=== PATIENT | male | born 1955 | race Caucasian/White ===

== ENCOUNTER 2016-11-06 21:51 | Emergency (ER) | payer OTHER ==
[2016-11-06] MEDS ORDERED: LISI10TA4 (22:10)
[2016-11-06] MEDS ORDERED: DOXY100T (22:10)
[2016-11-06 22:57] LABS: EOS # 0.1 K/mm3 (0.0-0.50); EOS % 2.4 % (0.0-3.0); LARGE UNSTAINED CELL # 0.1 K/mm3 (0.0-0.4); LARGE UNSTAINED CELL % 3.7 % (0.0-4.0); LYMPH # 1.6 K/mm3 (1.5-4.5); LYMPH % 42.3 % (24.0-44.0); MEAN CORPUSCULAR HEMOGLOBIN 33.2 pg (27.0-33.0); MEAN CORPUSCULAR HGB CONC 33.6 g/dl (32.0-36.5); MONO # 0.3 K/mm3 (0.0-0.8); MONO % 9.8 % (0.0-5.0); NEUTROPHILS # 1.4 K/mm3 (1.8-7.7); NEUTROPHILS % 40.8 % (36.0-66.0); PLATELET COUNT, AUTOMATED 122 k/mm3 (150-450); RED CELL DISTRIBUTION WIDTH 12.8 % (11.5-14.5); WHITE BLOOD COUNT 3.5 K/mm3 (4.0-10.0)
[2016-11-06 23:09] LABS: ANION GAP 11 MEQ/L (8-16); BLOOD UREA NITROGEN 3 MG/DL (7-18); CALCIUM LEVEL 7.9 MG/DL (8.8-10.2); CARBON DIOXIDE LEVEL 25 MEQ/L (21-32); CHLORIDE LEVEL 94 MEQ/L (98-107); CREATININE FOR GFR 0.59 MG/DL (0.70-1.30); GLOMERULAR FILTRATION RATE > 60.0 (>49); GLUCOSE, FASTING 106 MG/DL (80-110); POTASSIUM SERUM 3.9 MEQ/L (3.5-5.1); SODIUM LEVEL 130 MEQ/L (136-145)
--- NOTE | 2016-11-06 23:20 | REPUSA ---
CT of the head Clinical history: trauma. Technique: Multiple axial CT images were obtained through the head without administration of contrast . Findings: The ventricles and sulci are symmetric bilaterally. There is no evidence of acute hemorrhag e or infarct. There is no midline shift, mass effect, or extra-axial fluid collection. The osseous st ructures are unremarkable. The visualized paranasal sinuses and mastoid air cells are clear. Impression: Negative study.
--- NOTE | 2016-11-06 23:20 | REPUSA ---
CT of the cervical spine Clinical history: Pain, trauma. Technique: Multiple axial CT images were obtained through the cervical spine without administration o f contrast. Coronal and sagittal 3-D reconstructed images were also obtained. Comparison: None. Findings: The cervical vertebral bodies are in satisfactory positioning and alignment. No fractures or dislocat ions are demonstrated. The odontoid process is intact. Intervertebral disc space is moderately narrow ed at C6/C7. There is no evidence of facet subluxation. The neural foramen appear grossly patent. The cervical cranial junction is intact. The cervical spinal canal demonstrates normal caliber and conto ur without evidence of spinal stenosis. The surrounding soft tissues are within normal limits. Impression: No acute fracture or traumatic injury. Moderate degenerative disc disease at C6/C7.
[2016-11-06] MEDS ORDERED: NS 1,000 ML IV SCH (23:23)
--- NOTE | 2016-11-07 01:10 | REP ---
Clinical: Altered mental status. Comparison: None. Findings: Mediastinum and cardiac silhouette are within normal limits. Lung kraft demonstrate chronic interstitial changes. No acute consolidation, effusion, or pneumothorax. Old healed right rib fractures identified. Acute distal left clavicle fracture noted. Impression: 1. Acute left clavicle fracture. 2. Chronic-appearing pleuroparenchymal changes Signed by Qamar Lorenzo MD 11/07/2016 01:01 A
--- NOTE | 2016-11-07 01:15 | REP ---
Clinical: Trauma. Shoulder pain. Technique: Portable AP view of the left shoulder. Findings: Acute fracture of the distal clavicle noted with overlying soft tissue swelling. Glenohumeral joint appears intact. Impression: Acute fracture of the distal clavicle. Signed by Qamar Lorenzo MD 11/07/2016 01:06 A
[2016-11-07 12:33] VITALS: BP 136/90
== END 2016-11-07 12:36 | disposition home or self-care (01) ==
LOC: EDBD 21:51 → M ED 22:45
DX: S42.032A Displaced fracture of lateral end of left clavicle, initial encounter for closed fracture (principal); S09.90XA Unspecified injury of head, initial encounter; W18.09XA Striking against other object with subsequent fall, initial encounter; Y92.89 Other specified places as the place of occurrence of the external cause; Y93.89 Activity, other specified; Y99.8 Other external cause status; F10.129 Alcohol abuse with intoxication, unspecified; I10 Essential (primary) hypertension; M51.37 Other intervertebral disc degeneration, lumbosacral region; M51.36 Other intervertebral disc degeneration, lumbar region
CPT/HCPCS: 36415; 70450; 71020; 72125; 73020; 80048; 85025; 93041; 94760; 96360; 96361; 99285; G0480

== ENCOUNTER 2016-12-18 22:17 | Emergency (ER) | payer OTHER ==
[~2016-12-18 22:17] MED LIST: DOXY100T; LISI10TA4
[2016-12-18] MEDS ORDERED: NS 1,000 ML IV ONE (23:00)
[2016-12-18 23:18] LABS: MEAN CORPUSCULAR HEMOGLOBIN 34.9 pg (27.0-33.0); MEAN CORPUSCULAR HGB CONC 34.7 g/dl (32.0-36.5); MEAN CORPUSCULAR VOLUME 100.7 fl (80.0-96.0); RED CELL DISTRIBUTION WIDTH 12.4 % (11.5-14.5); WHITE BLOOD COUNT 3.4 K/mm3 (4.0-10.0)
[2016-12-18 23:48] LABS: ALBUMIN 3.7 GM/DL (3.2-5.2); ALKALINE PHOSPHATASE 185 U/L (45-117); ALT/SGPT 41 U/L (12-78); ANION GAP 10 MEQ/L (8-16); AST/SGOT 80 U/L (15-37); BILIRUBIN,DIRECT < 0.1 MG/DL (0.0-0.2); BILIRUBIN,TOTAL 0.4 MG/DL (0.2-1.0); BLOOD UREA NITROGEN 4 MG/DL (7-18); CALCIUM LEVEL 8.1 MG/DL (8.8-10.2); CARBON DIOXIDE LEVEL 24 MEQ/L (21-32); CHLORIDE LEVEL 98 MEQ/L (98-107); CREATININE FOR GFR 0.59 MG/DL (0.70-1.30); GLOMERULAR FILTRATION RATE > 60.0 (>49); GLUCOSE, FASTING 101 MG/DL (80-110); POTASSIUM SERUM 3.9 MEQ/L (3.5-5.1); SODIUM LEVEL 132 MEQ/L (136-145); TOTAL PROTEIN 7.8 GM/DL (6.4-8.2)
[2016-12-19 00:34] LABS: METHADONE URINE NEGATIVE (NEGATIVE)
[2016-12-19] MEDS ORDERED: MORPHINE 4 MG/ML 1ML SYRINGE IV ONE (06:15)
[2016-12-19 11:15] VITALS: BP 132/77
[2016-12-19] MEDS ORDERED: DOXYCYCLINE HYCLATE 100 MG TAB PO ONE (11:15)
[2016-12-19] MEDS ORDERED: LISINOPRIL 10 MG TAB PO ONE (11:15)
[2016-12-19 17:02] VITALS: BP 142/80
== END 2016-12-19 17:15 | disposition home or self-care (01) ==
LOC: M ED 22:17
DX: F10.120 Alcohol abuse with intoxication, uncomplicated (principal); F32.9 Major depressive disorder, single episode, unspecified; I10 Essential (primary) hypertension; J45.909 Unspecified asthma, uncomplicated; J44.9 Chronic obstructive pulmonary disease, unspecified; M06.9 Rheumatoid arthritis, unspecified; Z79.899 Other long term (current) drug therapy

== ENCOUNTER → 2017-04-09 | Outpatient (REF) | payer OTHER ==
[2017-04-09 15:16] LABS: BASO # 0.1 10^3/uL (0.0-0.2); BASO % 1.1 % (0.0-1.0); EOS # 0.1 10^3/uL (0.0-0.50); EOS % 1.9 % (0.0-3.0); IMMATURE GRANULOCYTE % 0.2 % (0-0); LYMPH # 1.3 10^3/uL (1.5-4.5); LYMPH % 27.5 % (24.0-44.0); MEAN CORPUSCULAR HGB CONC 34.8 g/dl (32.0-36.5); MEAN CORPUSCULAR VOLUME 94.9 fl (80.0-96.0); MONO # 0.5 10^3/uL (0.0-0.8); MONO % 10.7 % (0.0-5.0); NEUTROPHILS # 2.8 10^3/uL (1.8-7.7); NEUTROPHILS % 58.6 % (36.0-66.0); PLATELET COUNT, AUTOMATED 238 10^3/uL (150-450); RED CELL DISTRIBUTION WIDTH 12.7 % (11.5-14.5); WHITE BLOOD COUNT 4.7 10^3/uL (4.0-10.0)
[2017-04-09 15:21] LABS: ADD MORPHOLOGY? NO
[2017-04-09 15:42] LABS: FOLATE 7.1 NG/ML (>5.4); VITAMIN B12 LEVEL 401 PG/ML (247-911)
[2017-04-09 16:24] LABS: ALBUMIN 3.5 GM/DL (3.2-5.2); ALBUMIN/GLOBULIN RATIO 0.97 (1.00-1.93); ALKALINE PHOSPHATASE 133 U/L (45-117); ALT/SGPT 27 U/L (12-78); ANION GAP 8 MEQ/L (8-16); AST/SGOT 45 U/L (15-37); BILIRUBIN,TOTAL 0.6 MG/DL (0.2-1.0); BLOOD UREA NITROGEN 6 MG/DL (7-18); CALCIUM LEVEL 9.1 MG/DL (8.8-10.2); CARBON DIOXIDE LEVEL 26 MEQ/L (21-32); CHLORIDE LEVEL 98 MEQ/L (98-107); CREATININE FOR GFR 0.67 MG/DL (0.70-1.30); GLOMERULAR FILTRATION RATE > 60.0 (>49); GLUCOSE, FASTING 104 MG/DL (80-110); POTASSIUM SERUM 4.5 MEQ/L (3.5-5.1); SODIUM LEVEL 132 MEQ/L (136-145); TOTAL PROTEIN 7.1 GM/DL (6.4-8.2)
== END ==
LOC: M LAB REF 11:50
PROVIDERS: ATTEND Nurse Practitioner Adult Health
DX: D64.9 Anemia, unspecified (principal)

== ENCOUNTER 2019-06-10 19:44 | Inpatient (IN) | payer OTHER ==
[~2019-06-10] VITALS: Ht 185.4 cm; Wt 61.0 kg
[2019-06-10 20:50] LABS: BASO # 0.1 10^3/uL (0.0-0.2); BASO % 1.4 % (0.0-1.0); EOS # 0.2 10^3/uL (0.0-0.5); EOS % 4.7 % (0.0-3.0); HEMOGLOBIN 10.5 g/dl (13.5-17.5); LYMPH # 1.1 10^3/uL (1.5-5.0); LYMPH % 29.3 % (24.0-44.0); MEAN CORPUSCULAR HEMOGLOBIN 33.4 pg (27.0-33.0); MEAN CORPUSCULAR HGB CONC 36.2 g/dl (32.0-36.5); MEAN CORPUSCULAR VOLUME 92.4 fl (80.0-96.0); MONO # 0.4 10^3/uL (0.0-0.8); MONO % 11.3 % (0.0-5.0); NEUTROPHILS # 1.9 10^3/uL (1.5-8.5); NEUTROPHILS % 52.7 % (36.0-66.0); PLATELET COUNT, AUTOMATED 197 10^3/uL (150-450); RED BLOOD COUNT 3.14 10^6/uL (4.30-6.10); WHITE BLOOD COUNT 3.6 10^3/uL (4.0-10.0)
--- NOTE | 2019-06-10 21:08 | REPVR ---
PROCEDURE INFORMATION: Exam: CT Head Without Contrast Exam date and time: 06/10/2019 8:53 PM Age: 64 years old Clinical history: Syncope and collapse TECHNIQUE: Imaging protocol: Computed tomography of the head without contrast. Radiation optimization: All CT scans at this facility use at least one of these dose optimization techniques: automated exposure control; mA and/or kV adjustment per patient size (includes targeted exams where dose is matched to clinical indication); or iterative reconstruction. COMPARISON: CT Head without contrast 11/06/2016 11:01 PM FINDINGS: Brain: Mild generalized cerebral volume loss and mild patchy white matter hypoattenuation, commonly secondary to chronic small vessel ischemic change. Moderate intracranial atherosclerosis. No acute intracranial hemorrhage or evidence of acute ischemic infarction within constraints of axial only imaging technique. Ventricles: Normal. No ventriculomegaly. Bones/joints: Unremarkable. No acute fracture. Sinuses: Visualized sinuses are unremarkable. No fluid levels. Mastoid air cells: Visualized mastoid air cells are well aerated. Soft tissues: Unremarkable. IMPRESSION: No acute intracranial abnormality. Electronically signed by: Irving Barron On 06/10/2019 21:08:12 PM
--- NOTE | 2019-06-10 21:13 | REPVR ---
PROCEDURE INFORMATION: Exam: CT Cervical Spine Without Contrast Exam date and time: 06/10/2019 8:53 PM Age: 64 years old Clinical history: Other: Syncope TECHNIQUE: Imaging protocol: Computed tomography images of the cervical spine without contrast. Radiation optimization: All CT scans at this facility use at least one of these dose optimization techniques: automated exposure control; mA and/or kV adjustment per patient size (includes targeted exams where dose is matched to clinical indication); or iterative reconstruction. COMPARISON: CT Spine,cervical w/o contrast 11/06/2016 11:01 PM FINDINGS: Vertebrae: No acute fracture. Normal alignment. Discs/Spinal canal/Neural foramina: No severe osseous spinal canal stenosis. Multilevel overall moderate degenerative findings again most pronounced at C6-7. Multilevel facet arthrosis. Other bones/joints: Left posterior first rib fracture is noted, which has chronic features although is new from the comparison CT from 2016. Soft tissues: Moderate atherosclerosis. Lungs: Left apical pleural scarring. IMPRESSION: 1. No acute cervical spine fracture or traumatic malalignment. 2. Left posterior first rib fracture is noted, which has chronic features although is new from the comparison CT from 2016. Electronically signed by: Irving Barron On 06/10/2019 21:13:36 PM
[2019-06-10 21:37] LABS: ALBUMIN 2.8 GM/DL (3.2-5.2); ALT/SGPT 15 U/L (12-78); BILIRUBIN,DIRECT 0.3 MG/DL (0.0-0.2); BILIRUBIN,TOTAL 0.7 MG/DL (0.2-1.0); BLOOD UREA NITROGEN 3 MG/DL (7-18); CALCIUM LEVEL 8.3 MG/DL (8.8-10.2); CARBON DIOXIDE LEVEL 22 MEQ/L (21-32); CHLORIDE LEVEL 77 MEQ/L (98-107); CK-MB VALUE MASS 5.3 NG/ML (<3.6); CPK CREATINE PHOSPHOKINASE 137 U/L (39-308); CREATININE FOR GFR 0.54 MG/DL (0.70-1.30); ETHYL ALCOHOL (ETHANOL) 0.196 % (0.000-0.010); GLOMERULAR FILTRATION RATE > 60.0 (>49); GLUCOSE, FASTING 91 MG/DL (70-100); MB/CK RELATIVE INDEX 3.87 (< OR =4); POTASSIUM SERUM 3.8 MEQ/L (3.5-5.1); SODIUM LEVEL 112 MEQ/L (136-145); TOTAL PROTEIN 6.4 GM/DL (6.4-8.2); TROPONIN I < 0.02 NG/ML (< 0.10)
[2019-06-10] MEDS ORDERED: VITA50005 PO (22:14)
[2019-06-10] MEDS ORDERED: OMEP20TA9 PO (22:14)
[2019-06-10] MEDS ORDERED: DOXY100T PO (22:14)
[2019-06-10] MEDS ORDERED: LISI10TA4 PO (22:14)
[2019-06-10] MEDS ORDERED: TAB-TAB PO (22:14)
[2019-06-10] MEDS ORDERED: MULTIVITAMIN -ADULT INJECTION 10 ML, THIAMINE INJection 100 MG, FOLIC ACID 1 MG in NS 1... IV ONE (22:15)
[2019-06-10] MEDS ORDERED: NS 1,000 ML IV ONE (22:15)
[2019-06-10 22:41] LABS: APPEARANCE, URINE CLEAR (CLEAR); BACTERIA, URINE AUTO 1+ (NEGATIVE); BILIRUBIN, URINE AUTO NEGATIVE (NEGATIVE); BLOOD, URINE BLOOD NEGATIVE (NEGATIVE); COLOR, URINE YELLOW (YELLOW); GLUCOSE, URINE (UA) AUTO NEGATIVE (NEGATIVE); KETONE, URINE AUTO TRACE mg/dL (NEGATIVE); LEUKOCYTE ESTERASE, URINE AUTO NEGATIVE (NEGATIVE); NITRITE, URINE AUTO NEGATIVE (NEGATIVE); PROTEIN, URINE AUTO NEGATIVE (NEGATIVE); RBC, URINE AUTO 0 /HPF (0-3); SPECIFIC GRAVITY URINE AUTO 1.005 (1.002-1.035); SQUAMOUS EPITHELIAL CELL UR AU 0 /HPF (0-6); UROBILINOGEN, URINE AUTO 0.2 mg/dL (0.0-2.0); WBC, URINE AUTO 0 /HPF (0-3)
[2019-06-10 22:58] LABS: OSMOLALITY SERUM 274 MOSM/KG (280-301)
[2019-06-10 23:00] LABS: CREATININE,RANDOM URINE 46.2 MG/DL
[2019-06-10 23:10] LABS: VENOUS HCO3 19.3 MEQ/L (23.0-27.0); VENOUS O2 SATURATION 95.7 % (60.0-80.0); VENOUS STANDARD HCO3 21.1 MEQ/L; VENOUS TOTAL CO2 20.1 MEQ/L (24.0-28.0)
--- NOTE | 2019-06-10 23:26 | HPEPDOC ---
[facility] Medical History & Physical Date of Admission Jun 11, 2019 Date of Service: Jun 11, 2019 Other Provider Lesly CORONADO Attending Physician: BUBBA MCCLURE MD History and Physical CHIEF COMPLAINT: Head trauma HISTORY OF PRESENT ILLNESS: This is a 64-year-old male with a pertinent past medical history of alcohol abuse who presented to the ER earlier this afternoon head trauma and he was brought in via EMS. On the ER T-sheet, it was recorded that that the patient was out drinking at the bar early in the afternoon where he had roughly about 15 beers. When he was in the bathroom he felt dizzy and passed out and possibly hit the back of his head of an unknown object. It was reported by bystanders that he was in the bathroom for about 30 minutes possibly. The door had to be broken down to get to him. Patient at the time of the exam was not the best historian was very scattered. He agreed to much of the EMS report. He denies having any other symptoms. He does admit to having some gait imbalance first episode of couple months ago but are not consistent. He contributes all his to alcohol. He admits that he does not eat 3 times a day but does drink heavily which he does not deny. Upon arrival to the ED he was covered in feces, had pain in the back of his head but no other complaints. He denies hair loss, visual changes, chest pain, shortness of breath, cough, nausea, vomiting, diarrhea, abdominal pain, muscle aches. REVIEW OF SYSTEMS: 10 systems reviewed and negative other than HPI PAST MEDICAL HISTORY: 1. Alcohol abuse 2. Hypertension 3. Rosacea 4. Acid reflux PAST SURGICAL HISTORY: 1. Hernia repair HOME MEDICATIONS: Please see below. ALLERGIES: Please see below SOCIAL HISTORY: Tobacco use: Never ETOH: Daily 5-8 beers a day Illicit drug use: Denies CODE STATUS: FULL CODE FAMILY HISTORY: Reviewed and noncontributory PHYSICAL EXAMINATION: VITAL SIGNS: See below GENERAL: Patient foul-smelling laying bed awake alert oriented speaking in complete sentences no acute distress HEENT: External ocular movements intact. Pupils are equal and reactive slightly dry mucous membranes with no JVD CARDIOVASCULAR: S1 S2 regular no additional heart sounds appreciated. RESPIRATORY: Clear to auscultation bilaterally. No audible wheezing OR rales ABDOMINAL: Bowel sounds present abdomen soft and nontender EXTREMITIES: No clubbing cyanosis 1+ pitting edema in the lower extremities bilaterally. Left lower leg wound wraps around to the base. No open sites noted. Erythematous in nature. No increased warmth. Scaly lesions superficially. Slight tenderness to palpation near the ankle and dorsal aspect of the foot but not consistent throughout. Pedal pulses were difficult to palpate bilaterally. Some increased stiffness on the left elbow cannot straighten out completely when compared to right. No asterixis noted bilaterally. NEUROLOGICAL: Spontaneously moves all 4 extremities cranial 2 through 12 grossly intact no gross focal deficits appreciated PSYCHOLOGICAL: Appropriate. Slightly inebriated LABORATORY DATA: See below. MICROBIOLOGY: Please see below. IMAGIN06/10/[address] 1. No acute cervical spine fracture or traumatic malalignment. 2. Left posterior first rib fracture is noted, which has chronic features Cervical spine CT - No acute intracranial abnormality. ASSESSMENT & PLAN: This is a 54-year-old male presenting with hyponatremia and alcohol abuse PROBLEMS: 1. Chronic severe hyponatremia. Unsure of duration of hyponatremia so also was chronic. In the ED sodium was found to be 112. Volume status appears slightly hypovolemic. He does have some slight mild symptomology he is slow to respond to questioning and some left-sided muscle rigidity in the upper extremities. He does endorse gait and balance but not consistent. Recommendations did include i nfusion of 3% saline at 15mls/hrs for 12 hours plus 1 mg IV desmopressin every 6 hours for 12 hours until he reaches a sodium of 125mEq/hr. But at this current time we will give him 250ml of 3% normal saline and nephrology will come see the patient. For now, well monitor with neuro checks every 2 hours and go from there. Ultimately we want to monitor no increase of more than 6-8mEq/L within the first 24 hours if you would like to be conservative. 2. Alcohol abuse. He denies having any history of alcohol seizures. s/p banana bag in ER. [facility] protocol in place. Folic acid and thiamine daily, Lorazepam 1 mg IV every hour when necessary for anxiety and agitation. 3. Hypertension - Patient states that he has a history of hypertension but he is not compliant with his medication and there is documented lisinopril 10 mg at nighttime that needs to be verified. If blood pressures are elevated while admitted can consider restarting. 4. Left lower leg wound possible cellulitis . Not the best hygiene skin appears slightly erythematous with dry likes with no opened wounds visualized. No incr eased warmth but slight tenderness on palpation around the site. Minimal edema bilaterally in the lower extremities. Wound consult has been placed. We will cover him with Bactrim SS 1 tab BID for 5 days reevaluate to see if his clinical response. 5. Rosacea. We will hold his doxycycline that he takes at home at this current time 6. Acid reflux. May restart his home omeprazole once reconciled 7. Head trauma. CT of the head in the ER negative for any acute findings. No contusions noted a hematoma noted. 8.PT consulted DVT PROPHYLAXIS: TEDs DISPOSITION: more than 2 nights Vital Signs Vital Signs Date Time Temp Pulse Resp B/P (MAP) Pulse Ox O2 Delivery O2 Flow Rate FiO2 06/10/19 23:00 75 123/66 (85) 99 Room Air 06/10/19 20:27 97.1 20 Laboratory Data Labs 24H Laboratory Tests 2 06/10/19 20:40: Bedside Glucose (Misc Panel) 79L 06/10/19 20:42: Immature Granulocyte % (Auto) 0.6, Neutrophils (%) (Auto) 52.7, Lymphocytes (%) (Auto) 29.3, Monocytes (%) (Auto) 11.3H, Eosinophils (%) (Auto) 4.7H, Basophils (%) (Auto) 1.4H, Neutrophils # (Auto) 1.9, Lymphocytes # (Auto) 1.1L, Monocytes # (Auto) 0.4, Eosinophils # (Auto) 0.2, Basophils # (Auto) 0.1, Nucleated Red Blood Cells % (auto) 0.0, Anion Gap 13, Glomerular Filtration Rate > 60.0, Calcium Level 8.3L, Total Bilirubin 0.7, Direct Bilirubin 0.3H, Aspartate Amino Transf (AST/SGOT) 30, Alanine Aminotransferase (ALT/SGPT) 15, Alkaline Phosphatase 82, Total Creatine Kinase 137, Creatine Kinase MB 5.3H, Creatine Kinase MB Relative Index 3.87, Troponin I < 0.02, Total Protein 6.4, Albumin 2.8L, Albumin/Globulin Ratio 0.78L, Thyroid Stimulating Hormone (TSH) 1.930, Free Thyroxine 1.20, Ethyl Alcohol Level 0.196H 06/10/19 22:25: Urine Random Osmolality 201L, Osmolality 274L 06/10/19 22:26: Urine Color YELLOW, Urine Appearance CLEAR, Urine pH 6.0, Urine Specific [place] 1.005, Urine Protein NEGATIVE, Urine Glucose (Auto)(UA) NEGATIVE, Urine Ketones (Auto) TRACEH, Urine Blood NEGATIVE, Urine Nitrite NEGATIVE, Urine Bilirubin NEGATIVE, Urine Urobilinogen 0.2, Urine Leukocyte Esterase (Auto) NEGATIVE, U rine WBC (Auto) 0, Urine RBC (Auto) 0, Urine Hyaline Casts (Auto) 0, Urine Bacteria (Auto) 1+H, Urine Squamous Epithelial Cells 0, Urine Sperm (Auto) , Urine Random Creatinine 46.2, Urine Random Sodium 17 06/10/19 23:04: Blood Gas Puncture Site UNKNOWN, Blood Gas Bicarbonate Standard 21.1, Venous Blood pH 7.440H, Venous Blood Partial Pressure CO2 29.0L, Venous Blood Partial Pressure O2 85.0H, Venous Blood Total Carbon Dioxide 20.1L, Venous Blood HCO3 19.3L, Venous Blood Oxygen Saturation 95.7H, Venous Blood Base Excess -4.0L CBC/BMP Laboratory Tests 06/10/19 20:42 Home Medications Scheduled Doxycycline Hyclate (Doxycycline Hyclate) 100 Mg Tablet, 100 MG PO QHS TAKES FOR ROSACEA Ergocalciferol (Vitamin D2) (Vitamin D2) 50,000 Unit Capsule, 50,000 UNIT PO 1XWK Lisinopril (Lisinopril) 10 Mg Tablet, 10 MG PO QHS Multivitamin (Tab-A-Zaire) 1 Each Tablet, 1 TAB PO QHS Omeprazole (Omeprazole) 20 Mg Tablet.dr, 20 MG PO QHS Allergies Coded Allergies: No Known Allergies (Unverified , 12/18/16) A-FIB/CHADSVASC A-FIB History Current/History of A-Fib/PAF?: No Current PO Anticoag Therapy: No GME ATTESTATION GME ATTESTATION My faculty preceptor for this patient encounter was physically present during the encounter and was fully available. All aspects of the patient interview, examination, medical decision making process, and medical care plan development were reviewed and approved by the faculty preceptor. The faculty preceptor is aware and concurs with the plan as stated in the body of this note and will attest to such by his/her cosignature. ATTENDING NOTE I examined at 1140PM and reviewed & edited the note written by MARITA Amor DO Jun 10, 2019 23:26 BUBBA MCCLURE MD Jun 11, 2019 00:55
[2019-06-11] VITALS (29 sets, daily range): BP systolic 70–170; BP diastolic 40–86
[2019-06-11] MEDS ORDERED: DESMOPRESSIN ACETATE 1 MCG in NS 50 ML IV SCH ×2
[2019-06-11] MEDS ORDERED: SODIUM CHLORIDE 3% 500 ML IV SCH
[2019-06-11 00:13] LABS: BLOOD UREA NITROGEN 3 MG/DL (7-18); CALCIUM LEVEL 7.6 MG/DL (8.8-10.2); CARBON DIOXIDE LEVEL 23 MEQ/L (21-32); CHLORIDE LEVEL 82 MEQ/L (98-107); GLOMERULAR FILTRATION RATE > 60.0 (>49); GLUCOSE, FASTING 84 MG/DL (70-100); POTASSIUM SERUM 3.8 MEQ/L (3.5-5.1); SODIUM LEVEL 115 MEQ/L (136-145)
[2019-06-11] MEDS ORDERED: METAL LOCK LOOP XX ONE (00:13)
[2019-06-11] MEDS: BACTRIM 80MG/400MG TAB PO SCH ×3 (01:29→20:37)
[2019-06-11] MEDS ORDERED: SODIUM CHLORIDE 3% 250 ML IV SCH (01:30)
[2019-06-11 05:45] LABS: BLOOD UREA NITROGEN 3 MG/DL (7-18); CALCIUM LEVEL 7.9 MG/DL (8.8-10.2); CARBON DIOXIDE LEVEL 24 MEQ/L (21-32); CHLORIDE LEVEL 85 MEQ/L (98-107); CREATININE FOR GFR 0.39 MG/DL (0.70-1.30); GLOMERULAR FILTRATION RATE > 60.0 (>49); GLUCOSE, FASTING 78 MG/DL (70-100); POTASSIUM SERUM 3.6 MEQ/L (3.5-5.1); SODIUM LEVEL 118 MEQ/L (136-145)
[2019-06-11 06:08] LABS: BLOOD UREA NITROGEN 2 MG/DL (7-18); C REACTIVE PROTEIN QUANTITATIV 1.64 MG/DL (0.00-0.30); CALCIUM LEVEL 7.5 MG/DL (8.8-10.2); CARBON DIOXIDE LEVEL 25 MEQ/L (21-32); CHLORIDE LEVEL 83 MEQ/L (98-107); CREATININE FOR GFR 0.41 MG/DL (0.70-1.30); FERRITIN 313 NG/ML (26-388); GLOMERULAR FILTRATION RATE > 60.0 (>49); GLUCOSE, FASTING 84 MG/DL (70-100); IRON (FE) 69 UG/DL (65-175); PERCENT SATURATION 39.4 % (19.7-50.0); POTASSIUM SERUM 3.4 MEQ/L (3.5-5.1); SODIUM LEVEL 117 MEQ/L (136-145); TOTAL IRON BINDING CAPACITY 175 UG/DL (250-450)
[2019-06-11 07:11] LABS: OSMOLALITY URINE 149 MOSM/KG (500-800)
[2019-06-11 07:12] LABS: SODIUM,RANDOM URINE 30 MEQ/L
[2019-06-11] MEDS ORDERED: THIAMINE 100 MG TAB PO SCH (09:00)
--- NOTE | 2019-06-11 09:32 | REP ---
Clinical: Left lower extremity pain and swelling . Technique: Huerta scale and color Doppler evaluation using linear high frequency transducer. Findings: Ultrasound examination of the left lower extremity deep venous structures from the common femoral vein to the popliteal vein demonstrates normal compressibility flow and wave patterns in response to respiration and augmentation. There is no evidence for deep venous thrombosis. Impression: No evidence for deep venous thrombosis. Electronically Signed by Qamar Lorenzo MD 06/11/2019 09:23 A
--- NOTE | 2019-06-11 09:35 | REP ---
Clinical: Abnormal liver function tests. Possible cirrhosis. Technique: Real time cardoza scale ultrasound examination using curved array transducer with color evaluation. Findings: The liver demonstrates coarsened echotexture without nodular contour or obvious focal lesion and without evidence for hepatomegaly. The pancreas is incompletely evaluated due to interposed bowel gas but visualized portions appear normal. The gallbladder demonstrates few folds and multiple small gallstones without wall thickening or pericholecystic fluid. No biliary ductal dilatation is appreciated and the common bile duct measures 3.7 mm diameter. The right kidney is normal in reniform shape without hydronephrosis and measures 10.5 x 6.1 x 5.3 cm. 1.7 cm simple mid pole cyst noted. No ascites. Incidental right pleural effusion. Impression: 1. Coarsened hepatic echotexture suggests hepatocellular disease. No further hepatic abnormalities noted. 2. Cholelithiasis. 3. 1.7 cm simple right renal cyst. 4. Right pleural effusion. Electronically Signed by Qamar Lorenzo MD 06/11/2019 09:26 A
[2019-06-11] MEDS: FOLIC ACID 1 MG TAB PO SCH (10:12)
[2019-06-11 10:47] LABS: BLOOD UREA NITROGEN 2 MG/DL (7-18); CALCIUM LEVEL 8.3 MG/DL (8.8-10.2); CARBON DIOXIDE LEVEL 23 MEQ/L (21-32); CHLORIDE LEVEL 86 MEQ/L (98-107); CREATININE FOR GFR 0.45 MG/DL (0.70-1.30); GLOMERULAR FILTRATION RATE > 60.0 (>49); GLUCOSE, FASTING 55 MG/DL (70-100); POTASSIUM SERUM 3.8 MEQ/L (3.5-5.1); SODIUM LEVEL 122 MEQ/L (136-145)
[2019-06-11] MEDS: D5W 1,000 ML IV SCH ×2 (11:15→16:09)
--- NOTE | 2019-06-11 14:38 | IPNPDOC ---
Text Note Date of Service The patient was seen on 06/11/19. NOTE SUBJECTIVE: -feels cold, no tremor as of this morning -Otherwise reports feeling "OK" PHYSICAL EXAMINATION: VITAL SIGNS: hemodynamically stable, afebrile GENERAL:Sleeping peacefully, awake on voice, speaking in complete sentences, in no acute distress HEENT: NCAT, bitemporal wasting, PERRLA, EOMI, poor dentition, MMM CARDIOVASCULAR: RRR, no mrg RESPIRATORY: CTAB, with no wheezing, crackles or rhonchi ABDOMINAL: Normoactive bowel sounds, soft, NTND EXTREMITIES: No clubbing cyanosis, 1+ pitting edema in bilateral LE. Left lower leg with erythematous scaly skin with skin sloughing off and edematous with cellulitic boundary outlined by marker, slightly beginning to recede. No open sites noted. No increased warmth. Non tender on palpation. NEUROLOGICAL: Spontaneously moves all 4 extremities cranial 2 through 12 grossly intact, no gross focal deficits, no asterixis noted bilaterally. PSYCHOLOGICAL: AOx3 LABORATORY DATA: Reviewed. Na remains at 122 this morning. K3.8, Cr 0.45, Hgb 10.5, Hct 29, WBC 3.6 MICROBIOLOGY: Please see below. IMAGIN06/10/[address] 1. No acute cervical spine fracture or traumatic malalignment. 2. Left posterior first rib fracture is noted, which has chronic features Cervical spine CT - No acute intracranial abnormality. ASSESSMENT & PLAN: 54-year-old man with a history of alcohol use disorder who presented intoxicated and found to have severe hyponatremia with elevated alcohol levels. PROBLEMS: 1. Chronic severe hyponatremia. Unsure of duration of hyponatremia thought it appears chronic and patient's exam is unremarkable. Hypovolemic at presentation. -Serum osmoles only boderline low despite severe hypoNa, likely because of alcohol -Last night the team contemplated DDAVP and hypertonic saline but after the rapid correction after NS in the ED, decided against it, so it was held and per the recommendation of nephrology, decided to allow him to drink to thirst and self correct Ultimately we want to monitor no increase of more than 6-8mEq/L within the first 24 hours if you would like to be conservative. 2. Alcohol use disorder: He denies having any history of alcohol seizures. s/p banana bag in ER. -CIWA protocol in place. -Folic acid and thiamine daily - Lorazepam 1 mg IV every hour when necessary for anxiety and agitation. 3. Hypertension - Patient states that he has a history of hypertension but he is not compliant with his medication and there is documented lisinopril 10 mg at nighttime that needs to be verified. -If blood pressures are elevated while admitted can consider restarting lisinopril 4. Left lower leg wound possible cellulitis . Poor hygiene No increased warmth but was slightly tenderness on palpation around the site on admission with some edema bilaterally in the lower extremities. -Pending wound consult. -Bactrim SS 1 tab BID for 5 days 5. Rosacea. Continue to hold doxycycline that he takes at home at this time 6. GERD. Home omeprazole 7. Head trauma. CT of the head in the ER negative for any acute findings. No contusions noted a hematoma noted. 8.PT consulted DVT PROPHYLAXIS: TEDs VS,Fishbone, I+O VS, Fishbone, I+O Laboratory Tests 06/10/19 20:42 06/10/19 22:25 06/11/19 02:33 06/11/19 05:01 06/11/19 10:05 Vital Signs Date Time Temp Pulse Resp B/P (MAP) Pulse Ox O2 Delivery O2 Flow Rate FiO2 06/11/19 07:46 98.4 87 20 170/78 (108) 99 Room Air I&O- Last 24 Hours up to 6 AM 06/11/19 06:00 Intake Total 250 ml Output Total 1000 ml Balance -750 ml KETURAH NAVARRETE MD Jun 11, 2019 14:38
[2019-06-11] MEDS: LORazepam 2 MG/ML VIAL (J2060) IV PRN ×4 (16:24→23:00)
[2019-06-11] MEDS ORDERED: NS 1,000 ML IV SCH ×3 (17:00→21:15)
[2019-06-11] MEDS ORDERED: D5W/0.9% SODIUM CHLORIDE 1,000 ML IV SCH (17:15)
[2019-06-11] MEDS ORDERED: dexmedeTOMidine 200 MCG in IV 1 EA IV SCH (17:15)
[2019-06-11 17:34] LABS: HEMATOCRIT 29.2 % (42.0-52.0); HEMOGLOBIN 10.6 g/dl (13.5-17.5); MEAN CORPUSCULAR HEMOGLOBIN 33.7 pg (27.0-33.0); MEAN CORPUSCULAR HGB CONC 36.3 g/dl (32.0-36.5); MEAN CORPUSCULAR VOLUME 92.7 fl (80.0-96.0); PLATELET COUNT, AUTOMATED 153 10^3/uL (150-450); RED BLOOD COUNT 3.15 10^6/uL (4.30-6.10); WHITE BLOOD COUNT 2.9 10^3/uL (4.0-10.0)
[2019-06-11] MEDS ORDERED: ACETAMINOPHEN 650 MG SUPP PR PRN (17:45)
[2019-06-11] MEDS ORDERED: dexmedeTOMidine 200 MCG in IV 1 EA IV ONE (17:45)
[2019-06-11 17:50] LABS: SODIUM LEVEL 119 MEQ/L (136-145)
--- NOTE | 2019-06-11 17:59 | ECGEPIP ---
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
[2019-06-11] MEDS ORDERED: dexmedeTOMidine 60 MCG in IV 1 EA IV ONE (18:00)
[2019-06-11 18:21] LABS: BLOOD UREA NITROGEN 3 MG/DL (7-18); CALCIUM LEVEL 8.7 MG/DL (8.8-10.2); CARBON DIOXIDE LEVEL 22 MEQ/L (21-32); CHLORIDE LEVEL 82 MEQ/L (98-107); CREATININE FOR GFR 0.78 MG/DL (0.70-1.30); GLOMERULAR FILTRATION RATE > 60.0 (>49); GLUCOSE, FASTING 104 MG/DL (70-100); POTASSIUM SERUM 3.6 MEQ/L (3.5-5.1)
[2019-06-11] MEDS ORDERED: D5/0.45%NACL 1000ML IV ONE (18:30)
[2019-06-11] MEDS ORDERED: D5W/0.45% SODIUM CHLORIDE 1,000 ML IV SCH (19:30)
[2019-06-11 19:55] LABS: MAGNESIUM LEVEL 1.2 MG/DL (1.8-2.4)
[2019-06-11 20:57] LABS: BLOOD UREA NITROGEN 3 MG/DL (7-18); CALCIUM LEVEL 8.3 MG/DL (8.8-10.2); CARBON DIOXIDE LEVEL 27 MEQ/L (21-32); CHLORIDE LEVEL 83 MEQ/L (98-107); CREATININE FOR GFR 0.78 MG/DL (0.70-1.30); GLOMERULAR FILTRATION RATE > 60.0 (>49); GLUCOSE, FASTING 117 MG/DL (70-100); POTASSIUM SERUM 3.4 MEQ/L (3.5-5.1); SODIUM LEVEL 118 MEQ/L (136-145)
[2019-06-11] MEDS ORDERED: MAGNESIUM OXIDE 400 MG TAB (MAG-OX) PO SCH (21:00)
[2019-06-11] MEDS: KCL 10MEQ/100ML SWI (KRUN) 10 MEQ in IV 1 EA IV SCH ×2 (21:16→23:00)
[2019-06-11 21:39] LABS: OSMOLALITY URINE 343 MOSM/KG (500-800)
[2019-06-11 21:50] LABS: SODIUM,RANDOM URINE 99 MEQ/L
[2019-06-11 22:16] LABS: FOLATE > 24.0 NG/ML (>5.4); VITAMIN B12 LEVEL 577 PG/ML (247-911)
[2019-06-12] VITALS (41 sets, daily range): BP systolic 98–198; BP diastolic 57–105
[2019-06-12] MEDS: LORazepam 2 MG/ML VIAL (J2060) IV PRN ×6 (01:43→22:39)
[2019-06-12 02:41] LABS: BLOOD UREA NITROGEN 3 MG/DL (7-18); CARBON DIOXIDE LEVEL 26 MEQ/L (21-32); CHLORIDE LEVEL 83 MEQ/L (98-107); CREATININE FOR GFR 0.58 MG/DL (0.70-1.30); GLOMERULAR FILTRATION RATE > 60.0 (>49); GLUCOSE, FASTING 110 MG/DL (70-100); SODIUM LEVEL 118 MEQ/L (136-145)
[2019-06-12] MEDS ORDERED: SODIUM CHLORIDE 3% 500 ML IV SCH (03:30)
[2019-06-12 05:55] LABS: HEMATOCRIT 30.2 % (42.0-52.0); MEAN CORPUSCULAR HEMOGLOBIN 33.4 pg (27.0-33.0); MEAN CORPUSCULAR HGB CONC 36.4 g/dl (32.0-36.5); MEAN CORPUSCULAR VOLUME 91.8 fl (80.0-96.0); PLATELET COUNT, AUTOMATED 126 10^3/uL (150-450); RED BLOOD COUNT 3.29 10^6/uL (4.30-6.10)
[2019-06-12 05:57] LABS: WHITE BLOOD COUNT 1.9 10^3/uL (4.0-10.0)
[2019-06-12 06:11] LABS: MAGNESIUM LEVEL 1.6 MG/DL (1.8-2.4)
[2019-06-12] MEDS ORDERED: NS 1,000 ML IV SCH (06:30)
--- NOTE | 2019-06-12 07:43 | CR ---
DATE OF CONSULTATION: 06/11/2019 REQUESTING PHYSICIAN: Dr. Sunshine Bundy CONSULTING PHYSICIAN: Dr. Karma Ward REASON FOR CONSULTATION: Hyponatremia. HISTORY OF PRESENT ILLNESS: Kurt Avila is previously unknown to me. He is a 64-year-old male with a past medical history of hypertension, alcoholism and other comorbid conditions mentioned below. The patient tells me that he drinks at least six 12 ounce cans of beer daily if not more. He was brought to the emergency room yesterday night after a fall in a bar where he had had intake of roughly 15 beers. On admission, his serum sodium was found to be 112 with an ethyl alcohol level of 0.196. The patient is seen and examined this morning at the bedside. He denies any complaints at the time of my visit and is oriented times three, conversational and interactive. PAST MEDICAL HISTORY: Alcoholism, hypertension, rosacea, and acid reflux. ALLERGIES: NO KNOWN DRUG ALLERGIES. PAST SURGICAL HISTORY: Hernia repair. HOME MEDICATIONS: - lisinopril - doxycycline - vitamin D2 - multivitamin - omeprazole SOCIAL HISTORY: Denies tobacco, drinks at least 6 cans of beer daily 12 ounce cans, denies illicit drugs. FAMILY HISTORY: Denies family history of renal failure. REVIEW OF SYSTEMS: Constitutional: The patient denies fevers. He reports chills. Eyes: He denies visual changes or tearing. ENT: He denies epistaxis or rhinorrhea. Cardiac: He denies chest pain or palpitations. Respiratory: He denies shortness of breath or cough. Gastrointestinal: He reports no nausea, vomiting or diarrhea. Genitourinary: He has a catheter. He denies dysuria or hematuria. Musculoskeletal: He denies leg swelling. He has a left leg wound. Endocrine: He denies a history of thyroid problems or diabetes. Hematologic: He denies easy bruising or bleeding. Psychiatric: He reports alcoholism. He denies depression. He reports rosacea. He denies pruritus. Neurologic: He reports recent loss of consciousness and fall after heavy drinking. PHYSICAL EXAMINATION: Vital Signs: Temperature 98.4, pulse 87, respiratory rate 20, blood pressure 170/78, saturating 99% on room air. General: The patient is seen at the bedside awake, alert, oriented times three, and in no apparent distress. Frail male with low body mass index (BMI) and decreased muscle mass. Extraocular muscles are intact. Tongue is moist and jugular veins are not distended. Cardiac: S1 and S2, regular rate and rhythm. No edema in the right lower extremity, there is edema in the left lower extremity where he has cellulitis. Palpable radial pulse. Respiratory: Clear to auscultation bilaterally. No crackle, rale or wheeze. Abdomen is soft and nontender. There are bowel sounds. Genitourinary: Shows condom catheter with urine. Extremities show no edema in the right lower extremity. The left lower extremity has 1+ edema and there is a foot wound with a dressing/wrap. Neurologic: He is conversational and provides history, oriented times three. Gait was not examined. Focal deficit. LABORATORY DATA: White count 2.9, hemoglobin 10.6, platelet 153. Sodium 112 on arrival and up to 122 this morning, potassium 3.6, bicarbonate 22, BUN 3, creatinine 0.7, glucose 104. Serum osmolality was 274 when he initially arrived with an ethyl alcohol level of 0.196. Subsequent urine osmolality today is 253. TSH and T4 are acceptable and a.m. cortisol is pending. Blood cultures are pending. IMAGING STUDIES: Vascular ultrasound shows no deep vein thrombosis (DVT) in the left lower extremity. INPATIENT MEDICATIONS: He received a liter of normal saline in the emergency room. He has since been discontinued of IV fluids and received a banana bag times one, folic acid 1 mg by mouth daily, Ativan p.r.n., thiamine 100 mg by mouth daily, Bactrim one by mouth twice daily. PROBLEMS: 1. Hypo-osmolar hyponatremia in this patient with alcoholism. Serum sodium was 112 on arrival at 9:00 p.m. He did have positive ethyl alcohol screen at that time, so his serum osmolality was not as low as would be expected when accounting for hyponatremia alone. Within 12 hours, he corrected from 112 to 122 after getting 1 liter of normal saline in the emergency room. He has an appropriately low urine osmolality. I started him on D5W because of the rapid correction in his sodium by 10 points in about 12 hours. I would aim to bring him up to around 120 by this evening, which will be an 8 mEq increase in a 24-hour period, which I feel is appropriate. 2. Alcoholism and high risk for alcohol withdrawal. The patient reports he drinks at least 72 ounces of beer daily, if not more than that. He had a positive ethyl alcohol screen on admission and now is high risk for alcohol withdrawal. This will be managed by the primary team. 3. Hypokalemia. He is ordered for IV supplementation. 4. Hypertension. The patient takes lisinopril at home. Antihypertensives are presently held and blood pressure remains adequately controlled. 5. Left foot wound. He is started on oral antibiotics per the primary team and cultures are pending. 6. Disposition. Hypo-osmolar hyponatremia severe, serum sodium 112, secondary to alcoholism and poor dietary solute intake, corrected by 10 points in a 12-hour period after receiving normal saline in the emergency room, now on low-dose D5W. He will have sodium level checked q. 3-hours. Nursing staff is instructed to call me with each sodium level. IV fluids will be adjusted accordingly. The goal is to bring him up to sodium of about 120 within 24 hours of admission. Thank you for involving me in the care of Mr. Avila. I will be happy to follow him along with you.
[2019-06-12] MEDS ORDERED: MAG SULF 1GM/100ML (MAG RUN) 1 GM in IV 1 EA IV ONE (08:30)
[2019-06-12] MEDS ORDERED: VANCOMYCIN HCL 1,000 MG, VIAL MATE ADAPTER 1 EACH in D5W 250 ML IV SCH (08:30)
[2019-06-12 08:36] LABS: BLOOD UREA NITROGEN 3 MG/DL (7-18); CALCIUM LEVEL 8.2 MG/DL (8.8-10.2); CARBON DIOXIDE LEVEL 26 MEQ/L (21-32); CHLORIDE LEVEL 88 MEQ/L (98-107); CREATININE FOR GFR 0.51 MG/DL (0.70-1.30); GLOMERULAR FILTRATION RATE > 60.0 (>49); GLUCOSE, FASTING 98 MG/DL (70-100); POTASSIUM SERUM 3.8 MEQ/L (3.5-5.1); SODIUM LEVEL 122 MEQ/L (136-145)
[2019-06-12] MEDS ORDERED: THIAMINE HCL 200 MG/2 ML VIAL (J3411) IV SCH (09:00)
[2019-06-12] MEDS: FOLIC ACID 1 MG TAB PO SCH (09:01)
[2019-06-12 10:19] LABS: CORTISOL AM 20.7 UG/DL (4.3-22.4)
[2019-06-12] MEDS: SODIUM CHLORIDE 1 GM TAB PO SCH ×3 (10:39→20:29)
[2019-06-12] MEDS ORDERED: THIAMINE INJection 500 MG in NS 100 ML IV SCH (11:00)
[2019-06-12] MEDS ORDERED: VANCOMYCIN HCL 500 MG in D5W MINI-BAG PLUS 100 ML IV ONE (11:00)
--- NOTE | 2019-06-12 11:01 | IPNPDOC ---
Text Note Date of Service The patient was seen on 06/12/19. NOTE INTERIM EVENTS: Alcohol withdrawal: AMS with high CIWAs --> transferred to ICU --> started on precedex gtt c/b hypotension requiring some fluids--> so was placed back on ativan New mild hypoxemia --> on nasal canula --> back on room air this morning Hyponatremia --> Dr. Parada onboard, was started on NS with Q3H sodium checks, currently 122 Had a fever yesterday evening -> wolfe cultured with BCx, UA/UCx, no antibiotics Subjective: -Sleeping, delirious PHYSICAL EXAMINATION: VITAL SIGNS: hemodynamically stable, afebrile GENERAL:Sleeping peacefully, awake on voice, delirious, AOx2 now to self and place, in no acute distress HEENT: NCAT, bitemporal wasting, PERRLA, EOMI, poor dentition, MMM CARDIOVASCULAR: RRR, no mrg RESPIRATORY: CTAB, with no wheezing, crackles or rhonchi ABDOMINAL: Normoactive bowel sounds, soft, NTND EXTREMITIES: No clubbing cyanosis, 1+ pitting edema in bilateral LE. Left lower leg with erythematous scaly skin with skin sloughing off and edematous with cellulitic boundary outlined by marker without much change from yesterday. No increased warmth. Non tender on palpation. NEUROLOGICAL: Spontaneously moves all 4 extremities cranial 2 through 12 grossly intact, AOx0, no tremors at this time. PSYCHOLOGICAL: AOx0 LABORATORY DATA: Reviewed. Na now at 122 this morning. K4, Cr 0.58, Hgb 11, Hct 30.2, WBC 1.9, BCx negative to date, UA was bland. MICROBIOLOGY: Please see below. BCx negative to date IMAGIN06/10/[address] 1. No acute cervical spine fracture or traumatic malalignment. 2. Left posterior first rib fracture is noted, which has chronic features Cervical spine CT - No acute intracranial abnormality. ASSESSMENT & PLAN: 54-year-old man with a history of alcohol use disorder who presented intoxicated and found to have severe hyponatremia with elevated alcohol levels. PROBLEMS: 1. Chronic severe hyponatremia. Unsure of duration of hyponatremia thought it appears chronic and patient's exam was unremarkable with Na 112 on admission. Hypovolemic at presentation. -Serum osmoles only boderline low despite severe hypoNa, likely because of alcohol, then dropped as as alcohol cleared within 24h -Admission team contemplated DDAVP and hypertonic saline but after the rapid correction after NS in the ED, decided against it, so it was held and nephrology was consulted with Dr. Parada monitoring his Na Q3H and dictating fluids plan. Ultimately we want to monitor no increase of more than 6-8mEq/L within the first 24 hours if you would like to be conservative. 2. Alcohol use disorder: -CIWA protocol in place --> required transition from symptom triggered ativan protocol to precedex drip after persistent AMS, however c/b hypotension so placed back on ativan--> now stable -Folic acid daily -Continue thiamine 100 daily -Continue lorazepam 1 mg IV every hour PRN per CIWA 3. Hypertension - Patient stated a history of hypertension but he is not compliant with his medication and there is documented lisinopril 10 mg at nighttime that needs to be verified. -If blood pressures are elevated while admitted can consider restarting lisinopril 4. Left lower leg wound possible cellulitis . Poor hygiene No increased warmth but was slightly tenderness on palpation around the site on admission with some edema bilaterally in the lower extremities. -Pending wound consult. -Bactrim SS 1 tab BID for 5 days --> switched to vanc IV at this time, with pending MRSA PCR after which we can switch to keflex if MRSA negative 5. Rosacea. Continue to hold doxycycline that he takes at home at this time 6. GERD. Home omeprazole 7. Head trauma. CT of the head in the ER negative for any acute findings. No contusions noted a hematoma noted. 8.PT consulted: on hold for now given mental status 10. Leukopenia: likely secondary myelosuppressive effects of alcohol, will monitor. DVT PROPHYLAXIS: TEDs, will hold off pharmacotherapies with declining platelets VS,Fishbone, I+O VS, Fishbone, I+O Laboratory Tests 06/11/19 10:05 06/11/19 13:28 06/11/19 16:01 06/11/19 17:13 06/11/19 20:14 06/11/19 23:06 06/12/19 01:56 06/12/19 05:43 Vital Signs Date Time Temp Pulse Resp B/P (MAP) Pulse Ox O2 Delivery O2 Flow Rate FiO2 12/6/19 04:06 93 118/64 06/12/19 04:04 98.6 18 100 06/11/19 19:01 Room Air I&O- Last 24 Hours up to 6 AM 06/12/19 06:00 Intake Total 1020 ml Output Total 1100 ml Balance -80 ml KETURAH NAVARRETE MD Jun 12, 2019 08:46
[2019-06-12] MEDS: THIAMINE 100 MG TAB PO SCH (11:12)
[2019-06-12] MEDS ORDERED: VANCOMYCIN HCL 1,000 MG, VIAL MATE ADAPTER 1 EACH in D5W 250 ML IV ONE (12:00)
[2019-06-12 14:20] LABS: BLOOD UREA NITROGEN 3 MG/DL (7-18); CARBON DIOXIDE LEVEL 24 MEQ/L (21-32); CHLORIDE LEVEL 90 MEQ/L (98-107); CREATININE FOR GFR 0.47 MG/DL (0.70-1.30); GLOMERULAR FILTRATION RATE > 60.0 (>49); GLUCOSE, FASTING 94 MG/DL (70-100); POTASSIUM SERUM 3.9 MEQ/L (3.5-5.1); SODIUM LEVEL 123 MEQ/L (136-145)
[2019-06-12] MEDS ORDERED: SODIUM CHLORIDE 3% 100 ML IV SCH (14:30)
--- NOTE | 2019-06-12 14:37 | PHACANCOPD ---
PHARMACY VANCOMYCIN DOSING Pt Demographics Demographics Patient Age:64 , Weight:64.300 , Gender: male Vancomycin Vancomycin indication: cellulitis Vancomycin Target Ranges: 15-20 mcg/ml Vancomycin Load Y/N: Yes Load Dose Date Time Vancomycin Load Dose: 1500mg Date: 06/12/19 Time: 1100 Vancomycin Dose Date: 06/12/19. Current Vancomycin Dose: 1g q8h @2000 Intermittent Dosing?: No Labs Labs Vital Signs Date Time Temp Pulse Resp B/P (MAP) Pulse Ox O2 Delivery O2 Flow Rate FiO2 06/12/19 14:01 109 151/75 (100) Room Air 06/12/19 13:34 95 130/65 (86) Room Air 06/12/19 13:04 99 125/65 (85) Room Air 06/12/19 12:34 97 98/57 (71) Room Air 06/12/19 12:04 98.2 103 20 142/74 (96) 94 Room Air 06/12/19 11:34 104 124/76 (92) Room Air 06/12/19 11:19 104 125/83 (97) Room Air 06/12/19 11:04 101 198/105 (136) Room Air 06/12/19 10:04 102 161/92 (115) Room Air 06/12/19 10:00 102 161/92 (115) Room Air 06/12/19 09:34 102 169/80 (109) 100 Nasal Cannula 2.0 06/12/19 09:04 99 137/82 (100) 100 Nasal Cannula 2.0 06/12/19 08:34 96 101/59 (73) 100 Nasal Cannula 2.0 06/12/19 08:04 98.4 104 16 147/72 (97) 100 Nasal Cannula 2.0 06/12/19 08:00 94 138/73 06/12/19 07:34 99 138/73 (94) 100 06/12/19 07:04 66 139/79 (99) 100 06/12/19 04:06 93 118/64 06/12/19 04:04 98.6 89 18 118/64 (82) 100 06/12/19 03:34 94 142/61 (88) 100 06/12/19 03:12 90 142/72 (95) 100 06/12/19 02:34 88 114/63 (80) 100 06/12/19 02:04 90 104/63 (77) 100 06/12/19 00:34 101/61 (74) 06/12/19 00:04 100.0 20 126/66 (86) 100 06/12/19 00:00 93 126/66 06/11/19 23:34 95 111/61 (78) 100 06/11/19 21:49 157/76 (103) 100 06/11/19 21:04 141/63 (89) 100 06/11/19 20:34 95 94/52 (66) 100 06/11/19 20:17 134/86 (102) 100 06/11/19 20:04 100.9 91 83/49 (60) 98 06/11/19 20:00 106 134/86 06/11/19 19:01 129/68 (88) 98 Room Air 06/11/19 18:56 142/65 (90) 99 Room Air 06/11/19 18:51 116/59 (78) 99 Room Air 06/11/19 18:46 141/63 (89) 96 Room Air 06/11/19 18:41 99/55 (70) 96 Room Air 06/11/19 18:36 95/60 (72) 95 Room Air 06/11/19 18:31 98 84/50 (61) 95 Room Air 06/11/19 18:26 97 76/47 (57) 96 Room Air 06/11/19 18:23 96 72/43 (53) 95 Room Air 06/11/19 18:21 97 70/40 (50) 94 Room Air 06/11/19 18:16 98 76/46 (56) 93 Room Air 06/11/19 18:15 100 77/45 (56) 93 Room Air 06/11/19 18:07 122/53 (76) 74 Room Air 06/11/19 17:56 150/56 (87) 99 Room Air 06/11/19 17:03 104.7 130 20 143/83 (103) 99 Room Air 06/11/19 16:00 102.7 122 22 118/80 (93) 98 Room Air Intake & Output 06/12/19 06:00 Intake Total 1020 ml Output Total 1100 ml Balance -80 ml Laboratory Tests 06/11/19 16:01: Sodium Level 116*L 06/11/19 17:08: Bedside Glucose (Misc Panel) 100 06/11/19 17:13: Sodium Level 119*L, White Blood Count 2.9L, Red Blood Count 3.15L, Hemoglobin 10.6L, Hematocrit 29.2L, Mean Corpuscular Volume 92.7, Mean Corpuscular Hemoglobin 33.7H, Mean Corpuscular Hemoglobin Concent 36.3, Red Cell Dist ribution Width 11.9, Platelet Count 153, Nucleated Red Blood Cells % (auto) 0.0, Potassium Level 3.6, Chloride Level 82L, Carbon Dioxide Level 22, Anion Gap 15, Blood Urea Nitrogen 3L, Creatinine 0.78#, Glomerular Filtration Rate > 60.0, Fasting Glucose 104H, Lactic Acid Level 3.8*H, Calcium Level 8.7L, Magnesium Level 1.2L 06/11/19 20:14: Sodium Level 118*L, Potassium Level 3.4L, Chloride Level 83L, Carbon Dioxide Level 27, Anion Gap 8, Blood Urea Nitrogen 3L, Creatinine 0.78, Glomerular Filtration Rate > 60.0, Fasting Glucose 117H, Calcium Level 8.3L 06/11/19 21:21: Urine Color YELLOW, Urine Appearance CLEAR, Urine pH 6.0, Urine Specific [place] 1.010, Urine Protein NEGATIVE, Urine Glucose (UA) NEGATIVE, Urine Ketones TRACEH, Urine Blood NEGATIVE, Urine Nitrite NEGATIVE, Urine Bilirubin NEGATIVE, Urine Urobilinogen 2.0H, Urine Leukocyte Esterase NEGATIVE, Urine WBC (Auto) 0, Urine RBC (Auto) 1, Urine Hyaline Casts (Auto) 12, Urine Bacteria (Auto) NEGATIVE, Urine Squamous Epithelial Cells 0, Urine Transitional Epithelial Cells <1, Urine Mucus (Auto) SMALL, Urine Sperm (Auto) , Urine Random Osmolality 343L, Urine Random Sodium 99 06/11/19 23:06: Sodium Level 118*L, Lactic Acid Followup at 4 Hours 1.5 06/12/19 00:15: Bedside Glucose (Misc Panel) 96 06/12/19 01:56: Sodium Level 118*L, Potassium Level 4.0, Chloride Level 83L, Carbon Dioxide Level 26, Anion Gap 9, Blood Urea Nitrogen 3L, Creatinine 0.58L, Glomerular Filtration Rate > 60.0, Fasting Glucose 110H, Calcium Level 8.0L 06/12/19 05:43: White Blood Count 1.9L, Red Blood Count 3.29L, Hemoglobin 11.0L, Hematocrit 30.2L, Mean Corpuscular Volume 91.8, Mean Corpuscular Hemoglobin 33.4H, Mean Corpuscular Hemoglobin Concent 36.4, Red Cell Distribution Width 11.9, Platelet Count 126L, Nucleated Red Blood Cells % (auto) 0.0, Sodium Level 122L, Magnesium Level 1.6L, Cortisol AM Sample 20.7 06/12/19 06:11: Bedside Glucose (Misc Panel) 92 06/12/19 08:05: Sodium Level 122L, Potassium Level 3.8, Chloride Level 88L, Carbon Dioxide Level 26, Anion Gap 8, Blood Urea Nitrogen 3L, Creatinine 0.51L, Glomerular Filtration Rate > 60.0, Fasting Glucose 98, Calcium Level 8.2L 06/12/19 09:03: Methicillin-Resist S.aureus DNA PCR NOT DETECTED 06/12/19 11:01: Sodium Level 121L 06/12/19 13:50: Sodium Level 123L, Potassium Level 3.9, Chloride Level 90L, Carbon Dioxide Level 24, Anion Gap 9, Blood Urea Nitrogen 3L, Creatinine 0.47L, Glomerular Filtration Rate > 60.0, Fasting Glucose 94, Calcium Level 8.0L Current Medications Medications (Trade) Dose Ordered Sig/Jesus Route PRN Reason Start Time Stop Time Status Last Admin Dose Admin Folic Acid (Folic Acid) 1 mg DAILY PO 06/11/19 09:00 06/12/19 09:01 1 MG Lorazepam (Ativan) 1 mg Q1HP PRN IV ANXIETY/AGITATION 06/10/19 22:45 06/12/19 10:39 1 MG Sodium Chloride (Sodium Chloride) 1 gm TID PO 06/12/19 09:15 06/12/19 10:39 1 GM Thiamine HCl (Thiamine HCl) 100 mg DAILY PO 06/12/19 10:45 06/12/19 11:12 100 MG Micro Microbiology 06/11/19 Blood Culture, Received Pending Creatinine Clearance Date:06/12/19. Creatinine Clearance: 155 calculated Assessment and Plan Maintaining Current Dose?: Yes Reason for dose change: No Dose Change Pharmacist Note Pharmacist Note Date: 06/12/19. Pharmacist note: Patient being treated for cellulitis. No history of vancomyin here at [facility]. BC pending. Gave 1500mg IV vancomycin load @1100, then 1g IV q8h starting at 2000. scheduled trough before 4th dose tomorrow @1100. Will continue to monitor pt and adjust dose as needed. L[facility] Jun 12, 2019 14:37
[2019-06-12] MEDS: VANCOMYCIN HCL 1,000 MG, VIAL MATE ADAPTER 1 EACH in D5W 250 ML IV SCH (20:29)
--- NOTE | 2019-06-12 20:41 | IPN ---
DATE: 06/12/2019 SUBJECTIVE: Kurt is seen and examined in the intensive care unit. He was moved to the intensive care unit (ICU) overnight because of alcohol withdrawal, altered mental status. He was on a Precedex drip but had recurrent hypotension. He was receiving IV fluids which was also complicated given his severe hyponatremia. He has had his sodium level checked every three hourly. Nursing staff was calling me with each level and IV fluids were adjusted accordingly. He has corrected from 112-122 in a 36-hour period which is optimal. The patient was seen and examined at the bedside in the ICU and I found him to be a little bit slower to respond as compared to yesterday, however, oriented times three. VITAL SIGNS: Temperature 98.2, maximum temperature (T-max) was 104.7 yesterday evening, pulse 97, blood pressure 98/57, saturating 94% on room air. Review of intake and output yesterday shows net negative 800 mL. GENERAL: The patient is seen in the intensive care unit, frail male with low body mass index (BMI) and decreased muscle mass, awake, alert and conversational, and in no apparent distress, however, somewhat slow to respond as compared to yesterday. Extraocular muscles are intact. He has rosacea skin changes. Tongue is moist. Jugular veins are not distended. CARDIAC: S1, S2, regular rate and rhythm. No edema in the right lower extremity. There is edema in the left lower extremity where he has cellulitis. Palpable radial pulses. RESPIRATORY: Lungs were clear to auscultation bilaterally. No crackle, rale or wheeze. The abdomen is soft and nontender. There are bowel sounds. GENITOURINARY: Shows indwelling Gardner catheter with urine. EXTREMITIES: Show no edema in the right lower extremity. The left lower extremity has 1+ edema and some cellulitis and his foot has wraps. He has tremors of his upper extremities. NEUROLOGIC: The patient is able to tell me the year, the location, the upcoming holiday, the president, and answers all simple questions appropriately and is cooperative with physical examination. LABORATORY DATA: Sodium 122, potassium 3.8, magnesium 1.6. Hemoglobin 11.0. Morning cortisol 20. INPATIENT MEDICATIONS: He received 60 mL of 3% normal saline overnight. He has also been on D5 half normal saline (NS) overnight at 125 mL/hour. He was also Precedex infusion overnight. He has received several runs of potassium chloride and magnesium sulfate. He was started on vancomycin by the primary team. His Bactrim was discontinued. Remainder of medications are unchanged from prior. PROBLEMS: 1. Hypo-osmolar hyponatremia in this patient with alcoholism. Serum sodium has corrected by 10 points in a 36-hour period which is optimal (112 on admission up to 122 now). He has been receiving varying types of IV fluids due to the other issues that are going on related to his withdrawal and cellulitis. He has received normal saline, D5 half normal saline, hypertonic saline, etcetera, etcetera. Because of the variety of the fluids that he is receiving, he has had every three hourly sodium checks. As he is improving now, I am decreasing the frequency of the sodium checks to every six hourly and we will attempt to increase his sodium level by another 4-6 mEq in the coming 24 hours. 2. Alcoholism and high risk for withdrawal. The patient was altered overnight. He was transferred to the intensive care unit (ICU). He is receiving Ativan now. This is managed per the primary team. He is also on folic acid and thiamine. 3. Left leg wound and probable cellulitis. Switched to IV vancomycin by the primary team. He is noted to be leukopenic. He did have a high-grade fever yesterday evening, possibly also related to withdrawal. Cultures are pending. 4. Hypokalemia. He is receiving supplementation. 5. Hypomagnesemia. He is receiving IV supplementation as he cannot reliably tolerate oral. 6. History of hypertension. Blood pressures have been very labile and he did have recurrent hypotension overnight. I would advise to continue to hold all antihypertensives at the present time until acute issues resolve. DISPOSITION: Sodium level is improving appropriately. In the first 24 hours, he corrected by exactly 6 mEq and now in the second 24-hour, we will attempt to correct him by another 6 mEq to bring his sodium level up to around 125. Frequency of sodium monitoring is decreased to every six hourly.
[2019-06-13] VITALS (11 sets, daily range): BP systolic 103–158; BP diastolic 61–89
[2019-06-13] MEDS: VANCOMYCIN HCL 1,000 MG, VIAL MATE ADAPTER 1 EACH in D5W 250 ML IV SCH (03:29)
[2019-06-13] MEDS: LORazepam 2 MG/ML VIAL (J2060) IV PRN ×2 (04:37→06:30)
[2019-06-13] MEDS: THIAMINE 100 MG TAB PO SCH (09:27)
[2019-06-13] MEDS: FOLIC ACID 1 MG TAB PO SCH (09:27)
[2019-06-13] MEDS: SODIUM CHLORIDE 1 GM TAB PO SCH ×3 (09:27→21:45)
[2019-06-13 09:50] LABS: HEMATOCRIT 30.7 % (42.0-52.0); HEMOGLOBIN 10.7 g/dl (13.5-17.5); MEAN CORPUSCULAR HEMOGLOBIN 33.1 pg (27.0-33.0); MEAN CORPUSCULAR HGB CONC 34.9 g/dl (32.0-36.5); PLATELET COUNT, AUTOMATED 124 10^3/uL (150-450); RED BLOOD COUNT 3.23 10^6/uL (4.30-6.10)
[2019-06-13 09:55] LABS: WHITE BLOOD COUNT 1.7 10^3/uL (4.0-10.0)
[2019-06-13 10:27] LABS: BLOOD UREA NITROGEN 5 MG/DL (7-18); CALCIUM LEVEL 8.1 MG/DL (8.8-10.2); CARBON DIOXIDE LEVEL 24 MEQ/L (21-32); CHLORIDE LEVEL 91 MEQ/L (98-107); CREATININE FOR GFR 0.58 MG/DL (0.70-1.30); GLOMERULAR FILTRATION RATE > 60.0 (>49); GLUCOSE, FASTING 104 MG/DL (70-100); MAGNESIUM LEVEL 1.7 MG/DL (1.8-2.4); POTASSIUM SERUM 3.9 MEQ/L (3.5-5.1); SODIUM LEVEL 124 MEQ/L (136-145)
--- NOTE | 2019-06-13 12:04 | IPNPDOC ---
Text Note Date of Service The patient was seen on 06/13/19. NOTE INTERIM EVENTS: Alcohol withdrawal: Much improved mentation, back to AOx3, on symptom triggered ativan Hyponatremia --> improving with Dr. Parada onboard Transferred out of ICU, back in PCU Subjective: -Feels ok, working on his breakfast PHYSICAL EXAMINATION: VITAL SIGNS: hemodynamically stable, afebrile GENERAL:Sleeping peacefully, awake on voice, in no acute distress HEENT: NCAT, bitemporal wasting, PERRLA, EOMI, poor dentition, MMM CARDIOVASCULAR: RRR, no mrg RESPIRATORY: CTAB, with no wheezing, crackles or rhonchi ABDOMINAL: Normoactive bowel sounds, soft, NTND EXTREMITIES: No clubbing cyanosis, 1+ pitting edema in bilateral LE. Left lower leg with erythematous scaly skin with skin sloughing off and edematous with cellulitic boundary outlined by marker receding. No increased warmth. Non tender on palpation. NEUROLOGICAL: Spontaneously moves all 4 extremities cranial 2 through 12 grossly intact, AOx3, no tremors at this time. PSYCHOLOGICAL: Aox3 LABORATORY DATA: Reviewed. Na @ 1AM was 126. K3.9, Cr 0.47, Hgb 11, Hct 30.2, WBC 1.9, BCx negative to date, UA was bland. MICROBIOLOGY: Please see below. BCx negative to date IMAGIN06/10/[address] 1. No acute cervical spine fracture or traumatic malalignment. 2. Left posterior first rib fracture is noted, which has chronic features Cervical spine CT - No acute intracranial abnormality. ASSESSMENT & PLAN: 54-year-old man with a history of alcohol use disorder who presented intoxicated and found to have severe hyponatremia with elevated alcohol levels. PROBLEMS: 1. Chronic severe hyponatremia. Unsure of duration of hyponatremia thought it appears chronic and patient's exam was unremarkable with Na 112 on admission. Hypovolemic at presentation. -Serum osmoles only boderline low despite severe hypoNa, likely because of alcohol, then dropped as as alcohol cleared within 24h -Admission team contemplated DDAVP and hypertonic saline but after the rapid correction after NS in the ED, decided against it, so it was held and nephrology was consulted with Dr. Parada initially monitoring his Na Q3H and managing fluids plan. Ultimately we want to monitor no increase of more than 6-8mEq/L within the first 24 hours if you would like to be conservative. 2. Alcohol use disorder: -CIWA protocol in place --> required transition from symptom triggered ativan protocol to precedex drip after persistent AMS, however c/b hypotension so placed back on ativan--> now stable -Folic acid daily -Continue thiamine 100 daily -Continue lorazepam 1 mg IV every hour PRN per CIWA 3. Hypertension - Patient stated a history of hypertension but he is not compliant with his medication and there is documented lisinopril 10 mg at nighttime that needs to be verified. -If blood pressures are elevated while admitted can consider restarting lisinopril 4. Left lower leg wound possible cellulitis . Poor hygiene No increased warmth but was slightly tenderness on palpation around the site on admission with some edema bilaterally in the lower extremities. -Pending wound consult. -Bactrim SS 1 tab BID for 5 days --> switched to vanc IV --> now switched to keflex 500 QID for 2 more days. (day 3 of antibiotics) 5. Rosacea. Continue to hold doxycycline that he takes at home at this time 6. GERD. Home omeprazole 7. Head trauma. CT of the head in the ER negative for any acute findings. No contusions noted a hematoma noted. 8.PT consulted: resume PT consult 10. Leukopenia: likely secondary myelosuppressive effects of alcohol, will monitor. DVT PROPHYLAXIS: TEDs, will hold off pharmacotherapies with declining platelets VS,Fishbone, I+O VS, Fishbone, I+O Laboratory Tests 06/12/19 11:01 06/12/19 13:50 06/12/19 20:06 06/13/19 01:46 Vital Signs Date Time Temp Pulse Resp B/P (MAP) Pulse Ox O2 Delivery O2 Flow Rate FiO2 06/13/19 08:00 98.9 89 16 149/78 (101) 100 Room Air 06/12/19 09:34 2.0 I&O- Last 24 Hours up to 6 AM 06/13/19 06:00 Intake Total 1398 ml Output Total 2155 ml Balance -757 ml KETURAH NAVARRETE MD Jun 13, 2019 09:55
[2019-06-13] MEDS: MAGNESIUM OXIDE 400 MG TAB (MAG-OX) PO SCH ×2 (12:17→21:45)
[2019-06-13] MEDS: CEPHALEXIN 500 MG CAP PO SCH ×3 (12:18→21:45)
[2019-06-13] MEDS ORDERED: POTASSIUM CHL PWD 20 MEQ PACKET PO ONE (13:00)
--- NOTE | 2019-06-13 14:26 | IPN ---
DATE OF VISIT: 06/13/2019 Mr. Avila is seen this morning on his bedside. He is sitting in the bed trying to eat his breakfast. He still very weak but able to answer simple questions. He denies any nausea, vomiting, diarrhea, fever or chills. He was admitted with severe hyponatremia which is gradually improving. His admission sodium was 112, which has come up to 126 today. He is currently on oral sodium chloride tablets 1 gram t.i.d. He is able to eat and there is no vomiting or diarrhea reported. He did have alcohol withdrawal symptoms, which have also improved with treatment. PHYSICAL EXAMINATION: Temperature 98.9 degrees Fahrenheit, heart rate 89 per minute and respiratory rate 16 per minute. Blood pressure 149/78 mmHg and oxygen saturation 100% on room air. Intake and output records from yesterday showed total intake 1858 and output 2200. His head is atraumatic. He has acne on his face. Neck veins are not abnormally distended. There is no oral thrush or ulcers. Heart sounds are regular and lungs sound clear to auscultation. Abdomen soft and benign and bowel sounds are normal. Extremities without any cyanosis or clubbing. Neurologically, he is awake and without a focal deficit. He was able to tell me that he is at [facility]. He was also able to tell me his date of but correctly. Today's labs show WBC count 1.7, hemoglobin 10.7 and hematocrit 30.7. Platelets 124. 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 Most recent sodium at 9:38 a.m. today is 124, potassium 3.9, CO2 24, BUN 5 and creatinine 0.58. Calcium level is 8.1 and magnesium 1.7. PROBLEMS: 1. Hyponatremia most likely related to excessive beer drinking. The patient did have improved sodium level over the last 48 hours. At present we will continue with oral sodium chloride tablets and increasing the dose to 2 grams t.i.d. His sodium level will be rechecked again this evening. I do not feel that at this point there is an indication for intravenous hypertonic saline as his sodium level is still within the safe range. He most likely has chronic hyponatremia so we will try to correct it more gradually. 2. Hypomagnesemia. This is mild and we will continue to monitor. He is receiving only sodium chloride by mouth and no magnesium. I will also give him oral magnesium supplement. Magnesium oxide 400 mg b.i.d. is being started. 3. Pancytopenia most likely related to his chronic alcoholic issues. I would recommend to continue with empiric antibiotic therapy and monitor closely. This is being managed by the hospitalist service.
[2019-06-13 14:31] LABS: BLOOD UREA NITROGEN 5 MG/DL (7-18); CALCIUM LEVEL 7.8 MG/DL (8.8-10.2); CARBON DIOXIDE LEVEL 25 MEQ/L (21-32); CHLORIDE LEVEL 93 MEQ/L (98-107); CREATININE FOR GFR 0.49 MG/DL (0.70-1.30); GLOMERULAR FILTRATION RATE > 60.0 (>49); GLUCOSE, FASTING 98 MG/DL (70-100); POTASSIUM SERUM 3.8 MEQ/L (3.5-5.1); SODIUM LEVEL 125 MEQ/L (136-145)
[2019-06-14 04:00] VITALS: BP 157/85
[2019-06-14 08:00] VITALS: BP 150/88
[2019-06-14] MEDS: SODIUM CHLORIDE 1 GM TAB PO SCH ×3 (08:03→20:34)
[2019-06-14] MEDS: MAGNESIUM OXIDE 400 MG TAB (MAG-OX) PO SCH ×2 (08:03→20:34)
[2019-06-14] MEDS: CEPHALEXIN 500 MG CAP PO SCH ×4 (08:03→20:34)
[2019-06-14] MEDS: FOLIC ACID 1 MG TAB PO SCH (08:05)
[2019-06-14] MEDS: THIAMINE 100 MG TAB PO SCH (08:05)
[2019-06-14 08:06] LABS: HEMATOCRIT 30.6 % (42.0-52.0); HEMOGLOBIN 10.6 g/dl (13.5-17.5); MEAN CORPUSCULAR HEMOGLOBIN 32.8 pg (27.0-33.0); MEAN CORPUSCULAR HGB CONC 34.6 g/dl (32.0-36.5); MEAN CORPUSCULAR VOLUME 94.7 fl (80.0-96.0); PLATELET COUNT, AUTOMATED 121 10^3/uL (150-450); RED BLOOD COUNT 3.23 10^6/uL (4.30-6.10)
[2019-06-14 08:26] LABS: MAGNESIUM LEVEL 1.8 MG/DL (1.8-2.4)
[2019-06-14 08:30] LABS: WHITE BLOOD COUNT 1.8 10^3/uL (4.0-10.0)
[2019-06-14 09:30] LABS: BLOOD UREA NITROGEN 5 MG/DL (7-18); CARBON DIOXIDE LEVEL 24 MEQ/L (21-32); CHLORIDE LEVEL 95 MEQ/L (98-107); CREATININE FOR GFR 0.42 MG/DL (0.70-1.30); GLOMERULAR FILTRATION RATE > 60.0 (>49); GLUCOSE, FASTING 87 MG/DL (70-100); POTASSIUM SERUM 4.1 MEQ/L (3.5-5.1); SODIUM LEVEL 127 MEQ/L (136-145)
[2019-06-14 12:00] VITALS: BP 168/90
--- NOTE | 2019-06-14 13:26 | IPN ---
DATE: 06/14/2019 Mr. Avila is seen this morning on his bedside. He is sitting in the bed eating his breakfast. He denies any nausea, vomiting, fever, chills, dyspnea or chest pain. He is currently being treated for severe hyponatremia and sodium level has been gradually improving. He is also being treated for alcohol withdrawal in the setting of lifelong heavy alcohol abuse. PHYSICAL EXAMINATION Temperature 98.5 degrees Fahrenheit, heart rate 92 per minute and respiratory rate 16 per minute. Blood pressure 150/88 mmHg and oxygen saturation 100% on room air. Intake and output records from yesterday are incomplete. His head is atraumatic. Facial acne is unchanged. Neck is supple and without JVD or thyroid enlargement. Heart sounds are regular and lungs sound clear to auscultation. Abdomen is soft and nontender and bowel sounds are normal. Extremities have no cyanosis or clubbing. Neurologically, he is awake and able to answer questions and move all his four limbs. There does not seem to be any focal neurological deficit. Today's labs show WBC count 1.8, hemoglobin 10.6 and hematocrit 30.6. Platelets 121. Sodium is up to 127, potassium 4.1, CO2 24, BUN 6 and creatinine 0.42. Calcium level 8.0 and magnesium 1.8. PROBLEMS: 1. Hyponatremia. Sodium level is gradually improving and we will continue with oral sodium chloride 2 grams t.i.d. The patient is also on fluid restriction and reasonably doing well. Hyponatremia is chronic and related to heavy alcohol use. He has been a beer drinker with heavy use of beer. At present, we will continue with current plan of care. His sodium level will be checked again later this afternoon and tomorrow morning. 2. Chronic heavy alcohol abuse, status post a withdrawal. The patient did have withdrawal symptoms, which have now improved significantly. All other issues are being addressed by the hospitalist service.
--- NOTE | 2019-06-14 14:03 | IPNPDOC ---
Text Note Date of Service The patient was seen on 06/14/19. NOTE Subjective: -AOx3, reports that he feels better Objective: VITAL SIGNS: hemodynamically stable, afebrile GENERAL:Sitting up eating breakfast, no acute distress HEENT: NCAT, bitemporal wasting, PERRLA, EOMI, poor dentition, MMM CARDIOVASCULAR: RRR, no mrg RESPIRATORY: CTAB, with no wheezing, crackles or rhonchi ABDOMINAL: Normoactive bowel sounds, soft, NTND EXTREMITIES: No clubbing cyanosis, 1+ pitting edema in bilateral LE. Left lower leg with erythematous scaly skin with skin sloughing off and edematous with cellulitic boundary outlined by marker receding. No increased warmth. Non tender on palpation. NEUROLOGICAL: Spontaneously moves all 4 extremities cranial 2 through 12 grossly intact, AOx3, no tremors at this time. PSYCHOLOGICAL: Aox3 LABORATORY DATA: Reviewed. last Na overnight:125 K 3.8 Cr 0.49 Mag 1.8 Platelets 121 MICROBIOLOGY: Please see below. BCx negative to date IMAGIN06/10/[address] 1. No acute cervical spine fracture or traumatic malalignment. 2. Left posterior first rib fracture is noted, which has chronic features Cervical spine CT - No acute intracranial abnormality. ASSESSMENT & PLAN: 54-year-old man with a history of alcohol use disorder who presented intoxicated and found to have severe hyponatremia with elevated alc ohol levels now c/b withdrawal on CIWA. PROBLEMS: 1. Chronic severe hyponatremia. Unsure of duration of hyponatremia thought it appears chronic and patient's exam was unremarkable with Na 112 on admission. Hypovolemic at presentation. -Serum osmoles only boderline low despite severe hypoNa, likely because of alcohol, then dropped as as alcohol cleared within 24h -Admission team contemplated DDAVP and hypertonic saline but after the rapid correction after NS in the ED, decided against it, so it was held and nephrology was consulted with Dr. Parada initially monitoring his Na Q3H and managing fluids plan. -Now off fluids, on salt tabs 2g TID, with daily Na checks, appreciate nephrology recs -Ultimately we want to monitor no increase of more than 6-8mEq/L within the first 24 hours if you would like to be conservative. 2. Alcohol use disorder: -CIWA protocol in place --> required transition from symptom triggered ativan protocol to precedex drip after persistent AMS, however c/b hypotension so placed back on ativan--> now stable -Folic acid daily -Continue thiamine 100 daily -Continue lorazepam 1 mg IV every hour PRN per [facility] 3. Hypertension - Patient stated a history of hypertension but he is not compliant with his medication and there is documented lisinopril 10 mg at nig httime that needs to be verified. -If blood pressures are elevated while admitted can consider restarting lisinopril 4. Left lower leg wound possible cellulitis . Poor hygiene No increased warmth but was slightly tenderness on palpation around the site on admission with some edema bilaterally in the lower extremities. -Pending wound consult. -Bactrim SS 1 tab BID for 5 days --> switched to vanc IV --> now switched to keflex 500 QID for 2 more days. (day 4 of antibiotics) 5. Rosacea. Continue to hold doxycycline that he takes at home at this time 6. GERD. Home omeprazole 7. Head trauma. CT of the head in the ER negative for any acute findings. No contusions noted a hematoma noted. 8.PT consulted: resume PT consult 10. Leukopenia: likely secondary myelosuppressive effects of alcohol, will monitor. DVT PROPHYLAXIS: TEDs, will hold off pharmacotherapies with declining platelets Diet: mechanical soft from regular given poor dentition and poor PO VS,Fishbone, I+O VS, Fishbone, I+O Laboratory Tests 06/13/19 09:38 06/13/19 13:51 06/14/19 07:37 Vital Signs Date Time Temp Pulse Resp B/P (MAP) Pulse Ox O2 Delivery O2 Flow Rate FiO2 06/14/19 08:00 92 150/88 06/14/19 04:00 97.8 18 99 Room Air 06/12/19 09:34 2.0 I&O- Last 24 Hours up to 6 AM 06/14/19 06:00 Intake Total 240 ml Output Total 600 ml Balance -360 ml KETURAH NAVARRETE MD Jun 14, 2019 09:34
[2019-06-14 16:00] VITALS: BP 133/82
[2019-06-14 16:54] LABS: BLOOD UREA NITROGEN 6 MG/DL (7-18); CALCIUM LEVEL 8.3 MG/DL (8.8-10.2); CARBON DIOXIDE LEVEL 26 MEQ/L (21-32); CHLORIDE LEVEL 94 MEQ/L (98-107); CREATININE FOR GFR 0.71 MG/DL (0.70-1.30); GLOMERULAR FILTRATION RATE > 60.0 (>49); GLUCOSE, FASTING 107 MG/DL (70-100); POTASSIUM SERUM 4.1 MEQ/L (3.5-5.1); SODIUM LEVEL 127 MEQ/L (136-145)
[2019-06-14 20:00] VITALS: BP 138/77
[2019-06-14 23:59] VITALS: BP 115/66
[2019-06-15 04:00] VITALS: BP 131/70
[2019-06-15 05:41] LABS: HEMATOCRIT 30.5 % (42.0-52.0); HEMOGLOBIN 10.3 g/dl (13.5-17.5); MEAN CORPUSCULAR HEMOGLOBIN 32.3 pg (27.0-33.0); MEAN CORPUSCULAR HGB CONC 33.8 g/dl (32.0-36.5); MEAN CORPUSCULAR VOLUME 95.6 fl (80.0-96.0); PLATELET COUNT, AUTOMATED 129 10^3/uL (150-450); RED BLOOD COUNT 3.19 10^6/uL (4.30-6.10); WHITE BLOOD COUNT 2.3 10^3/uL (4.0-10.0)
[2019-06-15 05:53] LABS: ALBUMIN 2.5 GM/DL (3.2-5.2); BLOOD UREA NITROGEN 5 MG/DL (7-18); CALCIUM LEVEL 8.5 MG/DL (8.8-10.2); CARBON DIOXIDE LEVEL 24 MEQ/L (21-32); CHLORIDE LEVEL 97 MEQ/L (98-107); CREATININE FOR GFR 0.56 MG/DL (0.70-1.30); GLOMERULAR FILTRATION RATE > 60.0 (>49); GLUCOSE, FASTING 96 MG/DL (70-100); MAGNESIUM LEVEL 1.7 MG/DL (1.8-2.4); PHOSPHORUS LEVEL 3.5 MG/DL (2.5-4.9); POTASSIUM SERUM 4.3 MEQ/L (3.5-5.1); SODIUM LEVEL 128 MEQ/L (136-145)
[2019-06-15 08:00] VITALS: BP 143/85
[2019-06-15] MEDS: THIAMINE 100 MG TAB PO SCH (08:22)
[2019-06-15] MEDS: SODIUM CHLORIDE 1 GM TAB PO SCH ×3 (08:22→20:39)
[2019-06-15] MEDS: CEPHALEXIN 500 MG CAP PO SCH ×4 (08:22→20:39)
[2019-06-15] MEDS: MAGNESIUM OXIDE 400 MG TAB (MAG-OX) PO SCH ×2 (08:22→20:39)
[2019-06-15] MEDS: FOLIC ACID 1 MG TAB PO SCH (08:23)
[2019-06-15 12:00] VITALS: BP 129/82
[2019-06-15] MEDS: SLF 3 ML SYR IV SCH ×2 (14:00→20:39)
[2019-06-15 16:00] VITALS: BP 161/88
[2019-06-15] MEDS ORDERED: SLF 3 ML SYR IV PRN (16:30)
--- NOTE | 2019-06-15 18:18 | IPNPDOC ---
Date Seen The patient was seen on 06/15/19. Progress Note SUBJECTIVE: Patient reports feeling fine without any complaints. No acute events reported overnight. No reports of withdrawal symptoms. Na 127->128 today. OBJECTIVE PHYSICAL EXAMINATION: VITAL SIGNS: Please see below. General: No acute distress, Alert Eyes: Normal sclera, EOMI HENT: Atraumatic Cardiovascular: Normal rate. b/l 1+ pitting edema. Pulmonary: Clear to auscultation b/l, no wheezing GI: Soft, nontender, nondistended Skin: Warm and dry Neuro: CN grossly intact. No focal deficits. Strengths equal b/l. Psych: oriented x 3 LABORATORY DATA, IMAGING STUDIES, MICROBIOLOGY: Please see below. DVT prophylaxis ordered?: TEDs in setting of declining platelets ASSESSMENT AND PLAN: 64M presented intoxicated found to have severe hyponatremia and subsequently complains of withdrawal symptoms. 1. Chronic hyponatremia - 2/2 chronic alcohol intake. - Na 112 on admission without symptoms at that time and hypovolemic. - c/w Salt tablets TID at this time while monitoring Na levels. Encouraged PO intakes. - Nephrology also following. - Prefers gradual correction. 2. Alcohol use disorder - Has been admitted for several days, no recent evidence of withdrawal. - Likely will not need CIWA for long. - Will need Substance use/addiction services referral upon discharge. 3. HTN - Noncompliant. Documented history of lisinopril 10 mg qHS. - BP variable but did note some hypotensive episodes during admission. - Monitor and resume when persistently elevated. 4. LLE erythema - Possible cellulitis. - Treated with Bactrim-> vancomycin -> Keflex. Complete course for soft tissue cellulitis. 5. Rosacea DISPOSITION: Home when medically cleared VS, I&O, 24H, Fishbone Vital Signs/I&O Vital Signs Date Time Temp Pulse Resp B/P (MAP) Pulse Ox O2 Delivery O2 Flow Rate FiO2 06/15/19 16:00 98.8 93 18 161/88 (112) 100 Room Air 06/12/19 09:34 2.0 I&O- Last 24 Hours up to 6 AM 06/15/19 06:00 Intake Total 0 ml Output Total 1350 ml Balance -1350 ml Laboratory Data 24H LABS Laboratory Tests 2 06/14/19 23:48: Bedside Glucose (Misc Panel) 107 06/15/19 05:16: Nucleated Red Blood Cells % (auto) 0.0, Anion Gap 7L, Glomerular Filtration Rate > 60.0, Calcium Level 8.5L, Phosphorus Level 3.5, Magnesium Level 1.7L, Albumin 2.5L 06/15/19 06:20: Bedside Glucose (Misc Panel) 100 CBC/BMP Laboratory Tests 06/15/19 05:16 Microbiology Microbiology 06/11/19 Blood Culture - Preliminary, Resulted No Growth after 72 hours. All specime... NOELLE FRANCIS MD Jun 15, 2019 18:18
[2019-06-15 20:00] VITALS: BP 124/58
[2019-06-15 23:59] VITALS: BP 145/62
[2019-06-16 04:00] VITALS: BP 112/59
[2019-06-16 05:30] LABS: HEMATOCRIT 27.7 % (42.0-52.0); HEMOGLOBIN 9.5 g/dl (13.5-17.5); MEAN CORPUSCULAR HEMOGLOBIN 32.8 pg (27.0-33.0); MEAN CORPUSCULAR HGB CONC 34.3 g/dl (32.0-36.5); MEAN CORPUSCULAR VOLUME 95.5 fl (80.0-96.0); PLATELET COUNT, AUTOMATED 129 10^3/uL (150-450); WHITE BLOOD COUNT 2.8 10^3/uL (4.0-10.0)
[2019-06-16 05:57] LABS: BLOOD UREA NITROGEN 8 MG/DL (7-18); CALCIUM LEVEL 8.4 MG/DL (8.8-10.2); CARBON DIOXIDE LEVEL 24 MEQ/L (21-32); CHLORIDE LEVEL 101 MEQ/L (98-107); CREATININE FOR GFR 0.69 MG/DL (0.70-1.30); GLOMERULAR FILTRATION RATE > 60.0 (>49); GLUCOSE, FASTING 114 MG/DL (70-100); MAGNESIUM LEVEL 1.7 MG/DL (1.8-2.4); POTASSIUM SERUM 4.2 MEQ/L (3.5-5.1); SODIUM LEVEL 132 MEQ/L (136-145)
[2019-06-16] MEDS: SLF 3 ML SYR IV SCH ×3 (06:00→22:16)
[2019-06-16 08:00] VITALS: BP 159/85
[2019-06-16] MEDS ORDERED: MAG SULF 1GM/100ML (MAG RUN) 1 GM in IV 1 EA IV ONE (08:00)
[2019-06-16] MEDS: THIAMINE 100 MG TAB PO SCH (10:17)
[2019-06-16] MEDS: FOLIC ACID 1 MG TAB PO SCH (10:18)
[2019-06-16] MEDS: SODIUM CHLORIDE 1 GM TAB PO SCH ×3 (10:18→20:00)
[2019-06-16] MEDS: MAGNESIUM OXIDE 400 MG TAB (MAG-OX) PO SCH ×2 (10:18→20:00)
[2019-06-16] MEDS: CEPHALEXIN 500 MG CAP PO SCH ×4 (11:03→20:00)
[2019-06-16 12:00] VITALS: BP 146/84
--- NOTE | 2019-06-16 12:42 | IPN ---
DATE OF SERVICE: 06/16/2019 SUBJECTIVE: The patient is a 64-year-old male who was seen laying in bed this morning eating breakfast. The patient denies any nausea, vomiting, or diarrhea. The patient has been treated for severe chronic hyponatremia and his sodium level continues to improve. The patient has also being treated for alcohol withdrawal in the setting of lifelong heavy alcohol abuse. The patient is feeling better and his speech is much clearer today. The patient is much lucid today than he has been in the past few days and says he is feeling better. The patient was asking questions about his sodium pills and wanting explanations for what was going on with him. The patient does not have any other complaints today. PHYSICAL EXAMINATION VITAL SIGNS: Temperature 98.8, pulse 83, respiratory rate 20, blood pressure 159/85, pulse oximetry 100% on room air. General: The patient is an alert and oriented male patient who is laying in bed when I walked in. The patient did not appear to be in any acute distress. HEENT: Normocephalic, atraumatic, anicteric sclera. The patient has moist mucous membranes and facial acne that is unchanged. NECK: Was supple without jugular venous distention (JVD). CARDIOVASCULAR: Regular rate and rhythm with no murmurs. RESPIRATORY: Clears to auscultation bilaterally. ABDOMEN: Was soft, nontender with normoactive bowel sounds. EXTREMITIES: No evidence of edema. LABORATORIES: White blood cells 2.8, hemoglobin 9.5, hematocrit 27.5, platelet count 129. Sodium 132, potassium 4.2, chloride 101, carbon dioxide 24, BUN 8, creatinine 0.69, fasting glucose 114, calcium 8.4, magnesium 1.7. ASSESSMENT AND PLAN: 1. Hyponatremia. The patient's sodium level is gradually improving and will continue oral sodium chloride 2 grams three times a day. The patient is also on a fluid restriction and is doing reasonably well. The patient's hyponatremia is chronic and related to heavy alcohol use. The patient is a beer drinker and drinks up to 15 beers per day for many years. We will continue with the current care plan, and we will continue to monitor the patient's sodium level. 2. Chronic heavy alcohol abuse status post withdrawal. The patient did have withdrawal symptoms on admission but these have improved significantly. All other issues are being addressed by the primary hospitalist team.
[2019-06-16 16:00] VITALS: BP 141/85
--- NOTE | 2019-06-16 19:34 | IPNPDOC ---
Date Seen The patient was seen on 06/16/19. Progress Note SUBJECTIVE: Patient denies any complaints. No acute events reported overnight. Na 132 today. OBJECTIVE PHYSICAL EXAMINATION: VITAL SIGNS: Please see below. General: No acute distress, Alert Eyes: Normal sclera, EOMI HENT: Atraumatic Cardiovascular: Normal rate. b/l 1+ pitting edema. Pulmonary: Clear to auscultation b/l, no wheezing GI: Soft, nontender, nondistended Skin: Warm and dry Neuro: CN grossly intact. No focal deficits. Strengths equal b/l. Psych: oriented x 3 LABORATORY DATA, IMAGING STUDIES, MICROBIOLOGY: Please see below. DVT prophylaxis ordered?: TEDs in setting of declining platelets ASSESSMENT AND PLAN: 64M presented intoxicated found to have severe hyponatremia and subsequently complains of withdrawal symptoms. 1. Chronic hyponatremia - 2/2 chronic alcohol intake. - Na 112 on admission without symptoms at that time and hypovolemic. - c/w Salt tablets TID at this time while monitoring Na levels. Encouraged PO intakes. - Nephrology also following. - Prefers gradual correction. 2. Alcohol use disorder - Has been admitted for several days, no recent evidence of withdrawal. - Likely will not need CIWA for long. - Will need Substance use/addiction services referral upon discharge. 3. HTN - Noncompliant. Documented history of lisinopril 10 mg qHS. - BP variable but did note some hypotensive episodes during admission. - Monitor and resume when persistently elevated. 4. LLE erythema - Possible cellulitis. - Treated with Bactrim-> vancomycin -> Keflex. Complete course for soft tissue cellulitis. 5. Rosacea DISPOSITION: Will likely need Rehab ARU vs. [facility]? VS, I&O, 24H, Fishbone Vital Signs/I&O Vital Signs Date Time Temp Pulse Resp B/P (MAP) Pulse Ox O2 Delivery O2 Flow Rate FiO2 06/16/19 16:00 99.1 86 20 141/85 (103) 100 Room Air 06/12/19 09:34 2.0 I&O- Last 24 Hours up to 6 AM 06/16/19 06:00 Intake Total 600 ml Output Total 875 ml Balance -275 ml Laboratory Data 24H LABS Laboratory Tests 2 06/16/19 04:59: Nucleated Red Blood Cells % (auto) 0.0, Anion Gap 7L, Glomerular Filtration Rate > 60.0, Calcium Level 8.4L, Magnesium Level 1.7L CBC/BMP Laboratory Tests 06/16/19 04:59 Microbiology Microbiology 06/11/19 Blood Culture - Final, Complete NO GROWTH AFTER 5 DAYS NOELLE FRANCIS MD Jun 16, 2019 19:33
[2019-06-16 20:00] VITALS: BP 122/82
[2019-06-16 23:59] VITALS: BP 130/65
[2019-06-17 04:00] VITALS: BP 122/81
[2019-06-17] MEDS: SLF 3 ML SYR IV SCH ×3 (05:02→21:01)
[2019-06-17 05:58] LABS: HEMATOCRIT 30.5 % (42.0-52.0); HEMOGLOBIN 9.6 g/dl (13.5-17.5); MEAN CORPUSCULAR HEMOGLOBIN 32.5 pg (27.0-33.0); MEAN CORPUSCULAR HGB CONC 31.5 g/dl (32.0-36.5); MEAN CORPUSCULAR VOLUME 103.4 fl (80.0-96.0); PLATELET COUNT, AUTOMATED 142 10^3/uL (150-450); RED BLOOD COUNT 2.95 10^6/uL (4.30-6.10)
[2019-06-17 06:18] LABS: BLOOD UREA NITROGEN 8 MG/DL (7-18); CALCIUM LEVEL 8.4 MG/DL (8.8-10.2); CARBON DIOXIDE LEVEL 24 MEQ/L (21-32); CHLORIDE LEVEL 104 MEQ/L (98-107); CREATININE FOR GFR 0.54 MG/DL (0.70-1.30); GLOMERULAR FILTRATION RATE > 60.0 (>49); GLUCOSE, FASTING 93 MG/DL (70-100); MAGNESIUM LEVEL 1.9 MG/DL (1.8-2.4); POTASSIUM SERUM 4.3 MEQ/L (3.5-5.1); SODIUM LEVEL 133 MEQ/L (136-145)
[2019-06-17 08:00] VITALS: BP 142/88
[2019-06-17] MEDS: CEPHALEXIN 500 MG CAP PO SCH ×4 (09:15→20:16)
[2019-06-17] MEDS: FOLIC ACID 1 MG TAB PO SCH (09:15)
[2019-06-17] MEDS: MAGNESIUM OXIDE 400 MG TAB (MAG-OX) PO SCH ×2 (09:15→20:17)
[2019-06-17] MEDS: THIAMINE 100 MG TAB PO SCH (09:15)
[2019-06-17] MEDS: SODIUM CHLORIDE 1 GM TAB PO SCH ×3 (09:15→20:16)
[2019-06-17 12:00] VITALS: BP 132/78
[2019-06-17 15:30] VITALS: BP 158/82
--- NOTE | 2019-06-17 19:28 | IPNPDOC ---
Date Seen The patient was seen on 06/17/19. Progress Note SUBJECTIVE: Patient reported no complaints. Afebrile overnight. Na 133 today. OBJECTIVE PHYSICAL EXAMINATION: VITAL SIGNS: Please see below. General: No acute distress, Alert Eyes: Normal sclera, EOMI HENT: Atraumatic Cardiovascular: Normal rate. b/l 1+ pitting edema. Pulmonary: Clear to auscultation b/l, no wheezing GI: Soft, nontender, nondistended Skin: Warm and dry Neuro: CN grossly intact. No focal deficits. Strengths equal b/l. Psych: oriented x 3 LABORATORY DATA, IMAGING STUDIES, MICROBIOLOGY: Please see below. DVT prophylaxis ordered?: TEDs in setting of declining platelets ASSESSMENT AND PLAN: 64M presented intoxicated found to have severe hyponatremia and subsequently complains of withdrawal symptoms. 1. Chronic hyponatremia - 2/2 chronic alcohol intake. - Na 112 on admission without symptoms at that time and hypovolemic. - c/w Salt tablets TID at this time while monitoring Na levels. Encouraged PO intakes. 2. Alcohol use disorder - Has been admitted for several days, no recent evidence of withdrawal. - CIWA discontinued. - Will need Substance use/addiction services referral upon discharge. 3. HTN - Noncompliant. Documented history of lisinopril 10 mg qHS. - BP variable but did note some hypotensive episodes during admission. - Monitor and resume when persistently elevated. 4. LLE erythema - Possible cellulitis. - Treated with Bactrim-> vancomycin -> Keflex. Complete course for soft tissue cellulitis. 5. Rosacea DISPOSITION: Will likely need Rehab ARU vs. [facility] VS, I&O, 24H, Fishbone Vital Signs/I&O Vital Signs Date Time Temp Pulse Resp B/P (MAP) Pulse Ox O2 Delivery O2 Flow Rate FiO2 06/17/19 15:30 99.1 83 18 158/82 (107) 100 Room Air 06/12/19 09:34 2.0 I&O- Last 24 Hours up to 6 AM 06/17/19 06:00 Intake Total 550 ml Output Total 475 ml Balance 75 ml Laboratory Data 24H LABS Laboratory Tests 2 06/17/19 05:48: Nucleated Red Blood Cells % (auto) 0.0, Anion Gap 5L, Glomerular Filtration Rate > 60.0, Calcium Level 8.4L, Magnesium Level 1.9 CBC/BMP Laboratory Tests 06/17/19 05:48 Microbiology Microbiology 06/11/19 Blood Culture - Final, Complete NO GROWTH AFTER 5 DAYS NOELLE FRANCIS MD Jun 17, 2019 19:28
[2019-06-17 20:00] VITALS: BP 129/81
--- NOTE | 2019-06-17 20:06 | IPN ---
DATE: 06/17/2019 Mr. Avila is seen this morning on his bedside. He is feeling about the same and reports that he did get up and walk with the help of physical therapist. He denies any nausea, vomiting, dyspnea or chest pain. He was admitted with severe hyponatremia which is improving. PHYSICAL EXAMINATION Temperature 98.2 degrees Fahrenheit, heart rate 80 per minute and respiratory rate 18 per minute. Blood pressure 132/78 mmHg and oxygen saturation 100% on room air. His facial acne is unchanged. Head is atraumatic. Neck is supple and JVD not abnormally elevated. Heart: Sounds regular and lungs clear to auscultation. Abdomen: Soft and nontender. Bowel sounds are normal. Extremities have no cyanosis or clubbing. Neurologically he is awake and without a focal deficit. LABS: Today's labs show WBC count 4.0, hemoglobin 9.6 and hematocrit 30.5. Sodium level is up to 133, potassium 4.3, BUN 8, and creatinine 0.54. Magnesium level is now 1.9 and calcium 8.4. PROBLEMS: 1. Hyponatremia. The patient had severe hyponatremia on admission due to excessive drinking of beer. His sodium level is gradually improving and he has been on oral sodium chloride tablets 2 grams three times a day. I am going to cut down the dose of sodium chloride 1 gram three times a day and will continue to monitor his sodium level on daily basis. 2. Hypomagnesemia. His magnesium level has improved and corrected. At this point, no urgent intervention is needed. 3. Generalized weakness and deconditioning related to chronic heavy alcohol use and severe hyponatremia. The patient is gradually improving and has started to walk with the help of physical therapist. We anticipate further improvement as his electrolytes are now within normal range.
[2019-06-18] VITALS: BP 134/63
[2019-06-18 04:00] VITALS: BP 120/58
[2019-06-18] MEDS: SLF 3 ML SYR IV SCH ×3 (05:03→20:16)
[2019-06-18 05:52] LABS: HEMATOCRIT 28.7 % (42.0-52.0); HEMOGLOBIN 9.7 g/dl (13.5-17.5); MEAN CORPUSCULAR HEMOGLOBIN 32.4 pg (27.0-33.0); MEAN CORPUSCULAR HGB CONC 33.8 g/dl (32.0-36.5); PLATELET COUNT, AUTOMATED 175 10^3/uL (150-450); RED BLOOD COUNT 2.99 10^6/uL (4.30-6.10); WHITE BLOOD COUNT 4.2 10^3/uL (4.0-10.0)
[2019-06-18 06:19] LABS: BLOOD UREA NITROGEN 9 MG/DL (7-18); CALCIUM LEVEL 8.6 MG/DL (8.8-10.2); CARBON DIOXIDE LEVEL 26 MEQ/L (21-32); CHLORIDE LEVEL 101 MEQ/L (98-107); CREATININE FOR GFR 0.62 MG/DL (0.70-1.30); GLOMERULAR FILTRATION RATE > 60.0 (>49); GLUCOSE, FASTING 92 MG/DL (70-100); POTASSIUM SERUM 4.2 MEQ/L (3.5-5.1); SODIUM LEVEL 134 MEQ/L (136-145)
[2019-06-18 08:00] VITALS: BP 123/63
[2019-06-18] MEDS: MAGNESIUM OXIDE 400 MG TAB (MAG-OX) PO SCH ×2 (08:29→20:16)
[2019-06-18] MEDS: CEPHALEXIN 500 MG CAP PO SCH ×3 (08:29→16:58)
[2019-06-18] MEDS: THIAMINE 100 MG TAB PO SCH (08:29)
[2019-06-18] MEDS: SODIUM CHLORIDE 1 GM TAB PO SCH ×3 (08:29→20:16)
[2019-06-18] MEDS: FOLIC ACID 1 MG TAB PO SCH (08:29)
[2019-06-18 10:05] VITALS: BP 115/71
--- NOTE | 2019-06-18 11:33 | IPN ---
DATE: 06/18/2019 SUBJECTIVE: Patient is a 64-year-old male who was seen this morning in his bed eating breakfast. The patient says has been able to get up and walk with the physical therapist and a walker. He denies any nausea or vomiting, and he says he is doing much better today. The patient is much more coherent and is able to talk in full sentences. PHYSICAL EXAMINATION VITAL SIGNS: Temperature 98.4, pulse 88, respiratory rate 18, blood pressure 123/63, pulse oximetry 99% on room air. GENERAL: The patient is an alert and oriented male patient who was sitting in bed when we walked in. He was in any acute distress. HEENT: Normocephalic, atraumatic, anicteric sclera. NECK: Was supple with no jugular venous distention (JVD). HEART: Regular rate and rhythm with no murmurs. LUNGS: Were clear to auscultation bilaterally. ABDOMEN: Was soft, nontender. EXTREMITIES: Have no evidence of edema. LABORATORIES: White blood cells 4.2, hemoglobin 9.7, hematocrit 28.7, platelet count 175. Sodium 134, potassium 4.2, chloride 101, carbon dioxide 26, BUN 9, creatinine 0.62, glucose 92, calcium 8.6, magnesium 2.0. ASSESSMENT AND PLAN: 1. Hyponatremia. The patient had severe hyponatremia on admission due to excessive beer drinking. The patient's sodium is gradually improving and is 134 today. The patient has been cut down to 1 gram sodium chloride tablet three times a day and we will continue to monitor. If the patient's sodium level normalizes and he is able to eat and drink normally, these can be discontinued possibly tomorrow. 2. Hypomangesemia. Magnesium level has improved and is corrected. There is no urgent intervention need at this time. 3. Generalized weakness and deconditioning related to chronic heavy alcohol use and severe hyponatremia. The patient is improving with each day and will continue working with physical therapy.
[2019-06-18 14:00] VITALS: BP 124/60
--- NOTE | 2019-06-18 18:44 | IPNPDOC ---
Date Seen The patient was seen on 06/18/19. Progress Note SUBJECTIVE: Patient states he feels fine. Na slightly trending up to 134 today on Na tablets. Appear weak with limited mobility and memory still. OBJECTIVE PHYSICAL EXAMINATION: VITAL SIGNS: Please see below. General: No acute distress, Alert Eyes: Normal sclera, EOMI HENT: Atraumatic Cardiovascular: Normal rate. b/l 1+ pitting edema. Pulmonary: Clear to auscultation b/l, no wheezing GI: Soft, nontender, nondistended Skin: Warm and dry Neuro: CN grossly intact. No focal deficits. Strengths equal b/l. Psych: oriented x 3 LABORATORY DATA, IMAGING STUDIES, MICROBIOLOGY: Please see below. DVT prophylaxis ordered?: TEDs in setting of declining platelets ASSESSMENT AND PLAN: 64M presented intoxicated found to have severe hyponatremia and subsequently complains of withdrawal symptoms. 1. Chronic hyponatremia - 2/2 chronic alcohol intake. - Na 112 on admission without symptoms at that time and hypovolemic. - c/w Salt tablets TID at this time while monitoring Na levels. Encouraged PO intakes. 2. Alcohol use disorder - Has been admitted for several days, no recent evidence of withdrawal. - CIWA discontinued. c/w thiamine and folic acid supplementation. - Will need Substance use/addiction services referral upon discharge. 3. HTN - Noncompliant. Documented history of lisinopril 10 mg qHS. - BP variable but did note some hypotensive episodes during admission. - Monitor and resume when persistently elevated. 4. LLE erythema treated for cellulitis - Treated with Bactrim-> vancomycin -> Keflex for > 7 days. ABx discontinued. 5. Rosacea DISPOSITION: Will likely need Rehab ARU vs. [facility] VS, I&O, 24H, [facility] Vital Signs/I&O Vital Signs Date Time Temp Pulse Resp B/P (MAP) Pulse Ox O2 Delivery O2 Flow Rate FiO2 06/18/19 14:00 99.1 82 20 124/60 (81) 100 06/18/19 10:05 Room Air 06/12/19 09:34 2.0 I&O- Last 24 Hours up to 6 AM 06/18/19 06:00 Intake Total 900 ml Output Total 1175 ml Balance -275 ml Laboratory Data 24H LABS Laboratory Tests 2 06/18/19 05:25: Nucleated Red Blood Cells % (auto) 0.0, Anion Gap 7L, Glomerular Filtration Rate > 60.0, Calcium Level 8.6L, Magnesium Level 2.0 CBC/BMP Laboratory Tests 06/18/19 05:25 Microbiology Microbiology 06/11/19 Blood Culture - Final, Complete NO GROWTH AFTER 5 DAYS NOELLE FRANCIS MD Jun 18, 2019 18:44
[2019-06-18 22:00] VITALS: BP 141/81
[2019-06-19 06:00] VITALS: BP_SYST 129; BP_SYST 137; BP_DIAS 75; BP_DIAS 87
[2019-06-19 06:38] LABS: BLOOD UREA NITROGEN 11 MG/DL (7-18); CALCIUM LEVEL 8.7 MG/DL (8.8-10.2); CARBON DIOXIDE LEVEL 25 MEQ/L (21-32); CHLORIDE LEVEL 104 MEQ/L (98-107); CREATININE FOR GFR 0.62 MG/DL (0.70-1.30); GLOMERULAR FILTRATION RATE > 60.0 (>49); GLUCOSE, FASTING 97 MG/DL (70-100); POTASSIUM SERUM 4.1 MEQ/L (3.5-5.1); SODIUM LEVEL 135 MEQ/L (136-145)
[2019-06-19] MEDS: SLF 3 ML SYR IV SCH ×3 (06:44→20:45)
[2019-06-19] MEDS: THIAMINE 100 MG TAB PO SCH (08:44)
[2019-06-19] MEDS: FOLIC ACID 1 MG TAB PO SCH (08:44)
[2019-06-19] MEDS: MAGNESIUM OXIDE 400 MG TAB (MAG-OX) PO SCH ×2 (08:44→20:45)
--- NOTE | 2019-06-19 13:39 | IPN ---
DATE OF VISIT: 06/19/2019 Mr. Avila is seen this morning on his bedside. He is feeling well and has been eating well. He was worried about his acne and wants to make sure he gets his doxycycline, which has been stopped since admission. He has been chronically on doxycycline for acne. He was admitted with severe hyponatremia, which has now improved with sodium level up to 135. He has been on oral sodium chloride tablets and I have stopped those. PHYSICAL EXAMINATION Temperature is 99.2 degrees Fahrenheit, heart rate 80 per minute and respiratory rate 18 per minute. Blood pressure 129/75 mmHg and oxygen saturation 100%. His facial acne is unchanged. His head is atraumatic and neck is supple and without JVD. Heart sounds are regular and lungs clear to auscultation. Abdomen is soft and nontender. Extremities have no cyanosis or clubbing. Neurologically, he is at his baseline mentation. Today's sodium level is up to 135. The rest of his chemistry is essentially unchanged. Today's labs include a chemistry with sodium 135 and potassium 4.1. BUN is 11 and creatinine 0.62. PROBLEMS: 1. Hyponatremia. Significantly improved with sodium level up to 135. His oral sodium chloride tablets are being stopped. We will monitor his sodium level for the next couple of days. I feel that he is not likely to require further oral sodium chloride tablets. 2. Acne. The patient has been chronically on oral doxycycline and he requested to resume it. I am going to resume his doxycycline 100 mg at bedtime. 3. Anemia. His anemia has been stable and likely to improve further as now he is eating a regular diet. 4. Generalized weakness. The patient is improving with physical therapy. From a renal standpoint, he is doing very well.
[2019-06-19 14:00] VITALS: BP 106/72
[2019-06-19] MEDS: DOXYCYCLINE HYCLATE 100 MG TAB PO SCH (16:59)
--- NOTE | 2019-06-19 19:36 | IPNPDOC ---
Date Seen The patient was seen on 06/19/19. Progress Note SUBJECTIVE: Patient asked to have Doxycycline restarted for his Rosacea. Reports no other complaints apart from weakness. Appear to remember conversation from yesterday. OBJECTIVE PHYSICAL EXAMINATION: VITAL SIGNS: Please see below. General: No acute distress, Alert Eyes: Normal sclera, EOMI HENT: Atraumatic Cardiovascular: Normal rate. b/l 1+ pitting edema. Pulmonary: Clear to auscultation b/l, no wheezing GI: Soft, nontender, nondistended Skin: Warm and dry Neuro: CN grossly intact. No focal deficits. Strengths equal b/l. Psych: oriented x 3 LABORATORY DATA, IMAGING STUDIES, MICROBIOLOGY: Please see below. DVT prophylaxis ordered?: TEDs in setting of declining platelets ASSESSMENT AND PLAN: 64M presented intoxicated found to have severe hyponatremia and subsequently complains of withdrawal symptoms. 1. Chronic hyponatremia - 2/2 chronic alcohol intake. - Na 112 on admission without symptoms at that time and hypovolemic. - c/w Salt tablets TID at this time while monitoring Na levels. Encouraged PO intakes. 2. Alcohol use disorder - Has been admitted for several days, no recent evidence of withdrawal. - CIWA discontinued. c/w thiamine and folic acid supplementation. - Will need Substance use/addiction services referral upon discharge. 3. HTN - Noncompliant. Documented history of lisinopril 10 mg qHS. - BP variable but did note some hypotensive episodes during admission. - Monitor and resume when persistently elevated. 4. LLE erythema treated for cellulitis - Treated with Bactrim-> vancomycin -> Keflex for > 7 days. ABx discontinued. 5. Rosacea - c/w Doxycycline. DISPOSITION: Will likely need Rehab ARU vs. [facility] VS, I&O, 24H, [facility] Vital Signs/I&O Vital Signs Date Time Temp Pulse Resp B/P (MAP) Pulse Ox O2 Delivery O2 Flow Rate FiO2 06/19/19 14:00 98.2 108 18 106/72 (83) 98 Room Air I&O- Last 24 Hours up to 6 AM 06/19/19 06:00 Intake Total 820 ml Output Total 350 ml Balance 470 ml Laboratory Data 24H LABS Laboratory Tests 2 06/19/19 05:24: Anion Gap 6L, Glomerular Filtration Rate > 60.0, Calcium Level 8.7L CBC/BMP Laboratory Tests 06/19/19 05:24 Microbiology Microbiology 06/11/19 Blood Culture - Final, Complete NO GROWTH AFTER 5 DAYS NOELLE FRANCIS MD Jun 19, 2019 19:36
[2019-06-19] MEDS ORDERED: DOXYCYCLINE HYCLATE 100 MG TAB PO SCH (21:00)
[2019-06-19 22:00] VITALS: BP 131/60
[2019-06-20 06:00] VITALS: BP 127/72
[2019-06-20] MEDS: SLF 3 ML SYR IV SCH ×3 (06:42→19:56)
[2019-06-20 06:54] LABS: BLOOD UREA NITROGEN 16 MG/DL (7-18); CALCIUM LEVEL 8.8 MG/DL (8.8-10.2); CARBON DIOXIDE LEVEL 24 MEQ/L (21-32); CHLORIDE LEVEL 101 MEQ/L (98-107); CREATININE FOR GFR 0.66 MG/DL (0.70-1.30); GLOMERULAR FILTRATION RATE > 60.0 (>49); GLUCOSE, FASTING 96 MG/DL (70-100); POTASSIUM SERUM 4.2 MEQ/L (3.5-5.1); SODIUM LEVEL 135 MEQ/L (136-145)
[2019-06-20 08:03] VITALS: BP 136/64
[2019-06-20] MEDS: THIAMINE 100 MG TAB PO SCH (08:48)
[2019-06-20] MEDS: MAGNESIUM OXIDE 400 MG TAB (MAG-OX) PO SCH ×2 (08:50→19:56)
[2019-06-20] MEDS: FOLIC ACID 1 MG TAB PO SCH (08:50)
--- NOTE | 2019-06-20 13:45 | IPN ---
DATE OF VISIT: 06/20/2019 We have been following Mr. Avila for his severe hyponatremia, which has improved, and he was on oral sodium chloride tablets, which were stopped yesterday morning. His sodium level was 135 yesterday and it is still 135 today. He is not drinking excessive amounts of fluids and not drinking beer at all. He had excessive beer intake, which caused severe hyponatremia. Now he is eating normal and sodium level has improved to almost normal. I do not feel that he needs any further sodium supplement. I am signing off his case. Please do not hesitate to call me back should you need any further assistance.
[2019-06-20 14:00] VITALS: BP 130/60
[2019-06-20] MEDS: DOXYCYCLINE HYCLATE 100 MG TAB PO SCH (17:58)
--- NOTE | 2019-06-20 18:12 | IPNPDOC ---
Date Seen The patient was seen on 06/20/19. Progress Note SUBJECTIVE: Patient states that he feels fine. Na 135 today, afebrile. OBJECTIVE PHYSICAL EXAMINATION: VITAL SIGNS: Please see below. General: No acute distress, Alert Eyes: Normal sclera, EOMI HENT: Atraumatic Cardiovascular: Normal rate. b/l 1+ pitting edema. Pulmonary: Clear to auscultation b/l, no wheezing GI: Soft, nontender, nondistended Skin: Warm and dry Neuro: CN grossly intact. No focal deficits. Strengths equal b/l. Psych: oriented x 3 LABORATORY DATA, IMAGING STUDIES, MICROBIOLOGY: Please see below. DVT prophylaxis ordered?: TEDs in setting of declining platelets ASSESSMENT AND PLAN: 64M presented intoxicated found to have severe hyponatremia and subsequently complains of withdrawal symptoms. 1. Chronic hyponatremia - 2/2 chronic alcohol intake. Resolved. - Na 112 on admission without symptoms at that time and hypovolemic. - s/p salt tablets. Encouraged PO intakes. 2. Alcohol use disorder - Has been admitted for several days, no recent evidence of withdrawal. - CIWA discontinued. c/w thiamine and folic acid supplementation. - Will need Substance use/addiction services referral upon discharge. 3. HTN - Noncompliant. Documented history of lisinopril 10 mg qHS. - BP variable but did note some hypotensive episodes during admission. - Monitor and resume when persistently elevated. 4. LLE erythema treated for cellulitis - Treated with Bactrim-> vancomycin -> Keflex for > 7 days. ABx discontinued. 5. Rosacea - c/w Doxycycline. DISPOSITION: Will likely need Rehab ARU vs. [facility] VS, I&O, 24H, [facility] Vital Signs/I&O Vital Signs Date Time Temp Pulse Resp B/P (MAP) Pulse Ox O2 Delivery O2 Flow Rate FiO2 06/20/19 14:00 98.6 98 18 130/60 (83) 99 Room Air I&O- Last 24 Hours up to 6 AM 06/20/19 06:00 Intake Total 1020 ml Output Total 400 ml Balance 620 ml Laboratory Data 24H LABS Laboratory Tests 2 06/20/19 06:13: Anion Gap 10, Glomerular Filtration Rate > 60.0, Calcium Level 8.8 CBC/BMP Laboratory Tests 06/20/19 06:13 Microbiology Microbiology 06/11/19 Blood Culture - Final, Complete NO GROWTH AFTER 5 DAYS NOELLE FRANCIS MD Jun 20, 2019 18:12
[2019-06-20 22:00] VITALS: BP 120/71
[2019-06-21 06:00] VITALS: BP 108/68
[2019-06-21] MEDS: SLF 3 ML SYR IV SCH ×3 (06:06→20:08)
[2019-06-21 07:11] LABS: BLOOD UREA NITROGEN 18 MG/DL (7-18); CARBON DIOXIDE LEVEL 24 MEQ/L (21-32); CHLORIDE LEVEL 102 MEQ/L (98-107); CREATININE FOR GFR 0.67 MG/DL (0.70-1.30); GLOMERULAR FILTRATION RATE > 60.0 (>49); GLUCOSE, FASTING 90 MG/DL (70-100); SODIUM LEVEL 135 MEQ/L (136-145)
[2019-06-21] MEDS: THIAMINE 100 MG TAB PO SCH (08:50)
[2019-06-21] MEDS: MAGNESIUM OXIDE 400 MG TAB (MAG-OX) PO SCH ×2 (08:50→20:08)
[2019-06-21] MEDS: FOLIC ACID 1 MG TAB PO SCH (08:50)
[2019-06-21 14:00] VITALS: BP 88/52
[2019-06-21 15:00] VITALS: BP 118/63
--- NOTE | 2019-06-21 16:51 | IPNPDOC ---
Date Seen The patient was seen on 06/21/19. Progress Note SUBJECTIVE: Patient has no complaints. Facial flushing improved today, doxycycline was r estarted yesterday. Na 135 today, afebrile. OBJECTIVE PHYSICAL EXAMINATION: VITAL SIGNS: Please see below. General: No acute distress, Alert Eyes: Normal sclera, EOMI HENT: Atraumatic Cardiovascular: Normal rate. Pulmonary: Clear to auscultation b/l, no wheezing GI: Soft, nontender, nondistended Skin: Warm and dry, facial erythema with some nodules Neuro: CN grossly intact. No focal deficits. Strengths equal b/l. Psych: oriented x 3 LABORATORY DATA, IMAGING STUDIES, MICROBIOLOGY: Please see below. DVT prophylaxis ordered?: TEDs in setting of declining platelets ASSESSMENT AND PLAN: 64M presented intoxicated found to have severe hyponatremia and subsequently complains of withdrawal symptoms. 1. Chronic hyponatremia - 2/2 chronic alcohol intake. Resolved. - Na 112 on admission without symptoms at that time and hypovolemic. - s/p salt tablets. Encouraged PO intakes. 2. Alcohol use disorder - Has been admitted for several days, no recent evidence of withdrawal. - CIWA discontinued. c/w thiamine and folic acid supplementation. - Will need Substance use/addiction services referral upon discharge. 3. HTN - Noncompliant. Documented history of lisinopril 10 mg qHS. - BP variable but did note some hypotensive episodes during admission. - Monitor and resume when persistently elevated. 4. LLE erythema treated for cellulitis - Treated with Bactrim-> vancomycin -> Keflex for > 7 days. ABx discontinued. 5. Rosacea - c/w Doxycycline. DISPOSITION: Will likely need Rehab ARU vs. [facility] VS, [facility]&O, [facility]H, [facility] Vital Signs/I&O Vital Signs Date Time Temp Pulse Resp B/P (MAP) Pulse Ox O2 Delivery O2 Flow Rate FiO2 06/21/19 14:00 98.0 91 16 88/52 (64) 100 Room Air I&O- Last 24 Hours up to 6 AM 06/21/19 06:00 Intake Total 1600 ml Output Total 250 ml Balance 1350 ml Laboratory Data 24H LABS Laboratory Tests 2 06/21/19 05:04: Anion Gap 9, Glomerular Filtration Rate > 60.0, Calcium Level 9.0 CBC/BMP Laboratory Tests 06/21/19 05:04 Microbiology Microbiology 06/11/19 Blood Culture - Final, Complete NO GROWTH AFTER 5 DAYS NOELLE FRANCIS MD Jun 21, 2019 16:51
[2019-06-21] MEDS: DOXYCYCLINE HYCLATE 100 MG TAB PO SCH (17:42)
[2019-06-21 22:00] VITALS: BP 113/63
[2019-06-22] MEDS: SLF 3 ML SYR IV SCH ×3 (05:23→21:52)
[2019-06-22 06:00] VITALS: BP 99/63
[2019-06-22 06:05] LABS: BLOOD UREA NITROGEN 20 MG/DL (7-18); CALCIUM LEVEL 8.7 MG/DL (8.8-10.2); CARBON DIOXIDE LEVEL 26 MEQ/L (21-32); CHLORIDE LEVEL 102 MEQ/L (98-107); CREATININE FOR GFR 0.74 MG/DL (0.70-1.30); GLOMERULAR FILTRATION RATE > 60.0 (>49); GLUCOSE, FASTING 92 MG/DL (70-100); POTASSIUM SERUM 4.4 MEQ/L (3.5-5.1); SODIUM LEVEL 135 MEQ/L (136-145)
[2019-06-22] MEDS: THIAMINE 100 MG TAB PO SCH (08:18)
[2019-06-22] MEDS: MAGNESIUM OXIDE 400 MG TAB (MAG-OX) PO SCH ×2 (08:18→20:19)
[2019-06-22] MEDS: FOLIC ACID 1 MG TAB PO SCH (08:18)
--- NOTE | 2019-06-22 08:48 | IPNPDOC ---
Text Note Date of Service The patient was seen on 06/22/19. NOTE SUBJECTIVE: Patient has no complaints. No acute overnight events reported. Soaking his feet this morning. OBJECTIVE PHYSICAL EXAMINATION: VITAL SIGNS: Please see below. General: No acute distress, disheveled HEENT: NC/AT, EOMI, PERRL Cardiovascular: +S1S2, RRR Pulmonary: Clear to auscultation b/l, no wheezing GI: Soft, nontender, nondistended Skin: Warm and dry, facial erythema with some nodules Psych: oriented x 3 ASSESSMENT AND PLAN: 64M presented intoxicated found to have severe hyponatremia with subsequent EtOH withdrawal symptoms. 1. Chronic hyponatremia - beer potomania - 2/2 chronic alcohol intake. Resolved. - Na 112 on admission without symptoms at that time and hypovolemic. - s/p salt tablets. Encouraged PO intake. 2. Alcohol use disorder - Has been admitted for several days, no recent evidence of withdrawal. - CIWA discontinued. c/w thiamine and folic acid supplementation. - Will need Substance use/addiction services referral upon discharge. 3. HTN - Noncompliant. Documented history of lisinopril 10 mg qHS. - BP variable but did note some hypotensive episodes - continue to monitor - d/c lisinopril 4. LLE erythema treated for cellulitis - Treated with Bactrim-> vancomycin -> Keflex for > 7 days. ABx discontinued. 5. Rosacea - c/w Doxycycline. DISPOSITION: anticipate d/c in 24 hours if bp stable (has been hypotensive). VS,Fishbone, I+O VS, Fishbone, I+O Laboratory Tests 06/22/19 05:20 Vital Signs Date Time Temp Pulse Resp B/P (MAP) Pulse Ox O2 Delivery O2 Flow Rate FiO2 06/22/19 06:00 97.2 89 20 99/63 (75) 100 Room Air I&O- Last 24 Hours up to 6 AM 06/22/19 06:00 Intake Total 1300 ml Output Total 275 ml Balance 1025 ml MARIA INES PALACIOS MD Jun 22, 2019 08:48
[2019-06-22] MEDS ORDERED: MAG400TA PO (11:31)
[2019-06-22] MEDS ORDERED: FOLI1TAB11 PO (11:31)
[2019-06-22] MEDS ORDERED: THIA100TA PO (11:31)
[2019-06-22 14:00] VITALS: BP 121/72
[2019-06-22] MEDS: DOXYCYCLINE HYCLATE 100 MG TAB PO SCH (17:00)
[2019-06-22 22:00] VITALS: BP 120/68
[2019-06-23] MEDS ORDERED: diphenhydrAMINE 25 MG CAP PO ONE (00:30)
[2019-06-23 06:00] VITALS: BP 133/79
[2019-06-23] MEDS: SLF 3 ML SYR IV SCH ×3 (06:07→20:46)
[2019-06-23] MEDS: THIAMINE 100 MG TAB PO SCH (08:35)
[2019-06-23] MEDS: MAGNESIUM OXIDE 400 MG TAB (MAG-OX) PO SCH ×2 (08:35→20:46)
[2019-06-23] MEDS: FOLIC ACID 1 MG TAB PO SCH (08:35)
[2019-06-23 16:00] VITALS: BP 143/87
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
[2019-06-23] MEDS: DOXYCYCLINE HYCLATE 100 MG TAB PO SCH (17:32)
[2019-06-23 22:00] VITALS: BP 141/86
[2019-06-24] MEDS: SLF 3 ML SYR IV SCH (05:55)
[2019-06-24 06:00] VITALS: BP 127/76
[2019-06-24] MEDS: MAGNESIUM OXIDE 400 MG TAB (MAG-OX) PO SCH (08:19)
[2019-06-24] MEDS: FOLIC ACID 1 MG TAB PO SCH (08:19)
[2019-06-24] MEDS: THIAMINE 100 MG TAB PO SCH (08:19)
== END 2019-06-24 11:55 | disposition home health service (06) | DRG 425 ==
LOC: M ED 19:44 → M ED INP 22:26 → M PCU 06-11 00:25 → M ICU 06-11 16:52 → M PCU 06-13 05:17 → M MSPAV 06-18 10:05
PROVIDERS: ADMIT Internal Medicine; ATTEND Internal Medicine Nephrology
DX: E87.1 Hypo-osmolality and hyponatremia (principal); L03.116 Cellulitis of left lower limb; I10 Essential (primary) hypertension; E83.42 Hypomagnesemia; R53.1 Weakness; F10.229 Alcohol dependence with intoxication, unspecified; L71.9 Rosacea, unspecified; K21.9 Gastro-esophageal reflux disease without esophagitis; F10.288 Alcohol dependence with other alcohol-induced disorder; F10.239 Alcohol dependence with withdrawal, unspecified; Z91.14 Patient's other noncompliance with medication regimen; Z79.899 Other long term (current) drug therapy; D72.819 Decreased white blood cell count, unspecified

== ENCOUNTER 2019-07-31 22:27 | Inpatient (IN) | payer OTHER ==
[~2019-07-31] VITALS: Ht 185.4 cm; Wt 61.6 kg
[~2019-07-31 22:27] MED LIST changes: +DOXY100T PO; +FOLI1TAB11 PO; +LISI10TA4 PO; +MAG400TA PO; +OMEP20TA9 PO; +TAB-TAB PO; +THIA100TA PO; +VITA50005 PO
--- NOTE | 2019-07-31 23:47 | REPVR ---
PROCEDURE INFORMATION: Exam: CT Head Without Contrast Exam date and time: 07/31/2019 11:02 PM Age: 64 years old Clinical indication: Dizziness; Additional info: Syncope TECHNIQUE: Imaging protocol: Computed tomography of the head without contrast. Radiation optimization: All CT scans at this facility use at least one of these dose optimization techniques: automated exposure control; mA and/or kV adjustment per patient size (includes targeted exams where dose is matched to clinical indication); or iterative reconstruction. COMPARISON: CT Head without contrast 06/10/2019 8:47 PM FINDINGS: Brain: There are global involutional changes of the brain which are in keeping with the patient's age. Periventricular hypodensities are nonspecific but most likely reflect chronic microvascular ischemic disease. There is no evidence of intracranial hemorrhage. No abnormal extra-axial fluid collections are identified. No mass effect or midline shift is seen. Ventricles: Normal. No ventriculomegaly. Bones/joints: Unremarkable. No acute fracture. Sinuses: There is trace sinus mucosal disease, with no air-fluid level identified. Mastoid air cells: Visualized mastoid air cells are well aerated. Soft tissues: Unremarkable. Vasculature: Atherosclerotic vascular disease is noted at the level of the skull base. IMPRESSION: No acute intracranial abnormality demonstrated by CT. Electronically signed by: Tess Ayala On 07/31/2019 23:47:06 PM
--- NOTE | 2019-08-01 00:01 | REPVR ---
PROCEDURE INFORMATION: Exam: CT Cervical Spine Without Contrast Exam date and time: 07/31/2019 11:02 PM Age: 64 years old Clinical indication: Neck pain; Additional info: Syncope TECHNIQUE: Imaging protocol: Computed tomography images of the cervical spine without contrast. Radiation optimization: All CT scans at this facility use at least one of these dose optimization techniques: automated exposure control; mA and/or kV adjustment per patient size (includes targeted exams where dose is matched to clinical indication); or iterative reconstruction. COMPARISON: CT Spine,cervical w/o contrast 06/10/2019 8:47 PM FINDINGS: Vertebrae: There are no anterior wedging deformities. No acute cervical spinal fracture is detected. T2 compression deformity is age indeterminate. There are prominent focal superior and inferior depressions at this level. Mild diffuse left convexity of the cervical spine. Spondylitic changes of the cervical spine are most prominent at C6-C7. No severe central canal or neural foraminal stenosis demonstrated by CT. Discs/Spinal canal/Neural foramina: Facet arthropathy is most severe at the right upper cervical levels. Other bones/joints: There is a left posterior 1st rib fracture which demonstrates healing changes. Correlate with history of injury. Lungs: Lung apices are normal. IMPRESSION: 1. Mild spondylitic changes and severe right eccentric facet arthropathy, with no severe central canal or neural foraminal stenosis demonstrated by CT. 2. T2 compression deformity is age indeterminate. 3. Left posterior 1st rib fracture demonstrates healing changes. Electronically signed by: Tess Ayala On 08/01/2019 00:01:24 AM
[2019-08-01] MEDS ORDERED: NS 1,000 ML IV ONE (00:15)
[2019-08-01 00:22] LABS: BASO # 0.1 10^3/uL (0.0-0.2); BASO % 1.9 % (0.0-1.0); EOS # 0.3 10^3/uL (0.0-0.5); EOS % 7.1 % (0.0-3.0); HEMATOCRIT 30.3 % (42.0-52.0); HEMOGLOBIN 10.7 g/dl (13.5-17.5); LYMPH # 1.1 10^3/uL (1.5-5.0); LYMPH % 30.2 % (24.0-44.0); MEAN CORPUSCULAR HGB CONC 35.3 g/dl (32.0-36.5); MEAN CORPUSCULAR VOLUME 93.5 fl (80.0-96.0); MONO # 0.4 10^3/uL (0.0-0.8); NEUTROPHILS # 1.8 10^3/uL (1.5-8.5); NEUTROPHILS % 48.5 % (36.0-66.0); PLATELET COUNT, AUTOMATED 135 10^3/uL (150-450); RED BLOOD COUNT 3.24 10^6/uL (4.30-6.10); WHITE BLOOD COUNT 3.7 10^3/uL (4.0-10.0)
[2019-08-01 00:35] LABS: INR 1.13; PROTHROMBIN TIME 14.2 SECONDS (11.8-14.0)
[2019-08-01 00:36] LABS: PARTIAL THROMBOPLASTIN TIME 34.5 SECONDS (25.0-38.4)
[2019-08-01 00:45] LABS: ALBUMIN 3.4 GM/DL (3.2-5.2); ALT/SGPT 15 U/L (12-78); BILIRUBIN,TOTAL 0.6 MG/DL (0.2-1.0); BLOOD UREA NITROGEN 3 MG/DL (7-18); CALCIUM LEVEL 8.1 MG/DL (8.8-10.2); CARBON DIOXIDE LEVEL 25 MEQ/L (21-32); CHLORIDE LEVEL 92 MEQ/L (98-107); CK-MB VALUE MASS 5.6 NG/ML (<3.6); CPK CREATINE PHOSPHOKINASE 127 U/L (39-308); CREATININE FOR GFR 0.59 MG/DL (0.70-1.30); ETHYL ALCOHOL (ETHANOL) 0.405 % (0.000-0.010); GLOMERULAR FILTRATION RATE > 60.0 (>49); GLUCOSE, FASTING 91 MG/DL (70-100); MB/CK RELATIVE INDEX 4.41 (< OR =4); POTASSIUM SERUM 3.9 MEQ/L (3.5-5.1); SODIUM LEVEL 128 MEQ/L (136-145); TOTAL PROTEIN 7.3 GM/DL (6.4-8.2); TROPONIN I < 0.02 NG/ML (< 0.10)
[2019-08-01 01:38] LABS: AMPHETAMINES LEVEL URINE NEGATIVE (NEGATIVE); BARBITURATES URINE NEGATIVE (NEGATIVE); BENZODIAZEPINES URINE NEGATIVE (NEGATIVE); CANNABINOIDS URINE NEGATIVE (NEGATIVE); COCAINE METABOLITE URINE NEGATIVE (NEGATIVE); METHADONE URINE NEGATIVE (NEGATIVE); OPIATES URINE NEGATIVE (NEGATIVE); PHENCYCLIDINE URINE NEGATIVE (NEGATIVE)
[2019-08-01] MEDS ORDERED: VITA50005 PO (02:13)
[2019-08-01] MEDS ORDERED: FOLI1TAB11 PO (02:13)
[2019-08-01] MEDS ORDERED: MAGN400T2 PO (02:13)
[2019-08-01] MEDS ORDERED: B-1100TA2 PO (02:13)
[2019-08-01] MEDS ORDERED: PATIENT COMMENTS (02:14)
[2019-08-01] MEDS ORDERED: ACETAMINOPHEN TAB 650MG DOSE (2X325MG) PO PRN (02:45)
[2019-08-01] MEDS ORDERED: MOM 30ML SUSPENSION UDC PO PRN (02:45)
[2019-08-01] MEDS ORDERED: LR 1,000 ML IV SCH (02:45)
[2019-08-01] MEDS ORDERED: LORazepam 2 MG TAB PO PRN (02:45)
[2019-08-01 03:11] LABS: C REACTIVE PROTEIN QUANTITATIV < 0.30 MG/DL (0.00-0.30)
--- NOTE | 2019-08-01 04:06 | HPEPDOC ---
[facility] Medical History & Physical Date of Admission Aug 01, 2019 Date of Service: Aug 01, 2019 History and Physical CHIEF COMPLAINT: Dizziness and Weakness HISTORY OF PRESENT ILLNESS: This is a 64-year-old male with a pertinent past medical history of alcohol abuse who presented to the ER dizziness. Was brought in via EMS after his ankle 911. Per EMS friend stated patient came weak, dizzy resulting in almost passing out. He denies any loss of consciousness or any head trauma. He does endorse that he drank about 12 cans of beer tonight and does drink daily. He has no desire to quit drinking. He states that he currently just feels really weak. He denies any chest pain, shortness of breath, cough, nausea, vomiting, diarrhea, abdominal pain or muscle aches. He does endorse hic cups currently but tolerable. He denies any fevers, chills, night sweats. He does endorse that he does not the best diet but is keeping himself hydrated with his beer. In the ER he was found to have a temp of 94.1, normotensive blood pressure, and regular heart rate. He had an alcohol level of 0.405 and a sodium of 128. CRP was negative and cardiac markers were negative. Imaging showed head CT was negative but chest x-ray to show new rib fracture on the right sixth rib (officially report pending). Patient does endorse that he fell a couple days prior on the slippery sidewalk. He endorses it was a mechanical fall and some random people helped him up. He denied any head trauma at that time. He denies any pain at this current time. Hospitalist team was distribution operations supervisor for admission. REVIEW OF SYSTEMS: 10 systems reviewed and negative other than HPI PAST MEDICAL HISTORY: 1. Alcohol abuse 2. Hypertension 3. Rosacea 4. Acid reflux PAST SURGICAL HISTORY: 1. Hernia repair HOME MEDICATIONS: Please see below. ALLERGIES: Please see below SOCIAL HISTORY: Tobacco use: Never ETOH: Daily 12-15 beers a day Illicit drug use: Denies CODE STATUS: FULL CODE. FAMILY HISTORY: Reviewed and noncontributory PHYSICAL EXAMINATION: VITAL SIGNS: See below GENERAL: Patient unpleasant smell laying bed awake alert oriented speaking in complete sentences no acute distress HEENT: External ocular movements intact. Pupils are equal and reactive slightly dry mucous membranes with no JVD. CARDIOVASCULAR: S1 S2 regular no additional heart sounds appreciated. RESPIRATORY: Clear to auscultation bilaterally. No audible wheezing OR rales ABDOMINAL: Bowel sounds present abdomen soft and nontender EXTREMITIES: No clubbing cyanosis 1+ pitting edema in the lower extremities bilaterally. No open sites noted. Erythematous in nature. No increased warmth. Scaly lesions superficially. Slight tenderness to palpation near the ankle and dorsal aspect of the foot but not consistent throughout. Pedal pulses were diffi cult to palpate bilaterally. No asterixis noted bilaterally. NEUROLOGICAL: Spontaneously moves all 4 extremities cranial 2 through 12 grossly intact no gross focal deficits appreciated PSYCHOLOGICAL: Appropriate. Inebriated but is AAO X3 LABORATORY DATA: See below. MICROBIOLOGY: Please see below. IMAGIN07/31/[address] No acute intracranial abnormality demonstrated by CT. Cercical Spine CT - IMPRESSION: 1. Mild spondylitic changes and severe right eccentric facet arthropathy, with no severe central canal or neural foraminal stenosis demonstrated by CT. 2. T2 compression deformity is age indeterminate. 3. Left posterior 1st rib fracture demonstrates healing changes. Chest Xray: Official report currently pending. The lungs appear clear clear heart borders good heart size. Cant appreciate rib fractures in 6, 7 and 8. 6 appears more acute while 7 and 8 appears to be old for they are healing. ASSESSMENT & PLAN: This is a 54-year-old male presenting with Weakness and dizz iness and alcohol abuse PROBLEMS: 1. Dizziness and Weakness/ Presyncope possible secondary to malnourished and dehydration and alcohol abuse. Poor diet at home. Placed on mechanical soft diet, consider if he is a candidate for meal on wheal once stable for discharge. LRx1 L 60 cc/hr and orthostat x1. 2. Alcohol abuse. Past hospitalization that resulted in intubation and Precedex while he was going through withdrawals. Will add CIWA protocol with PRN PO Ativan as well as Serax PRN. Has no wish to quit drinking. 3. Chronic severe hyponatremia. Sable. Communicate appropriately, No rapid corrections indicated. Will continue to monitor 4. Hypothermia. In the ER, temp was 94.1 responded appropriately to heating blanket and warm fluids. Currently 97.4. Will continue to monitor. 5. Right 6th Rib fracture. No complaint on exam today. Tylenol on board for pain. Will monitor for pain. 6. Chronic lower extremity stasis dermatitis. Continue not to be the best hygiene. skin appears slightly erythematous with dry scales with no opened wounds visualized.. Minimal edema bilaterally in the lower extremities. Can consider Jobst sock and hydration lotion to apply on lower extremities. 7. Rosacea. We will hold his home doxycycline at this current time 8. Acid reflux. continue home omeprazole. DVT PROPHYLAXIS: Heparin DISPOSITION: Admits to [facility] for at least 2 midnights. Vital Signs Vital Signs Date Time Temp Pulse Resp B/P (MAP) Pulse Ox O2 Delivery O2 Flow Rate FiO2 08/01/19 03:15 84 111/58 08/01/19 03:15 94 Room Air 08/01/19 02:36 97.4 07/31/19 22:41 20 Laboratory Data Labs 24H Laboratory Tests 2 07/31/19 23:50: Immature Granulocyte % (Auto) 0.3, Neutrophils (%) (Auto) 48.5, Lymphocytes (%) (Auto) 30.2, Monocytes (%) (Auto) 12.0H, Eosinophils (%) (Auto) 7.1H, Basophils (%) (Auto) 1.9H, Neutrophils # (Auto) 1.8, Lymphocytes # (Auto) 1.1L, Monocytes # (Auto) 0.4, Eosinophils # (Auto) 0.3, Basophils # (Auto) 0.1, Nucleated Red Blood Cells % (auto) 0.0, Prothrombin Time 14.2H, Prothromb Time International Ratio 1.13, Activated Partial Thromboplast Time 34.5, Anion Gap 11, Glomerular Filtration Rate > 60.0, Calcium Level 8.1L, Total Bilirubin 0.6, Aspartate Amino Transf (AST/SGOT) 35, Alanine Aminotransferase (ALT/SGPT) 15, Alkaline Phosphatase 105, Total Creatine Kinase 127, Creatine Kinase MB 5.6H, Creatine Kinase MB Relative Index 4.41H, Troponin I < 0.02, C-Reactive Protein, Quantitative < 0.30, Total Protein 7.3, Albumin 3.4, Albumin/Globulin Ratio 0.87L, Urine Opiates Screen NEGATIVE, Urine Methadone Screen NEGATIVE, Urine Barbiturates Screen NEGATIVE, Urine Phencyclidine Screen NEGATIVE, Urine Amphetamines Screen NEGATIVE, Urine Benzodiazepines Screen NEGATIVE, Urine Cocaine Metabolite Screen NEGATIVE, Urine Cannabinoids Screen NEGATIVE, Ethyl Alcohol Level 0.405H 08/01/19 00:30: Bedside Glucose (Misc Panel) 103 CBC/BMP Laboratory Tests 07/31/19 23:50 Home Medications Scheduled Doxycycline Hyclate (Doxycycline Hyclate) 100 Mg Tablet, 100 MG PO QHS TAKES FOR ROSACEA Ergocalciferol (Vitamin D2) (Vitamin D2) 50,000 Units Cap, 50,000 UNITS PO 1XWK Folic Acid (Folic Acid) 1 Mg Tablet, 1 MG PO DAILY Magnesium Oxide (Magnesium Oxide) 400 Mg Tablet, 400 MG PO BID Multivitamin (Tab-A-Zaire) 1 Each Tablet, 1 TAB PO QHS Omeprazole (Omeprazole) 20 Mg Tablet.dr, 20 MG PO QHS Thiamine HCl (Vitamin B-1) 100 Mg Tablet, 100 MG PO DAILY Miscellaneous Medications [Patient Comments] UNABLE TO DISCUSS MEDICATION HISTORY WITH PATIENT AT THIS TIME. WILL VERIFY MEDICATIONS WHEN PHARMACY OPENS Allergies Coded Allergies: No Known Allergies (Unverified , 12/18/16) GME ATTESTATION GME ATTESTATION My faculty preceptor for this patient encounter was physically present during the encounter and was fully available. All aspects of the patient interview, examination, medical decision making process, and medical care plan development were reviewed and approved by the faculty preceptor. The faculty preceptor is aware and concurs with the plan as stated in the body of this note and will attest to such by his/her cosignature. ATTENDING NOTE I personally saw and examined Mr. Avila and discussed his presentation and plan with Dr. Alejandre. We are both very familiar with Mr. Avila who is a 54-year-old man with severe alcohol use disorder with frequent admissions falls with fractures and withdrawal. He was brought in BIBEMS today after his friend triggered EMS when he reported feeling weakn and dizziness and was intoxicated. On presentation he was hypothermic requiring a warming blanket but otherwise he modynamically stable. He had an elevated alcohol level and his his chronic hyponatremia, anemia and leukopenia. He is now being admitted to medicine for hydration and impending alcohol withdrawal management. MARITA ALEJANDRE DO Aug 01, 2019 04:06 KETURAH NAVARRETE MD Aug 01, 2019 04:14
[2019-08-01 05:06] VITALS: BP 111/67
[2019-08-01 05:44] VITALS: BP 111/67
[2019-08-01] MEDS: OXAZEPAM 15 MG CAP PO SCH ×4 (05:47→23:52)
--- NOTE | 2019-08-01 06:32 | ECGEPIP ---
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
--- NOTE | 2019-08-01 08:24 | REP ---
AP PORTABLE CHEST: 08/01/2019. COMPARISON: 11/06/2016 CLINICAL HISTORY: Hypothermia. Syncope. FINDINGS: Lung kraft are adequately inflated. There is no effusion or acute infiltrate. Heart size not enlarged. The aorta and airway intact. There is a right posterior 7th rib fracture slightly displaced and old 8th through 10th posterior rib fractures with remodeling. No pneumothorax evident. Old post-traumatic changes with the mid and distal clavicle fracture unchanged from the 2017 study. IMPRESSION: 1. No acute cardiopulmonary change. 2. Acute right posterior 7th rib fracture with mild displacement, but no pneumothorax or effusion. Posterior 8th through 10th rib fractures with remodeling. Electronically Signed by Edward Gonzales MD 08/01/2019 07:50 P
[2019-08-01] MEDS: FOLIC ACID 1 MG TAB PO SCH (09:45)
[2019-08-01] MEDS: HEPARIN SOD (PORCINE) 5000 UNITS/ML VIAL (J1644 PER 1000UNITS) SC SCH ×2 (09:45→20:03)
[2019-08-01] MEDS: THIAMINE 100 MG TAB PO SCH ×2 (09:45→20:04)
[2019-08-01] MEDS: MULTIVITAMINS/MINERALS THERAP 1 TAB PO SCH (09:45)
[2019-08-01 14:00] VITALS: BP_SYST 106; BP_SYST 118; BP_DIAS 68; BP_DIAS 71
[2019-08-01 14:45] VITALS: BP 106/68
--- NOTE | 2019-08-01 15:37 | IPNPDOC ---
Date Seen The patient was seen on 08/01/19. Progress Note SUBJECTIVE: Kurt was seen and examined this morning while lying in bed. He was rather lethargic, and needed to be awoken multiple times throughout the visit. He reports occasional upper extremity shakes, but denies any current pain, nausea, vomiting, headache, confusion, palpitations, visual disturbances, or auditory disturbances. Patient denies any fever, chills, night sweats, chest pain or pressure, shortness of breath, or abdominal pain at this time. OBJECTIVE PHYSICAL EXAMINATION: VITAL SIGNS: Please see below. GENERAL: Gaunt appearance. Lethargic, requiring multiple awakenings throughout exam. Speech moderately slowed. Appears older than stated age. In no apparent acute distress. HEENT: Normocephalic, atraumatic. Anicteric and noninjected sclera. Mild clouding of bilateral eyes. Poor dentition. No palpable cervical or supraclavicular lymphadenopathy appreciated. Trachea is midline. CARDIOVASCULAR: Borderline tachycardic rate. Regular rhythm. S1, S2 auscultated. No murmurs or rubs appreciated. RESPIRATORY: Decreased tidal volume with poor respiratory effort. Difficult to ascertain for wheezes, crackles or rhonchi due to poor effort. Breathing on room air. ABDOMINAL: Hypoactive bowel sounds. Thin, nondistended, nontender. No palpable masses appreciated. EXTREMITIES: Significant dryness and scaling of bilateral lower extremities with underlying rubor. Bilateral pedal edema, left greater than right. NEUROLOGICAL: Lethargic, requiring multiple awakenings throughout exam. Due to lethargy, difficult to assess for focal deficits. LABORATORY DATA, IMAGING STUDIES, MICROBIOLOGY: Please see below. ASSESSMENT AND PLAN: This is a 64-year-old ashlyn male with history of alcohol abuse and hypertension who presented to the emergency department with complaints of dizziness and weakness likely secondary to alcohol abuse. #Protein calorie malnutrition and dehydration likely secondary to alcohol abuse -BMI 18.2; BMI < 18.5 equals underweight BMI -Poor diet and resulting malnutrition at home, likely secondary to excessive EtOH intake -c/w mechanical soft diet -Thiamine, folic acid, multivitamins ordered -c/w LR fluid replacement #Alcohol abuse -BRETT of 0.405 upon ED presentation -Extensive past history of EtOH overdose and hospitalizations; once requiring emergent intubation and Precedex -Due to lethargy this morning on exam, Serax switched to 15 mg q6h PO -Placed on remote telemetry to assess cardiac status as patient enters withdrawal -c/w CIWA protocol; morning score 10, indicating moderate withdrawal -Receiving thiamine, multivitamin, and folic acid -Patient reported on admission he has no interest in alcohol cessation at this time -PFS evaluation ordered #Pancytopenia -Hgb 10.7, WBC 3.7, PLT 135 this morning -Likely related to poor nutrition and liver pathology secondary to extensive alcohol abuse history -a.m. CBC and CMP ordered #Chronic severe hyponatremia -This is likely a secondary effect of patient's extensive history of alcohol abuse -Vital signs are stable and patient responded appropriately to questions and commands when awoken -No rapid interventional corrections warranted at this time -Continue to monitor patient's mental status/CIWA scores #GERD -c/w home omeprazole #DVT prophylaxis: Heparin sc DISPOSITION: Pending clinical status as patient transitions into withdrawal period. VS, I&O, 24H, Fishbone Vital Signs/I&O Vital Signs Date Time Temp Pulse Resp B/P (MAP) Pulse Ox O2 Delivery O2 Flow Rate FiO2 08/01/19 05:44 94 111/67 08/01/19 05:06 97.5 18 94 Room Air I&O- Last 24 Hours up to 6 AM 08/01/19 06:00 Intake Total 1000 ml Output Total 0 ml Balance 1000 ml Laboratory Data 24H LABS Laboratory Tests 2 07/31/19 23:50: Immature Granulocyte % (Auto) 0.3, Neutrophils (%) (Auto) 48.5, Lymphocytes (%) (Auto) 30.2, Monocytes (%) (Auto) 12.0H, Eosinophils (%) (Auto) 7.1H, Basophils (%) (Auto) 1.9H, Neutrophils # (Auto) 1.8, Lymphocytes # (Auto) 1.1L, Monocytes # (Auto) 0.4, Eosinophils # (Auto) 0.3, Basophils # (Auto) 0.1, Nucleated Red Bl ood Cells % (auto) 0.0, Prothrombin Time 14.2H, Prothromb Time International Ratio 1.13, Activated Partial Thromboplast Time 34.5, Anion Gap 11, Glomerular Filtration Rate > 60.0, Calcium Level 8.1L, Total Bilirubin 0.6, Aspartate Amino Transf (AST/SGOT) 35, Alanine Aminotransferase (ALT/SGPT) 15, Alkaline Phosphatase 105, Total Creatine Kinase 127, Creatine Kinase MB 5.6H, Creatine Kinase MB Relative Index 4.41H, Troponin I < 0.02, C-Reactive Protein, Quantitative < 0.30, Total Protein 7.3, Albumin 3.4, Albumin/Globulin Ratio 0.87L, Urine Opiates Screen NEGATIVE, Urine Methadone Screen NEGATIVE, Urine Barbiturates Screen NEGATIVE, Urine Phencyclidine Screen NEGATIVE, Urine Amphetamines Screen NEGATIVE, Urine Benzodiazepines Screen NEGATIVE, Urine Cocaine Metabolite Screen NEGATIVE, Urine Cannabinoids Screen NEGATIVE, Ethyl Alcohol Level 0.405H 08/01/19 00:30: Bedside Glucose (Misc Panel) 103 08/01/19 09:12: Ethyl Alcohol Level 0.263H CBC/BMP Laboratory Tests 07/31/19 23:50 CARL PEARSON D.O. Aug 01, 2019 15:34
[2019-08-01] MEDS: OMEPRAZOLE 20 MG CAP PO SCH (20:04)
[2019-08-01 22:00] VITALS: BP_SYST 132; BP_DIAS 63; BP_DIAS 80
[2019-08-01 22:48] VITALS: BP_SYST 124; BP_SYST 133; BP_SYST 139; BP_DIAS 79; BP_DIAS 83; BP_DIAS 91
[2019-08-02 05:55] LABS: HEMATOCRIT 27.3 % (42.0-52.0); HEMOGLOBIN 9.4 g/dl (13.5-17.5); MEAN CORPUSCULAR HEMOGLOBIN 32.8 pg (27.0-33.0); MEAN CORPUSCULAR HGB CONC 34.4 g/dl (32.0-36.5); MEAN CORPUSCULAR VOLUME 95.1 fl (80.0-96.0); PLATELET COUNT, AUTOMATED 100 10^3/uL (150-450); RED BLOOD COUNT 2.87 10^6/uL (4.30-6.10)
[2019-08-02] MEDS: OXAZEPAM 15 MG CAP PO SCH ×4 (05:57→23:52)
[2019-08-02 06:00] VITALS: BP_SYST 108; BP_SYST 129; BP_DIAS 57; BP_DIAS 74
[2019-08-02 06:33] LABS: ALBUMIN 2.8 GM/DL (3.2-5.2); ALT/SGPT 15 U/L (12-78); BILIRUBIN,TOTAL 0.6 MG/DL (0.2-1.0); BLOOD UREA NITROGEN 5 MG/DL (7-18); CALCIUM LEVEL 8.7 MG/DL (8.8-10.2); CARBON DIOXIDE LEVEL 30 MEQ/L (21-32); CHLORIDE LEVEL 101 MEQ/L (98-107); GLOMERULAR FILTRATION RATE > 60.0 (>49); GLUCOSE, FASTING 147 MG/DL (70-100); MAGNESIUM LEVEL 1.6 MG/DL (1.8-2.4); POTASSIUM SERUM 3.5 MEQ/L (3.5-5.1); SODIUM LEVEL 136 MEQ/L (136-145); TOTAL PROTEIN 6.3 GM/DL (6.4-8.2)
[2019-08-02] MEDS: THIAMINE 100 MG TAB PO SCH ×2 (08:30→20:25)
[2019-08-02] MEDS: MULTIVITAMINS/MINERALS THERAP 1 TAB PO SCH (08:30)
[2019-08-02] MEDS: FOLIC ACID 1 MG TAB PO SCH (08:30)
[2019-08-02] MEDS: HEPARIN SOD (PORCINE) 5000 UNITS/ML VIAL (J1644 PER 1000UNITS) SC SCH ×2 (08:36→20:26)
[2019-08-02] MEDS ORDERED: DOXYCYCLINE HYCLATE 100 MG TAB PO ONE (10:30)
--- NOTE | 2019-08-02 10:42 | IPNPDOC ---
Text Note Date of Service The patient was seen on 08/02/19. NOTE SUBJECTIVE: Patient seen and examined this morning. No acute overnight events reported. Patient was alert and oriented. Concerned regarding his doxy for his skin. Also anxious to return home. He was agreeable to remain in the hospital for medical care. O: GENERAL: NAD, in good spirits, lying comfortably in bed HEENT: NC/AT, poor dentition, EOMI Lungs: CTA B/L Heart: +S1S2, RRR Abd: soft, NT, +BS Ext: no edema A/P: 64-year-old male with history of alcohol abuse and hypertension who presented to the ED with complaints of dizziness and weakness likely secondary to alcohol abuse. #Protein calorie malnutrition and dehydration likely secondary to alcohol abuse -BMI 18.2 -Poor diet and resulting malnutrition at home, likely secondary to excessive EtOH intake -c/w mechanical soft diet -Thiamine, folic acid, multivitamins ordered -c/w LR fluid replacement #Alcohol abuse -BRETT of 0.405 upon ED presentation -Extensive past history of EtOH overdose and hospitalizations; once requiring emergent intubation and Precedex - will likely increase serax given he is now alert, and his previous severe withdrawal -Placed on remote telemetry to assess cardiac status as patient enters withdrawal -c/w CIWA protocol -Receiving thiamine, multivitamin, and folic acid -Patient reported on admission he has no interest in alcohol cessation at this time -PFS evaluation ordered #Pancytopenia -Likely related to poor nutrition and liver pathology secondary to extensive alcohol abuse history #hyponatremia - beer potomania - improving #Rosacea - continue doxycycline as per home meds #GERD -c/w home omeprazole #DVT prophylaxis: Heparin sc DISPOSITION: Pending clinical status as patient transitions into withdrawal period. VS,Fishbone, I+O VS, Fishbone, I+O Laboratory Tests 08/02/19 05:20 Vital Signs Date Time Temp Pulse Resp B/P (MAP) Pulse Ox O2 Delivery O2 Flow Rate FiO2 08/02/19 06:00 95 129/74 08/02/19 06:00 100.3 18 97 Room Air I&O- Last 24 Hours up to 6 AM 08/02/19 06:00 Intake Total 920 ml Output Total 125 ml Balance 795 ml MARIA INES PALACIOS MD Aug 02, 2019 10:42
[2019-08-02 14:00] VITALS: BP 130/74
[2019-08-02] MEDS: DOXYCYCLINE HYCLATE 100 MG TAB PO SCH (18:09)
[2019-08-02] MEDS: MAGNESIUM OXIDE 400 MG TAB (MAG-OX) PO SCH (20:25)
[2019-08-02] MEDS: OMEPRAZOLE 20 MG CAP PO SCH (20:25)
[2019-08-02] MEDS ORDERED: DOXYCYCLINE HYCLATE 100 MG TAB PO SCH (21:00)
[2019-08-02 22:00] VITALS: BP 131/73
[2019-08-03 06:00] VITALS: BP 129/68
[2019-08-03 06:02] LABS: HEMATOCRIT 27.3 % (42.0-52.0); HEMOGLOBIN 9.3 g/dl (13.5-17.5); MEAN CORPUSCULAR HEMOGLOBIN 32.9 pg (27.0-33.0); MEAN CORPUSCULAR HGB CONC 34.1 g/dl (32.0-36.5); MEAN CORPUSCULAR VOLUME 96.5 fl (80.0-96.0); RED BLOOD COUNT 2.83 10^6/uL (4.30-6.10); WHITE BLOOD COUNT 3.8 10^3/uL (4.0-10.0)
[2019-08-03] MEDS: OXAZEPAM 15 MG CAP PO SCH ×3 (06:08→22:06)
[2019-08-03 06:21] LABS: BLOOD UREA NITROGEN 6 MG/DL (7-18); CALCIUM LEVEL 8.3 MG/DL (8.8-10.2); CARBON DIOXIDE LEVEL 28 MEQ/L (21-32); CHLORIDE LEVEL 103 MEQ/L (98-107); GLOMERULAR FILTRATION RATE > 60.0 (>49); GLUCOSE, FASTING 95 MG/DL (70-100); MAGNESIUM LEVEL 1.6 MG/DL (1.8-2.4); POTASSIUM SERUM 3.7 MEQ/L (3.5-5.1); SODIUM LEVEL 138 MEQ/L (136-145)
[2019-08-03 06:25] LABS: PLATELET COUNT, AUTOMATED 99 10^3/uL (150-450)
[2019-08-03] MEDS: HEPARIN SOD (PORCINE) 5000 UNITS/ML VIAL (J1644 PER 1000UNITS) SC SCH (09:00)
[2019-08-03] MEDS: ENOXAPARIN 40 MG/0.4 ML SYRINGE (J1650) SC SCH (09:00)
[2019-08-03] MEDS: MULTIVITAMINS/MINERALS THERAP 1 TAB PO SCH (09:20)
[2019-08-03] MEDS: FOLIC ACID 1 MG TAB PO SCH (09:20)
[2019-08-03] MEDS: MAGNESIUM OXIDE 400 MG TAB (MAG-OX) PO SCH ×2 (09:21→20:06)
[2019-08-03] MEDS: THIAMINE 100 MG TAB PO SCH ×2 (09:21→20:06)
[2019-08-03] MEDS: VANICREAM MOISTURIZING SKIN CREAM 113GM TUBE TOP SCH ×2 (12:12→20:07)
--- NOTE | 2019-08-03 13:10 | IPNPDOC ---
Date Seen The patient was seen on 08/03/19. Progress Note SUBJECTIVE: Patient examined this morning. No acute overnight events. He is refusing his heparin since admission. He continues to agree to remain in the hospital for medical management even though he is eager to go home. Has no complaints today. Denies chest pain, shortness of breath, nausea, vomiting, fevers or chills. OBJECTIVE PHYSICAL EXAMINATION: VITAL SIGNS: Please see below. GENERAL: Patient unpleasant smell laying bed awake alert oriented speaking in complete sentences no acute distress HEENT: External ocular movements intact. Pupils are equal and reactive slightly dry mucous membranes with no JVD. CARDIOVASCULAR: S1 S2 regular no additional heart sounds appreciated. RESPIRATORY: Clear to auscultation bilaterally. No audible wheezing OR rales ABDOMINAL: Bowel sounds present abdomen soft and nontender EXTREMITIES: No clubbing cyanosis 1+ pitting edema in the lower extremities bilaterally. No open sites noted. Erythematous in nature. No increased warmth. Scaly lesions superficially. Slight tenderness to palpation near the ankle and d orsal aspect of the foot but not consistent throughout. Pedal pulses were difficult to palpate bilaterally. No asterixis noted bilaterally. NEUROLOGICAL: Spontaneously moves all 4 extremities cranial 2 through 12 grossly intact no gross focal deficits appreciated PSYCHOLOGICAL: Appropriate. AAO X3 LABORATORY DATA, MICROBIOLOGY: Please see below. IMAGING STUDIES: 07/31/[address] No acute intracranial abnormality demonstrated by CT. Cercical Spine CT - IMPRESSION: 1. Mild spondylitic changes and severe right eccentric facet arthropathy, with no severe central canal or neural foraminal stenosis demonstrated by CT. 2. T2 compression deformity is age indeterminate. 3. Left posterior 1st rib fracture demonstrates healing changes. Chest Xray: 1. No acute cardiopulmonary change. 2. Acute right posterior 7th rib fracture with mild displacement, but no pneumothorax or effusion. Posterior 8th through 10th rib fractures with remode ling. ASSESSMENT AND PLAN: This is a 54-year-old male presenting with Weakness and dizziness and alcohol abuse PROBLEMS: 1. Protein calorie malnutrition and dehydration likely secondary to alcohol abuse. BMI 18.2; c/w mechanical soft diet, Thiamine, folic acid, AND multivitamins 2. Alcohol abuse. Past hospitalization that resulted in intubation and Precedex while he was going through withdrawals. c/w CIWA protocol with PRN PO Ativan as well as Serax 15mg q8h. Has no wish to quit drinking. PT on board 3. Chronic severe hyponatremia secondary to beer potomania. Sable. Will continue to monitor 4. Hypothermia.Resolved 5. Right 7th Rib fracture. Tylenol on board for pain. Will monitor for pain. 6. Chronic lower extremity stasis dermatitis. Stable. c/w emollient ointment 7. Rosacea. c/w doxycycline at this current time 8. Acid reflux. c/w omeprazole. DVT prophylaxis: Lovenox for hes been refusing heparin DISPOSITION: Pending clinical status is patient transition through withdrawal in the next 48 hours. VS, [facility]O, [facility]/I&O Vital Signs Date Time Temp Pulse Resp B/P (MAP) Pulse Ox O2 Delivery O2 Flow Rate FiO2 08/03/19 06:00 98.4 88 18 129/68 (88) 98 Room Air I&O- Last 24 Hours up to 6 AM 08/03/19 06:00 Intake Total 1440 ml Output Total 600 ml Balance 840 ml Laboratory Data 24H LABS Laboratory Tests 2 08/03/19 05:35: Nucleated Red Blood Cells % (auto) 0.0, Immature Platelet Fraction 1.6, Anion Gap 7L, Glomerular Filtration Rate > 60.0, Calcium Level 8.3L, Magnesium Level 1.6L 08/03/19 08:37: Ethyl Alcohol Level < 0.003 CBC/BMP Laboratory Tests 08/03/19 05:35 MARITA HOWE DO Aug 03, 2019 13:10
[2019-08-03 14:00] VITALS: BP_SYST 123; BP_SYST 128; BP_DIAS 58; BP_DIAS 65
[2019-08-03] MEDS: DOXYCYCLINE HYCLATE 100 MG TAB PO SCH (17:44)
[2019-08-03] MEDS: OMEPRAZOLE 20 MG CAP PO SCH (20:06)
[2019-08-03 22:00] VITALS: BP 131/71
[2019-08-04 06:00] VITALS: BP 113/66
[2019-08-04 06:10] VITALS: BP 120/62
[2019-08-04] MEDS: OXAZEPAM 15 MG CAP PO SCH ×3 (06:11→21:21)
[2019-08-04 06:29] LABS: HEMATOCRIT 26.9 % (42.0-52.0); HEMOGLOBIN 8.8 g/dl (13.5-17.5); MEAN CORPUSCULAR HGB CONC 32.7 g/dl (32.0-36.5); MEAN CORPUSCULAR VOLUME 97.8 fl (80.0-96.0); RED BLOOD COUNT 2.75 10^6/uL (4.30-6.10); WHITE BLOOD COUNT 3.3 10^3/uL (4.0-10.0)
[2019-08-04 06:31] LABS: PLATELET COUNT, AUTOMATED 85 10^3/uL (150-450)
[2019-08-04 06:46] LABS: BLOOD UREA NITROGEN 7 MG/DL (7-18); CALCIUM LEVEL 8.3 MG/DL (8.8-10.2); CARBON DIOXIDE LEVEL 27 MEQ/L (21-32); CHLORIDE LEVEL 104 MEQ/L (98-107); CREATININE FOR GFR 0.58 MG/DL (0.70-1.30); GLOMERULAR FILTRATION RATE > 60.0 (>49); GLUCOSE, FASTING 100 MG/DL (70-100); MAGNESIUM LEVEL 1.7 MG/DL (1.8-2.4); POTASSIUM SERUM 3.9 MEQ/L (3.5-5.1); SODIUM LEVEL 137 MEQ/L (136-145)
[2019-08-04] MEDS: ENOXAPARIN 40 MG/0.4 ML SYRINGE (J1650) SC SCH (09:00)
[2019-08-04] MEDS: FOLIC ACID 1 MG TAB PO SCH (09:06)
[2019-08-04] MEDS: MULTIVITAMINS/MINERALS THERAP 1 TAB PO SCH (09:06)
[2019-08-04] MEDS: MAGNESIUM OXIDE 400 MG TAB (MAG-OX) PO SCH ×2 (09:06→21:21)
[2019-08-04] MEDS: VANICREAM MOISTURIZING SKIN CREAM 113GM TUBE TOP SCH ×3 (09:07→21:22)
--- NOTE | 2019-08-04 09:54 | IPNPDOC ---
Date Seen The patient was seen on 08/04/19. Progress Note SUBJECTIVE: Patient examined this morning. No acute overnight events. He is refusing his heparin since admission. He continues to agree to remain in the hospital for medical management even though he is eager to go home. Tmax overnight was 100.3 and started to have tremors. Has no complaints today. Denies chest pain, shortness of breath, nausea, vomiting, fevers or chills. OBJECTIVE PHYSICAL EXAMINATION: VITAL SIGNS: Please see below. GENERAL: Patient pleasant 64 year old male laying bed awake alert oriented speaking in complete sentences no acute distress with HEENT: External ocular movements intact. Pupils are equal and reactive slightly dry mucous membranes with no JVD. CARDIOVASCULAR: S1 S2 regular no additional heart sounds appreciated. RESPIRATORY: Clear to auscultation bilaterally. No audible wheezing OR rales ABDOMINAL: Bowel sounds present abdomen soft and nontender EXTREMITIES: Bilaterally upper extermity tremors, no clubbing cyanosis 1+ pitting edema in the lower extremities bilaterally. No open sites noted. Erythematous in nature. No increased warmth. Scaly lesions superficially. Slight tenderness to palpation near the ankle and dorsal aspect of the foot but not consistent throughout. Pedal pulses were difficult to palpate bilaterally. No asterixis noted bilaterally. NEUROLOGICAL: Spontaneously moves all 4 extremities cranial 2 through 12 grossly intact no gross focal deficits appreciated PSYCHOLOGICAL: Appropriate. AAO X3 LABORATORY DATA, MICROBIOLOGY: Please see below. IMAGING STUDIES: 07/31/[address] No acute intracranial abnormality demonstrated by CT. Cercical Spine CT - IMPRESSION: 1. Mild spondylitic changes and severe right eccentric facet arthropathy, with no severe central canal or neural foraminal stenosis demonstrated by CT. 2. T2 compression deformity is age indeterminate. 3. Left posterior 1st rib fracture demonstrates healing changes. Chest Xray: 1. No acute cardiopulmonary change. 2. Acute right posterior 7th rib fracture with mild displacement, but no pneumothorax or effusion. Posterior 8th through 10th rib fractures with remodeling. ASSESSMENT AND PLAN: This is a 54-year-old male presenting with Weakness and dizziness and alcohol abuse PROBLEMS: 1. Protein calorie malnutrition and dehydration likely secondary to alcohol abuse. BMI 18.2; c/w mechanical soft diet, Thiamine, folic acid, AND multivitamins 2. Alcohol abuse. Past hospitalization that resulted in intubation and Precedex while he was going through withdrawals. c/w CIWA protocol with PRN PO Ativan in crease to Serax 30mg q8h for he is starting to be tremulous. Has no wish to quit drinking. PT on board 3. Chronic severe hyponatremia secondary to beer potomania. Sable. Will continue to monitor 4. Hypothermia. Resolved 5. Right 7th Rib fracture. Tylenol on board for pain. Will monitor for pain. 6. Chronic lower extremity stasis dermatitis. Stable. c/w emollient ointment 7. Rosacea. c/w doxycycline at this current time 8. Acid reflux. c/w omeprazole. DVT prophylaxis: Lovenox DISPOSITION: Pending clinical status is patient transition through withdrawal in the next 48 hours. VS, I&O, 24H, [facility] Vital Signs/I&O Vital Signs Date Time Temp Pulse Resp B/P (MAP) Pulse Ox O2 Delivery O2 Flow Rate FiO2 08/04/19 06:10 67 120/62 08/04/19 06:06 99.1 08/04/19 06:00 19 98 Room Air I&O- Last 24 Hours up to 6 AM 08/04/19 06:00 Intake Total 660 ml Output Total 325 ml Balance 335 ml Laboratory Data 24H LABS Laboratory Tests 2 08/04/19 06:12: Nucleated Red Blood Cells % (auto) 0.0, Immature Platelet Fraction 2.8, Anion Gap 6L, Glomerular Filtration Rate > 60.0, Calcium Level 8.3L, Magnesium Level 1.7L CBC/BMP Laboratory Tests 08/04/19 06:12 MARITA HOWE DO Aug 04, 2019 09:54
[2019-08-04] MEDS: MAG SULF 1GM/100ML (MAG RUN) 1 GM in IV 1 EA IV SCH ×2 (10:44→11:52)
[2019-08-04 14:00] VITALS: BP 140/83
[2019-08-04 15:02] VITALS: BP 140/83
[2019-08-04] MEDS: DOXYCYCLINE HYCLATE 100 MG TAB PO SCH (17:59)
[2019-08-04] MEDS: OMEPRAZOLE 20 MG CAP PO SCH (21:21)
[2019-08-04 22:00] VITALS: BP 142/80
[2019-08-04 23:00] VITALS: BP 142/80
[2019-08-05] MEDS: OXAZEPAM 15 MG CAP PO SCH ×3 (05:52→21:57)
[2019-08-05 06:00] VITALS: BP 136/85
[2019-08-05 06:21] LABS: HEMATOCRIT 27.7 % (42.0-52.0); HEMOGLOBIN 9.2 g/dl (13.5-17.5); MEAN CORPUSCULAR HEMOGLOBIN 32.6 pg (27.0-33.0); MEAN CORPUSCULAR HGB CONC 33.2 g/dl (32.0-36.5); MEAN CORPUSCULAR VOLUME 98.2 fl (80.0-96.0); PLATELET COUNT, AUTOMATED 100 10^3/uL (150-450); RED BLOOD COUNT 2.82 10^6/uL (4.30-6.10); WHITE BLOOD COUNT 3.5 10^3/uL (4.0-10.0)
[2019-08-05 06:36] LABS: BLOOD UREA NITROGEN 8 MG/DL (7-18); CALCIUM LEVEL 8.2 MG/DL (8.8-10.2); CARBON DIOXIDE LEVEL 27 MEQ/L (21-32); CHLORIDE LEVEL 103 MEQ/L (98-107); GLOMERULAR FILTRATION RATE > 60.0 (>49); GLUCOSE, FASTING 89 MG/DL (70-100); SODIUM LEVEL 137 MEQ/L (136-145)
[2019-08-05] MEDS: MAGNESIUM OXIDE 400 MG TAB (MAG-OX) PO SCH ×2 (08:12→21:57)
[2019-08-05] MEDS: MULTIVITAMINS/MINERALS THERAP 1 TAB PO SCH (08:12)
[2019-08-05] MEDS: FOLIC ACID 1 MG TAB PO SCH (08:12)
[2019-08-05] MEDS: VANICREAM MOISTURIZING SKIN CREAM 113GM TUBE TOP SCH (08:13)
[2019-08-05] MEDS: ENOXAPARIN 40 MG/0.4 ML SYRINGE (J1650) SC SCH (08:13)
[2019-08-05 11:28] VITALS: BP 117/70
[2019-08-05 12:24] LABS: PHOSPHORUS LEVEL 3.7 MG/DL (2.5-4.9)
--- NOTE | 2019-08-05 13:13 | IPNPDOC ---
Date Seen The patient was seen on 08/05/19. Progress Note SUBJECTIVE: Patient examined this morning. No acute overnight events. Patient was unable to state where he is but knows person and time. He is not sedated or lethargic during exam. He is complaining of pruritus in the upper extremities and his upper back which the lotion was helping but not anymore. He is wondering if something been given. He also is wondering why isn't he home. Patient does not remember seeing me for the last 2 days even though his CIWA <4 overnight. No overnight events reported. OBJECTIVE PHYSICAL EXAMINATION: VITAL SIGNS: Please see below. GENERAL: Patient pleasant 64 year old male laying bed awake alert orientedx2 speaking in complete sentences no acute distress with HEENT: External ocular movements intact. Pupils are equal and reactive slightly dry mucous membranes with no JVD. CARDIOVASCULAR: S1 S2 regular no additional heart sounds appreciated. RESPIRATORY: Clear to auscultation bilaterally. No audible wheezing OR rales ABDOMINAL: Bowel sounds present abdomen soft and nontender EXTREMITIES: No tremors the upper extremities or asterixis, maculopapular rash on the forearms none appreciated on the back or shoulders. No clubbing cyanosis 1+ pitting edema in the lower extremities bilaterally. No open sites noted. Er ythematous noted. No increased warmth. Scaly lesions superficially. Pedal pulses were difficult to palpate bilaterally. NEUROLOGICAL: Spontaneously moves all 4 extremities cranial 2 through 12 grossly intact no gross focal deficits appreciated PSYCHOLOGICAL: Appropriate. Not lethargic, AAO X3 LABORATORY DATA, MICROBIOLOGY: Please see below. IMAGING STUDIES: 07/31/[address] No acute intracranial abnormality demonstrated by CT. Cercical Spine CT - IMPRESSION: 1. Mild spondylitic changes and severe right eccentric facet arthropathy, with no severe central canal or neural foraminal stenosis demonstrated by CT. 2. T2 compression deformity is age indeterminate. 3. Left posterior 1st rib fracture demonstrates healing changes. Chest Xray: 1. No acute cardiopulmonary change. 2. Acute right posterior 7th rib fracture with mild displacement, but no pneumothorax or effusion. Posterior 8th through 10th rib fractures with remodeling. ASSESSMENT AND PLAN: This is a 54-year-old male presenting with Weakness and dizziness and alcohol abuse PROBLEMS: 1. Protein calorie malnutrition and dehydration likely secondary to alcohol abuse. BMI 18.2; c/w mechanical soft diet, Thiamine, folic acid, AND multivitamins. Will check phosphorus and replenish. 2. Alcohol dependence and abuse. Past hospitalization that resulted in intubation and Precedex while he was going through withdrawals. c/w CIWA protocol with PRN PO Ativan till the AM, continue with Serax 30mg q8h for the next 24 hours, Has no wish to quit drinking. PT on board 3. Chronic severe hyponatremia secondary to beer potomania. Stable. Will continue to monitor 4. Hypothermia. Resolved 5. Right 7th Rib fracture. Tylenol on board for pain. Will monitor for pain. 6. Chronic lower extremity stasis dermatitis. Stable. c/w emollient ointment 7. Rosacea. c/w home doxycycline 8. Acid reflux. c/w omeprazole. 9. Maculopapular rash - unsure secondary to what. Benadryl cream ordered twice a day. will monitor for improvement 10. Acute Encephalopathy due to alcohol withdrawal improving will try tapering serax. DVT prophylaxis: Lovenox DISPOSITION: Patient transition through withdrawal, will taper Serax in the AM pending clinical status. VS, I&O, [facility]H, [facility] Vital Signs/I&O Vital Signs Date Time Temp Pulse Resp B/P (MAP) Pulse Ox O2 Delivery O2 Flow Rate FiO2 08/04/19 23:00 78 142/80 08/04/19 22:00 98.1 18 100 Room Air I&O- Last 24 Hours up to 6 AM 08/05/19 06:00 Intake Total 1235 ml Output Total 880 ml Balance 355 ml Laboratory Data 24H LABS Laboratory Tests 2 08/04/19 06:12: Nucleated Red Blood Cells % (auto) 0.0, Immature Platelet Fraction 2.8, Anion Gap 6L, Glomerular Filtration Rate > 60.0, Calcium Level 8.3L, Magnesium Level 1.7L CBC/BMP Laboratory Tests 08/04/19 06:12 Attending Note I personally saw and evaluated the patient. I agree with the findings and the plan of care documented above in the resident's note. Patient going through alcohol withdrawal. DOes have h/o severe withdrawals requiring deep sedation and intubation. Will closely monitor and try to wean serax as tolerated. MARITA HOWE DO Aug 05, 2019 06:02 FRITZ PEREZ MD Aug 06, 2019 13:25
[2019-08-05] MEDS: diphenhydrAMINE CREAM 30GM TOP SCH ×2 (13:48→21:58)
[2019-08-05 14:00] VITALS: BP 116/65
[2019-08-05] MEDS: DOXYCYCLINE HYCLATE 100 MG TAB PO SCH (17:21)
[2019-08-05 17:26] VITALS: BP 118/69
[2019-08-05] MEDS: OMEPRAZOLE 20 MG CAP PO SCH (21:56)
[2019-08-05 21:58] VITALS: BP 123/74
[2019-08-05 22:00] VITALS: BP 125/73
[2019-08-06] VITALS (7 sets, daily range): BP systolic 112–152; BP diastolic 58–85
[2019-08-06] MEDS: OXAZEPAM 15 MG CAP PO SCH ×3 (05:36→20:30)
[2019-08-06 05:49] LABS: HEMATOCRIT 27.2 % (42.0-52.0); HEMOGLOBIN 8.9 g/dl (13.5-17.5); MEAN CORPUSCULAR HEMOGLOBIN 32.2 pg (27.0-33.0); MEAN CORPUSCULAR HGB CONC 32.7 g/dl (32.0-36.5); MEAN CORPUSCULAR VOLUME 98.6 fl (80.0-96.0); PLATELET COUNT, AUTOMATED 106 10^3/uL (150-450); RED BLOOD COUNT 2.76 10^6/uL (4.30-6.10); WHITE BLOOD COUNT 3.5 10^3/uL (4.0-10.0)
[2019-08-06] MEDS: diphenhydrAMINE 25 MG CAP PO PRN ×2 (06:08→17:14)
[2019-08-06 06:15] LABS: BLOOD UREA NITROGEN 11 MG/DL (7-18); CALCIUM LEVEL 8.4 MG/DL (8.8-10.2); CARBON DIOXIDE LEVEL 28 MEQ/L (21-32); CHLORIDE LEVEL 104 MEQ/L (98-107); CREATININE FOR GFR 0.63 MG/DL (0.70-1.30); GLOMERULAR FILTRATION RATE > 60.0 (>49); GLUCOSE, FASTING 98 MG/DL (70-100); MAGNESIUM LEVEL 1.7 MG/DL (1.8-2.4); PHOSPHORUS LEVEL 3.8 MG/DL (2.5-4.9); POTASSIUM SERUM 3.9 MEQ/L (3.5-5.1); SODIUM LEVEL 136 MEQ/L (136-145)
[2019-08-06] MEDS: TRIAMCINOLONE ACET 0.1% OINTMENT 15 GM TOP SCH ×4 (06:33→20:31)
[2019-08-06] MEDS: ENOXAPARIN 40 MG/0.4 ML SYRINGE (J1650) SC SCH (09:00)
[2019-08-06] MEDS: MAGNESIUM OXIDE 400 MG TAB (MAG-OX) PO SCH ×2 (09:01→20:30)
[2019-08-06] MEDS: FOLIC ACID 1 MG TAB PO SCH (09:01)
[2019-08-06] MEDS: MULTIVITAMINS/MINERALS THERAP 1 TAB PO SCH (09:01)
[2019-08-06] MEDS: diphenhydrAMINE CREAM 30GM TOP SCH (09:03)
--- NOTE | 2019-08-06 11:11 | IPNPDOC ---
Date Seen The patient was seen on 08/06/19. Progress Note SUBJECTIVE: Patient examined this morning. He is not sedated or lethargic during exam. Is complaining of itching on his arms, shoulders and back. it got better with the steroid ointment and Benadryl. CIWA <4 overnight. No other overnight events reported. OBJECTIVE PHYSICAL EXAMINATION: VITAL SIGNS: Please see below. GENERAL: Patient pleasant 64 year old male laying bed awake alert orientedx2 speaking in complete sentences no acute distress with HEENT: External ocular movements intact. Pupils are equal and reactive slightly dry mucous membranes with no JVD. CARDIOVASCULAR: S1 S2 regular no additional heart sounds appreciated. RESPIRATORY: Clear to auscultation bilaterally. No audible wheezing OR rales ABDOMINAL: Bowel sounds present abdomen soft and nontender EXTREMITIES: No tremors the upper extremities or asterixis, maculopapular rash on the forearms (improved) none appreciated on the back or shoulders. No clubbing cyanosis 1+ pitting edema in the lower extremities bilaterally. No open sites noted. Erythematous noted. No increased warmth. Scaly lesions superficially. Pedal pulses were difficult to palpate bilaterally. NEUROLOGICAL: Spontaneously moves all 4 extremities cranial 2 through 12 grossly intact no gross focal deficits appreciated PSYCHOLOGICAL: Appropriate. Not lethargic, AAO X3 LABORATORY DATA, MICROBIOLOGY: Please see below. IMAGING STUDIES: 07/31/[address] No acute intracranial abnormality demonstrated by CT. Cercical Spine CT - IMPRESSION: 1. Mild spondylitic changes and severe right eccentric facet arthropathy, with no severe central canal or neural foraminal stenosis demonstrated by CT. 2. T2 compression deformity is age indeterminate. 3. Left posterior 1st rib fracture demonstrates healing changes. Chest Xray: 1. No acute cardiopulmonary change. 2. Acute right posterior 7th rib fracture with mild displacement, but no pneumothorax or effusion. Posterior 8th through 10th rib fractures with remodeling. ASSESSMENT AND PLAN: This is a 54-year-old male presenting with Weakness and dizziness and alcohol abuse PROBLEMS: 1. Protein calorie malnutrition and dehydration likely secondary to alcohol abuse. BMI 18.2; c/w mechanical soft diet, Thiamine, folic acid, AND multivitamins. 2. Alcohol dependence and abuse. Past hospitalization that resulted in intubation and Precedex while he was going through withdrawals. c/w CIWA protocol with PRN PO Ativan, start to taper Serax, Has no wish to quit drinking. PT on board 3. Chronic severe hyponatremia secondary to beer potomania. Stable. Will continue to monitor 4. Hypothermia. Resolved 5. Right 7th Rib fracture. Tylenol on board for pain. Will monitor for pain. 6. Chronic lower extremity stasis dermatitis. Stable. c/w emollient ointment 7. Rosacea. c/w home doxycycline 8. Acid reflux. c/w omeprazole. 9. Maculopapular rash - possible reaction to home clothes that he recently started wearing. it improved with steroid ointment, continue with triamcinolone topical 0.1% TID. Continue with Benadryl 25mg PRN for purities. will monitor for improvement DVT prophylaxis: Lovenox DISPOSITION: Patient transition through withdrawal, pending clinical improvement VS, [facility] Vital Signs/I&O Vital Signs Date Time Temp Pulse Resp B/P (MAP) Pulse Ox O2 Delivery O2 Flow Rate FiO2 08/06/19 08:00 94.4 98 Room Air 08/06/19 08:00 84 16 112/58 (76) I&O- Last 24 Hours up to 6 AM 08/06/19 06:00 Intake Total 1464 ml Output Total 225 ml Balance 1239 ml Laboratory Data 24H LABS Laboratory Tests 2 08/06/19 05:32: Nucleated Red Blood Cells % (auto) 0.0, Anion Gap 4L, Glomerular Filtration Rate > 60.0, Calcium Level 8.4L, Phosphorus Level 3.8, Magnesium Level 1.7L CBC/BMP Laboratory Tests 08/06/19 05:32 Attending Note I personally saw and evaluated the patient. I agree with the findings and the plan of care documented above in the resident's note MARITA HOWE DO Aug 06, 2019 11:11 FRITZ PEREZ MD Aug 07, 2019 12:00
[2019-08-06] MEDS ORDERED: OXAZEPAM 15 MG CAP PO SCH (12:00)
[2019-08-06] MEDS: DOXYCYCLINE HYCLATE 100 MG TAB PO SCH (17:14)
[2019-08-06] MEDS: OMEPRAZOLE 20 MG CAP PO SCH (20:30)
[2019-08-07] MEDS: diphenhydrAMINE 25 MG CAP PO PRN (04:37)
[2019-08-07] MEDS: OXAZEPAM 15 MG CAP PO SCH (05:18)
[2019-08-07 05:19] VITALS: BP 137/81
[2019-08-07 05:49] LABS: HEMATOCRIT 26.6 % (42.0-52.0); HEMOGLOBIN 9.2 g/dl (13.5-17.5); MEAN CORPUSCULAR HEMOGLOBIN 33.7 pg (27.0-33.0); MEAN CORPUSCULAR HGB CONC 34.6 g/dl (32.0-36.5); MEAN CORPUSCULAR VOLUME 97.4 fl (80.0-96.0); PLATELET COUNT, AUTOMATED 127 10^3/uL (150-450); RED BLOOD COUNT 2.73 10^6/uL (4.30-6.10); WHITE BLOOD COUNT 3.6 10^3/uL (4.0-10.0)
[2019-08-07 06:00] VITALS: BP 144/83
[2019-08-07 06:18] LABS: BLOOD UREA NITROGEN 12 MG/DL (7-18); CALCIUM LEVEL 8.8 MG/DL (8.8-10.2); CARBON DIOXIDE LEVEL 28 MEQ/L (21-32); CHLORIDE LEVEL 104 MEQ/L (98-107); CREATININE FOR GFR 0.61 MG/DL (0.70-1.30); GLOMERULAR FILTRATION RATE > 60.0 (>49); GLUCOSE, FASTING 96 MG/DL (70-100); MAGNESIUM LEVEL 1.7 MG/DL (1.8-2.4); PHOSPHORUS LEVEL 3.9 MG/DL (2.5-4.9); SODIUM LEVEL 136 MEQ/L (136-145)
[2019-08-07] MEDS ORDERED: MAG SULF 1GM/100ML (MAG RUN) 1 GM in IV 1 EA IV ONE (07:30)
[2019-08-07] MEDS: ENOXAPARIN 40 MG/0.4 ML SYRINGE (J1650) SC SCH (08:49)
[2019-08-07] MEDS: MAGNESIUM OXIDE 400 MG TAB (MAG-OX) PO SCH (08:50)
[2019-08-07] MEDS: FOLIC ACID 1 MG TAB PO SCH (08:50)
[2019-08-07] MEDS: TRIAMCINOLONE ACET 0.1% OINTMENT 15 GM TOP SCH (08:50)
[2019-08-07] MEDS: MULTIVITAMINS/MINERALS THERAP 1 TAB PO SCH (08:51)
--- NOTE | 2019-08-07 10:44 | DS.PDOC ---
Discharge Summary General Date of Admission Aug 01, 2019 at 02:35 Date of Discharge 08/07/2019 Discharge Summary DISCHARGE DIAGNOSIS: Alcohol intoxication and syncope Alocohol dependence and Alcohol abuse Acute Metabolic encephalopathy due to alcohol withdrawal. Protein calorie malnutrition and dehydration likely secondary to alcohol abuse Thrombocytopenia Maculopapular rash possibly contact dermatitis Hypothermia on admission Hypomagnesemia Chronic macrocytic anemia Acute right posterior 7th rib fracture with mild displacement SECONDARY DIAGNOSIS: H/O Chronic severe hyponatremia secondary to beer potomania Old Posterior 8th through 10th rib fractures with remodelling Chronic lower extremity stasis with dermatitis Rosacea Acid reflux PROCEDURES PERFORMED DURING STAY: None. CONSULTANTS: None HOSPITAL COURSE: This is a 64-year-old male with a pertinent past medical history of alcohol abuse who presented to the ER for dizziness. He was admitted for severe alcohol intoxication with alcohol level of 0.405. He was placed on MedSurg with telemetry for 48 hours. While he was admitted he was placed on CIWA and Serax which he tolerated very well. He did have a short period of confusion and hallucinations while he was going through withdrawal which resolved. He worked with PT while admitted as well. He did have a macula papillary rash that developed on his forearms that responded to steroids. We believe that he possibly had an allergic reaction to the detergent or at the any bladder was applied to his upper extremities. After was discontinued and the application of steroid this resolved completely. Patient was advised to follow-up with his [facility] care provider within 2 weeks. DISCHARGE MEDICATIONS: Please see below. ALLERGIES: Please see below. SUBJECTIVE: Patient seen and examined this morning. He is happy that he is going home and that his rash on his forearm resolved completely. He has no complaints today. He denies chest pain, shortness, breath, nausea, vomiting, fevers, chills OBJECTIVE: PHYSICAL EXAMINATION: GENERAL: Patient pleasant 64 year old male laying bed awake alert speaking in complete sentences no acute distress HEENT: External ocular movements intact. Pupils are equal and reactive slightly dry mucous membranes with no JVD. CARDIOVASCULAR: S1 S2 regular no additional heart sounds appreciated. RESPIRATORY: Clear to auscultation bilaterally. No audible wheezing OR rales ABDOMINAL: Bowel sounds present abdomen soft and nontender EXTREMITIES: No tremors the upper extremities or asterixis, maculopapular rash on the forearms completely resolved. No clubbing cyanosis. Edema in the lower extremities bilaterally resolved with TEDs. Scaly lesions superficially. NEUROLOGICAL: Spontaneously moves all 4 extremities cranial 2 through 12 grossly intact no gross focal deficits appreciated PSYCHOLOGICAL: Appropriate. AAO X3 LABORATORY DATA, MICROBIOLOGY: Please see below. IMAGING STUDIES: 07/31/[address] No acute intracranial abnormality demonstrated by CT. Cercical Spine CT - IMPRESSION: 1. Mild spondylitic changes and severe right eccentric facet arthropathy, with no severe central canal or neural foraminal stenosis demonstrated by CT. 2. T2 compression deformity is age indeterminate. 3. Left posterior 1st rib fracture demonstrates healing changes. Chest Xray: 1. No acute cardiopulmonary change. 2. Acute right posterior 7th rib fracture with mild displacement, but no pneumothorax or effusion. Posterior 8th through 10th rib fractures with remodeling. DISPOSITION: Home DISCHARGE CONDITION: Improved and Stable. FOLLOW UP: 1.f.u with pcp within 2 week. 2. If symptoms return or worsen please call your pcp or return to the ER. ACTIVITY: As prior to admission. DIET: As prior to admission TIME SPENT ON DISCHARGE: 50 minutes Vital Signs/I&Os Vital Signs Date Time Temp Pulse Resp B/P (MAP) Pulse Ox O2 Delivery O2 Flow Rate FiO2 08/07/19 06:00 97.0 71 20 144/83 (103) 96 08/06/19 14:00 Room Air I&O- Last 24 Hours up to 6 AM 08/07/19 06:00 Intake Total 1575 ml Output Total 600 ml Balance 975 ml Laboratory Data Labs 24H Laboratory Tests 2 08/07/19 05:14: Nucleated Red Blood Cells % (auto) 0.0, Anion Gap 4L, Glomerular Filtration Rate > 60.0, Calcium Level 8.8, Phosphorus Level 3.9, Magnesium Level 1.7L CBC/BMP Laboratory Tests 08/07/19 05:14 Discharge Medications Scheduled Doxycycline Hyclate (Doxycycline Hyclate) 100 Mg Tablet, 100 MG PO QPM, (Re ported) TAKES FOR ROSACEA, WITH SUPPER Ergocalciferol (Vitamin D2) (Vitamin D2) 50,000 Units Cap, 50,000 UNITS PO 1XWK, (Reported) THURSDAYS Folic Acid (Folic Acid) 1 Mg Tablet, 1 MG PO DAILY, (Reported) Magnesium Oxide (Magnesium Oxide) 400 Mg Tablet, 400 MG PO BID, (Reported) Multivitamin (Tab-A-Zaire) 1 Each Tablet, 1 TAB PO QPM, (Reported) WITH SUPPER Omeprazole (Omeprazole) 20 Mg Tablet.dr, 20 MG PO QPM, (Reported) WITH SUPPER Thiamine HCl (Vitamin B-1) 100 Mg Tablet, 100 MG PO DAILY, (Reported) Allergies Coded Allergies: No Known Allergies (Unverified , 12/18/16) Attending Note I personally saw and evaluated the patient. I agree with the findings and the plan of care documented above in the resident's note. I spent 35 mins in counselling the patient and coordinating his discharge. MARITA HOWE DO Aug 07, 2019 10:44 FRITZ PEREZ MD Aug 08, 2019 10:34
[2019-08-07] MEDS ORDERED: OXAZEPAM 15 MG CAP PO ONE (11:00)
[2019-08-07] MEDS ORDERED: OXAZEPAM 15 MG CAP PO SCH (18:00)
== END 2019-08-07 12:59 | disposition home health service (06) | DRG 775 ==
LOC: M ED 22:27 → M ED INP 08-01 02:35 → ENRESERV 08-01 04:18 → M MS5PR 08-01 04:53 → M MSPAV 08-01 14:40
PROVIDERS: ADMIT Internal Medicine; ATTEND Internal Medicine Nephrology
DX: F10.239 Alcohol dependence with withdrawal, unspecified (principal); G93.41 Metabolic encephalopathy; D61.818 Other pancytopenia; E46 Unspecified protein-calorie malnutrition; E83.42 Hypomagnesemia; E86.0 Dehydration; R42 Dizziness and giddiness; E87.1 Hypo-osmolality and hyponatremia; F10.229 Alcohol dependence with intoxication, unspecified; I10 Essential (primary) hypertension; K21.9 Gastro-esophageal reflux disease without esophagitis; L71.9 Rosacea, unspecified; R68.0 Hypothermia, not associated with low environmental temperature; I87.2 Venous insufficiency (chronic) (peripheral); S22.31XA Fracture of one rib, right side, initial encounter for closed fracture; D72.819 Decreased white blood cell count, unspecified; R55 Syncope and collapse; Z68.1 Body mass index [BMI] 19.9 or less, adult; L25.8 Unspecified contact dermatitis due to other agents; W19.XXXA Unspecified fall, initial encounter; Y92.9 Unspecified place or not applicable; Y99.8 Other external cause status

== ENCOUNTER → 2019-08-17 | Outpatient (REF) | payer OTHER, MEDICAID ==
[~2019-08-17] MED LIST changes: +B-1100TA2 PO; +MAGN400T2 PO; +PATIENT COMMENTS
[2019-08-17 17:33] LABS: BASO # 0.1 10^3/uL (0.0-0.2); EOS # 0.2 10^3/uL (0.0-0.5); HEMATOCRIT 30.3 % (42.0-52.0); HEMOGLOBIN 10.4 g/dl (13.5-17.5); LYMPH # 1.3 10^3/uL (1.5-5.0); LYMPH % 22.2 % (24.0-44.0); MEAN CORPUSCULAR HEMOGLOBIN 32.8 pg (27.0-33.0); MEAN CORPUSCULAR HGB CONC 34.3 g/dl (32.0-36.5); MEAN CORPUSCULAR VOLUME 95.6 fl (80.0-96.0); MONO # 0.4 10^3/uL (0.0-0.8); MONO % 6.7 % (0.0-5.0); NEUTROPHILS # 3.8 10^3/uL (1.5-8.5); NEUTROPHILS % 65.8 % (36.0-66.0); PLATELET COUNT, AUTOMATED 370 10^3/uL (150-450); RED BLOOD COUNT 3.17 10^6/uL (4.30-6.10); WHITE BLOOD COUNT 5.8 10^3/uL (4.0-10.0)
[2019-08-17 17:35] LABS: ALBUMIN 3.4 GM/DL (3.2-5.2); ALT/SGPT 17 U/L (12-78); BILIRUBIN,TOTAL 0.4 MG/DL (0.2-1.0); BLOOD UREA NITROGEN 5 MG/DL (7-18); CALCIUM LEVEL 8.7 MG/DL (8.8-10.2); CARBON DIOXIDE LEVEL 25 MEQ/L (21-32); CHLORIDE LEVEL 100 MEQ/L (98-107); CHOLESTEROL LEVEL 159 MG/DL (<200); CHOLESTEROL RISK RATIO 1.827 (<5); CREATININE FOR GFR 0.59 MG/DL (0.70-1.30); FREE T4 0.91 NG/DL (0.76-1.46); GLOMERULAR FILTRATION RATE > 60.0 (>49); GLUCOSE, FASTING 96 MG/DL (70-100); HDL CHOLESTEROL 87 MG/DL (>40); LDL CHOLESTEROL 62 MG/DL (<100); NON-HDL-C 72 MG/DL; POTASSIUM SERUM 4.3 MEQ/L (3.5-5.1); SODIUM LEVEL 134 MEQ/L (136-145); TOTAL PROTEIN 7.5 GM/DL (6.4-8.2); TRIGLYCERIDES LEVEL 51 MG/DL (<150)
[2019-08-17 17:39] LABS: TOTAL 25(OH) VITAMIN D 58.8 NG/ML (30.0-100.0)
[2019-08-17 18:36] LABS: HEMOGLOBIN A1c 4.5 %
== END ==
LOC: M LAB REF 16:39
PROVIDERS: ATTEND Nurse Practitioner Family
DX: F10.20 Alcohol dependence, uncomplicated (principal); K21.9 Gastro-esophageal reflux disease without esophagitis; D64.9 Anemia, unspecified; E87.1 Hypo-osmolality and hyponatremia; E55.9 Vitamin D deficiency, unspecified; I10 Essential (primary) hypertension

== ENCOUNTER 2019-11-29 19:35 | Emergency (ER) | payer MEDICAID, OTHER ==
[~2019-11-29] VITALS: Ht 182.9 cm; Wt 63.0 kg
[2019-11-29] MEDS ORDERED: NS 1,000 ML IV ONE (19:45)
[2019-11-29] MEDS ORDERED: ISOVUE-370 76% 100ML VIAL As Ordered ONE (19:46)
[2019-11-29 19:52] LABS: BASO # 0.1 10^3/uL (0.0-0.2); BASO % 1.9 % (0.0-1.0); EOS # 0.3 10^3/uL (0.0-0.5); EOS % 7.4 % (0.0-3.0); HEMATOCRIT 29.4 % (42.0-52.0); LYMPH # 1.2 10^3/uL (1.5-5.0); LYMPH % 29.7 % (24.0-44.0); MEAN CORPUSCULAR HEMOGLOBIN 31.3 pg (27.0-33.0); MEAN CORPUSCULAR VOLUME 92.2 fl (80.0-96.0); MONO # 0.4 10^3/uL (0.0-0.8); MONO % 9.8 % (0.0-5.0); NEUTROPHILS # 2.1 10^3/uL (1.5-8.5); PLATELET COUNT, AUTOMATED 120 10^3/uL (150-450); RED BLOOD COUNT 3.19 10^6/uL (4.30-6.10); WHITE BLOOD COUNT 4.2 10^3/uL (4.0-10.0)
--- NOTE | 2019-11-29 20:09 | REPVR ---
PROCEDURE INFORMATION: Exam: CT Cervical Spine Without Contrast Exam date and time: 11/29/2019 7:52 PM Age: 64 years old Clinical indication: Injury or trauma; Fall; Initial encounter; Blunt trauma TECHNIQUE: Imaging protocol: Computed tomography images of the cervical spine without contrast. Radiation optimization: All CT scans at this facility use at least one of these dose optimization techniques: automated exposure control; mA and/or kV adjustment per patient size (includes targeted exams where dose is matched to clinical indication); or iterative reconstruction. COMPARISON: CT Spine,cervical w/o contrast 07/31/2019 11:17 PM FINDINGS: Vertebrae: . Chronic fracture involving T2 with [id number] loss of height. Remainder demonstrates preserved height and AP alignment. Moderate degenerative change about the dens. Mild to moderate prevertebral osteophytosis. There are bilateral facet joint degenerative changes. No acute cervical spine fracture. Discs/Spinal canal/Neural foramina: No definite significant central canal stenosis within limitations of technique. Other bones/joints: Chronic fractures involving the left 1st, 2nd and 3rd ribs. Soft tissues: Unremarkable. Lungs: Mild scarring at the lung apices. Pleural space: No visible pneumothorax. Vasculature: Vascular calcification. IMPRESSION: No acute fracture. Electronically signed by: Abelino Teran On 11/29/2019 20:08:22 PM
--- NOTE | 2019-11-29 20:10 | REPVR ---
PROCEDURE INFORMATION: Exam: CT Head Without Contrast Exam date and time: 11/29/2019 7:52 PM Age: 64 years old Clinical indication: Injury or trauma; Fall; Initial encounter; Blunt trauma (contusions or hematomas); Consciousness not specified TECHNIQUE: Imaging protocol: Computed tomography of the head without contrast. Radiation optimization: All CT scans at this facility use at least one of these dose optimization techniques: automated exposure control; mA and/or kV adjustment per patient size (includes targeted exams where dose is matched to clinical indication); or iterative reconstruction. COMPARISON: CT Head without contrast 07/31/2019 11:17 PM FINDINGS: Brain: Decreased attenuation of the supratentorial white matter is likely secondary to chronic microvascular ischemia. No acute intracranial hemorrhage. Ventricles: Ventricular and subarachnoid spaces are age appropriate. Bones/joints: Unremarkable. No acute fracture. Sinuses: Visualized sinuses are unremarkable. No fluid levels. Mastoid air cells: Mild partial opacification of the bilateral mastoid air cells. Soft tissues: Unremarkable. Vasculature: Intracranial vascular calcification. IMPRESSION: No acute intracranial abnormality. Electronically signed by: Abelino Teran On 11/29/2019 20:10:17 PM
[2019-11-29 20:16] LABS: VENOUS BASE EXCESS 0.7 (-2.0-2.0); VENOUS HCO3 26.4 MEQ/L (23.0-27.0); VENOUS O2 SATURATION 89.1 % (60.0-80.0); VENOUS PARTIAL PRESSURE CO2 47.3 mmHg (38.0-50.0); VENOUS PARTIAL PRESSURE O2 67.1 mmHg (30.0-50.0); VENOUS PH 7.365 UNITS (7.330-7.430); VENOUS TOTAL CO2 27.9 MEQ/L (24.0-28.0)
--- NOTE | 2019-11-29 20:28 | REPVR ---
PROCEDURE INFORMATION: Exam: CT Angiography Chest With Contrast Exam date and time: 11/29/2019 7:52 PM Age: 64 years old Clinical indication: Injury or trauma; Fall; Initial encounter; Blunt trauma (contusions or hematomas); Additional info: Trauma, loss of consciousness TECHNIQUE: Imaging protocol: Computed tomographic angiography of the chest with intravenous contrast. 3D rendering: MIP and/or 3D reconstructed images were created by the technologist. Radiation optimization: All CT scans at this facility use at least one of these dose optimization techniques: automated exposure control; mA and/or kV adjustment per patient size (includes targeted exams where dose is matched to clinical indication); or iterative reconstruction. Contrast material: ISOVUE 370; Contrast volume: 100 ml; Contrast route: IV; COMPARISON: CR Chest, 1 view 08/01/2019 12:51 AM FINDINGS: Pulmonary arteries: No pulmonary embolism. Great vessels off aortic arch: The brachiocephalic artery, imaged proximal portion of the left common carotid artery, and left subclavian artery are intact. No stenosis or occlusion of these vessels is noted. Aorta: The thoracic aorta is intact and patent. There is no thoracic aortic aneurysm, pseudoaneurysm, penetrating atherosclerotic ulcer, intramural hematoma, or dissection. There are moderate atherosclerotic calcifications. Thyroid: Normal. Tracheobronchial tree: Intact and patent. Lungs: There is mild atelectasis in the right middle lobe and in the dependent portion of both lower lobes. No pulmonary contusion, lung laceration, consolidation, or mass is noted. Pleural space: There is a calcified pleural plaque along the right lung apex, which is indicative of prior asbestos exposure. There is pleural based thickening in the right lower lobe adjacent to a right rib fracture deformity. No pleural effusion or pneumothorax is noted. Heart: No cardiomegaly or pericardial effusion. The ratio of the diameter of the right ventricle to the diameter of the left ventricle measures less than 1, which is within normal limits and there is no evidence for a right ventricular strain. There are coronary artery calcifications. Mediastinum: No mediastinal mass, fluid collection, or pneumomediastinum. There is fluid in the esophagus, which can be seen with gastroesophageal reflux. There is a small sliding hiatal hernia. There is thickening of the wall of the esophagus, which may indicate esophagitis. Lymph nodes: No enlarged lymph nodes. Bones/joints: There is an old healed fracture of the distal portion of the left clavicle and heterotopic ossification involving the left coracoclavicular ligament. There are chronic fracture deformities of the right lateral 7th and right posterior 7th, 8th, 9th, 10th, 11th, and 12th ribs. There are also chronic healed fractures of the left posterior 1st, 2nd, 3rd, 9th, and 10th ribs. No acute fracture is noted. Soft tissues: There is moderate left gynecomastia and mild right gynecomastia. Other findings: Refer to the CT abdomen and pelvis report on 11/29/2019 for details regarding the abdominal and pelvic findings. IMPRESSION: 1. No CT evidence for acute traumatic injury in the chest. 2. Small sliding hiatal hernia evidence for gastroesophageal reflux and thickening of the wall of the esophagus, which may indicate esophagitis. 3. Calcified pleural plaque along the right lung apex, which is indicative of prior asbestos exposure. 4. No pulmonary embolism. 5. Old healed fracture of the distal portion of the left clavicle and heterotopic ossification involving the left coracoclavicular ligament. 6. Chronic fracture deformities of the right lateral 7th and right posterior 7th through 12th ribs and left posterior 1st, 2nd, 3rd, 9th, and 10th ribs. Electronically signed by: Estevan Cabrera On 11/29/2019 20:27:53 PM
--- NOTE | 2019-11-29 20:28 | REPVR ---
PROCEDURE INFORMATION: Exam: CT Abdomen And Pelvis With Contrast Exam date and time: 11/29/2019 7:52 PM Age: 64 years old Clinical indication: Injury or trauma; Fall; Initial encounter; Blunt; Generalized; Additional info: Trauma, loss of consciousness TECHNIQUE: Imaging protocol: Computed tomography of the abdomen and pelvis with intravenous contrast. Radiation optimization: All CT scans at this facility use at least one of these dose optimization techniques: automated exposure control; mA and/or kV adjustment per patient size (includes targeted exams where dose is matched to clinical indication); or iterative reconstruction. Contrast material: ISOVUE 370; Contrast volume: 100 ml; Contrast route: IV; COMPARISON: CR Hip,AP,LAT to include Pelvis RIGHT 05/25/2016 1:21 PM FINDINGS: Heart: Refer to the CTA chest report on 11/29/2019 for details. Lungs: Refer to the CTA chest report on 11/29/2019 for details. Mediastinum: There is a small sliding hiatal hernia. There is fluid in the esophagus, which can be seen with gastroesophageal reflux. There is thickening of the wall of the esophagus, which may indicate esophagitis. Diaphragm: Intact. Liver: Intact. The attenuation of the liver is more than 40 Hounsfield units lower in attenuation compared to the spleen, which is compatible with fatty liver infiltration. No liver lesion is seen. The contour of the liver is smooth. No hepatomegaly is noted. Gallbladder and bile ducts: There are several calcified gallstones in the gallbladder. No gallbladder wall thickening, pericholecystic fluid, or inflammatory fat stranding is noted around the gallbladder. No dilation of the bile ducts is noted. No calcified stones are seen in the common bile duct. Pancreas: Normal. No dilation of the main pancreatic duct is noted. There is no inflammatory fat stranding around the pancreas to suggest acute pancreatitis. Spleen: The spleen is heterogeneous in appearance, which is likely secondary to the arterial timing of the contrast bolus. No splenomegaly. Adrenals: Normal. No adrenal mass is noted. Kidneys and ureters: The kidneys are intact. There is a 14 mm benign-appearing cyst in the midpole of the right kidney and a 17 mm benign-appearing cyst in the midpole of the left kidney for which follow-up is not necessary. No stones are noted in the kidneys or ureters. There is no hydronephrosis or hydroureter. Stomach and bowel: The intra-abdominal portion of the stomach is decompressed, limiting its optimal evaluation. The small bowel is unremarkable. There is no evidence for a bowel obstruction, diverticulosis, diverticulitis, colitis, perforated viscus, pneumatosis intestinalis, intussusception, or volvulus. Appendix: Normal. There is no evidence for appendicitis. Intraperitoneal space: No free air. No hemorrhage. Retroperitoneal space: No retroperitoneal hemorrhage. Vasculature: The abdominal aorta is patent, normal in caliber, and there is no dissection. The iliac arteries, common femoral arteries, renal arteries, celiac artery, superior mesenteric artery, and inferior mesenteric artery are patent. There are moderate atherosclerotic calcifications. Lymph nodes: No enlarged lymph nodes. Bladder: Intact. No stones or masses are seen in the bladder. Reproductive: The prostate gland and seminal vesicles are unremarkable. Bones/joints: There are chronic bilateral rib fracture deformities. There is a chronic appearing mild superior endplate compression fracture of L3 without any radiolucent fracture line or retropulsion of the cortex. The bony pelvis and both hips are intact. Soft tissues: Unremarkable. No hernia. IMPRESSION: 1. No CT evidence for acute traumatic injury in the abdomen or pelvis. 2. Cholelithiasis without CT evidence for cholecystitis. 3. Fatty liver. 4. Small sliding hiatal hernia and evidence for gastroesophageal reflux and thickening of the wall of the esophagus, which may indicate esophagitis. 5. Chronic appearing mild superior endplate compression fracture of L3. COMMENTS: Consistent with the [employer]'s Incidental Findings Committee white paper (J Am Kaylene Radiol 2018): Any incidental renal lesion less than 1.0 cm or classified as too small to characterize, or any incidental cystic renal lesion characterized as simple-appearing, is likely benign. No follow-up imaging is recommended for these lesions per consensus recommendations based on imaging criteria. Electronically signed by: Estevan Cabrera On 11/29/2019 20:27:45 PM
[2019-11-29 20:29] LABS: ACETAMINOPHEN LEVEL < 2.0 UG/ML (10.0-30.0); ALBUMIN 2.6 GM/DL (3.2-5.2); ALT/SGPT 18 U/L (12-78); BILIRUBIN,DIRECT 0.2 MG/DL (0.0-0.2); BILIRUBIN,TOTAL 0.4 MG/DL (0.2-1.0); CK-MB VALUE MASS 2.4 NG/ML (<3.6); CPK CREATINE PHOSPHOKINASE 71 U/L (39-308); ETHYL ALCOHOL (ETHANOL) 0.312 % (0.000-0.010); MAGNESIUM LEVEL 1.8 MG/DL (1.8-2.4); MB/CK RELATIVE INDEX 3.38 (< OR =4); SALICYLATE LEVEL < 1.7 MG/DL (5.0-30.0); TOTAL PROTEIN 6.1 GM/DL (6.4-8.2); TROPONIN I < 0.02 NG/ML (< 0.10)
[2019-11-29 20:41] LABS: OSMOLALITY SERUM 348 MOSM/KG (280-301)
[2019-11-29 20:51] LABS: AMPHETAMINES LEVEL URINE NEGATIVE (NEGATIVE); BARBITURATES URINE NEGATIVE (NEGATIVE); BENZODIAZEPINES URINE NEGATIVE (NEGATIVE); CANNABINOIDS URINE NEGATIVE (NEGATIVE); COCAINE METABOLITE URINE NEGATIVE (NEGATIVE); METHADONE URINE NEGATIVE (NEGATIVE); OPIATES URINE NEGATIVE (NEGATIVE); PHENCYCLIDINE URINE NEGATIVE (NEGATIVE)
[2019-11-30 00:14] VITALS: BP 116/66
--- NOTE | 2019-11-30 07:28 | ECGEPIP ---
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
== END 2019-11-30 00:17 | disposition home or self-care (01) ==
LOC: M ED 19:35
DX: F10.120 Alcohol abuse with intoxication, uncomplicated (principal); I10 Essential (primary) hypertension; K21.9 Gastro-esophageal reflux disease without esophagitis; Z79.899 Other long term (current) drug therapy
CPT/HCPCS: 70450; 71275; 72125; 74177; 80047; 80076; 80307; 82140; 82550; 82553; 82803; 83605; 83735; 83930; 84443; 85025; 87040; 93005; 93041; 94760; 96360; 96361; 99285; G0480; Q9967

== ENCOUNTER 2019-12-15 15:38 | Inpatient (IN) | payer OTHER ==
[~2019-12-15] VITALS: Ht 185.4 cm; Wt 70.1 kg
[2019-12-15] MEDS ORDERED: MULTIVITAMIN -ADULT INJECTION 10 ML, THIAMINE INJection 100 MG, FOLIC ACID 1 MG in NS 1... IV ONE (16:00)
[2019-12-15 16:34] LABS: BASO % 0.2 % (0.0-1.0); EOS % 0.9 % (0.0-3.0); HEMATOCRIT 22.5 % (42.0-52.0); HEMOGLOBIN 7.9 g/dl (13.5-17.5); LYMPH # 0.6 10^3/uL (1.5-5.0); LYMPH % 13.9 % (24.0-44.0); MEAN CORPUSCULAR HEMOGLOBIN 32.4 pg (27.0-33.0); MEAN CORPUSCULAR HGB CONC 35.1 g/dl (32.0-36.5); MEAN CORPUSCULAR VOLUME 92.2 fl (80.0-96.0); MONO # 0.4 10^3/uL (0.0-0.8); MONO % 9.6 % (0.0-5.0); NEUTROPHILS # 3.5 10^3/uL (1.5-8.5); RED BLOOD COUNT 2.44 10^6/uL (4.30-6.10); WHITE BLOOD COUNT 4.6 10^3/uL (4.0-10.0)
--- NOTE | 2019-12-15 16:46 | REP ---
CT brain: 12/15/2019. Indication: Stroke. Technique: Unenhanced axial CT images of the brain were obtained from skull base to vertex with coronal reconstructions provided. Comparison: 11/29/2019. Findings: There is no evidence of acute intracranial hemorrhage, acute cortical infarction, mass effect or hydrocephalous. Diffuse volume loss is present. Right basal ganglia calcification is noted. Patchy areas of white matter hypoattenuation bilaterally are present most consistent with sequelae of chronic microangiopathic ischemic disease. Diffuse periosteal mucosal thickening is present throughout the visualized paranasal sinuses most pronounced within the anterior ethmoid air cells. Impression: No acute intracranial process. Volume loss and sequelae of chronic microangiopathic ischemic disease. Electronically Signed by Jasbir Crowell DO 12/15/2019 04:38 P
--- NOTE | 2019-12-15 16:54 | REP ---
CHEST, SINGLE VIEW: Single view of the chest is performed. There is no acute infiltrate. Heart is normal in size. There is mild calcification of the thoracic aorta. Mediastinal silhouette is otherwise unremarkable. There are old right rib fractures. IMPRESSION: No acute infiltrate. Electronically Signed by Jah Huerta MD 12/17/2019 12:55 A
[2019-12-15 17:04] LABS: ALBUMIN 2.1 GM/DL (3.2-5.2); ALT/SGPT 91 U/L (12-78); BILIRUBIN,DIRECT 0.6 MG/DL (0.0-0.2); BILIRUBIN,TOTAL 1.3 MG/DL (0.2-1.0); ETHYL ALCOHOL (ETHANOL) < 0.003 % (0.000-0.010); LIPASE 1427 U/L (73-393); MAGNESIUM LEVEL 1.7 MG/DL (1.8-2.4); TOTAL PROTEIN 5.2 GM/DL (6.4-8.2)
[2019-12-15 17:08] LABS: PLATELET COUNT, AUTOMATED 63 10^3/uL (150-450)
--- NOTE | 2019-12-15 17:28 | HPEPDOC ---
[facility] Medical History & Physical Date of Admission Dec 15, 2019 Date of Service: Dec 15, 2019 Attending Physician: BUBBA MCCLURE MD History and Physical TIME OF SERVICE: 5:45 PM CHIEF COMPLAINT: Neighbors called emergency services HISTORY OF PRESENT ILLNESS: The patient was too confused to her bite history, the majority of the history is obtained from Dr. Lynn. This is a 64-year-old gentleman whose neighbors called EMS because they noticed a bad smell coming from his apartment. When EMS found him he was covered in feces and there were several empty beer cans lying around his apartment. The pa juan was lying on the floor and still had the stickers on his chest with to attach telemetry leads on his chest from his emergency department visit on November 28. He told that he didn't have any pain and last ate breakfast. At the time of my evaluation, the patient was able to talk fluently, but was not answering pointed questions and unable to contribute any meaningful history. ROS:unobtainable PAST MEDICAL/ SURGICAL HISTORY: Alcohol abuse Chronic hypertension Rosacea Acid reflux Hernia repair SOCIAL HISTORY: Chronic alcohol abuse drugs, total to 5 beers daily ALLERGIES: Please see below. HOME MEDICATIONS: Please see below. PHYSICAL EXAMINATION: Vital Signs Date Time Temp Pulse Resp B/P (MAP) Pulse Ox O2 Delivery O2 Flow Rate FiO2 12/15/19 15:42 166 20 114/68 99 Room Air 12/15/19 17:12 93.9 GEN: Cachectic/ NAD INTEGUMENT: not flushed HEENT: NCAT / mucous membranes dry CVS: RRR/NMRG LUNGS: no coughing / lungs are clear to auscultation bilaterally on room air ABDOMEN: Contour (scaphoid) MSK/EXTREMITIES: Slim NEURO: speech is not dysarthric / bilateral upper extremity tremors PSYCH: alert and oriented LABORATORY DATA: IMAGING: CT head "Impression: No acute intracranial process." Chest x-ray "IMPRESSION: No acute infiltrate." MICROBIOLOGY: Please see below. ASSESSMENT: Mr. Avila is a 64-year-old with a history of alcohol abuse, hypertension rosacea and GERD who is admitted for evaluation of encephalopathy, hypothermia, acute anemia , and multiple metabolic and electrolyte derangements. 1. Encephalopathy Possibly metabolic ( ie thyroid disorder, elevated ammonia) vs infection ( bacteremia, UTI) Plan: admit to ICU for closer monitoring / neurochecks / f/u ammonia, UA, blood cx, lactic acid, TSH 2. SIRS vs Sepsis source TBD Criteria include: Temp 93.9 / HR 166 Chest xray unrevealing Plan: telemetry / f/u work up for infection / bear hugger bc of hypothermia / IVF / monitor UOP 3. Acute anemia Possibly 2/2 GI bleed; per the patient had melena Hg is 7.9 from his baseline of around 9-10 Plan: NPO / Gen Surg consult / IV PPI / f/u stool occult, serial hemoglobin, and iron panel, with B12 and folate 4. Anion gap metabolic acidosis Possibly due to starvation ketoacidosis or lactic acidosis. The patient's BMI 17.0 and he told the ER doctor he hasn't eaten since breakfast Plan: Follow-up lactic acid and beta hydroxybutyrate 5. Chronic hyponatremia Likely secondary to beer potomania Plan: f/u serum osmolality, urine osmolality, and urine sodium to confirm subtype 6. Hypokalemia and hypomagnesemia Likely due to poor oral intake Plan: IV mag sulfate, potassium chloride / follow up repeat blood work in the morning 7. Alcoholism Transaminitis and thrombocytopenia, likely due to alcoholism Serum ethanol was negative Plan: telemetry / seizure precautions / fall precautions / Thiamine, Folic and Ativan per CIWA protocol / IVF DVT prophylaxis with SCDs because of acute anemia DISPOSITION: Pending clinical course Laboratory Data Labs 24H Laboratory Tests 2 12/15/19 15:43: Bedside Glucose (Misc Panel) 176H 12/15/19 16:15: Immature Granulocyte % (Auto) 0.4, Neutrophils (%) (Auto) 75.0H, Lymphocytes (%) (Auto) 13.9L, Monocytes (%) (Auto) 9.6H, Eosinophils (%) (Auto) 0.9, Basophils (%) (Auto) 0.2, Neutrophils # (Auto) 3.5, Lymphocytes # (Auto) 0.6L, Monocytes # (Auto) 0.4, Eosinophils # (Auto) 0.0, Basophils # (Auto) 0.0, Nucleated Red Blood Cells % (auto) 0.0, Immature Platelet Fraction 4.0, Magnesium Level 1.7L, Total Bilirubin 1.3H, Direct Bilirubin 0.6H, Aspartate Amino Transf (AST/SGOT) 436H, Alanine Aminotransferase (ALT/SGPT) 91H, Alkaline Phosphatase 149H, Total Protein 5.2L, Albumin 2.1L, Albumin/Globulin Ratio 0.7, Lipase 1427H, Ethyl Alcohol Level < 0.003 12/15/19 16:20: POC pH (Misc Panel) 7.419, POC Base Excess (Misc Panel) -9.0L, POC Saturated Percent O2 (Misc) 97, POC pO2 (Misc Panel) 88.0, POC pCO2 (Misc Panel) 23.3L, POC HCO3 (Misc Panel) 15.1L, POC Total CO2 (Misc Panel) 16.0L, POC Troponin I (Misc) 0.02 12/15/19 16:33: POC Prothrombin Time (Misc) 16.5H, POC INR (Misc) 1.4 12/15/19 16:38: POC Lactate (Misc Panel) 1.41 12/15/19 16:42: POC Glucose (Misc Panel) 112H, POC Sodium (Misc Panel) 131L, POC Potassium (Misc Panel) 3.2L, POC Chloride (Misc Panel) 95L, POC Total CO2 (Misc Panel) 17.0L, POC Blood Urea Nitrogen (Misc Panel 24, POC Ionized Calcium (Misc Panel) 4.6, POC Creatinine (Misc Panel) 0.5L, POC Hematocrit (Misc Panel) 24.0L CBC/BMP Laboratory Tests 12/15/19 16:15 Home Medications Scheduled Doxycycline Hyclate (Doxycycline Hyclate) 100 Mg Tablet, 100 MG PO QPM TAKES FOR ROSACEA, WITH SUPPER Ergocalciferol (Vitamin D2) (Vitamin D2) 50,000 Units Cap, 50,000 UNITS PO 1XWK THURS Folic Acid (Folic Acid) 1 Mg Tablet, 1 MG PO DAILY Magnesium Oxide (Magnesium Oxide) 400 Mg Tablet, 400 MG PO BID Multivitamin (Tab-A-Zaire) 1 Each Tablet, 1 TAB PO QPM WITH SUPPER Omeprazole (Omeprazole) 20 Mg Tablet.dr, 20 MG PO QPM WITH SUPPER Thiamine HCl (Vitamin B-1) 100 Mg Tablet, 100 MG PO DAILY Allergies Coded Allergies: No Known Allergies (Unverified , 12/18/16) A-FIB/CHADSVASC A-FIB History Current/History of A-Fib/PAF?: No Current PO Anticoag Therapy: No BUBBA MCCLURE MD Dec 15, 2019 17:28
[2019-12-15] MEDS ORDERED: LORazepam 2 MG/ML VIAL IV PRN (17:30)
[2019-12-15] MEDS ORDERED: NS 1,000 ML IV ONE (17:45)
[2019-12-15] MEDS ORDERED: MAG SULF 1GM/100ML (MAG RUN) 1 GM in IV 1 EA IV ONE (18:00)
[2019-12-15 18:45] LABS: ACETONE/KETONE > 46.00 MG/DL (<2.81); FERRITIN 726 NG/ML (26-388); IRON (FE) 42 UG/DL (65-175); PERCENT SATURATION 34.7 % (19.7-50.0); TOTAL IRON BINDING CAPACITY 121 UG/DL (250-450)
[2019-12-15] MEDS ORDERED: KCL 10MEQ/100ML SWI (KRUN) 10 MEQ in IV 1 EA IV ONE (19:00)
[2019-12-15 19:07] LABS: FOLATE 10.5 NG/ML; VITAMIN B12 LEVEL 1187 PG/ML
[2019-12-15 21:30] VITALS: BP 105/61
[2019-12-15] MEDS ORDERED: NS 1,000 ML IV SCH (21:30)
[2019-12-15 22:00] VITALS: BP 114/85
[2019-12-15] MEDS ORDERED: LORazepam 2 MG TAB XX PRN (22:00)
[2019-12-15] MEDS ORDERED: LORazepam 2 MG/ML VIAL As Ordered ONE ×3 (22:02→23:54)
[2019-12-15] MEDS: LORazepam 2 MG/ML VIAL XX PRN ×2 (22:05→23:19)
[2019-12-15 22:12] LABS: OSMOLALITY URINE 783 MOSM/KG (500-800)
[2019-12-15 22:22] LABS: AMPHETAMINES LEVEL URINE NEGATIVE (NEGATIVE); BARBITURATES URINE NEGATIVE (NEGATIVE); BENZODIAZEPINES URINE NEGATIVE (NEGATIVE); CANNABINOIDS URINE NEGATIVE (NEGATIVE); COCAINE METABOLITE URINE NEGATIVE (NEGATIVE); METHADONE URINE NEGATIVE (NEGATIVE); OPIATES URINE NEGATIVE (NEGATIVE); PHENCYCLIDINE URINE NEGATIVE (NEGATIVE); SODIUM,RANDOM URINE 19 MEQ/L
[2019-12-15 22:28] LABS: APPEARANCE, URINE HAZY (CLEAR); BACTERIA, URINE AUTO 1+ (NEGATIVE); BILIRUBIN, URINE AUTO NEGATIVE (NEGATIVE); BLOOD, URINE BLOOD NEGATIVE (NEGATIVE); COLOR, URINE AMBER (YELLOW); GLUCOSE, URINE (UA) AUTO NEGATIVE (NEGATIVE); KETONE, URINE AUTO 2+ mg/dL (NEGATIVE); LEUKOCYTE ESTERASE, URINE AUTO TRACE (NEGATIVE); MUCUS, URINE SMALL (NEGATIVE); NITRITE, URINE AUTO NEGATIVE (NEGATIVE); PROTEIN, URINE AUTO NEGATIVE (NEGATIVE); RBC, URINE AUTO 1 /HPF (0-3); SPECIFIC GRAVITY URINE AUTO 1.023 (1.002-1.035); SQUAMOUS EPITHELIAL CELL UR AU 0 /HPF (0-6); TRANSITIONAL EPITHELIAL AUTO <1 /HPF; WBC, URINE AUTO 11 /HPF (0-3)
[2019-12-15 23:10] VITALS: BP 98/50
[2019-12-15] MEDS ORDERED: LORazepam 2 MG/ML VIAL IV STA (23:52)
[2019-12-16] VITALS (46 sets, daily range): BP systolic 77–126; BP diastolic 39–79
[2019-12-16 00:06] LABS: ALBUMIN 1.9 GM/DL (3.2-5.2); ALT/SGPT 87 U/L (12-78); BILIRUBIN,TOTAL 1.1 MG/DL (0.2-1.0); BLOOD UREA NITROGEN 24 MG/DL (7-18); CALCIUM LEVEL 7.3 MG/DL (8.8-10.2); CARBON DIOXIDE LEVEL 18 MEQ/L (21-32); CHLORIDE LEVEL 105 MEQ/L (98-107); CREATININE FOR GFR 0.43 MG/DL (0.70-1.30); GLOMERULAR FILTRATION RATE > 60.0 (>49); GLUCOSE, FASTING 55 MG/DL (70-100); POTASSIUM SERUM 3.4 MEQ/L (3.5-5.1); SODIUM LEVEL 137 MEQ/L (136-145); TOTAL PROTEIN 4.6 GM/DL (6.4-8.2)
[2019-12-16] MEDS ORDERED: DEXTROSE 50% 50 ML SYRINGE IV STA (00:16)
[2019-12-16] MEDS: D5W/0.9% SODIUM CHLORIDE 1,000 ML IV SCH ×4 (00:50→17:54)
[2019-12-16] MEDS: KCL 10MEQ/100ML SWI (KRUN) 10 MEQ in IV 1 EA IV SCH ×4 (00:50→04:32)
[2019-12-16] MEDS ORDERED: NS 1,000 ML IV ONE ×2 (01:30)
[2019-12-16] MEDS ORDERED: LORazepam 2 MG/ML VIAL As Ordered ONE ×2 (01:31→03:46)
[2019-12-16] MEDS: LORazepam 2 MG/ML VIAL XX PRN ×2 (01:36→03:50)
[2019-12-16 01:48] LABS: ABG BASE EXCESS -7.1 (-2.0-2.0); ABG HCO3 16.8 MEQ/L (22.0-26.0); ABG O2 SATURATION 97.8 % (95.0-99.0); ABG PARTIAL PRESSURE CO2 27.2 mmHg (35.0-45.0); ABG PARTIAL PRESSURE O2 106.6 mmHg (75.0-100.0); ABG STANDARD HCO3 18.6 MEQ/L (22.0-26.0); ABG TOTAL CO2 17.7 MEQ/L (23.0-31.0); ABG pH (ARTERIAL) 7.409 UNITS (7.350-7.450)
[2019-12-16] MEDS ORDERED: SODIUM BICARBONATE 8.4% INJ 50 ML SYRINGE IV STA (01:51)
[2019-12-16] MEDS ORDERED: SODIUM BICARBONATE 8.4% INJ 50 ML SYRINGE As Ordered ONE (01:52)
[2019-12-16] MEDS ORDERED: dexmedeTOMidine 200 MCG in IV 1 EA IV SCH (02:00)
[2019-12-16] MEDS ORDERED: NOREPINEPHRINE 4 MG/4 ML AMP As Ordered ONE (03:46)
[2019-12-16] MEDS ORDERED: NOREPINEPHRINE BITARTRATE 8 MG in D5W 492 ML IV SCH ×2 (04:00→16:00)
[2019-12-16] MEDS ORDERED: LR 1,000 ML IV ONE (04:00)
[2019-12-16 04:27] LABS: MEAN CORPUSCULAR HEMOGLOBIN 31.7 pg (27.0-33.0); MEAN CORPUSCULAR HGB CONC 33.8 g/dl (32.0-36.5); MEAN CORPUSCULAR VOLUME 93.8 fl (80.0-96.0); RED BLOOD COUNT 2.08 10^6/uL (4.30-6.10); WHITE BLOOD COUNT 4.4 10^3/uL (4.0-10.0)
[2019-12-16 04:32] LABS: HEMATOCRIT 19.5 % (42.0-52.0); HEMOGLOBIN 6.6 g/dl (13.5-17.5); PLATELET COUNT, AUTOMATED 64 10^3/uL (150-450)
[2019-12-16 05:01] LABS: ALBUMIN 1.7 GM/DL (3.2-5.2); ALT/SGPT 76 U/L (12-78); BLOOD UREA NITROGEN 19 MG/DL (7-18); CARBON DIOXIDE LEVEL 19 MEQ/L (21-32); CHLORIDE LEVEL 110 MEQ/L (98-107); CREATININE FOR GFR 0.39 MG/DL (0.70-1.30); GLOMERULAR FILTRATION RATE > 60.0 (>49); GLUCOSE, FASTING 106 MG/DL (70-100); MAGNESIUM LEVEL 1.6 MG/DL (1.8-2.4); POTASSIUM SERUM 3.6 MEQ/L (3.5-5.1); SODIUM LEVEL 140 MEQ/L (136-145); TOTAL PROTEIN 4.2 GM/DL (6.4-8.2)
[2019-12-16] MEDS: MAG SULF 1GM/100ML (MAG RUN) 1 GM in IV 1 EA IV SCH ×4 (05:55→09:20)
--- NOTE | 2019-12-16 06:46 | REPVR ---
PROCEDURE INFORMATION: Exam: CT Abdomen And Pelvis Without Contrast Exam date and time: 12/16/2019 4:39 AM Age: 64 years old Clinical indication: Other: Unknown source bleeding; Additional info: Unknown source of bleeding TECHNIQUE: Imaging protocol: Computed tomography of the abdomen and pelvis without contrast. Radiation optimization: All CT scans at this facility use at least one of these dose optimization techniques: automated exposure control; mA and/or kV adjustment per patient size (includes targeted exams where dose is matched to clinical indication); or iterative reconstruction. COMPARISON: CT ABD/PEL W/IV CONTRAST ONLY 11/29/2019 7:48 PM FINDINGS: Lungs: Mild bilateral lower lobe fibro-atelectatic change and question of minimal infiltrates. Liver: Normal. No mass. Gallbladder and bile ducts: There are several small gallstones layering in the gallbladder. Pancreas: Normal. No ductal dilation. Spleen: Normal. No splenomegaly. Adrenals: Normal. No mass. Kidneys and ureters: There is a left renal cyst measuring up to 19 mm with a Hounsfield measurement of 2 consistent with a Bosniak 1 cyst with no follow-up. Stomach and bowel: Unremarkable. No obstruction. No mucosal thickening. Appendix: A normal appendix is seen. Intraperitoneal space: Minimal fluid in the pelvis. Vasculature: There is mild calcification of the abdominal aorta with extension into the iliac arteries. Lymph nodes: Unremarkable. No enlarged lymph nodes. Bladder: There is a Gardner catheter in the bladder. Reproductive: Unremarkable as visualized. Bones/joints: Mild superior endplate depression of L3 which appears to be chronic. Old posterior right rib fractures which are unchanged. Soft tissues: Small fat filled epigastric ventral wall hernia above the umbilicus. IMPRESSION: 1. Mild bilateral lower lobe fibro-atelectatic change and question of minimal infiltrates which appear increased since 11/29/2019. 2. Interval placement of a Gardner catheter since the prior study. 3. Minimal cholelithiasis. 4. Minimal free fluid in the pelvis which is nonspecific but unusual in a male and is new since the prior study. Electronically signed by: Man Gutierrez On 12/16/2019 06:46:24 AM
[2019-12-16] MEDS ORDERED: FOLIC ACID 1 MG in NS 50 ML IV SCH (09:00)
[2019-12-16] MEDS: PANTOPRAZOLE 40MG VIAL (C9113 PER 1) IV SCH (09:20)
[2019-12-16] MEDS: THIAMINE 200MG/2ML VIAL (J3411 PER 100MG) IV SCH (09:21)
--- NOTE | 2019-12-16 09:23 | IPNPDOC ---
Date Seen The patient was seen on 12/16/19. Progress Note SUBJECTIVE: Pt is a 64 yo male with hx of alcoholism being sent to [facility] ER after his neighbors called EMS d/t bad odor coming from his apartment. Pt was observed to be covered in feces with empty beer cans lying around his apartment when EMS arrived. It was noted that pt told ER provider that he didn't have any pain and ate breakfast on the day of admission. Upon admission, pt was noted to be talking fluently, but was not answering pointed questions and unable to contribute meaningful history. Pt is examined at bedside today while on sedation. Pt is unable to answer any questions. It was noted that pt was moving all 4 extremities spontaneously earlier with GLASCOW scale 9. OBJECTIVE PHYSICAL EXAMINATION: VITAL SIGNS: Please see below. GENERAL: Sedated, alert but not awake HEENT: Head normocephalic, multiple macular erythematous lesions CARDIOVASCULAR: regular rate, irregular rhythm, no murmur RESPIRATORY: diminished breath sounds b/l, mildly diminished air entry b/l ABDOMINAL: no guarding or distention, bowel sound aus in all 4 quad EXTREMITIES: warm and well perfused, multiple cracking/old scratching/healing lesions in b/l lower extremities with dystrophic nails. Trace edema NEUROLOGICAL: Mildly sluggish pupils b/l reactive to light, pt under sedation, good tone PSYCHOLOGICAL: pt under sedation LABORATORY DATA, IMAGING STUDIES, MICROBIOLOGY: Please see below. ASSESSMENT AND PLAN: This is a 64 yo male with chronic hx of alcoholism being sent to [facility] ER d/t altered mental status noted to have anemia, hypothermia and tachycardia who later developed shock after fluid resuscitation requiring pressors, is receiving 2 PRBC transfusion for anemia, and is on CIWA protocol requiring Ativan for alcohol withdrawal symptom PROBLEMS: 1. Shock likely hypovolemic from decreased oral intake d/t metabolic encephalopathy for unknown duration. Pt was hypotensive, hypothermic, and tachycardic upon admission with limited urine output since admission, r/o septic shock. Continue pressors and IV fluid. Temp now wnl; s/p bear hugger. 2. Metabolic Encephalopathy from starvation ketoacidosis and/or alcohol withdrawal, r/o infection etiology. Cont neuro checks, vitals. Ammonia and lactic acid level wnl. UA and blood cx pending. Cont neuro checks. Continue tele, folic, thiamine, levophed, IV D5NS,CIWA with Ativan PRN 3. Starvation ketoacidosis, likely 2/2 alcohol withdrawal for unknown duration period. Increased anion gap ketoacidosis, beta-hydroxybutyrate>46. S/p 1 sodium bicarb as well as fluid hydration with LR and NS total 5-6L. Cont IV D5 NS. Cont thiamine daily. Pt also on Mag for hypomagnesia. 4. Alcohol withdrawal, extremity tremors noted upon admission with elevated CIWA score. Cont Ativan PRN and CIWA. Seizure precaution. 5. Chronic hyponatremia, likely secondary to beer potomania. F/u serum osmolality, urine osmolality, and urine sodium to confirm subtype 6. Hypokalemia, likely 2/2 chronic alcohol use and/or poor oral intake. 3.4, 3.6, then 3.1. Repeleted; 2 more of 20meq K run ordered today. 7. Hypomagnesemia, likely 2/2 chronic alcohol use and/or poor oral intake. s/p total 5 Mag run. Recheck Mag level 8. Alcoholism, chronic. Hx of chronic alcoholism. Cont thiamine, folic acid, Ativan PRN, CIWA protocol, and seizure precaution. Lipase elevated likely d/t alcoholic pancreatitis however pt not alert enough to answer if having abdominal pain; no CT evidence showing pancreatitis. 9. Alcoholic liver disease, likely alcoholic hepatitis, AST: ALT>2 to 1. 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 Normocytic anemia 2/2 anemia of chronic disease vs r/o acute GI blood loss. Hg 6.6 trending down from 7.9 upon admission. Pt Hg baseline around 9-10. Iron studies consistent with anemia of chronic disease vs inflammatory anemia. 2 PRBC transfusion. Hemoglobin Q6H scheduled. It was noted that melena was observed in ER. Occult blood pending. DVT prophylaxis: SCD GI prophylaxis: IV protonix VS, I&O, 24H, Fishbone Vital Signs/I&O Vital Signs Date Time Temp Pulse Resp B/P (MAP) Pulse Ox O2 Delivery O2 Flow Rate FiO2 12/16/19 09:00 114/61 12/16/19 08:34 97.3 68 98 Room Air 12/16/19 07:45 20 I&O- Last 24 Hours up to 6 AM 12/16/19 06:00 Intake Total 5231.9 ml Output Total 525 ml Balance 4706.9 ml Laboratory Data 24H LABS Laboratory Tests 2 12/15/19 15:43: Bedside Glucose (Misc Panel) 176H 12/15/19 16:15: Immature Granulocyte % (Auto) 0.4, Neutrophils (%) (Auto) 75.0H, Lymphocytes (%) (Auto) 13.9L, Monocytes (%) (Auto) 9.6H, Eosinophils (%) (Auto) 0.9, Basophils (%) (Auto) 0.2, Neutrophils # (Auto) 3.5, Lymphocytes # (Auto) 0.6L, Monocytes # (Auto) 0.4, Eosinophils # (Auto) 0.0, Basophils # (Auto) 0.0, Nucleated Red Blood Cells % (auto) 0.0, Immature Platelet Fraction 4.0, Magnesium Level 1.7L, Iron Level 42L, Total Iron Binding Capacity 121L, Transferrin % Saturation 34.7, Ferritin 726H, Total Bilirubin 1.3H, Direct Bilirubin 0.6H, Aspartate Amino Transf (AST/SGOT) 436H, Alanine Aminotransferase (ALT/SGPT) 91H, Alkaline Phosphatase 149H, Total Protein 5.2L, Albumin 2.1L, Albumin/Globulin Ratio 0.7, Lipase 1427H, Vitamin B12 Level 1187, Folate 10.5, Thyroid Stimulating Hormone (TSH) 4.290H, Ethyl Alcohol Level < 0.003, B-Hydroxybutyrate > 46.00H 12/15/19 16:20: POC pH (Misc Panel) 7.419, POC Base Excess (Misc Panel) -9.0L, POC Saturated Percent O2 (Misc) 97, POC pO2 (Misc Panel) 88.0, POC pCO2 (Misc Panel) 23.3L, POC HCO3 (Misc Panel) 15.1L, POC Total CO2 (Misc Panel) 16.0L, POC Troponin I (Misc) 0.02 12/15/19 16:33: POC Prothrombin Time (Misc) 16.5H, POC INR (Misc) 1.4 12/15/19 16:38: POC Lactate (Misc Panel) 1.41 12/15/19 16:42: POC Glucose (Misc Panel) 112H, POC Sodium (Misc Panel) 131L, POC Potassium (Misc Panel) 3.2L, POC Chloride (Misc Panel) 95L, POC Total CO2 (Misc Panel) 17.0L, POC Blood Urea Nitrogen (Misc Panel 24, POC Ionized Calcium (Misc Panel) 4.6, POC Creatinine (Misc Panel) 0.5L, POC Hematocrit (Misc Panel) 24.0L 12/15/19 21:50: Urine Color BRAYDEN, Urine Appearance HAZY, Urine pH 5.0, Urine Specific [place] 1.023, Urine Protein NEGATIVE, Urine Glucose (Auto)(UA) NEGATIVE, Urine Ketones (Auto) 2+H, Urine Blood NEGATIVE, Urine Nitrite NEGATIVE, Urine Bilirubin NEGATIVE, Urine Urobilinogen 4.0H, Urine Leukocyte Esterase (Auto) TRACEH, Urine WBC (Auto) 11H, Urine RBC (Auto) 1, Urine Hyaline Casts (Auto) 0, Urine Bacteria (Auto) 1+H, Urine Squamous Epithelial Cells 0, Urine Transitional Epithelial Cells <1, Urine Mucus (Auto) SMALL, Urine Sperm (Auto) , Urine Random Osmolality 783, Urine Random Sodium 19, Urine Opiates Screen NEGATIVE, Urine Methadone Screen NEGATIVE, Urine Barbiturates Screen NEGATIVE, Urine Phencyclidine Screen NEGATIVE, Urine Amphetamines Screen NEGATIVE, Urine Benzodiazepines Screen NEGATIVE, Urine Cocaine Metabolite Screen NEGATIVE, Urine Cannabinoids Screen NEGATIVE 12/15/19 22:36: Anion Gap 14, Glomerular Filtration Rate > 60.0, Lactic Acid Level 1.5, Calcium Level 7.3L, Total Bilirubin 1.1H, Aspartate Amino Transf (AST/SGOT) 384H, Alanine Aminotransferase (ALT/SGPT) 87H, Alkaline Phosphatase 132H, Ammonia 23, Total Protein 4.6L, Albumin 1.9L, Albumin/Globulin Ratio 0.7 12/16/19 01:07: Bedside Glucose (Misc Panel) 134H 12/16/19 01:32: Blood Gas Bicarbonate Standard 18.6L, Arterial Blood pH 7.409, Arterial Blood Partial Pressure CO2 27.2L, Arterial Blood Partial Pressure O2 106.6H, Arterial Blood Total CO2 17.7L, Arterial Blood HCO3 16.8L, Arterial Blood Base Excess - 7.1L, Arterial Blood Oxygen Saturation 97.8 12/16/19 04:10: Nucleated Red Blood Cells % (auto) 0.0, Anion Gap 11, Glomerular Filtration Rate > 60.0, Calcium Level 7.0L, Magnesium Level 1.6L, Total Bilirubin 1.0, Aspartate Amino Transf (AST/SGOT) 332H, Alanine Aminotransferase (ALT/SGPT) 76, Alkaline Phosphatase 121H, Total Protein 4.2L, Albumin 1.7L, Albumin/Globulin Ratio 0.7 CBC/BMP Laboratory Tests 12/15/19 16:15 12/15/19 22:36 12/16/19 04:10 Microbiology Microbiology 12/15/19 Blood Culture, Received Pending GME ATTESTATION GME ATTESTATION My faculty preceptor for this patient encounter was physically present during the encounter and was fully available. All aspects of the patient interview, examination, medical decision making process, and medical care plan development were reviewed and approved by the faculty preceptor. The faculty preceptor is aware and concurs with the plan as stated in the body of this note and will attest to such by his/her cosignature. ATTENDING NOTE I have seen and examined the patient. I agree with the findings and plan or care as documented in the residents note. ERIN FLOREZ DO Dec 16, 2019 09:22 FRITZ PEREZ MD Dec 21, 2019 20:39
--- NOTE | 2019-12-16 09:48 | REP ---
CHEST, SINGLE VIEW: Single view of the chest is performed. There is placement of a right central venous catheter with the tip in the superior vena cava. There is no pneumothorax. Lung kraft are unchanged. The heart and mediastinum are unchanged. Electronically Signed by Jah Huerta MD 12/17/2019 10:27 A
[2019-12-16 11:09] LABS: HEMATOCRIT 24.1 % (42.0-52.0); HEMOGLOBIN 8.2 g/dl (13.5-17.5); MEAN CORPUSCULAR HEMOGLOBIN 30.9 pg (27.0-33.0); MEAN CORPUSCULAR VOLUME 90.9 fl (80.0-96.0); RED BLOOD COUNT 2.65 10^6/uL (4.30-6.10); WHITE BLOOD COUNT 4.1 10^3/uL (4.0-10.0)
[2019-12-16 11:11] LABS: PLATELET COUNT, AUTOMATED 56 10^3/uL (150-450)
[2019-12-16 11:27] LABS: BLOOD UREA NITROGEN 14 MG/DL (7-18); CALCIUM LEVEL 7.2 MG/DL (8.8-10.2); CARBON DIOXIDE LEVEL 22 MEQ/L (21-32); CHLORIDE LEVEL 110 MEQ/L (98-107); CREATININE FOR GFR 0.44 MG/DL (0.70-1.30); GLOMERULAR FILTRATION RATE > 60.0 (>49); GLUCOSE, FASTING 229 MG/DL (70-100); MAGNESIUM LEVEL 2.8 MG/DL (1.8-2.4); POTASSIUM SERUM 3.1 MEQ/L (3.5-5.1); SODIUM LEVEL 138 MEQ/L (136-145)
[2019-12-16] MEDS: KCL 20MEQ IN 100ML SWI (KRUN) 20 MEQ in IV 1 EA IV SCH ×4 (12:23→13:30)
[2019-12-16] MEDS ORDERED: SODIUM CHLORIDE 0.9% 500 ML IV ONE (12:45)
[2019-12-16 13:54] LABS: CPK CREATINE PHOSPHOKINASE 1905 U/L (39-308); PHOSPHORUS LEVEL 1.7 MG/DL (2.5-4.9)
--- NOTE | 2019-12-16 14:23 | CR ---
DATE OF CONSULTATION: 12/16/2019 REASON FOR CONSULTATION: Anemia. HISTORY OF THE PRESENT ILLNESS: The patient is a 64-year-old man with a history of alcohol abuse who presented to the emergency department at 1538 hours on 12/16/2019. The emergency room record indicates that he was found unconscious and unresponsive lying in his own waste in his home. He was brought to the emergency department for evaluation of his altered mental status. As part of his evaluation he was found to be anemic. Because there was no laboratory aide available yesterday evening I was consulted to see the patient to determine the feasibility of upper or lower endoscopy. MEDICATIONS: At the time of admission, his medications reported included doxycycline, vitamin D, folic acid, magnesium oxide, a multivitamin, omeprazole, and thiamine. ALLERGIES: According to his medical record, he has NO KNOWN ALLERGIES to medications. SURGICAL HISTORY: As determined from the record includes a hernia procedure. MEDICAL ISSUES: Include alcoholism. The medical record indicates that he has some hypertension and rosacea and some acid reflux. FAMILY HISTORY: Unknown. REVIEW OF SYSTEMS: Unobtainable at this point given his mental status. PHYSICAL EXAMINATION: The patient is in the intensive care unit. He has a central line in what appears to be the right internal jugular vein. He is sedated and unresponsive truly to voice or light touch. He does move his arms to touch and loud voice, but it is unclear if his motions are purposeful. He does not open his eyes fully. Skin is warm and dry. His mucous membranes appear adequately hydrated. Heart exam shows a regular rhythm. His pulse is approximately 60. He has bilateral breath sounds. The abdomen is perhaps mildly full. He does a few bowel sounds. The abdomen is soft and he does not react as if he has significant tenderness, but given his impaired mental state it is really difficult to tell. His extremities show some excoriations of the lower extremities. He does appear to have palpable pedal pulses. LABORATORY STUDIES: On admission showed a white count of 5, hemoglobin 8, hematocrit 22, and a platelet count of 63,000. His chemistries revealed an ethyl alcohol of less than 0.003. Chemistries otherwise revealed an iron of 42, TIBC of 121, and a ferritin of 726. Total bilirubin was 1.3. AST was elevated to 436, ALT 91, and an alkaline phosphatase of 149. Total protein and albumin were 5.2 and 2.1. He had a lipase of 1427. His vitamin B12 and folate were both adequate. Review of older records shows that he has had a chronic anemia. In November of this year, he had a hemoglobin of 10 and a hematocrit of 29. In June, he had been hospitalized during which time he had a hematocrit approximately between 28 and 31. Even going back to 2017 in April he had a hemoglobin of 12 and a hematocrit of 33. Imaging included a CT of the head apparently done for mental status changes. This showed no acute intracranial process but did show some volume loss and sequelae of chronic microangiopathic ischemic disease. A chest x-ray showed no acute infiltrate and in the night at 4:30 in the morning he had a CT scan of the abdomen, which showed some cholelithiasis with a small amount of free fluid in the pelvis, which was nonspecific. There was some mild lower lobe atelectasis. IMPRESSION: The patient is a 64-year-old man with a reported history of significant ongoing alcohol abuse. He was admitted after being found on the floor at home. Though his alcohol level was not elevated at the time of admission he has had markedly elevated alcohol levels several times in the past. Because of concerns about possible alcohol withdrawal he is currently quite sedated and unable to interact in any significant way with me. His hemoglobin and hematocrit have been chronically low. His platelet count does seem to be diminished on this admission lower than it has been previously. He has not shown any evidence of active bleeding and has not had a bowel movement since admission yesterday. RECOMMENDATIONS: At this point, there is no need for urgent endoscopic exam. I suspect that his anemia is related more to his chronic alcoholism and associated possible nutritional deficiencies than to any gastrointestinal (GI) tract loss. Certainly, he is at risk for gastritis or peptic ulcer disease and at his age he certainly could have developed a polyp or tumor within the colon. At some point, it would not be unreasonable for him to undergo endoscopic testing if he is agreeable. However, at this time effort should be focused toward repleting his marked anemia as necessary and managing his underlying medical issues. I will not be following this man closely during this hospital stay but if he should develop obvious acute bleeding please feel free to contact myself or my covering physician if general surgery input is required. TRISTEN
[2019-12-16] MEDS ORDERED: DEXTROSE 50% 50 ML SYRINGE IV PRN (16:00)
[2019-12-16] MEDS ORDERED: GLUCAGON INJ 1MG VIAL SC PRN (16:00)
[2019-12-16] MEDS ORDERED: GLUCOSE 4GM CHEW TABLET PO PRN (16:00)
[2019-12-16 16:20] LABS: BLOOD UREA NITROGEN 11 MG/DL (7-18); CALCIUM LEVEL 7.6 MG/DL (8.8-10.2); CARBON DIOXIDE LEVEL 22 MEQ/L (21-32); CHLORIDE LEVEL 111 MEQ/L (98-107); GLOMERULAR FILTRATION RATE > 60.0 (>49); GLUCOSE, FASTING 179 MG/DL (70-100); POTASSIUM SERUM 3.7 MEQ/L (3.5-5.1); SODIUM LEVEL 138 MEQ/L (136-145)
[2019-12-16] MEDS: HumaLOG INSULIN (NovoLOG) PER UNIT SC SCH (18:00)
[2019-12-16 21:54] LABS: HEMATOCRIT 25.6 % (42.0-52.0); HEMOGLOBIN 8.9 g/dl (13.5-17.5); MEAN CORPUSCULAR HEMOGLOBIN 31.6 pg (27.0-33.0); MEAN CORPUSCULAR HGB CONC 34.8 g/dl (32.0-36.5); MEAN CORPUSCULAR VOLUME 90.8 fl (80.0-96.0); RED BLOOD COUNT 2.82 10^6/uL (4.30-6.10); WHITE BLOOD COUNT 4.6 10^3/uL (4.0-10.0)
[2019-12-16 22:05] LABS: PLATELET COUNT, AUTOMATED 55 10^3/uL (150-450)
[2019-12-16 22:12] LABS: BLOOD UREA NITROGEN 10 MG/DL (7-18); CALCIUM LEVEL 7.5 MG/DL (8.8-10.2); CARBON DIOXIDE LEVEL 22 MEQ/L (21-32); CHLORIDE LEVEL 111 MEQ/L (98-107); CREATININE FOR GFR 0.32 MG/DL (0.70-1.30); GLOMERULAR FILTRATION RATE > 60.0 (>49); GLUCOSE, FASTING 174 MG/DL (70-100); PHOSPHORUS LEVEL 1.4 MG/DL (2.5-4.9); POTASSIUM SERUM 3.5 MEQ/L (3.5-5.1); SODIUM LEVEL 139 MEQ/L (136-145)
[2019-12-16 22:16] LABS: ALBUMIN 1.6 GM/DL (3.2-5.2); ALT/SGPT 71 U/L (12-78); BLOOD UREA NITROGEN 10 MG/DL (7-18); CALCIUM LEVEL 7.4 MG/DL (8.8-10.2); CARBON DIOXIDE LEVEL 22 MEQ/L (21-32); CHLORIDE LEVEL 113 MEQ/L (98-107); CREATININE FOR GFR 0.34 MG/DL (0.70-1.30); GLOMERULAR FILTRATION RATE > 60.0 (>49); GLUCOSE, FASTING 171 MG/DL (70-100); NT-PRO BNP 1640 PG/ML (<125); POTASSIUM SERUM 3.5 MEQ/L (3.5-5.1); SODIUM LEVEL 141 MEQ/L (136-145); TOTAL PROTEIN 4.4 GM/DL (6.4-8.2)
--- NOTE | 2019-12-16 22:25 | IPNPDOC ---
Date Seen The patient was seen on 12/16/19. Progress Note Central line placement note INDICATION: Use of vasopressors PROCEDURE RENAL DIETITIAN: Dr. Hitchcock CONSENT: The procedure was performed emergently and the permission was implied because of the emergent nature. PROCEDURE SUMMARY: A time out was performed. My hands were washed immediately prior to the procedure. I wore a surgical cap, mask with protective eyewear, full gown and sterile gloves throughout the procedure. The patient was placed in Trendelenburg position. Right chest region was prepped using chlorhexidine scrub and draped in sterile fashion using a full drape and sterile probe cover employed. The medial and lateral heads of the sternocleidomastoid muscle were identified as was the carotid pulse. The Internal Jugular vein was identified using the ultrasound. Anesthesia was achieved over the vein using 1% lidocaine. Using real-time out of plane guidance, the introducer needle was inserted into the Internal Jugular vein under direct ultrasound visualization. Venous blood was withdrawn. The syringe was removed and a guidewire was advanced into the introducer needle. The guidewire was visualized in the Internal Jugular Vein by ultrasound. A small incision was made at the skin surface with a scalpel and the introducer needle was exchanged for a dilator over the guidewire. After appropriate dilation was obtained, the dilator was exchanged over the wire for a 20 cm central venous catheter. The wire was removed and the catheter was sutured in place at 15 cm. A sterile sorbaview shield was placed over the catheter at the insertion site. The patient tolerated the procedure without any hemodynamic compromise. At time of procedure completion, all ports aspirated and flushed properly. Post-procedure chest x-ray is pending at this time. Estimated blood loss is <5 ml. VS, I&O, 24H, [facility] Vital Signs/I&O Vital Signs Date Time Temp Pulse Resp B/P (MAP) Pulse Ox O2 Delivery O2 Flow Rate FiO2 12/16/19 21:00 55 15 102/56 (71) 98 12/16/19 20:00 96.6 Room Air I&O- Last 24 Hours up to 6 AM 12/16/19 06:00 Intake Total 6231.9 ml Output Total 525 ml Balance 5706.9 ml Laboratory Data 24H LABS Laboratory Tests 2 12/15/19 22:36: Anion Gap 14, Glomerular Filtration Rate > 60.0, Lactic Acid Level 1.5, Calcium Level 7.3L, Total Bilirubin 1.1H, Aspartate Amino Transf (AST/SGOT) 384H, Alanine Aminotransferase (ALT/SGPT) 87H, Alkaline Phosphatase 132H, Ammonia 23, Total Protein 4.6L, Albumin 1.9L, Albumin/Globulin Ratio 0.7 12/16/19 01:07: Bedside Glucose (Misc Panel) 134H 12/16/19 01:32: Blood Gas Bicarbonate Standard 18.6L, Arterial Blood pH 7.409, Arterial Blood Partial Pressure CO2 27.2L, Arterial Blood Partial Pressure O2 106.6H, Arterial Blood Total CO2 17.7L, Arterial Blood HCO3 16.8L, Arterial Blood Base Excess - 7.1L, Arterial Blood Oxygen Saturation 97.8 12/16/19 04:10: Anion Gap 11, Glomerular Filtration Rate > 60.0, Calcium Level 7.0L, Total Bilirubin 1.0, Aspartate Amino Transf (AST/SGOT) 332H, Alanine Aminotransferase (ALT/SGPT) 76, Alkaline Phosphatase 121H, Total Protein 4.2L, Albumin 1.7L, Albumin/Globulin Ratio 0.7, Nucleated Red Blood Cells % (auto) 0.0, Magnesium Level 1.6L 12/16/19 06:12: Bedside Glucose (Misc Panel) 138H 12/16/19 10:48: Nucleated Red Blood Cells % (auto) 0.0, Anion Gap 6L, Glomerular Filtration Rate > 60.0, Calcium Level 7.2L, Phosphorus Level 1.7L, Magnesium Level 2.8H, Total Creatine Kinase 1905H 12/16/19 15:42: Anion Gap 5L, Glomerular Filtration Rate > 60.0, Calcium Level 7.6L 12/16/19 17:56: Bedside Glucose (Misc Panel) 191H 12/16/19 21:25: Nucleated Red Blood Cells % (auto) 0.0, Immature Platelet Fraction 3.8, Anion Gap 6L, Glomerular Filtration Rate > 60.0, Calcium Level 7.4L, Phosphorus Level 1.4L, Total Bilirubin 1.0, Aspartate Amino Transf (AST/SGOT) 224H, Alanine Aminotransferase (ALT/SGPT) 71, Alkaline Phosphatase 124H, DH-Nsn-F-Type Natriuretic Peptide 1640H, Total Protein 4.4L, Albumin 1.6L, Albumin/Globulin Ratio 0.6 CBC/BMP Laboratory Tests 12/15/19 22:36 12/16/19 04:10 12/16/19 10:48 12/16/19 15:42 12/16/19 21:25 Microbiology Microbiology 12/15/19 Blood Culture, Received Pending NIAN HITCHCOCK MD Dec 16, 2019 22:25
[2019-12-17] VITALS (37 sets, daily range): BP systolic 93–136; BP diastolic 54–79
[2019-12-17] MEDS ORDERED: POTASSIUM PHOSPHATE INJ 30 MMOL in D5W 500 ML IV ONE ×2
[2019-12-17] MEDS ORDERED: LR 500 ML IV ONE (02:00)
[2019-12-17] MEDS: LR 1,000 ML IV SCH ×3 (02:03→15:57)
[2019-12-17 06:00] LABS: HEMATOCRIT 25.2 % (42.0-52.0); HEMOGLOBIN 8.5 g/dl (13.5-17.5); MEAN CORPUSCULAR HEMOGLOBIN 30.6 pg (27.0-33.0); MEAN CORPUSCULAR HGB CONC 33.7 g/dl (32.0-36.5); MEAN CORPUSCULAR VOLUME 90.6 fl (80.0-96.0); RED BLOOD COUNT 2.78 10^6/uL (4.30-6.10)
[2019-12-17] MEDS: HumaLOG INSULIN (NovoLOG) PER UNIT SC SCH ×2 (06:00)
[2019-12-17 06:03] LABS: PLATELET COUNT, AUTOMATED 53 10^3/uL (150-450)
[2019-12-17 06:09] LABS: ALBUMIN 1.9 GM/DL (3.2-5.2); ALT/SGPT 71 U/L (12-78); BILIRUBIN,TOTAL 1.2 MG/DL (0.2-1.0); BLOOD UREA NITROGEN 7 MG/DL (7-18); CALCIUM LEVEL 7.3 MG/DL (8.8-10.2); CARBON DIOXIDE LEVEL 25 MEQ/L (21-32); CHLORIDE LEVEL 110 MEQ/L (98-107); CREATININE FOR GFR 0.34 MG/DL (0.70-1.30); GLOMERULAR FILTRATION RATE > 60.0 (>49); GLUCOSE, FASTING 149 MG/DL (70-100); MAGNESIUM LEVEL 1.9 MG/DL (1.8-2.4); SODIUM LEVEL 140 MEQ/L (136-145); TOTAL PROTEIN 4.7 GM/DL (6.4-8.2)
--- NOTE | 2019-12-17 08:18 | REP ---
REASON: Followup. COMPARISON: 12/16/2019 at 4:00 a.m. This exam 12/16/2019 at 10:30 p.m. Subtle basilar opacities seem to have developed on this limited portable exam. The technique utilized in obtaining the radiograph has magnified the cardiac silhouette and accentuated the interstitial markings. There is a right-sided subclavian central venous catheter which is unchanged, the tip is in the superior vena cava. A few air bronchograms are seen in the left retrocardiac region with partial silhouetting out of the diaphragmatic surface of the left lung. This represents a change. IMPRESSION: Bibasilar opacities particularly in the left retrocardiac region. Pneumonia versus atelectasis. Correlate clinically. Electronically Signed by Ferny Renee DO 12/17/2019 08:28 A
[2019-12-17 08:47] LABS: APPEARANCE, URINE CLEAR (CLEAR); BACTERIA, URINE AUTO 1+ (NEGATIVE); BILIRUBIN, URINE AUTO NEGATIVE (NEGATIVE); BLOOD, URINE BLOOD 2+ (NEGATIVE); COLOR, URINE YELLOW (YELLOW); GLUCOSE, URINE (UA) AUTO NEGATIVE (NEGATIVE); KETONE, URINE AUTO NEGATIVE (NEGATIVE); LEUKOCYTE ESTERASE, URINE AUTO TRACE (NEGATIVE); MUCUS, URINE SMALL (NEGATIVE); NITRITE, URINE AUTO NEGATIVE (NEGATIVE); PROTEIN, URINE AUTO NEGATIVE (NEGATIVE); RBC, URINE AUTO 3 /HPF (0-3); SPECIFIC GRAVITY URINE AUTO 1.015 (1.002-1.035); SQUAMOUS EPITHELIAL CELL UR AU 0 /HPF (0-6); WBC, URINE AUTO 9 /HPF (0-3)
[2019-12-17] MEDS: PANTOPRAZOLE 40MG VIAL (C9113 PER 1) IV SCH (09:56)
[2019-12-17] MEDS: MULTIVITAMINS/MINERALS THERAP 1 TAB PO SCH (09:56)
[2019-12-17] MEDS: FOLIC ACID 1 MG TAB PO SCH (09:56)
[2019-12-17] MEDS: THIAMINE 200MG/2ML VIAL (J3411 PER 100MG) IV SCH (09:57)
--- NOTE | 2019-12-17 13:44 | IPNPDOC ---
Date Seen The patient was seen on 12/17/19. Progress Note SUBJECTIVE: Pt is a 64 yo male with hx of alcoholism being sent to [facility] ER after his neighbors called EMS d/t bad odor coming from his apartment. Pt was observed to be covered in feces with empty beer cans lying around his apartment when EMS arrived. It was noted that pt told ER provider that he didn't have any pain and ate breakfast on the day of admission. Upon admission, pt was noted to be talking fluently, but was not answering pointed questions and unable to contribute meaningful history. Pt is examined at bedside today. He is responsive, able to answer name and place correctly. Pt indicated no abdominal pain, and indicated no other concerns when being asked. Garbled speech and difficult to obtain the rest of ROS OBJECTIVE PHYSICAL EXAMINATION: VITAL SIGNS: Please see below. GENERAL:alert, not in acute distress HEENT: Head normocephalic, multiple macular erythematous lesions on face CARDIOVASCULAR: RRR, normal S1 and S2 no murmur RESPIRATORY: diminished breath sounds b/l, mildly diminished air entry, no crackles or wheezing aus b/l ABDOMINAL: no guarding or distention, bowel sound aus in all 4 quad EXTREMITIES: warm and well perfused, multiple cracking/old scratching/healing lesions in b/l lower extremities with dystrophic nails. Mild edema in b/l LE NEUROLOGICAL: good tone, alert and oriented to name and place, garbled speech PSYCHOLOGICAL: mood stable LABORATORY DATA, IMAGING STUDIES, MICROBIOLOGY: Please see below. ASSESSMENT AND PLAN: This is a 64 yo male with chronic hx of alcoholism being sent to [facility] ER d/t altered mental status noted to have anemia, hypothermia and tachycardia who later developed shock after fluid resuscitation off sedation and pressors as of 12/17/2019 AM, s/p 2 PRBC transfusion for anemia, on CIWA protocol PROBLEMS: 1. Shock likely hypovolemic from decreased oral intake d/t metabolic encephalopathy for unknown duration, resolved. Pt was hypotensive, hypothermic, and tachycardic upon admission with limited urine output since admission, r/o septic shock. Continue IV fluid. Temp now wnl; s/p bear hugger. 4 units of al bumin ordered overnight as CVP was 5; pt also have LE swelling noted. Consider d/c fluid when pt tolerating PO intake well 2. Metabolic Encephalopathy from starvation ketoacidosis and/or alcohol with drawal, r/o infection etiology, improved. Cont neuro checks, vitals. Ammonia and lactic acid level wnl. UA pos for leukocyte esterase and WBC; urine cx ordered. Blood cx neg for 24 hrs. Cont neuro checks. Continue tele, folic, thiamine. On IV LR with Ativan PRN CIWA protocol. Swallow eval and diet per ST eval. 3. Starvation ketoacidosis, likely 2/2 decreased oral intake 2/2 alcohol withdrawal for unknown duration period. Increased anion gap ketoacidosis, beta- hydroxybutyrate>46. S/p 1 sodium bicarb as well as fluid hydration with LR, NS, D5NS. Pt now on IV LR. Cont thiamine daily.Recheck beta-hydroxybutyrate. 4. Alcohol withdrawal, extremity tremors noted upon admission with elevated CIWA score. Cont Ativan PRN and CIWA. Seizure precaution. 5. Chronic hyponatremia, likely secondary thirdspacing, resolved. Cont to f/u BMP 6. Hypokalemia, likely 2/2 chronic alcohol use and/or poor oral intake, resolved after K repletion. Follow up with K. 7. Hypomagnesemia, likely 2/2 chronic alcohol use and/or poor oral intake, resolved. s/p repletion. Mg now wnl. Recheck Mag level 8. Alcoholism, chronic. Hx of chronic alcoholism. Cont thiamine, folic acid, multivitamin. Full nutritional assessment ordered. Lipase elevated likely d/t alcoholic pancreatitis however pt indicated no abd pain; no CT evidence showing pancreatitis. 9. Alcoholic liver disease, likely alcoholic hepatitis, AST: ALT>2 to 1. Trend CMP. Physical Therapist Technician pt regarding alcohol cessation when pt mental status improves. 10. Normocytic anemia 2/2 anemia of chronic disease, improved s/p 2 units PRBC transfusion. Hg lowest 6.6 compared to 7.9 upon admission. Pt Hg baseline around 9-10. Iron studies consistent with anemia of chronic disease vs inflammatory anemia. S/p 2 PRBC transfusion. It was noted that melena was observed in ER. Occult blood pending. Hg now stabilized 8.5. Surgery was consulted and thought GI blood loss etiology is less likely. 11. Questionable rhabdomyolysis. It was thought that pt had rhabdomyolysis with elevated creatinine kinase. Pt already received aggressive fluid hydration. Recheck creatinine kinase. Ordered urine myoglobin quant. 12. Hypoalbuminemia. Likely 2/2 chronic malnutrition associated with alcoholism. 4 units of albumin ordered 12/17/2019 overnight for transfusion as CVP was low with lower extremity edema. Full nutritional assessment ordered. 13. Questionable Wenicke-Korsakoff. Pt is still confused although A&OX2; garbled speech. Check thiamine level. Cont thiamine 100mg IV QD for now, but may increase dosing if thiamine level is low or if pt's mental status does not improve DVT prophylaxis: SCD GI prophylaxis: IV protonix As preceptor for this patient I was fully available. All aspects of the patient interview, examination, medical decision making process, and medical care plan development were reviewed and approved. Aware and concur with the plan as stated in the body of this note and will attest to such by my cosignature. VS, I&O, 24H, Fishbone Vital Signs/I&O Vital Signs Date Time Temp Pulse Resp B/P (MAP) Pulse Ox O2 Delivery O2 Flow Rate FiO2 12/17/19 12:11 97.0 80 16 128/75 100 Room Air I&O- Last 24 Hours up to 6 AM 12/17/19 05:59 Intake Total 6571.2 ml Output Total 895 ml Balance 5676.2 ml Laboratory Data 24H LABS Laboratory Tests 2 12/16/19 15:42: Anion Gap 5L, Glomerular Filtration Rate > 60.0, Calcium Level 7.6L 12/16/19 17:56: Bedside Glucose (Misc Panel) 191H 12/16/19 21:25: Anion Gap 6L, Glomerular Filtration Rate > 60.0, Calcium Level 7.4L, Nucleated Red Blood Cells % (auto) 0.0, Immature Platelet Fraction 3.8, Phosphorus Level 1.4L, Total Bilirubin 1.0, Aspartate Amino Transf (AST/SGOT) 224H, Alanine Aminotransferase (ALT/SGPT) 71, Alkaline Phosphatase 124H, PI-Hoy-C-Type Natriuretic Peptide 1640H, Total Protein 4.4L, Albumin 1.6L, Albumin/Globulin Ratio 0.6 12/17/19 00:35: Bedside Glucose (Misc Panel) 122H 12/17/19 05:19: Nucleated Red Blood Cells % (auto) 0.0 12/17/19 05:22: Anion Gap 5L, Glomerular Filtration Rate > 60.0, Calcium Level 7.3L, Magnesium Level 1.9, Total Bilirubin 1.2H, Aspartate Amino Transf (AST/SGOT) 201H, Alanine Aminotransferase (ALT/SGPT) 71, Alkaline Phosphatase 122H, Total Protein 4.7L, Albumin 1.9L, Albumin/Globulin Ratio 0.7 12/17/19 08:23: Urine Color YELLOW, Urine Appearance CLEAR, Urine pH 5.0, Urine Specific Addy 1.015, Urine Protein NEGATIVE, Urine Glucose (Auto)(UA) NEGATIVE, Urine Ketones (Auto) NEGATIVE, Urine Blood 2+H, Urine Nitrite NEGATIVE, Urine Bilirubin NEGATIVE, Urine Urobilinogen 4.0H, Urine Leukocyte Esterase (Auto) TRACEH, Urine WBC (Auto) 9H, Urine RBC (Auto) 3, Urine Hyaline Casts (Auto) 0, Urine Bacteria (Auto) 1+H, Urine Squamous Epithelial Cells 0, Urine Mucus (Auto) SMALL, Urine Sperm (Auto) CBC/BMP Laboratory Tests 12/16/19 15:42 12/16/19 21:25 12/17/19 05:19 12/17/19 05:22 Microbiology Microbiology 12/15/19 Blood Culture - Preliminary, Resulted No growth after 24 hours . All specim... ERIN FLOREZ DO Dec 17, 2019 13:44 MARIA INES PALACIOS MD Dec 21, 2019 14:11
[2019-12-17] MEDS ORDERED: LevoFLOXacin IV 500 MG in IV 1 EA IV SCH (15:30)
[2019-12-17] MEDS ORDERED: PIPERACILLIN/TAZOBACTAM SOD 2.25 GM in D5W MINI-BAG PLUS 50 ML IV SCH (16:00)
[2019-12-17 19:50] LABS: FREE THYROXINE INDEX 2.4 % (1.4-3.8); THYROID STIMULATING HORMONE 4.18 uIU/ML (0.358-3.740); THYROXINE (T4) 5.9 UG/DL (4.5-12.0)
[2019-12-17 22:06] LABS: HEMATOCRIT 23.6 % (42.0-52.0); HEMOGLOBIN 8.2 g/dl (13.5-17.5)
[2019-12-18] VITALS (16 sets, daily range): BP systolic 106–141; BP diastolic 57–77
[2019-12-18] MEDS ORDERED: ALPRAZolam 0.5 MG TAB PO ONE (01:00)
[2019-12-18] MEDS: LR 1,000 ML IV SCH (03:00)
[2019-12-18 06:12] LABS: HEMATOCRIT 22.8 % (42.0-52.0); HEMOGLOBIN 7.9 g/dl (13.5-17.5); MEAN CORPUSCULAR HEMOGLOBIN 31.7 pg (27.0-33.0); MEAN CORPUSCULAR HGB CONC 34.6 g/dl (32.0-36.5); MEAN CORPUSCULAR VOLUME 91.6 fl (80.0-96.0); RED BLOOD COUNT 2.49 10^6/uL (4.30-6.10); WHITE BLOOD COUNT 2.9 10^3/uL (4.0-10.0)
[2019-12-18 06:13] LABS: PLATELET COUNT, AUTOMATED 46 10^3/uL (150-450)
[2019-12-18 06:52] LABS: ALBUMIN 2.1 GM/DL (3.2-5.2); ALT/SGPT 62 U/L (12-78); BILIRUBIN,TOTAL 1.2 MG/DL (0.2-1.0); BLOOD UREA NITROGEN 4 MG/DL (7-18); CALCIUM LEVEL 7.6 MG/DL (8.8-10.2); CARBON DIOXIDE LEVEL 25 MEQ/L (21-32); CHLORIDE LEVEL 110 MEQ/L (98-107); CREATININE FOR GFR 0.27 MG/DL (0.70-1.30); GLOMERULAR FILTRATION RATE > 60.0 (>49); GLUCOSE, FASTING 77 MG/DL (70-100); MAGNESIUM LEVEL 1.7 MG/DL (1.8-2.4); PHOSPHORUS LEVEL 2.2 MG/DL (2.5-4.9); POTASSIUM SERUM 3.4 MEQ/L (3.5-5.1); SODIUM LEVEL 141 MEQ/L (136-145); TOTAL PROTEIN 4.5 GM/DL (6.4-8.2)
[2019-12-18] MEDS ORDERED: MAGNESIUM OXIDE 400 MG TAB (MAG-OX) PO ONE (07:30)
[2019-12-18] MEDS ORDERED: POTASSIUM CHLORIDE 10 MEQ SR TABLET PO ONE (07:30)
[2019-12-18] MEDS ORDERED: LORazepam 2 MG TAB PO PRN (08:15)
[2019-12-18] MEDS: D5W/0.45% SODIUM CHLORIDE 1,000 ML IV SCH ×2 (08:30→20:28)
[2019-12-18] MEDS: FOLIC ACID 1 MG TAB PO SCH (08:32)
[2019-12-18] MEDS: PIPERACILLIN/TAZOBACTAM SOD 4.5 GM in D5W MINI-BAG PLUS 50 ML IV SCH ×3 (08:32→20:29)
[2019-12-18] MEDS: MULTIVITAMINS/MINERALS THERAP 1 TAB PO SCH (08:33)
[2019-12-18] MEDS: THIAMINE 200MG/2ML VIAL (J3411 PER 100MG) IV SCH (08:33)
[2019-12-18] MEDS: PANTOPRAZOLE 40MG VIAL (C9113 PER 1) IV SCH (08:33)
--- NOTE | 2019-12-18 08:43 | IPNPDOC ---
Date Seen The patient was seen on 12/18/19. Progress Note SUBJECTIVE: Pt is a 64 yo male with hx of alcoholism being sent to [facility] ER after his neighbors called EMS d/t bad odor coming from his apartment. Pt was observed to be covered in feces with empty beer cans lying around his apartment when EMS arrived. It was noted that pt told ER provider that he didn't have any pain and ate breakfast on the day of admission. Upon admission, pt was noted to be talking fluently, but was not answering pointed questions and unable to contribute meaningful history. He was noted to be hypothermic with rectal temp 92.7F. Pt received 1mg PO xanax overnight. He was transferred to ICU overnight; pt was reported to require hyperthermic blanket for about an hr and half; currently not requiring the hyperthermic blanket. Pt is examined at bedside. He is responsive, able to answer name and place correctly. Pt indicated no abdominal pain, cough, chest pain, dyspnea, and indicated no other concerns when being asked. Garbled speech and difficult to obtain the rest of ROS. It was noted that pt was indicating that he wanted beer earlier. Pt expressed that he wants to drink katy della as a chaser OBJECTIVE PHYSICAL EXAMINATION: VITAL SIGNS: Please see below. GENERAL:alert, not in acute distress HEENT: Head normocephalic, multiple macular erythematous lesions on face improving CARDIOVASCULAR: RRR, normal S1 and S2 no murmur RESPIRATORY: diminished breath sounds b/l, mildly diminished air entry, mod rales b/l ABDOMINAL: no guarding or distention, bowel sound aus in all 4 quad EXTREMITIES: warm and well perfused, multiple cracking/old scratching/healing lesions in b/l lower extremities with dystrophic nails. SCD in place; no obvious edema in b/l LE NEUROLOGICAL: alert and oriented to name and place, garbled speech, disoriented, tremors noted in b/l UE, intermittent mild hallucination PSYCHOLOGICAL: mood roughly stable no agitation noted LABORATORY DATA, IMAGING STUDIES, MICROBIOLOGY: Please see below. ASSESSMENT AND PLAN: This is a 64 yo male with chronic hx of alcoholism being sent to [facility] ER d/t altered mental status noted to have anemia, hypothermia and tachycardia who later developed shock after fluid resuscitation off sedation and pressors as of 12/17/2019 AM, s/p 2 PRBC transfusion for anemia and 6 units of albumin; transferred back to ICU overnight. On CIWA protocol PROBLEMS: 1. Shock likely hypovolemic vs septic. Hypovolemic 2/2 decreased oral intake d/t metabolic encephalopathy for unknown duration, resolved. Pt was hypotensive, hypothermic, and tachycardic with limited urine output upon admission. Septic shock with source UTI and/or PNA. Continue IV fluid. 6 units of albumin transfused on 12/17/2019; pt also have LE swelling noted. Pt still not have adequate PO intake, cont IVF with D5 1/2NS. Pending speech eval for swallow study 2. Metabolic Encephalopathy from starvation ketoacidosis and/or alcohol withdrawal, r/o infection etiology, improved. Cont neuro checks, vitals. Ammonia and lactic acid level wnl. UA pos for leukocyte esterase and WBC; urine cx ordered pending. Blood cx neg for 24 hrsX1; repeat blood cx. Cont neuro checks. Continue tele, folic, thiamine. Resume Ativan PRN CIWA protocol. Swallow eval and diet per ST eval. 3. Starvation ketoacidosis, likely 2/2 decreased oral intake 2/2 alcohol withdrawal for unknown duration period. Increased anion gap ketoacidosis, beta- hydroxybutyrate>46. S/p 1 sodium bicarb as well as fluid hydration with LR, NS, D5NS, pt now on D5 1/2NS. Cont thiamine daily.Recheck beta-hydroxybutyrate. 4. Alcohol withdrawal, extremity tremors noted upon admission with elevated CIWA score. 1mg PO Xanax given overnight. Resume Ativan PRN and CIWA. Seizure precaution. 5. Chronic hyponatremia, likely secondary third spacing, resolved. Cont to f/u BMP 6. Hypokalemia, likely 2/2 chronic alcohol use and/or poor oral intake. K 3.4 this morning. Ordered K run 7. Hypomagnesemia, likely 2/2 chronic alcohol use and/or poor oral intake. Mg 1.7; repleted. Recheck Mag level 8. Alcoholism, chronic. Hx of chronic alcoholism. Cont thiamine, folic acid, multivitamin. Full nutritional assessment ordered. Lipase elevated however pt indicated no abd pain; no CT evidence showing pancreatitis. 9. Alcoholic liver disease, likely alcoholic hepatitis, AST: ALT>2 to 1. Trend CMP. Stogy Maker pt regarding alcohol cessation when pt mental status improves. Doppler US liver ordered. Coagu panel ordered 10. Normocytic anemia 2/2 anemia of chronic disease, improved s/p 2 units PRBC transfusion. Pt Hg baseline around 9-10. Iron studies consistent with anemia of chronic disease vs inflammatory anemia. S/p 2 PRBC transfusion. It was noted that melena was observed in ER. Occult blood pending. Surgery was consulted and thought GI blood loss etiology is less likely. Currently stable around 8. Trend H&H 11. Questionable rhabdomyolysis. It was thought that pt had rhabdomyolysis with elevated creatinine kinase. Pt already received aggressive fluid hydration. Recheck creatinine kinase trending down. Ordered urine myoglobin quant pending 12. Hypoalbuminemia. Likely 2/2 chronic malnutrition associated with alcoholism. 6 units of albumin transfused 12/17/2019. Full nutritional assessment ordered. Doppler US liver ordered. 13. Questionable Wenicke-Korsakoff. Pt is still confused although A&OX2; garbled speech. Check thiamine level. Increase thiamine to 200mg IV QD. 14. Elevated TSH, likely 2/2 euthyroid sick syndrome vs subclinical hypothyroidism. T4 wnl. However as pt is symptomatic with hypothermia will start him on initiating dose of levothyroxine. 15. Pneumonia, likely aspiration vs pneumonitis. CXT 12/16/2019 showed bibasilar opacities particularly in the left retrocardiac region. Pt leukopenic; diff pending. Hypothermic requiring hyperthermic blanket. Start Zosyn. MRSA screen, sputum cx, urine legionella and strep antigen 16. Questionable UTI. UA pos for leukocyte esterase and WBC; Urine cx pending. Pt on Zosyn for empiric coverage 17. Secondary Hypothermia, likely d/t sepsis vs chronic malnutrition. Pt on Zosyn. Encourage oral diet. Hyperthermic blanket. Consider parental nutrition if pt continues to have decreased oral intake; pending bedside swallow study. Although less likely r/o adrenal insufficiency; ACTH and AM cortisol ordered 18. Pancytopenia, likely 2/2 infection vs less likely hemodilution vs alcoholic liver disease. Immature platelet fraction and RDW both indicated less likely bone marrow failure. Coag panel ordered. Pt is on Zosyn for empiric abx coverage for PNA and UTI. Trend CBC 19. Irritant dermatitis likely from feces. Macular erythematous lesions on face improving, likely 2/2 irritant dermatitis as he was found covering in feces. Wound care 20. Alcohol withdrawal syndrome. Pt is chronic alcoholics with prior hospitalizations from alcohol intoxications; currently hospitalization day 4. Disoriented, intermittent hallucination likely alcohol hallucinosis, and b/l UE tremors observed, and mild intermittent agitations were noted. Cont to monitor closely. Ativan scheduled Q8H, CIWA, and aitvan PRN. Vitals as scheduled DVT prophylaxis: SCD GI prophylaxis: IV protonix As preceptor for this patient I was fully available. All aspects of the patient interview, examination, medical decision making process, and medical care plan development were reviewed and approved. Aware and concur with the plan as stated in the body of this note and will attest to such by my cosignature. VS, I&O, 24H, Fishbone Vital Signs/I&O Vital Signs Date Time Temp Pulse Resp B/P (MAP) Pulse Ox O2 Delivery O2 Flow Rate FiO2 12/18/19 06:45 94.2 12/18/19 04:00 75 20 132/74 (93) 93 Room Air I&O- Last 24 Hours up to 6 AM 12/18/19 06:00 Intake Total 3312.2 ml Output Total 950 ml Balance 2362.2 ml Laboratory Data 24H LABS Laboratory Tests 2 12/17/19 14:14: Total Creatine Kinase 583H, Thyroid Stimulating Hormone (TSH) 4.180H, Free Thyroxine Index 2.4, Thyroxine (T4) 5.9, Triiodothyronine (T3) Uptake 41H 12/17/19 21:55: 12/18/19 06:00: Nucleated Red Blood Cells % (auto) 0.0, Immature Platelet Fraction 3.0, Anion Gap 6L, Glomerular Filtration Rate > 60.0, Calcium Level 7.6L, Phosphorus Level 2.2#L, Magnesium Level 1.7L, Total Bilirubin 1.2H, Aspartate Amino Transf (AST/SGOT) 141H, Alanine Aminotransferase (ALT/SGPT) 62, Alkaline Phosphatase 109, Total Protein 4.5L, Albumin 2.1L, Albumin/Globulin Ratio 0.9 CBC/BMP Laboratory Tests 12/17/19 21:55 12/18/19 06:00 Microbiology Microbiology 12/17/19 Urine Culture, Received Pending 12/15/19 Blood Culture - Preliminary, Resulted No Growth after 48 hours. All Specime... ERIN FLOREZ 12, 2020 08:43 MARIA INES PALACIOS MD Dec 21, 2019 14:13
[2019-12-18] MEDS: KCL 20MEQ IN 100ML SWI (KRUN) 20 MEQ in IV 1 EA IV SCH ×4 (10:07→11:20)
[2019-12-18 10:31] LABS: INR 1.32; PROTHROMBIN TIME 16.1 SECONDS (11.8-14.0)
[2019-12-18 10:32] LABS: PARTIAL THROMBOPLASTIN TIME 40.3 SECONDS (25.0-38.4)
--- NOTE | 2019-12-18 10:38 | REP ---
ULTRASOUND OF THE ABDOMEN WITH DUPLEX DOPPLER EVALUATION PORTAL VASCULATURE: Real-time sonographic evaluation of the right upper quadrant performed. The study is limited due to bowel gas and inability to suspend respirations. There may be tiny stones in the neck of the gallbladder. Gallbladder wall is mildly thickened at 6 mm. There is no intrahepatic or extrahepatic biliary dilation, common bile duct measuring 4 mm. The liver demonstrates no gross mass. Visualized pancreas demonstrates no gross mass, limited evaluation due to overlying bowel gas. Spleen is normal in size with a length of 9.7 cm. Kidneys are normal in size and echotexture, right kidney measuring 9.3 x 6,2 x 5.7 cm and left kidney 9.3 x 6.2 x 5.4 cm. There is a cyst in the lower pole of the left kidney measuring 2.3 cm in diameter. The abdominal aorta is normal in caliber with no aneurysm, proximally measuring 2.6 cm in AP dimension and distally 1.9 cm. There is ascites in the right upper quadrant as well as a moderate right pleural effusion. Real-time ultrasounds evaluation and duplex Doppler interrogation of the portal vasculature performed. The portal vein measures 11 mm which is within normal limits. There is somewhat increased velocity in the main portal vein with normal direction of flow. Velocity in the main portal vein is 52.9 cm/s. There is no evidence of portal vein or hepatic vein thrombosis. There is normal direction of flow in the splenic vein which also demonstrates somewhat increased velocity of 63.6 cm/s. Superior mesenteric vein is not visualized. IMPRESSION: Probable gallstones in the gallbladder. Gallstones were seen on the CT of 12/16/2019. There is gallbladder wall thickening up to 6 mm. There is mild right upper quadrant free fluid. There is no biliary dilatation. Moderate right pleural effusion is noted. There is normal direction of flow in the portal vein and hepatic veins with no thrombus. Electronically Signed by Jah Huerta MD 12/22/2019 06:24 P
[2019-12-18 10:44] LABS: BASOPHILS 2 % (0-1); EOSINOPHILS 3 % (0-3); LYMPHOCYTES 24 % (16-44); MONOCYTES 10 % (0-5); NEUTROPHILS 61 % (28-66)
[2019-12-18 10:45] LABS: ANISOCYTOSIS 1+; PLATELET ESTIMATE DECREASED (NORMAL)
[2019-12-18 10:46] LABS: SMUDGE CELLS 1+
[2019-12-18] MEDS: LEVOTHYROXINE 12.5MCG PER 1/2 TAB (0.0125MG) PO SCH (10:48)
[2019-12-18 12:52] LABS: LDH LACTATE DEHYDROGENASE 290 U/L (87-241)
[2019-12-18] MEDS: LORazepam 2 MG/ML VIAL IV SCH ×2 (12:59→20:29)
[2019-12-18 15:07] LABS: HEMATOCRIT 24.1 % (42.0-52.0); HEMOGLOBIN 8.2 g/dl (13.5-17.5); MEAN CORPUSCULAR HEMOGLOBIN 31.1 pg (27.0-33.0); MEAN CORPUSCULAR VOLUME 91.3 fl (80.0-96.0); RED BLOOD COUNT 2.64 10^6/uL (4.30-6.10); WHITE BLOOD COUNT 3.4 10^3/uL (4.0-10.0)
[2019-12-18 15:20] LABS: PLATELET COUNT, AUTOMATED 56 10^3/uL (150-450)
[2019-12-18 15:38] LABS: BLOOD UREA NITROGEN 4 MG/DL (7-18); CARBON DIOXIDE LEVEL 26 MEQ/L (21-32); CHLORIDE LEVEL 108 MEQ/L (98-107); CREATININE FOR GFR 0.39 MG/DL (0.70-1.30); GLOMERULAR FILTRATION RATE > 60.0 (>49); GLUCOSE, FASTING 102 MG/DL (70-100); SODIUM LEVEL 138 MEQ/L (136-145)
[2019-12-18 15:39] LABS: MAGNESIUM LEVEL 1.7 MG/DL (1.8-2.4); PHOSPHORUS LEVEL 2.1 MG/DL (2.5-4.9)
[2019-12-18] MEDS: VANICREAM MOISTURIZING SKIN CREAM 113GM TUBE TOP SCH (20:29)
[2019-12-18] MEDS: MAG SULF 1GM/100ML (MAG RUN) 1 GM in IV 1 EA IV SCH ×2 (20:29→21:39)
[2019-12-18] MEDS ORDERED: POTASSIUM PHOSPHATE INJ 30 MMOL in D5W 500 ML IV ONE (21:00)
[2019-12-19] VITALS (10 sets, daily range): BP systolic 115–148; BP diastolic 62–94
[2019-12-19] MEDS: PIPERACILLIN/TAZOBACTAM SOD 4.5 GM in D5W MINI-BAG PLUS 50 ML IV SCH (02:13)
[2019-12-19] MEDS ORDERED: LORazepam 2 MG/ML VIAL As Ordered ONE (03:41)
[2019-12-19] MEDS: LORazepam 2 MG/ML VIAL IV SCH (03:45)
[2019-12-19 05:10] LABS: HEMATOCRIT 24.2 % (42.0-52.0); HEMOGLOBIN 8.2 g/dl (13.5-17.5); MEAN CORPUSCULAR HEMOGLOBIN 30.9 pg (27.0-33.0); MEAN CORPUSCULAR HGB CONC 33.9 g/dl (32.0-36.5); MEAN CORPUSCULAR VOLUME 91.3 fl (80.0-96.0); RED BLOOD COUNT 2.65 10^6/uL (4.30-6.10); WHITE BLOOD COUNT 3.7 10^3/uL (4.0-10.0)
[2019-12-19 05:26] LABS: PLATELET COUNT, AUTOMATED 60 10^3/uL (150-450)
[2019-12-19 05:34] LABS: ALBUMIN 1.9 GM/DL (3.2-5.2); ALT/SGPT 59 U/L (12-78); BLOOD UREA NITROGEN 3 MG/DL (7-18); CALCIUM LEVEL 7.2 MG/DL (8.8-10.2); CARBON DIOXIDE LEVEL 25 MEQ/L (21-32); CHLORIDE LEVEL 104 MEQ/L (98-107); GLOMERULAR FILTRATION RATE > 60.0 (>49); GLUCOSE, FASTING 97 MG/DL (70-100); MAGNESIUM LEVEL 1.8 MG/DL (1.8-2.4); POTASSIUM SERUM 4.2 MEQ/L (3.5-5.1); SODIUM LEVEL 137 MEQ/L (136-145); TOTAL PROTEIN 4.4 GM/DL (6.4-8.2)
[2019-12-19] MEDS: D5W/0.45% SODIUM CHLORIDE 1,000 ML IV SCH (06:48)
[2019-12-19] MEDS: LEVOTHYROXINE 12.5MCG PER 1/2 TAB (0.0125MG) PO SCH (06:48)
[2019-12-19] MEDS ORDERED: LevoFLOXacin 750 MG TABLET PO SCH (07:15)
--- NOTE | 2019-12-19 07:28 | IPNPDOC ---
Date Seen The patient was seen on 12/19/19. Progress Note Pt is a 64 yo male with hx of alcoholism being sent to [facility] ER after his neighbors called EMS d/t bad odor coming from his apartment. Pt was observed to be covered in feces with empty beer cans lying around his apartment when EMS arrived. It was noted that pt told ER provider that he didn't have any pain and ate breakfast on the day of admission. Upon admission, pt was noted to be talking fluently, but was not answering pointed questions and unable to contribute meaningful history at that time. Pt is examined at bedside. It was noted that he was not agitated overnight. He has not required hyperthermic blanket since yesterday morning. Patient is able to answer name and place correctly. He reported he usually drinks 68 cans beer(reported 67 cans beers)beers a day. Denies any chest pain, dyspnea, fever, chills, abdominal pain, or suprapubic pain; pt voiced no other complaints. It was noted that pt had a large melena BM yesterday. OBJECTIVE PHYSICAL EXAMINATION: VITAL SIGNS: Please see below. GENERAL:alert and awake, not in acute distress HEENT: Head normocephalic, multiple macular erythematous lesions on face improving CARDIOVASCULAR: RRR, normal S1 and S2 no murmur RESPIRATORY: diminished breath sounds b/l, mildly diminished air entry, mod rales b/l ABDOMINAL: no guarding or distention, bowel sound aus in all 4 quad EXTREMITIES: warm and well perfused, dystrophic nails. TEDS in place; no obvious edema in b/l LE NEUROLOGICAL: alert and oriented to name and place however disorientation still observed, able to answer some questions with garbled speech, minimal tremors noted in b/l UE, no more obvious hallucinations PSYCHOLOGICAL: mood roughly stable no agitation noted LABORATORY DATA, IMAGING STUDIES, MICROBIOLOGY: Please see below. ASSESSMENT AND PLAN: This is a 64 yo male with chronic hx of alcoholism being sent to [facility] ER d/t altered mental status noted to have anemia, hypothermia and tachycardia who later developed shock after fluid resuscitation off sedation and pressors as of 12/17/2019 AM, s/p 2 PRBC transfusion for anemia and 6 units of albumin. Hallucination resolved with mild disorientation. On [facility] protocol LABORATORY DATA, IMAGING STUDIES, MICROBIOLOGY: Please see below. 1. Shock likely hypovolemic, resolved. Hypovolemic 2/2 decreased oral intake d/t metabolic encephalopathy for unknown duration. Pt was hypotensive, hypothermic, and tachycardic with limited urine output upon admission. 6 units of albumin transfused on 12/17/2019. Pt on Puree diet with Dave BID, encourage PO intake. D/C IVF 2. Metabolic Encephalopathy from starvation ketoacidosis and/or alcohol withdrawal, r/o infection etiology, improved. Cont neuro checks, vitals. Ammonia and lactic acid level wnl. UA pos for leukocyte esterase and WBC; urine cx pos for proteus. Blood cx neg for 24 hrsX1; repeat blood cx pending. Cont neuro checks. Continue tele, folic, thiamine. Resume Ativan PRN CIWA protocol. Swallow eval and diet per ST eval. 3. Starvation ketoacidosis, likely 2/2 decreased oral intake 2/2 alcohol withdrawal for unknown duration period, resolved. Increased anion gap ketoacidosis, beta-hydroxybutyrate>46; gap closed. S/p 1 sodium bicarb as well as fluid hydration with LR, NS, D5NS, and D5 1/2NS. D/C IVF; encourage PO intake. Cont thiamine daily 4. Alcohol withdrawal, extremity tremors noted upon admission with elevated CIWA score. 1mg PO Xanax given overnight. Resume Ativan PRN and CIWA 12/18/2019. Seizure precaution. Pt's hallucination and agitation resolved with b/l UE tremors greatly improved, d/c scheduled Ativan; cont PRN ativan with CIWA 5. Chronic hyponatremia, likely secondary third spacing, resolved. Cont to f/u BMP 6. Hypokalemia, likely 2/2 chronic alcohol use and/or poor oral intake, resolved after repletion. F/u BMP 7. Hypomagnesemia, likely 2/2 chronic alcohol use and/or poor oral intake, resolved after repletion. Recheck Mg level in the afternoon and 12/20/2019 morning 8. Alcoholism, chronic. Hx of chronic alcoholism. Cont thiamine, folic acid, multivitamin. Full nutritional assessment ordered. Lipase elevated however pt indicated no abd pain; no CT evidence showing pancreatitis. 9. Alcoholic liver disease, likely alcoholic hepatitis, AST: ALT>2 to 1. Trend CMP. Lead Person pt regarding alcohol cessation when pt mental status improves. Doppler US liver ordered without obvious nodularity documented.. Coagu panel showed only mildly elevated PT and PTT. 10. Normocytic anemia 2/2 anemia of chronic disease, improved s/p 2 units PRBC transfusion. Pt Hg baseline around 9-10. Iron studies consistent with anemia of chronic disease vs inflammatory anemia. S/p 2 PRBC transfusion. It was noted that melena was observed in ER; pt was noted to have large melena 12/19/2019. Occult blood pending. Surgery was consulted and thought GI blood loss etiology is less likely. Currently stable around 8. Trend H&H, if stable consider outpt followup 11. Questionable rhabdomyolysis. It was thought that pt had rhabdomyolysis with elevated creatinine kinase. Pt already received aggressive fluid hydration. Recheck creatinine kinase trending down. Ordered urine myoglobin quant pending 12. Hypoalbuminemia. Likely 2/2 chronic malnutrition associated with alcoholism. 6 units of albumin transfused 12/17/2019. Full nutritional assessment ordered. Doppler US liver ordered with no liver nodularity noted. 13. Questionable Wenicke-Korsakoff. Pt is still confused although A&OX2; garbled speech. Baseline from last hospital discharge summary Jul 2019 noted pt was A&OX3 able to speak in complete sentence. Thiamine level pending. Increase thiamine to 200mg IV QD. 14. Elevated TSH, likely 2/2 euthyroid sick syndrome vs subclinical hypothyroidism. T4 wnl. However as pt is symptomatic with hypothermia, will start him on initiating dose of levothyroxine. 15. Pneumonia, likely aspiration vs pneumonitis. CXT 12/16/2019 showed bibasilar opacities particularly in the left retrocardiac region. Pt leukopenic with neutrophil%wnl. Switch to Levofloxacin as pt also has UTI. MRSA screen neg; sputum cx, urine legionella and strep antigen pending 16. UTI. UA pos for leukocyte esterase and WBC; Urine cx showed proteus. Pt on Zosyn on 12/18/2019 for empiric coverage; switch to levofloxacin as urine cx returned. 17. Secondary Hypothermia d/t chronic malnutrition, resolved. Encourage oral diet and will d/c IVF now. Hyperthermic blanket PRN. Consider parental nutrition if pt continues to have decreased oral intake. Although less likely r/o adrenal insufficiency; ACTH and AM cortisol ordered 18. Pancytopenia, likely 2/2 infection vs less likely hemodilution vs alcoholic liver disease, improving. Immature platelet fraction and RDW both indicated less likely bone marrow failure. Coag panel ordered only mildly elevated PT and PTT. Pt is on Zosyn 12/18/2019 for empiric abx coverage for PNA and UTI; switch to IV levofloxacin. Trend CBC 19. Asymptomatic cholelithiasis. Gallbladder US ordered showed probable galls tones in the gallbladder; gallbladder wall thickening up to 6 mm. However pt revealed no abd pain; no fever or chills. F/u outpatient VS, I&O, 24H, [facility] Vital Signs/I&O Vital Signs Date Time Temp Pulse Resp B/P (MAP) Pulse Ox O2 Delivery O2 Flow Rate FiO2 12/19/19 05:00 80 115/62 (79) 12/19/19 04:00 97.2 22 97 Room Air I&O- Last 24 Hours up to 6 AM 12/19/19 05:59 Intake Total 2165 ml Output Total 1020 ml Balance 1145 ml Laboratory Data 24H LABS Laboratory Tests 2 12/18/19 09:38: Prothrombin Time 16.1H, Prothromb Time International Ratio 1.32, Activated Partial Thromboplast Time 40.3H, Fibrinogen 347, Cortisol AM Sample 7.7 12/18/19 09:45: Procalcitonin 0.05 12/18/19 10:46: Differential Slide Review Report, Peripheral Blood Smear Path Consult PERIPHERAL SMEAR 12/18/19 10:54: Methicillin-Resist S.aureus DNA PCR NOT DETECTED 12/18/19 14:50: Nucleated Red Blood Cells % (auto) 0.0, Anion Gap 4L, Glomerular Filtration Rate > 60.0, Calcium Level 8.0L, Phosphorus Level 2.1L, Magnesium Level 1.7L 12/19/19 04:59: Nucleated Red Blood Cells % (auto) 0.0, Anion Gap 8, Glomerular Filtration Rate > 60.0, Calcium Level 7.2L, Magnesium Level 1.8, Total Bilirubin 1.0, Aspartate Amino Transf (AST/SGOT) 110H, Alanine Aminotransferase (ALT/SGPT) 59, Alkaline Phosphatase 116, Total Protein 4.4L, Albumin 1.9L, Albumin/Globulin Ratio 0.8 CBC/BMP Laboratory Tests 12/18/19 14:50 12/19/19 04:59 Microbiology Microbiology 6/12/20 Blood Culture, Received Pending 12/18/19 Blood Culture, Received Pending 12/17/19 Urine Culture - Preliminary, Resulted Proteus Mirabilis 12/15/19 Blood Culture - Preliminary, Resulted No Growth after 72 hours. All specime... GME ATTESTATION GME ATTESTATION My faculty preceptor for this patient encounter was physically present during the encounter and was fully available. All aspects of the patient interview, examination, medical decision making process, and medical care plan development were reviewed and approved by the faculty preceptor. The faculty preceptor is aware and concurs with the plan as stated in the body of this note and will attest to such by his/her cosignature. ATTENDING NOTE As preceptor for this patient I was fully available. All aspects of the patient interview, examination, medical decision making process, and medical care plan development were reviewed and approved. Aware and concur with the plan as stated in the body of this note and will attest to such by my cosignature. ERIN FLOREZ DO Dec 19, 2019 07:28 MARIA INES PALACIOS MD Dec 28, 2019 12:26
[2019-12-19] MEDS: FOLIC ACID 1 MG TAB PO SCH (09:34)
[2019-12-19] MEDS: MULTIVITAMINS/MINERALS THERAP 1 TAB PO SCH (09:34)
[2019-12-19] MEDS: THIAMINE 200MG/2ML VIAL (J3411 PER 100MG) IV SCH (09:34)
[2019-12-19] MEDS: LevoFLOXacin IV 500 MG in IV 1 EA IV SCH (09:34)
[2019-12-19] MEDS: VANICREAM MOISTURIZING SKIN CREAM 113GM TUBE TOP SCH ×2 (09:35→21:39)
[2019-12-19] MEDS: PANTOPRAZOLE 40MG VIAL (C9113 PER 1) IV SCH ×2 (09:35→20:28)
[2019-12-19 13:34] LABS: BASO # 0.1 10^3/uL (0.0-0.2); BASO % 1.4 % (0.0-1.0); EOS # 0.2 10^3/uL (0.0-0.5); EOS % 3.7 % (0.0-3.0); HEMATOCRIT 26.1 % (42.0-52.0); HEMOGLOBIN 8.8 g/dl (13.5-17.5); LYMPH # 0.8 10^3/uL (1.5-5.0); LYMPH % 19.3 % (24.0-44.0); MEAN CORPUSCULAR HEMOGLOBIN 30.8 pg (27.0-33.0); MEAN CORPUSCULAR HGB CONC 33.7 g/dl (32.0-36.5); MEAN CORPUSCULAR VOLUME 91.3 fl (80.0-96.0); MONO # 0.6 10^3/uL (0.0-0.8); MONO % 13.5 % (0.0-5.0); NEUTROPHILS # 2.7 10^3/uL (1.5-8.5); NEUTROPHILS % 61.6 % (36.0-66.0); RED BLOOD COUNT 2.86 10^6/uL (4.30-6.10); WHITE BLOOD COUNT 4.3 10^3/uL (4.0-10.0)
[2019-12-19 13:40] LABS: PLATELET COUNT, AUTOMATED 74 10^3/uL (150-450)
[2019-12-19 14:00] LABS: MAGNESIUM LEVEL 1.8 MG/DL (1.8-2.4); PHOSPHORUS LEVEL 3.5 MG/DL (2.5-4.9)
[2019-12-20] VITALS (7 sets, daily range): BP systolic 116–146; BP diastolic 72–84
[2019-12-20] MEDS: LEVOTHYROXINE 12.5MCG PER 1/2 TAB (0.0125MG) PO SCH (05:22)
[2019-12-20 05:40] LABS: HEMATOCRIT 24.5 % (42.0-52.0); HEMOGLOBIN 8.3 g/dl (13.5-17.5); MEAN CORPUSCULAR HEMOGLOBIN 30.9 pg (27.0-33.0); MEAN CORPUSCULAR HGB CONC 33.9 g/dl (32.0-36.5); MEAN CORPUSCULAR VOLUME 91.1 fl (80.0-96.0); RED BLOOD COUNT 2.69 10^6/uL (4.30-6.10); WHITE BLOOD COUNT 4.1 10^3/uL (4.0-10.0)
[2019-12-20 05:41] LABS: PLATELET COUNT, AUTOMATED 83 10^3/uL (150-450)
[2019-12-20 06:01] LABS: ALBUMIN 1.8 GM/DL (3.2-5.2); ALT/SGPT 51 U/L (12-78); BILIRUBIN,TOTAL 0.8 MG/DL (0.2-1.0); BLOOD UREA NITROGEN 4 MG/DL (7-18); CALCIUM LEVEL 7.6 MG/DL (8.8-10.2); CARBON DIOXIDE LEVEL 28 MEQ/L (21-32); CHLORIDE LEVEL 101 MEQ/L (98-107); CREATININE FOR GFR 0.44 MG/DL (0.70-1.30); GLOMERULAR FILTRATION RATE > 60.0 (>49); GLUCOSE, FASTING 83 MG/DL (70-100); MAGNESIUM LEVEL 1.6 MG/DL (1.8-2.4); POTASSIUM SERUM 4.4 MEQ/L (3.5-5.1); SODIUM LEVEL 133 MEQ/L (136-145); TOTAL PROTEIN 4.7 GM/DL (6.4-8.2)
[2019-12-20] MEDS: LevoFLOXacin IV 500 MG in IV 1 EA IV SCH (08:30)
[2019-12-20] MEDS: MULTIVITAMINS/MINERALS THERAP 1 TAB PO SCH (08:30)
[2019-12-20] MEDS: PANTOPRAZOLE 40MG VIAL (C9113 PER 1) IV SCH ×2 (08:30→20:22)
[2019-12-20] MEDS: VANICREAM MOISTURIZING SKIN CREAM 113GM TUBE TOP SCH ×2 (08:31→20:22)
[2019-12-20] MEDS: THIAMINE 200MG/2ML VIAL (J3411 PER 100MG) IV SCH (08:31)
[2019-12-20] MEDS: FOLIC ACID 1 MG TAB PO SCH (08:31)
[2019-12-20] MEDS ORDERED: MAG SULF 1GM/100ML (MAG RUN) 1 GM in IV 1 EA IV ONE (09:00)
--- NOTE | 2019-12-20 10:16 | IPNPDOC ---
Text Note Date of Service The patient was seen on 12/20/19. NOTE Subjective: patient seen and examined at bedside. No acute overnight events reported. No new medical complaints this morning. Patient states he is feeling better today. OBJECTIVE: VITAL SIGNS: Please see below. GENERAL: NAD HEENT: NC, multiple macular erythematous lesions on face improving, poor dentition CARDIOVASCULAR: RRR, +S1S2 RESPIRATORY: diminished breath sounds b/l, mild rales b/l ABDOMINAL: soft, NT, +BS EXTREMITIES: warm and well perfused, dystrophic nails. TEDS in place; no obvious edema in b/l LE NEUROLOGICAL: no gross focal deficits PSYCHOLOGICAL: AAOx3 with prompting A/P: 64 yo male with PMHx alcoholism/liver disease, brought [place] [facility] by EMS d/t AMS found to be hypothermic, anemic, tachycardic deemed secondary to EtOH withdrawal and possible UTI, who later developed hypovolemic shock, responded to fluid resuscitation and pressors - d/c'd 12/17/2019 AM, s/p 2 PRBC transfusion for anemia and 6 units of albumin. # Shock likely hypovolemic - resolved - Hypovolemia 2/2 decreased oral intake d/t metabolic encephalopathy for unknown duration. Pt was hypotensive, hypothermic, and tachycardic with limited urine output upon admission. 6 units of albumin transfused on 12/17/2019. Pt on Puree diet with Dave BID, encourage PO intake. D/C IVF 2. Metabolic Encephalopathy from starvation ketoacidosis and/or alcohol withdrawal, r/o infection etiology, improved. Cont neuro checks, vitals. Ammonia and lactic acid level wnl. UA pos for leukocyte esterase and WBC; urine cx pos for proteus. Blood cx neg for 24 hrsX1; repeat blood cx pending. Cont neuro checks. Continue tele, folic, thiamine. Resume Ativan PRN CIWA protocol. Swallow eval and diet per ST eval. 3. Starvation ketoacidosis, likely 2/2 decreased oral intake 2/2 alcohol withdrawal for unknown duration period, resolved. Increased anion gap ketoacidosis, beta-hydroxybutyrate>46; gap closed. S/p 1 sodium bicarb as well as fluid hydration with LR, NS, D5NS, and D5 1/2NS. D/C IVF; encourage PO intake. Cont thiamine daily 4. Alcohol withdrawal, extremity tremors noted upon admission with elevated CIWA score. 1mg PO Xanax given overnight. Resume Ativan PRN and CIWA 12/18/2019. Seizure precaution. Pt's hallucination and agitation resolved with b/l UE tremors greatly improved, d/c scheduled Ativan; cont PRN ativan with CIWA 5. Chronic hyponatremia, likely secondary third spacing, resolved. Cont to f/u BMP 6. Hypokalemia, likely 2/2 chronic alcohol use and/or poor oral intake, resolved after repletion. F/u BMP 7. Hypomagnesemia, likely 2/2 chronic alcohol use and/or poor oral intake, resolved after repletion. Recheck Mg level in the afternoon and 12/20/2019 morning 8. Alcoholism, chronic. Hx of chronic alcoholism. Cont thiamine, folic acid, multivitamin. Full nutritional assessment ordered. Lipase elevated however pt indicated no abd pain; no CT evidence showing pancreatitis. 9. Alcoholic liver disease, likely alcoholic hepatitis, AST: ALT>2 to 1. Trend CMP. Dedicated Driver pt regarding alcohol cessation when pt mental status improves. Doppler US liver ordered without obvious nodularity documented.. Coagu panel showed only mildly elevated PT and PTT. 10. Normocytic anemia 2/2 anemia of chronic disease, improved s/p 2 units PRBC transfusion. Pt Hg baseline around 9-10. Iron studies consistent with anemia of chronic disease vs inflammatory anemia. S/p 2 PRBC transfusion. It was noted that melena was observed in ER; pt was noted to have large melena 12/19/2019. Occult blood pending. Surgery was consulted and thought GI blood loss etiology is less likely. Currently stable around 8. Trend H&H, if stable consider outpt followup 11. Questionable rhabdomyolysis. It was thought that pt had rhabdomyolysis with elevated creatinine kinase. Pt already received aggressive fluid hydration. Recheck creatinine kinase trending down. Ordered urine myoglobin quant pending 12. Hypoalbuminemia. Likely 2/2 chronic malnutrition associated with alcoholism. 6 units of albumin transfused 12/17/2019. Full nutritional assessment ordered. Doppler US liver ordered with no liver nodularity noted. 13. Questionable Wenicke-Korsakoff. Pt is still confused although A&OX2; garbled speech. Baseline from last hospital discharge summary Jul 2019 noted pt was A&OX3 able to speak in complete sentence. Thiamine level pending. Increase thiamine to 200mg IV QD. 14. Elevated TSH, likely 2/2 euthyroid sick syndrome vs subclinical hypothyroidism. T4 wnl. However as pt is symptomatic with hypothermia, will start him on initiating dose of levothyroxine. 15. Pneumonia, likely aspiration vs pneumonitis. CXT 12/16/2019 showed bibasilar opacities particularly in the left retrocardiac region. Pt leukopenic with neutrophil%wnl. Switch to Levofloxacin as pt also has UTI. MRSA screen neg; sputum cx, urine legionella and strep antigen pending 16. UTI. UA pos for leukocyte esterase and WBC; Urine cx showed proteus. Pt on Zosyn on 12/18/2019 for empiric coverage; switch to levofloxacin as urine cx returned. 17. Secondary Hypothermia d/t chronic malnutrition, resolved. Encourage oral d iet and will d/c IVF now. Hyperthermic blanket PRN. Consider parental nutrition if pt continues to have decreased oral intake. Although less likely r/o adrenal insufficiency; ACTH and AM cortisol ordered 18. Pancytopenia, likely 2/2 infection vs less likely hemodilution vs alcoholic liver disease, improving. Immature platelet fraction and RDW both indicated less likely bone marrow failure. Coag panel ordered only mildly elevated PT and PTT. Pt is on Zosyn 12/18/2019 for empiric abx coverage for PNA and UTI; switch to IV levofloxacin. Trend CBC 19. Asymptomatic cholelithiasis. Gallbladder US ordered showed probable gallstones in the gallbladder; gallbladder wall thickening up to 6 mm. However pt revealed no abd pain; no fever or chills. F/u outpatient Dispo: pending clinical improvement VSIta I+O VSIta I+O Laboratory Tests 12/19/19 13:21 12/20/19 05:15 Vital Signs Date Time Temp Pulse Resp B/P (MAP) Pulse Ox O2 Delivery O2 Flow Rate FiO2 12/20/19 07:25 97.8 84 18 125/72 (89) 97 Room Air I&O- Last 24 Hours up to 6 AM 12/20/19 06:00 Intake Total 1150 ml Output Total 1270 ml Balance -120 ml MARIA INES PALACIOS MD Dec 20, 2019 10:16
[2019-12-20 12:13] LABS: BODY FLUID CULTURE Not indicated. (.); LEGIONELLA ANTIGEN URINE Negative (Negative); ORGANISM ID Not indicated. (.); SPECIMEN SOURCE Urine (.); URINE STREP PNEUMONIAE ANTIGEN Negative (Negative)
[2019-12-20] MEDS ORDERED: SLF 3 ML SYR IV PRN (12:15)
[2019-12-20] MEDS ORDERED: SODIUM CHLORIDE 0.9% INJ 10 ML SYR IV PRN (12:15)
[2019-12-20] MEDS: SLF 3 ML SYR IV SCH ×2 (15:55→20:23)
[2019-12-20] MEDS: SODIUM CHLORIDE 0.9% INJ 10 ML SYR IV SCH ×2 (15:56→20:23)
[2019-12-21] VITALS: BP 122/69
[2019-12-21] MEDS ORDERED: ACETAMINOPHEN TAB 650MG DOSE (2X325MG) PO PRN (00:30)
[2019-12-21 04:00] VITALS: BP 126/72
[2019-12-21] MEDS: SLF 3 ML SYR IV SCH ×3 (05:18→22:05)
[2019-12-21] MEDS: LEVOTHYROXINE 12.5MCG PER 1/2 TAB (0.0125MG) PO SCH (05:18)
[2019-12-21] MEDS: SODIUM CHLORIDE 0.9% INJ 10 ML SYR IV SCH ×2 (05:19→14:00)
[2019-12-21 05:43] LABS: HEMATOCRIT 24.3 % (42.0-52.0); HEMOGLOBIN 8.5 g/dl (13.5-17.5); MEAN CORPUSCULAR HEMOGLOBIN 31.8 pg (27.0-33.0); PLATELET COUNT, AUTOMATED 97 10^3/uL (150-450); RED BLOOD COUNT 2.67 10^6/uL (4.30-6.10); WHITE BLOOD COUNT 3.1 10^3/uL (4.0-10.0)
[2019-12-21 06:00] LABS: ALBUMIN 1.6 GM/DL (3.2-5.2); ALT/SGPT 42 U/L (12-78); BILIRUBIN,TOTAL 0.8 MG/DL (0.2-1.0); BLOOD UREA NITROGEN 5 MG/DL (7-18); CALCIUM LEVEL 7.7 MG/DL (8.8-10.2); CARBON DIOXIDE LEVEL 28 MEQ/L (21-32); CHLORIDE LEVEL 99 MEQ/L (98-107); CREATININE FOR GFR 0.42 MG/DL (0.70-1.30); GLOMERULAR FILTRATION RATE > 60.0 (>49); GLUCOSE, FASTING 78 MG/DL (70-100); MAGNESIUM LEVEL 1.6 MG/DL (1.8-2.4); POTASSIUM SERUM 4.2 MEQ/L (3.5-5.1); SODIUM LEVEL 133 MEQ/L (136-145); TOTAL PROTEIN 4.7 GM/DL (6.4-8.2)
[2019-12-21] MEDS ORDERED: MAG SULF 1GM/100ML (MAG RUN) 1 GM in IV 1 EA IV ONE (07:30)
[2019-12-21 08:00] VITALS: BP 124/74
[2019-12-21] MEDS: FOLIC ACID 1 MG TAB PO SCH (08:08)
[2019-12-21] MEDS: MAGNESIUM OXIDE 400 MG TAB (MAG-OX) PO SCH (08:08)
[2019-12-21] MEDS: PANTOPRAZOLE 40MG VIAL (C9113 PER 1) IV SCH ×2 (08:08→20:36)
[2019-12-21] MEDS: MULTIVITAMINS/MINERALS THERAP 1 TAB PO SCH (08:08)
[2019-12-21] MEDS: LevoFLOXacin IV 750 MG in IV 1 EA IV SCH (08:08)
[2019-12-21] MEDS: THIAMINE 200MG/2ML VIAL (J3411 PER 100MG) IV SCH (08:08)
[2019-12-21] MEDS: VANICREAM MOISTURIZING SKIN CREAM 113GM TUBE TOP SCH ×2 (08:11→20:36)
--- NOTE | 2019-12-21 10:18 | IPNPDOC ---
Date Seen The patient was seen on 12/21/19. Progress Note Pt is a 64 yo male with hx of alcoholism being sent to [facility] ER after his neighbors called EMS d/t bad odor coming from his apartment. Pt was observed to be covered in feces with empty beer cans lying around his apartment when EMS arrived. It was noted that pt told ER provider that he didn't have any pain and ate breakfast on the day of admission. Upon admission, pt was noted to be talking fluently, but was not answering pointed questions and unable to contribute meaningful history at that time. Pt is examined while eating breakfast at bedside. Pt reported mild pleuritic chest pain when he takes a deep breath but no other complaints. Denies any dyspnea, fever, chills, abdominal pain, or suprapubic pain. OBJECTIVE PHYSICAL EXAMINATION: VITAL SIGNS: Please see below. GENERAL:alert and awake, not in acute distress HEENT: Head normocephalic, multiple macular erythematous lesions on face improving. Poor dentation CARDIOVASCULAR: RRR, normal S1 and S2 no murmur RESPIRATORY: mildly diminished breath sounds b/l, good air entry b/l mild rales b/l ABDOMINAL: no guarding or distention, bowel sound aus in all 4 quad EXTREMITIES: warm and well perfused, dystrophic nails.No obvious edema in b/l LE NEUROLOGICAL: alert and oriented to name and place however thought he is in 2023. No obvious hallucination or disorientation noted. PSYCHOLOGICAL: mood roughly stable no agitation noted LABORATORY DATA, IMAGING STUDIES, MICROBIOLOGY: Please see below. ASSESSMENT AND PLAN: This is a 64 yo male with chronic hx of alcoholism being sent to [facility] ER d/t altered mental status noted to have anemia, hypothermia and tachycardia who later developed shock after fluid resuscitation off sedation and pressors as of 12/17/2019 AM, s/p 2 PRBC transfusion for anemia and 6 units of albumin; now off pressors, IVF, and hyperthermic blanket. Hallucination and disorientation resolved. On [facility] protocol LABORATORY DATA, IMAGING STUDIES, MICROBIOLOGY: Please see below. 1. Shock likely hypovolemic, resolved. Hypovolemic 2/2 decreased oral intake d/t metabolic encephalopathy for unknown duration. Pt was hypotensive, hypothermic, and tachycardic with limited urine output upon admission. 6 units of albumin transfused on 12/17/2019. Pt on Puree diet with Dave BID, encourage PO intake; consider advance to high protein diet pending ST clearance for advance diet 2. Metabolic Encephalopathy from starvation ketoacidosis and/or alcohol withdrawal, r/o infection etiology,resolved. Cont neuro checks, vitals. Ammonia and lactic acid level wnl. UA pos for leukocyte esterase and WBC; urine cx pos for proteus. Blood cx neg for 24 hrsX1; repeat blood cx neg X2. Neuro checks. Continue tele, folic, thiamine. Cont Ativan PRN CIWA protocol. Swallow eval and diet per ST eval; will advance to high protein diet once passed ST re-eval. 3. Starvation ketoacidosis, likely 2/2 decreased oral intake 2/2 alcohol withdrawal for unknown duration period, resolved. Increased anion gap ketoacidosis, beta-hydroxybutyrate>46; gap closed. S/p 1 sodium bicarb as well as fluid hydration with LR, NS, D5NS, and D5 1/2NS. D/C IVF; encourage PO intake. Cont thiamine daily 4. Alcohol withdrawal, extremity tremors noted upon admission with elevated CIWA score, resolved. Cont Ativan PRN and CIWA. Seizure precaution. Pt's hallucination and agitation, and b/l UE tremors resolved. 5. Chronic hyponatremia, likely secondary third spacing. Cont to f/u BMP. Encourage PO intake. Plan to advance to high protein diet with ST re-eval for swallowing fxn. 6. Hypokalemia, likely 2/2 chronic alcohol use and/or poor oral intake, resolved after repletion. F/u BMP 7. Hypomagnesemia, likely 2/2 chronic alcohol use and/or poor oral intake. 1 Mg run ordered 12/21/2019 with Mag ox daily. F/u Mag level 8. Alcoholism, chronic. Hx of chronic alcoholism. Cont, folic acid, multivitamin. Changed thiamine from IV to PO now pt's more alert. Full nutritional assessment ordered. Lipase elevated however pt indicated no abd pain; no CT evidence showing pancreatitis. 9. Alcoholic liver disease, likely alcoholic hepatitis, AST: ALT>2 to 1. Trend CMP. 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 Doppler US liver ordered without obvious nodularity documented.. Coagu panel showed only mildly elevated PT and PTT. 10. Normocytic anemia 2/2 anemia of chronic disease, improved s/p 2 units PRBC transfusion. Pt Hg baseline around 9-10. Iron studies consistent with anemia of chronic disease vs inflammatory anemia. S/p 2 PRBC transfusion. It was noted that melena was observed in ER; pt was noted to have large melena 12/19/2019. Occult blood pending. Surgery was consulted and thought GI blood loss etiology is less likely. Currently stable around 8. Trend H&H, if stable consider outpt followup. Cont GI prophylaxis for now until occult blood returns 11. Questionable rhabdomyolysis. It was thought that pt had rhabdomyolysis with elevated creatinine kinase. Pt already received aggressive fluid hydration. Recheck creatinine kinase trending down. Ordered urine myoglobin quant pending 12. Hypoalbuminemia. Likely 2/2 chronic malnutrition associated with alcoholism. 6 units of albumin transfused 12/17/2019. Full nutritional assessment ordered. Doppler US liver ordered with no liver nodularity noted. 13. Questionable Wenicke-Korsakoff. A&OX2; garbled speech improved but thought this is year 2023. Baseline from last hospital discharge summary Jul 2019 noted pt was A&OX3 able to speak in complete sentence. Thiamine level pending. Change thiamine from IV to PO now pt more alert and tolerating PO better. 14. Elevated TSH, likely 2/2 euthyroid sick syndrome vs subclinical hypothyroidism. T4 wnl. However as pt is symptomatic with hypothermia, will start him on initiating dose of levothyroxine. F/u thyroid panel outpt in 6 wks 15. Pneumonia, likely aspiration vs pneumonitis. CXT 12/16/2019 showed bibasilar opacities particularly in the left retrocardiac region. Pt leukopenic with ofelia trophil%wnl. On Levofloxacin as pt also has UTI. MRSA screen neg. Urine legionella and strep antigen neg. Sputum cx ordered. 16. UTI. UA pos for leukocyte esterase and WBC; Urine cx showed proteus and enterococcus. Pt on Zosyn on 12/18/2019 for empiric coverage; switch to levofloxacin 12/19/2019 as urine cx returned. 17. Secondary Hypothermia d/t chronic malnutrition, resolved. Encourage oral di et and will d/c IVF now. Hyperthermic blanket PRN. Consider parental nutrition if pt continues to have decreased oral intake. Although less likely r/o adrenal insufficiency; ACTH and AM cortisol both wnl 18. Pancytopenia, likely 2/2 infection vs less likely hemodilution vs alcoholic liver disease, improving. Immature platelet fraction and RDW both indicated less likely bone marrow failure. Coag panel ordered only mildly elevated PT and PTT. Pt is on Zosyn 12/18/2019 for empiric abx coverage for PNA and UTI; switch to IV levofloxacin. Trend CBC 19. Asymptomatic cholelithiasis. Gallbladder US ordered showed probable gallstones in the gallbladder; gallbladder wall thickening up to 6 mm. However pt revealed no abd pain; no fever or chills. F/u outpatient DISPO: Complicated UTI on levo, monitor alcohol withdrawal symptoms, ST re-eval with improved mental status, anticipating medically clear 24-48 hrs. Pending bed availability to subacute rehab VS, I&O, 24H, Fishbone Vital Signs/I&O Vital Signs Date Time Temp Pulse Resp B/P (MAP) Pulse Ox O2 Delivery O2 Flow Rate FiO2 12/21/19 08:00 97.5 83 18 124/74 (91) 93 Room Air l I&O- Last 24 Hours up to 6 AM 12/21/19 05:59 Intake Total 1180 ml Output Total 1775 ml Balance -595 ml Laboratory Data 24H LABS Laboratory Tests 2 12/21/19 05:23: Nucleated Red Blood Cells % (auto) 0.0, Immature Platelet Fraction 4.3, Anion Gap 6L, Glomerular Filtration Rate > 60.0, Calcium Level 7.7L, Magnesium Level 1.6L, Total Bilirubin 0.8, Aspartate Amino Transf (AST/SGOT) 51H, Alanine Aminotransferase (ALT/SGPT) 42, Alkaline Phosphatase 115, Total Protein 4.7L, Albumin 1.6L, Albumin/Globulin Ratio 0.5 CBC/BMP Laboratory Tests 12/21/19 05:23 Microbiology Microbiology 12/18/19 Blood Culture - Preliminary, Resulted No Growth after 72 hours. All specime... 12/18/19 Blood Culture - Preliminary, Resulted No Growth after 72 hours. All specime... 12/17/19 Urine Culture - Final, Complete Proteus Mirabilis Enterococcus Faecalis 12/15/19 Blood Culture - Final, Complete NO GROWTH AFTER 5 DAYS GME ATTESTATION GME ATTESTATION My faculty preceptor for this patient encounter was physically present during the encounter and was fully available. All aspects of the patient interview, examination, medical decision making process, and medical care plan development were reviewed and approved by the faculty preceptor. The faculty preceptor is aware and concurs with the plan as stated in the body of this note and will attest to such by his/her cosignature. ATTENDING NOTE As preceptor for this patient I was fully available. All aspects of the patient interview, examination, medical decision making process, and medical care plan development were reviewed and approved. Aware and concur with the plan as stated in the body of this note and will attest to such by my cosignature. ERIN FLOREZ DO Dec 21, 2019 10:18 MARIA INES PALACIOS MD Dec 28, 2019 12:23
[2019-12-21 15:47] LABS: HEMATOCRIT 24.3 % (42.0-52.0); HEMOGLOBIN 8.2 g/dl (13.5-17.5); MEAN CORPUSCULAR HEMOGLOBIN 30.9 pg (27.0-33.0); MEAN CORPUSCULAR HGB CONC 33.7 g/dl (32.0-36.5); MEAN CORPUSCULAR VOLUME 91.7 fl (80.0-96.0); RED BLOOD COUNT 2.65 10^6/uL (4.30-6.10); WHITE BLOOD COUNT 3.3 10^3/uL (4.0-10.0)
[2019-12-21 15:52] LABS: PLATELET COUNT, AUTOMATED 90 10^3/uL (150-450)
[2019-12-21 16:00] VITALS: BP 118/77
[2019-12-21 22:00] VITALS: BP 129/65
[2019-12-22 04:00] VITALS: BP 120/65
[2019-12-22 05:31] LABS: HEMATOCRIT 25.2 % (42.0-52.0); HEMOGLOBIN 8.7 g/dl (13.5-17.5); MEAN CORPUSCULAR HGB CONC 34.5 g/dl (32.0-36.5); MEAN CORPUSCULAR VOLUME 89.7 fl (80.0-96.0); PLATELET COUNT, AUTOMATED 113 10^3/uL (150-450); RED BLOOD COUNT 2.81 10^6/uL (4.30-6.10); WHITE BLOOD COUNT 3.3 10^3/uL (4.0-10.0)
[2019-12-22 05:56] LABS: ALBUMIN 1.8 GM/DL (3.2-5.2); ALT/SGPT 38 U/L (12-78); BLOOD UREA NITROGEN 6 MG/DL (7-18); CALCIUM LEVEL 7.7 MG/DL (8.8-10.2); CARBON DIOXIDE LEVEL 25 MEQ/L (21-32); CHLORIDE LEVEL 96 MEQ/L (98-107); CREATININE FOR GFR 0.46 MG/DL (0.70-1.30); GLOMERULAR FILTRATION RATE > 60.0 (>49); GLUCOSE, FASTING 62 MG/DL (70-100); MAGNESIUM LEVEL 1.6 MG/DL (1.8-2.4); POTASSIUM SERUM 4.4 MEQ/L (3.5-5.1); SODIUM LEVEL 128 MEQ/L (136-145); TOTAL PROTEIN 4.6 GM/DL (6.4-8.2)
[2019-12-22] MEDS: LEVOTHYROXINE 12.5MCG PER 1/2 TAB (0.0125MG) PO SCH (06:10)
[2019-12-22] MEDS: SLF 3 ML SYR IV SCH ×3 (06:11→21:37)
[2019-12-22 08:00] VITALS: BP 132/66
[2019-12-22] MEDS: PANTOPRAZOLE 40MG VIAL (C9113 PER 1) IV SCH ×2 (08:56→21:36)
[2019-12-22] MEDS: MULTIVITAMINS/MINERALS THERAP 1 TAB PO SCH ×2 (08:56→09:00)
[2019-12-22] MEDS: LevoFLOXacin IV 750 MG in IV 1 EA IV SCH (08:56)
[2019-12-22] MEDS: MAGNESIUM OXIDE 400 MG TAB (MAG-OX) PO SCH (08:56)
[2019-12-22] MEDS: THIAMINE 100 MG TAB PO SCH (08:56)
[2019-12-22] MEDS: FOLIC ACID 1 MG TAB PO SCH (08:56)
[2019-12-22] MEDS: VANICREAM MOISTURIZING SKIN CREAM 113GM TUBE TOP SCH ×2 (08:57→21:36)
[2019-12-22 16:00] VITALS: BP 113/58
[2019-12-22 17:00] VITALS: BP 134/68
--- NOTE | 2019-12-22 21:51 | IPNPDOC ---
Date Seen The patient was seen on 12/22/19. Progress Note Pt is a 64 yo male with hx of alcoholism being sent to [facility] ER after his neighbors called EMS d/t bad odor coming from his apartment. Pt was observed to be covered in feces with empty beer cans lying around his apartment when EMS arrived. It was noted that pt told ER provider that he didn't have any pain and ate breakfast on the day of admission. Upon admission, pt was noted to be talking fluently, but was not answering pointed questions and unable to contribute meaningful history at that time. Pt is examined while eating breakfast at bedside. It was noted that pt has been having hallucinations overnight. Pt thought there was people standing in the room at the time of examination. Denies any dyspnea, fever, chills, nausea, vomiting, abdominal pain, or suprapubic pain. OBJECTIVE PHYSICAL EXAMINATION: VITAL SIGNS: Please see below. GENERAL:alert and awake, not in acute distress HEENT: Head normocephalic, multiple macular erythematous lesions on face improving. Poor dentation CARDIOVASCULAR: RRR, normal S1 and S2 no murmur RESPIRATORY: good air entry b/l mild rales b/l ABDOMINAL: no guarding or distention, bowel sound aus in all 4 quad EXTREMITIES: warm and well perfused, dystrophic nails.No obvious edema in b/l LE NEUROLOGICAL: alert and oriented to name and place however thought he is in 2023. No disorientation noted and is able to answer questions appropriately however having visual hallucination PSYCHOLOGICAL: mood roughly stable no agitation noted LABORATORY DATA, IMAGING STUDIES, MICROBIOLOGY: Please see below. ASSESSMENT AND PLAN: This is a 64 yo male with chronic hx of alcoholism being sent to [facility] ER d/t altered mental status noted to have anemia, hypothermia and tachycardia who later developed shock after fluid resuscitation off sedation and pressors as of 12/17/2019 AM, s/p 2 PRBC transfusion for anemia and 6 units of albumin; now off pressors, IVF, and hyperthermic blanket. On [facility] protocol LABORATORY DATA, IMAGING STUDIES, MICROBIOLOGY: Please see below. 1. Shock likely hypovolemic, resolved. Hypovolemic 2/2 decreased oral intake d/t metabolic encephalopathy for unknown duration. Pt was hypotensive, hypothermic, and tachycardic with limited urine output upon admission. 6 units of albumin transfused on 12/17/2019. Change to high protein level 2 diet. 2. Metabolic Encephalopathy from starvation ketoacidosis and/or alcohol withdra wal, r/o infection etiology,resolved. Cont neuro checks, vitals. Ammonia and lactic acid level wnl. UA pos for leukocyte esterase and WBC; urine cx pos for proteus. Blood cx neg for 24 hrsX1; repeat blood cx neg X2. Neuro checks. Continue tele, folic, thiamine. Cont Ativan PRN CIWA protocol. Change to high protein level 2 diet. 3. Starvation ketoacidosis, likely 2/2 decreased oral intake 2/2 alcohol withdrawal for unknown duration period, resolved. Increased anion gap ketoacidosis, beta-hydroxybutyrate>46; gap closed. S/p 1 sodium bicarb as well as fluid hydration with LR, NS, D5NS, and D5 1/2NS. D/C IVF; encourage PO intake. Cont thiamine daily 4. Alcohol withdrawal, extremity tremors noted upon admission with elevated CIWA score, resolved. Cont Ativan PRN and CIWA. Seizure precaution. Pt's hallucination and agitation, and b/l UE tremors resolved. 5. Chronic hyponatremia, likely secondary third spacing. Cont to f/u BMP. Encourage PO intake. Change to high protein diet. 6. Hypokalemia, likely 2/2 chronic alcohol use and/or poor oral intake, resolved. 7. Hypomagnesemia, likely 2/2 chronic alcohol use and/or poor oral intake. Mg low today.Ordered repletion. F/u with Mg level 8. Alcoholism, chronic. Hx of chronic alcoholism. Cont, folic acid, multivitamin. Changed thiamine from IV to PO now pt's more alert. Full nutritional assessment ordered. Lipase elevated however pt indicated no abd pain; no CT evidence showing pancreatitis. 9. Alcoholic liver disease, likely alcoholic hepatitis, AST: ALT>2 to 1. Trend CMP. 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 Doppler US liver ordered without obvious nodularity documented.. Coagu panel showed only mildly elevated PT and PTT. 10. Normocytic anemia 2/2 anemia of chronic disease and GI bleed, improved s/p 2 units PRBC transfusion. Pt Hg baseline around 9-10. Iron studies consistent with anemia of chronic disease vs inflammatory anemia. S/p 2 PRBC transfusion. It was noted that melena was observed in ER; pt was noted to have large melena 12/19/2019. Occult blood pending. Surgery was consulted and thought GI blood loss etiology is less likely. Occult blood was pos inpt. Currently stable around 8. Trend H&H, if stable consider outpt followup. Cont GI prophylaxis for now until occult blood returns 11. Questionable rhabdomyolysis. It was thought that pt had rhabdomyolysis with elevated creatinine kinase. Pt already received aggressive fluid hydration. Recheck creatinine kinase trending down. Urine myoglobin quant only 2 12. Hypoalbuminemia. Likely 2/2 chronic malnutrition associated with alcoholism. 6 units of albumin transfused 12/17/2019. Full nutritional assessment ordered. Doppler US liver ordered with no liver nodularity noted. 13. Questionable Wenicke-Korsakoff. A&OX2; garbled speech improved but thought this is year 2023. Baseline from last hospital discharge summary Jul 2019 noted pt was A&OX3 able to speak in complete sentence. Change thiamine from IV to PO now pt more alert and tolerating PO better. Visual hallucinations 14. Elevated TSH, likely 2/2 euthyroid sick syndrome vs subclinical hypothyroidism. T4 wnl. However as pt is symptomatic with hypothermia, will start him on initiating dose of levothyroxine. F/u thyroid panel outpt in 6 wks 15. Pneumonia, likely aspiration vs pneumonitis. CXT 12/16/2019 showed bibasilar opacities particularly in the left retrocardiac region. Pt leukopenic with neutrophil%wnl. On Levofloxacin as pt also has UTI. MRSA screen neg. Urine legionella and strep antigen neg. Sputum cx ordered. 16. UTI. UA pos for leukocyte esterase and WBC; Urine cx showed proteus and enterococcus. Pt on Zosyn on 12/18/2019 for empiric coverage; switch to levofloxacin 12/19/2019 as urine cx returned. 17. Secondary Hypothermia d/t chronic malnutrition, resolved Encourage oral diet and will d/c IVF now. Hyperthermic blanket PRN. Encourage PO intake. 18. Pancytopenia, likely 2/2 infection vs less likely hemodilution vs alcoholic liver disease, stable. Immature platelet fraction and RDW both indicated less likely bone marrow failure. Coag panel ordered only mildly elevated PT and PTT. Pt is on Zosyn 12/18/2019 for empiric abx coverage for PNA and UTI; switch to IV levofloxacin. Trend CBC 19. Asymptomatic cholelithiasis. Gallbladder US ordered showed probable gallstones in the gallbladder; gallbladder wall thickening up to 6 mm. However pt revealed no abd pain; no fever or chills. F/u outpatient DISPO: Complicated UTI on levo. Medically cleared. Pending subacute rehab bed availability VS, I&O, 24H, Fishbone Vital Signs/I&O Vital Signs Date Time Temp Pulse Resp B/P (MAP) Pulse Ox O2 Delivery O2 Flow Rate FiO2 12/22/19 17:00 97.2 87 18 134/68 (90) 87 Room Air I&O- Last 24 Hours up to 6 AM 12/22/19 06:00 Intake Total 360 ml Output Total 1275 ml Balance -915 ml Laboratory Data 24H LABS Laboratory Tests 2 12/22/19 04:46: Nucleated Red Blood Cells % (auto) 0.0, Anion Gap 7L, Glomerular Filtration Rate > 60.0, Calcium Level 7.7L, Magnesium Level 1.6L, Total Bilirubin 1.0, Aspartate Amino Transf (AST/SGOT) 42H, Alanine Aminotransferase (ALT/SGPT) 38, Alkaline Phosphatase 117, Total Protein 4.6L, Albumin 1.8L, Albumin/Globulin Ratio 0.6 CBC/BMP Laboratory Tests 12/22/19 04:46 Microbiology Microbiology 12/21/19 Stool Occult Blood (NORMA) - Final, Complete 12/21/19 Gram Stain - Final, Resulted 12/21/19 Wound Culture, Resulted Pending 12/18/19 Blood Culture - Preliminary, Resulted No Growth after 72 hours. All specime... 12/18/19 Blood Culture - Preliminary, Resulted No Growth after 72 hours. All specime... 12/17/19 Urine Culture - Final, Complete Proteus Mirabilis Enterococcus Faecalis 12/15/19 Blood Culture - Final, Complete NO GROWTH AFTER 5 DAYS GME ATTESTATION GME ATTESTATION My faculty preceptor for this patient encounter was physically present during the encounter and was fully available. All aspects of the patient interview, examination, medical decision making process, and medical care plan development were reviewed and approved by the faculty preceptor. The faculty preceptor is a modi and concurs with the plan as stated in the body of this note and will attest to such by his/her cosignature. ATTENDING NOTE Pt seen and examined by me. Agree with the above assessment and plan. ERIN FLOREZ DO Dec 22, 2019 21:50 PK PENA MD Dec 26, 2019 15:24
[2019-12-22 22:00] VITALS: BP 136/85
[2019-12-22] MEDS ORDERED: MAG SULF 1GM/100ML (MAG RUN) 1 GM in IV 1 EA IV ONE (22:00)
[2019-12-23 06:00] VITALS: BP 131/76
[2019-12-23] MEDS: LEVOTHYROXINE 12.5MCG PER 1/2 TAB (0.0125MG) PO SCH (06:03)
[2019-12-23] MEDS: SLF 3 ML SYR IV SCH ×3 (06:04→22:01)
[2019-12-23 06:34] LABS: HEMATOCRIT 26.2 % (42.0-52.0); HEMOGLOBIN 9.1 g/dl (13.5-17.5); MEAN CORPUSCULAR HEMOGLOBIN 31.1 pg (27.0-33.0); MEAN CORPUSCULAR HGB CONC 34.7 g/dl (32.0-36.5); MEAN CORPUSCULAR VOLUME 89.4 fl (80.0-96.0); PLATELET COUNT, AUTOMATED 112 10^3/uL (150-450); RED BLOOD COUNT 2.93 10^6/uL (4.30-6.10); WHITE BLOOD COUNT 3.9 10^3/uL (4.0-10.0)
[2019-12-23 07:03] LABS: ALBUMIN 1.8 GM/DL (3.2-5.2); ALT/SGPT 34 U/L (12-78); BILIRUBIN,TOTAL 0.9 MG/DL (0.2-1.0); BLOOD UREA NITROGEN 6 MG/DL (7-18); CALCIUM LEVEL 7.7 MG/DL (8.8-10.2); CARBON DIOXIDE LEVEL 24 MEQ/L (21-32); CHLORIDE LEVEL 94 MEQ/L (98-107); CREATININE FOR GFR 0.49 MG/DL (0.70-1.30); GLOMERULAR FILTRATION RATE > 60.0 (>49); GLUCOSE, FASTING 49 MG/DL (70-100); MAGNESIUM LEVEL 1.5 MG/DL (1.8-2.4); POTASSIUM SERUM 4.1 MEQ/L (3.5-5.1); SODIUM LEVEL 127 MEQ/L (136-145); TOTAL PROTEIN 4.8 GM/DL (6.4-8.2)
[2019-12-23] MEDS ORDERED: DEXTROSE 50% 50 ML SYRINGE IV STA (07:11)
[2019-12-23] MEDS ORDERED: DEXTROSE 50% 50 ML SYRINGE As Ordered ONE (07:13)
--- NOTE | 2019-12-23 08:07 | REP ---
Portable chest x-ray: Single view. History: Coughing. Comparison chest x-ray: December 16, 2019. Findings: There are multiple healed or healing rib fractures again noted on the right. Hazy opacity seen in both bases consistent with increased bilateral pleural effusions when compared to the prior study. Heart size is near the upper range of normal. There is some plate-like atelectasis in the right mid lung zone. No definite infiltrate. Impression: Increasing bilateral pleural effusions. Electronically Signed by Oscar Landers MD 12/23/2019 07:59 A
[2019-12-23] MEDS: PIPERACILLIN/TAZOBACTAM SOD 4.5 GM in D5W MINI-BAG PLUS 50 ML IV SCH ×3 (10:30→20:07)
[2019-12-23] MEDS: PANTOPRAZOLE 40MG VIAL (C9113 PER 1) IV SCH ×2 (10:30→20:07)
[2019-12-23] MEDS ORDERED: OXYMETAZOLINE NASAL SPRAY (AFRIN) PRN (10:30)
[2019-12-23] MEDS: THIAMINE 100 MG TAB PO SCH (10:31)
[2019-12-23] MEDS: MAGNESIUM OXIDE 400 MG TAB (MAG-OX) PO SCH (10:31)
[2019-12-23] MEDS: VANICREAM MOISTURIZING SKIN CREAM 113GM TUBE TOP SCH ×2 (10:31→20:07)
[2019-12-23] MEDS: MULTIVITAMINS/MINERALS THERAP 1 TAB PO SCH (10:31)
[2019-12-23] MEDS: FOLIC ACID 1 MG TAB PO SCH (10:31)
[2019-12-23 11:00] VITALS: BP 110/50
[2019-12-23] MEDS ORDERED: NS 1,000 ML IV ONE (11:30)
[2019-12-23] MEDS: MAG SULF 1GM/100ML (MAG RUN) 1 GM in IV 1 EA IV SCH ×3 (11:40→14:46)
--- NOTE | 2019-12-23 12:07 | IPNPDOC ---
Text Note Date of Service The patient was seen on 12/23/19. NOTE Pt is examined while eating breakfast at bedside. Denies any dyspnea, fever, chills, abdominal pain, or suprapubic pain. PHYSICAL EXAMINATION: VITAL SIGNS: Please see below. GENERAL:alert and awake, not in acute distress HEENT: Head normocephalic, multiple macular erythematous lesions on face improving. Poor dentation CARDIOVASCULAR: RRR, normal S1 and S2 no murmur RESPIRATORY: mildly diminished breath sounds b/l, good air entry b/l mild rales b/l ABDOMINAL: no guarding or distention, bowel sound aus in all 4 quad EXTREMITIES: warm and well perfused, dystrophic nails.No obvious edema in b/l LE NEUROLOGICAL: alert and oriented to name and place however thought he is in 2023. No obvious hallucination or disorientation noted. PSYCHOLOGICAL: mood roughly stable no agitation noted ASSESSMENT AND PLAN: This is a 64 yo male with chronic hx of alcoholism being sent to [facility] ER d/t altered mental status noted to have anemia, hypothermia and tachycardia 1. Shock likely hypovolemic, resolved. Hypovolemic 2/2 decreased oral intake d/t metabolic encephalopathy for unknown duration. Pt was hypotensive, hypothermic, and tachycardic with limited urine output upon admission. 6 units of albumin transfused on 12/17/2019. Pt on Puree diet with Dave BID, encourage PO intake 2. Metabolic Encephalopathy from starvation ketoacidosis and/or alcohol withdrawal. Cont neuro checks, vitals. Ammonia and lactic acid level wnl. UA pos for leukocyte esterase and WBC; urine cx pos for proteus. Blood cx neg; repeat blood cx neg X2. Continue tele, folic, thiamine. Cont Ativan PRN CIWA protocol. 3. Starvation ketoacidosis, likely 2/2 decreased oral intake 2/2 alcohol withdrawal for unknown duration period, resolved. D/C IVF; encourage PO intake. Cont thiamine daily 4. Alcohol withdrawal, extremity tremors noted upon admission with elevated CIWA score, resolved. Cont Ativan PRN and CIWA. Seizure precaution. b/l UE tremors resolved. 5. Chronic hyponatremia, likely secondary third spacing. Cont to f/u BMP. Encourage PO intake. 6. Hypokalemia, likely 2/2 chronic alcohol use and/or poor oral intake, resolved after repletion. F/u BMP 7. Hypomagnesemia, likely 2/2 chronic alcohol use and/or poor oral intake. 1 Mg run ordered 12/21/2019 with Mag ox daily. F/u Mag level 8. Alcoholism, chronic. Hx of chronic alcoholism. Cont, folic acid, multivitamin. Changed thiamine PO now. Lipase elevated however pt indicated no abd pain; no CT evidence showing pancreatitis. 9. Alcoholic liver disease, likely alcoholic hepatitis, AST: ALT>2 to 1. Improving. Counseled pt regarding alcohol cessation when pt mental status improves. Doppler US liver ordered without obvious nodularity documented.. 10. Normocytic anemia 2/2 anemia of chronic disease, improved s/p 2 units PRBC transfusion. Hg baseline around 9-10. Iron studies consistent with anemia of chronic disease vs inflammatory anemia. S/p 2 PRBC transfusion. It was noted that melena was observed in ER; pt was noted to have large melena 12/19/2019. Surgery was consulted and thought GI blood loss etiology is less likely.Currently stable around 8. Trend H&H, if stable consider outpt followup. Cont GI prophylaxis for now until occult blood returns 11. Elevated TSH, likely 2/2 euthyroid sick syndrome vs subclinical hypothyroidism. T4 wnl. However as pt is symptomatic with hypothermia, will start him on initiating dose of levothyroxine. F/u thyroid panel outpt in 6 wks 12. Pneumonia, likely aspiration vs pneumonitis. CXT 12/16/2019 showed bibasilar opacities particularly in the left retrocardiac region. Pt leukopenic with neutrophil%wnl. Levofloxacin completed. MRSA screen neg. Urine legionella and strep antigen neg. 13. Asymptomatic cholelithiasis. Gallbladder US ordered showed probable gallstones in the gallbladder; gallbladder wall thickening up to 6 mm. However pt revealed no abd pain; no fever or chills. F/u outpatient DISPO: Anticipating medically clear 24-48 hrs. Pending bed availability to subacute rehab VS,Ita, I+O VS, Ita, I+O Laboratory Tests 12/23/19 05:58 Vital Signs Date Time Temp Pulse Resp B/P (MAP) Pulse Ox O2 Delivery O2 Flow Rate FiO2 12/23/19 06:00 97.1 88 17 131/76 (94) 89 Room Air I&O- Last 24 Hours up to 6 AM 12/23/19 06:00 Intake Total 180 ml Output Total 1200 ml Balance -1020 ml PK PENA MD Dec 23, 2019 12:07
[2019-12-23 14:00] VITALS: BP 91/53
[2019-12-23 20:35] VITALS: BP 92/53
[2019-12-23 21:30] VITALS: BP_SYST 101; BP_DIAS 51; BP_DIAS 57
[2019-12-24] VITALS (34 sets, daily range): BP systolic 64–136; BP diastolic 38–87
[2019-12-24] MEDS: PIPERACILLIN/TAZOBACTAM SOD 4.5 GM in D5W MINI-BAG PLUS 50 ML IV SCH ×3 (02:31→19:38)
[2019-12-24] MEDS ORDERED: NS 500 ML IV ONE (03:45)
[2019-12-24] MEDS ORDERED: D5W/0.9% SODIUM CHLORIDE 1,000 ML IV SCH (03:45)
[2019-12-24] MEDS: LEVOTHYROXINE 12.5MCG PER 1/2 TAB (0.0125MG) PO SCH (05:33)
[2019-12-24] MEDS: SLF 3 ML SYR IV SCH ×3 (05:41→21:09)
[2019-12-24 06:40] LABS: HEMATOCRIT 26.5 % (42.0-52.0); HEMOGLOBIN 9.3 g/dl (13.5-17.5); MEAN CORPUSCULAR HEMOGLOBIN 31.5 pg (27.0-33.0); MEAN CORPUSCULAR HGB CONC 35.1 g/dl (32.0-36.5); MEAN CORPUSCULAR VOLUME 89.8 fl (80.0-96.0); RED BLOOD COUNT 2.95 10^6/uL (4.30-6.10); WHITE BLOOD COUNT 3.9 10^3/uL (4.0-10.0)
[2019-12-24 06:41] LABS: PLATELET COUNT, AUTOMATED 91 10^3/uL (150-450)
[2019-12-24] MEDS ORDERED: VANCOMYCIN HCL 500 MG in D5W MINI-BAG PLUS 100 ML IV ONE (06:45)
[2019-12-24 07:09] LABS: ALBUMIN 1.7 GM/DL (3.2-5.2); ALT/SGPT 32 U/L (12-78); BILIRUBIN,TOTAL 1.1 MG/DL (0.2-1.0); BLOOD UREA NITROGEN 4 MG/DL (7-18); CALCIUM LEVEL 8.1 MG/DL (8.8-10.2); CARBON DIOXIDE LEVEL 24 MEQ/L (21-32); CHLORIDE LEVEL 95 MEQ/L (98-107); CREATININE FOR GFR 0.43 MG/DL (0.70-1.30); GLOMERULAR FILTRATION RATE > 60.0 (>49); GLUCOSE, FASTING 67 MG/DL (70-100); POTASSIUM SERUM 3.5 MEQ/L (3.5-5.1); SODIUM LEVEL 126 MEQ/L (136-145); TOTAL PROTEIN 4.9 GM/DL (6.4-8.2)
[2019-12-24] MEDS: PANTOPRAZOLE 40MG VIAL (C9113 PER 1) IV SCH ×2 (08:06→17:10)
[2019-12-24] MEDS: THIAMINE 100 MG TAB PO SCH (08:07)
[2019-12-24] MEDS: FOLIC ACID 1 MG TAB PO SCH (08:07)
[2019-12-24] MEDS: MULTIVITAMINS/MINERALS THERAP 1 TAB PO SCH (08:07)
--- NOTE | 2019-12-24 08:19 | REP ---
PORTABLE CHEST X-RAY: Single view. HISTORY: Shortness of breath. COMPARISON CHEST X-RAY: December 23, 2019. FINDINGS: Oxygen delivery tubing is seen. There is pleural opacity in the bases consistent with bilateral pleural effusion. Some fissural thickening is noted in the minor fissure region on the right. Skin folds overlie the chest bilaterally. There is some plate-like atelectasis on the right improved. I cannot exclude increased markings in the parenchyma of the left lung base. Old post-traumatic changes noted at the left shoulder. There are displaced right posterior rib fractures again noted. IMPRESSION: Bilateral pleural effusions. Question increased markings left base. Electronically Signed by Oscar Landers MD 12/24/2019 09:29 A
[2019-12-24 08:38] LABS: MAGNESIUM LEVEL 1.7 MG/DL (1.8-2.4)
[2019-12-24] MEDS ORDERED: VANCOMYCIN HCL 1,000 MG, VIAL MATE ADAPTER 1 EACH in D5W 250 ML IV SCH (09:00)
[2019-12-24] MEDS: VANICREAM MOISTURIZING SKIN CREAM 113GM TUBE TOP SCH ×2 (09:00→21:08)
[2019-12-24] MEDS ORDERED: MAGNESIUM OXIDE 400 MG TAB (MAG-OX) PO SCH (09:00)
[2019-12-24] MEDS ORDERED: LevoFLOXacin IV 750 MG in IV 1 EA IV STA (13:35)
[2019-12-24] MEDS ORDERED: SODIUM CHLORIDE 0.9% 1000ML IV ONE (13:45)
[2019-12-24 13:51] LABS: ABG HCO3 23.9 MEQ/L (22.0-26.0); ABG O2 SATURATION 91.6 % (95.0-99.0); ABG PARTIAL PRESSURE CO2 46.2 mmHg (35.0-45.0); ABG STANDARD HCO3 22.7 MEQ/L (22.0-26.0); ABG TOTAL CO2 25.3 MEQ/L (23.0-31.0); ABG pH (ARTERIAL) 7.332 UNITS (7.350-7.450)
[2019-12-24] MEDS ORDERED: MAG SULF 1GM/100ML (MAG RUN) 1 GM in IV 1 EA IV STA (13:53)
[2019-12-24] MEDS ORDERED: SODIUM CHLORIDE 0.9% 3ML NEB SOLUTION FOR INHALATION INH SCH (14:00)
[2019-12-24 14:08] LABS: HEMATOCRIT 26.3 % (42.0-52.0); HEMOGLOBIN 8.8 g/dl (13.5-17.5); MEAN CORPUSCULAR HEMOGLOBIN 30.6 pg (27.0-33.0); MEAN CORPUSCULAR HGB CONC 33.5 g/dl (32.0-36.5); MEAN CORPUSCULAR VOLUME 91.3 fl (80.0-96.0); RED BLOOD COUNT 2.88 10^6/uL (4.30-6.10); WHITE BLOOD COUNT 2.5 10^3/uL (4.0-10.0)
[2019-12-24 14:09] LABS: PLATELET COUNT, AUTOMATED 81 10^3/uL (150-450)
[2019-12-24] MEDS ORDERED: NS 1,000 ML IV STA (14:19)
[2019-12-24] MEDS ORDERED: NS 1,000 ML IV ONE (14:30)
[2019-12-24 14:32] LABS: BLOOD UREA NITROGEN 4 MG/DL (7-18); CALCIUM LEVEL 7.8 MG/DL (8.8-10.2); CARBON DIOXIDE LEVEL 24 MEQ/L (21-32); CHLORIDE LEVEL 95 MEQ/L (98-107); CREATININE FOR GFR 0.44 MG/DL (0.70-1.30); GLOMERULAR FILTRATION RATE > 60.0 (>49); GLUCOSE, FASTING 124 MG/DL (70-100); POTASSIUM SERUM 3.5 MEQ/L (3.5-5.1); SODIUM LEVEL 126 MEQ/L (136-145)
[2019-12-24] MEDS ORDERED: ETOMIDATE INJ 20MG/10ML VIAL As Ordered ONE (15:02)
[2019-12-24] MEDS ORDERED: SUCCINYLCHOLINE INJ 200 MG/10 ML VIAL (J0330) As Ordered ONE (15:03)
[2019-12-24] MEDS ORDERED: PROPOFOL 1,000 MG/100 ML VIAL As Ordered ONE (15:04)
[2019-12-24 15:23] LABS: ANISOCYTOSIS 1+; BASOPHILS 5 % (0-1); EOSINOPHILS 5 % (0-3); LYMPHOCYTES 27 % (16-44); MONOCYTES 4 % (0-5); NEUTROPHILS 58 % (28-66); PLATELET ESTIMATE DECREASED (NORMAL)
[2019-12-24 15:24] LABS: CRENATED RBC 1+; POIKILOCYTOSIS 1+
[2019-12-24] MEDS ORDERED: ETOMIDATE INJ 20MG/10ML VIAL IV STA ×2 (15:25→15:49)
[2019-12-24] MEDS ORDERED: SUCCINYLCHOLINE INJ 200 MG/10 ML VIAL (J0330) IV STA ×2 (15:25→15:49)
--- NOTE | 2019-12-24 15:36 | IPNPDOC ---
Text Note Date of Service The patient was seen on 12/24/19. NOTE Pt is examined this morning. Denies any dyspnea, fever, chills, abdominal pain, or suprapubic pain. PHYSICAL EXAMINATION: VITAL SIGNS: Please see below. GENERAL:alert and awake, not in acute distress HEENT: Head normocephalic, multiple macular erythematous lesions on face i mproving. Poor dentation CARDIOVASCULAR: RRR, normal S1 and S2 no murmur RESPIRATORY: mildly diminished breath sounds b/l, good air entry b/l mild rales b/l, a lot of transmitted sounds. ABDOMINAL: no guarding or distention, bowel sound aus in all 4 quad EXTREMITIES: warm and well perfused, dystrophic nails.No obvious edema in b/l LE NEUROLOGICAL: alert and oriented to name and place however thought he is in 2023. No obvious hallucination or disorientation noted. PSYCHOLOGICAL: mood roughly stable no agitation noted ASSESSMENT AND PLAN: This is a 64 yo male with chronic hx of alcoholism being sent to [facility] ER d/t altered mental status noted to have anemia, hypothermia and tachycardia 1. Shock likely hypovolemic, resolved. Hypovolemic 2/2 decreased oral intake d/t metabolic encephalopathy for unknown duration. Pt was hypotensive, hypothermic, and tachycardic with limited urine output upon admission. 6 units of albumin transfused on 12/17/2019. Pt on Puree diet with Dave BID, encourage PO intake 2. Metabolic Encephalopathy from starvation ketoacidosis and/or alcohol withdrawal. Cont neuro checks, vitals. Ammonia and lactic acid level wnl. UA pos for leukocyte esterase and WBC; urine cx pos for proteus. Blood cx neg; repeat blood cx neg X2. Continue tele, folic, thiamine. Cont Ativan PRN CIWA protocol. 3. Starvation ketoacidosis, likely 2/2 decreased oral intake 2/2 alcohol withdrawal for unknown duration period, resolved. D/C IVF; encourage PO intake. Cont thiamine daily 4. Alcohol withdrawal, extremity tremors noted upon admission with elevated CIWA score, resolved. Cont Ativan PRN and CIWA. Seizure precaution. b/l UE tremors resolved. 5. Chronic hyponatremia, likely secondary third spacing. Cont to f/u BMP. Encourage PO intake. 6. Hypokalemia, likely 2/2 chronic alcohol use and/or poor oral intake, resolved after repletion. F/u BMP 7. Hypomagnesemia, likely 2/2 chronic alcohol use and/or poor oral intake. 1 Mg run ordered 12/21/2019 with Mag ox daily. F/u Mag level 8. Alcoholism, chronic. Hx of chronic alcoholism. Cont, folic acid, multivitamin. Changed thiamine PO now. Lipase elevated however pt indicated no abd pain; no CT evidence showing pancreatitis. 9. Alcoholic liver disease, likely alcoholic hepatitis, AST: ALT>2 to 1. Improving. Counseled pt regarding alcohol cessation when pt mental status improves. Doppler US liver ordered without obvious nodularity documented.. 10. Normocytic anemia 2/2 anemia of chronic disease, improved s/p 2 units PRBC transfusion. Hg baseline around 9-10. Iron studies consistent with anemia of chronic disease vs inflammatory anemia. S/p 2 PRBC transfusion. It was noted that melena was observed in ER; pt was noted to have large melena 12/19/2019. Surgery was consulted and thought GI blood loss etiology is less likely.Currently stable around 8. Trend H&H, if stable consider outpt followup. Cont GI prophylaxis for now until occult blood returns 11. Elevated TSH, likely 2/2 euthyroid sick syndrome vs subclinical hypothyroidism. T4 wnl. However as pt is symptomatic with hypothermia, will start him on initiating dose of levothyroxine. F/u thyroid panel outpt in 6 wks 12. Pneumonia, likely aspiration vs pneumonitis. CXT 12/16/2019 showed bibasilar opacities particularly in the left retrocardiac region. Pt leukopenic with neutrophil%wnl. Levofloxacin completed. MRSA screen neg. Urine legionella and strep antigen neg. 13. Asymptomatic cholelithiasis. Gallbladder US ordered showed probable ga llstones in the gallbladder; gallbladder wall thickening up to 6 mm. However pt revealed no abd pain; no fever or chills. F/u outpatient DISPO: Anticipating medically clear 24-48 hrs. Pending bed availability to subacute rehab VSIta, I+O VS, Ita, I+O Laboratory Tests 12/24/19 06:28 12/24/19 13:52 Vital Signs Date Time Temp Pulse Resp B/P (MAP) Pulse Ox O2 Delivery O2 Flow Rate FiO2 12/24/19 12:30 86.0 12/24/19 12:00 70 18 130/79 (96) 92 Nasal Cannula 2.0 I&O- Last 24 Hours up to 6 AM 12/24/19 06:00 Intake Total 2150 ml Output Total 1100 ml Balance 1050 ml GME ATTESTATION GME ATTESTATION My faculty preceptor for this patient encounter was physically present during the encounter and was fully available. All aspects of the patient interview, examination, medical decision making process, and medical care plan development were reviewed and approved by the faculty preceptor. The faculty preceptor is aware and concurs with the plan as stated in the body of this note and will attest to such by his/her cosignature. ATTENDING NOTE PT WAS SEEN AND EXAMINED BY ME, AGREE WITH THE ABOVE ASSESSMENT AND PLAN. PK PENA MD Dec 24, 2019 15:36
[2019-12-24] MEDS ORDERED: MIDAZOLAM HCL 100 MG in D5W 80 ML IV SCH (15:40)
[2019-12-24] MEDS ORDERED: NOREPINEPHRINE 4 MG/4 ML AMP As Ordered ONE (15:53)
[2019-12-24] MEDS ORDERED: NOREPINEPHRINE BITARTRATE 8 MG in D5W 492 ML IV SCH ×2 (16:00→16:30)
--- NOTE | 2019-12-24 16:11 | RO ---
DATE OF PROCEDURE: 12/24/2019 PREPROCEDURE DIAGNOSIS: Respiratory failure, acute respiratory distress and altered mental status. POSTPROCEDURE DIAGNOSIS: PROCEDURE: Endotracheal intubation. SURGEON: Alonso Washington DO [employer] CDL A DRIVER: None ANESTHESIA: 20 mg of etomidate, 100 mg of succinylcholine. Patient was listed as FULL CODE. There was no one at bedside to help with decision making; therefore, this was an unconsented urgent emergent procedure. DESCRIPTION OF PROCEDURE: The patient was placed in the supine position and pre-oxygenated at 100%. Rapid sequence intubation was initiated with the use of etomidate followed directly by succinylcholine. After adequate sedation followed by paralyzation, the #3 GlideScope was used to view the posterior pharynx. There was a grade 1 view with significant amounts of mucus in the posterior pharynx. An 8.0 endotracheal tube was advanced into the airway without difficulty. Stylus was removed and cuff was inflated. Confirmation was performed with end-tidal CO2 monitoring, auscultation and chest x-ray. There were no observed complications. The patient's oxygen saturation remained above 95% during the entire procedure. [facility]ITAL[facility]
--- NOTE | 2019-12-24 16:18 | RO ---
DATE OF PROCEDURE: 12/24/2019 PREPROCEDURE DIAGNOSIS: Hypotension. POSTPROCEDURE DIAGNOSIS: Hypotension. PROCEDURE: Left internal jugular venous triple-lumen catheter placement. SURGEON: Alonso Washington DO [employer] ARCHITECT: None. ANESTHESIA: The patient was already sedated on mechanical ventilation. CONSENT: Procedure was deemed urgent. There was no one available for consent. He has no healthcare proxy listed; therefore the procedure was deemed urgent emergent in order to save his life. DESCRIPTION OF PROCEDURE: The left internal jugular (IJ) was prepped and draped in a sterile manner with chlorhexidine and full barrier precautions. The ultrasound was used to guide all incisions and needle. The left IJ was easily viewed under ultrasound; this was significantly collapsible. Estimated central venous pressure less than 5. On the second pass, the IJ was entered with return of venous blood flow. Wire was fed through the needle, the needle was removed. A darion in the skin was made, dilator was advanced and removed. Triple-lumen catheter was then advanced to 15 cm and the wire was removed. All three ports returned venous blood flow and flushed easily. This was sutured in 15 cm, impregnated dressing placed over the site. Postprocedure chest x-ray shows no evidence of complications. There is no evidence of pneumothorax. And the tip of the catheter is in the superior vena cava (SVC).
--- NOTE | 2019-12-24 16:19 | REP ---
REASON: Dyspnea. COMPARISON: Multiple, the latest earlier today. Since the latest prior obtained today at 6 a.m., an endotracheal tube has been placed, the tip of which is in satisfactory position at the level of the clavicular heads. A left-sided internal jugular central venous catheter has also been placed since the last exam, the tip of which is in the left brachiocephalic vein. The technique utilized in obtaining the radiograph has magnified the cardiac silhouette and accentuated the interstitial markings. Once again, there are bibasilar opacities, essentially unchanged when the technical differences between the examinations are taken into consideration. Bilateral pleural effusions/pneumonia/subsegmental atelectatic change suspected. In addition, there are patchy opacities seen throughout the lung kraft, status quo. There is no change in the osseous structures. IMPRESSION: 1. Tube and line, as described above. 2. Abnormal lung kraft, as described above. Electronically Signed by Ferny Renee DO 12/24/2019 05:06 P
[2019-12-24 16:28] LABS: ABG BASE EXCESS -3.9 (-2.0-2.0); ABG HCO3 21.2 MEQ/L (22.0-26.0); ABG PARTIAL PRESSURE CO2 38.4 mmHg (35.0-45.0); ABG PARTIAL PRESSURE O2 111.3 mmHg (75.0-100.0); ABG STANDARD HCO3 21.2 MEQ/L (22.0-26.0); ABG TOTAL CO2 22.3 MEQ/L (23.0-31.0); ABG pH (ARTERIAL) 7.359 UNITS (7.350-7.450)
--- NOTE | 2019-12-24 16:28 | CCN ---
DATE OF SERVICE: 12/24/2019 CRITICAL CARE TIME: 1 hour and 35 minutes; this excludes all procedures. I was called to Mr. Avila's bedside for hypotension. On my arrival, the patient was altered, combative, could not answer any questions, had severe respiratory distress and sounded as if he was gurgling on his own secretions. It was clear that he was having significant difficulty with respirations and needed to be intubated. Therefore, intubation was performed and at the time I was seeing him his systolic blood pressure was 113 as he recently received a normal saline bolus. After intubation, blood pressure decreased down to a systolic of 60. IV fluids were initiated along with Levophed. His story is quite long, but not as well documented in the chart as I would of have hoped. Apparently, this gentleman has a known history of alcohol abuse. Was [facility] in his own stool. Was admitted with hypothermia and what was thought to be alcohol withdrawal with hypovolemic shock and the possibility of a urinary tract infection. He was placed on Levaquin. Later, after he improved from this initial insult, he had episodes of aspiration. He was switched from Levaquin to Zosyn on 12/22/2019 for an unknown reason. This morning he was very hypothermic with a temperature of 85, altered and hypoxic. Chest x-ray shows diffuse infiltrate without dense consolidation. He has pancytopenia with minimal bandemia and worsening hyponatremia over the past few days. There is no one to help provide his history. PHYSICAL EXAMINATION: Temperature is 96.5. Pulse is 70. Respiratory rate is 18. Blood pressure was 68/40. Oxygen saturations upon my arrival to the room were 88% on non-rebreather. General: The patient as mentioned above combative, agitated, unable to speak clearly, in severe distress with gurgling respirations. HEENT: The left pupil is greater than the right, pupil is dilated at 7 mm, the right is only 5 mm and reactive to light. Mucous membranes are dry. Tongue is midline. Very few teeth. Very poor dentition. Mallampati 1. Neck: Supple. No tracheal deviation. No mass. Lymph Nodes: No cervical, supraclavicular, or axillary adenopathy. There was no elevated jugular venous pulse (JVP). Pulmonary: Diffuse rhonchi throughout both lung kraft with prolonged expiratory phase. There is no dullness to percussion. No accessory muscle use. Cardiac: Tachycardiac, S1-S2. Without audible murmur, rub, or gallop. No elevated JVP. No systemic edema. Abdomen: Soft, nontender, nondistended. No hepatosplenomegaly. No masses. Slightly scaphoid. Appears malnourished. There was no evidence of sacral edema. No evidence of scrotal edema. Extremities: Some venous stasis abnormalities. Minimal erythema without evidence of cellulitis. Some superficial excoriations. No significant pitting edema of the lower extremities. Laboratory evaluation shows a sodium 126, potassium 3.5, chloride 95, bicarbonate of 24, with a BUN of 4, creatinine 0.44, glucose of 124. White blood cell count is down to 2.5 with 1% bandemia. Hemoglobin 8.8. Lactic acid is up to 2.6, with a platelet count of 81. Chest x-ray shows that the endotracheal tube is slightly high, will advance this. A left internal jugular (IJ) in place. There is diffuse infiltrate throughout both lung kraft without dense consolidation. No evidence of pleural effusion. No evidence of pneumothorax. IMPRESSION: 1. Respiratory failure likely from chronic recurrent aspirations. The patient demonstrating inability to handle his own secretions at this point in time. May require bronchoscopy, but at this point in time is on mechanical ventilation with an FiO2 of 40%, PEEP of 10, with adequate oxygen saturations, without evidence of mucus plugging. 2. Pancytopenia. Will continue to monitor. Likely from poor nutritional state. 3. Hyponatremia. Likely from dehydration. Sodium earlier in this hospitalization was 137, has been trending down for at least the last 4 days. 4. Metabolic encephalopathy from septic shock. 5. Septic shock. Most likely source is pneumonia. Will add vancomycin to his regimen. 6. History of alcohol withdrawal with borderline impairment of mentation. He is already passed the point of alcohol withdrawal. 7. Severe protein malnourishment. Will initiate tube feeds. He is already on folic acid and thiamine to prevent refusing syndrome. 8. Recent urinary tract infection and wound infection with Proteus and Enterobacter. The patient is on Zosyn currently. Will add vancomycin to cover for the new pneumonia due to the severity of the shock. 9. Deep venous thrombosis (DVT) prophylaxis with thromboembolism deterrents (TEDs) and Mervin's due to thrombocytopenia. 10. Gastrointestinal (GI) prophylaxis Protonix once a day. Overall, the patient's prognosis is extremely guarded due to the severity of his protein malnourishment. Customizer was alerted to his current state.
[2019-12-24] MEDS ORDERED: REFRIGERATOR IV KEYS XX PRN (16:30)
[2019-12-24] MEDS: MIDAZOLAM HCL 100 MG in D5W 80 ML IV SCH (17:18)
[2019-12-24] MEDS: IPRATROPIUM 0.5MG/ALBUTEROL 2.5MG INH SOL UD 3ML (DUONEB) NEB SCH (19:41)
[2019-12-24 19:42] LABS: ALBUMIN 1.4 GM/DL (3.2-5.2); ALT/SGPT 26 U/L (12-78); BILIRUBIN,TOTAL 1.1 MG/DL (0.2-1.0); BLOOD UREA NITROGEN 3 MG/DL (7-18); CALCIUM LEVEL 6.8 MG/DL (8.8-10.2); CARBON DIOXIDE LEVEL 22 MEQ/L (21-32); CHLORIDE LEVEL 100 MEQ/L (98-107); CREATININE FOR GFR 0.34 MG/DL (0.70-1.30); GLOMERULAR FILTRATION RATE > 60.0 (>49); GLUCOSE, FASTING 127 MG/DL (70-100); SODIUM LEVEL 130 MEQ/L (136-145); TOTAL PROTEIN 3.5 GM/DL (6.4-8.2)
--- NOTE | 2019-12-24 19:44 | ECGEPIP ---
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
[2019-12-24 19:50] LABS: CREATININE, URINE 55.5 MG/DL; MALB URINE SIEMENS 71.9 MG/L; MAU/CREAT RATIO 129.5 MCG/MG (0.0-30.0)
[2019-12-24] MEDS ORDERED: VANCOMYCIN HCL 750 MG, VIAL MATE ADAPTER 1 EACH in D5W 250 ML IV ONE ×2 (20:00→21:00)
[2019-12-24] MEDS: MAG SULF 1GM/100ML (MAG RUN) 1 GM in IV 1 EA IV SCH ×2 (20:12→21:08)
[2019-12-24] MEDS: KCL 20MEQ IN 100ML SWI (KRUN) 20 MEQ in IV 1 EA IV SCH ×4 (21:02→23:48)
[2019-12-24] MEDS ORDERED: MAGNESIUM SULFATE 1GM/100ML D5W BAG (10MG/ML) As Ordered ONE (21:05)
[2019-12-24] MEDS: CHLORHEXIDINE GLUCONATE 0.12 % 15ML UDC (PERIDEX ORAL RINSE) MT SCH (21:08)
[2019-12-25] VITALS (77 sets, daily range): BP systolic 74–151; BP diastolic 41–79
[2019-12-25] MEDS: PIPERACILLIN/TAZOBACTAM SOD 4.5 GM in D5W MINI-BAG PLUS 50 ML IV SCH ×4 (00:45→18:40)
[2019-12-25] MEDS: NOREPINEPHRINE BITARTRATE 8 MG in D5W 492 ML IV SCH ×3 (01:19→14:00)
[2019-12-25 01:49] LABS: BLOOD UREA NITROGEN 3 MG/DL (7-18); CALCIUM LEVEL 6.3 MG/DL (8.8-10.2); CARBON DIOXIDE LEVEL 19 MEQ/L (21-32); CHLORIDE LEVEL 101 MEQ/L (98-107); CREATININE FOR GFR 0.42 MG/DL (0.70-1.30); GLOMERULAR FILTRATION RATE > 60.0 (>49); GLUCOSE, FASTING 171 MG/DL (70-100); POTASSIUM SERUM 3.7 MEQ/L (3.5-5.1); SODIUM LEVEL 126 MEQ/L (136-145)
[2019-12-25] MEDS ORDERED: NS 1,000 ML IV ONE (02:30)
[2019-12-25] MEDS: HYDROCORTISONE 100 MG/2 ML VIAL (J1720 PER 1) IV SCH ×3 (02:47→18:15)
[2019-12-25] MEDS: VASOPRESSIN INJ 20 UNITS in NS 499 ML IV SCH ×2 (02:47→10:16)
[2019-12-25 05:07] LABS: HEMATOCRIT 25.7 % (42.0-52.0); HEMOGLOBIN 9.1 g/dl (13.5-17.5); MEAN CORPUSCULAR HEMOGLOBIN 31.6 pg (27.0-33.0); MEAN CORPUSCULAR HGB CONC 35.4 g/dl (32.0-36.5); MEAN CORPUSCULAR VOLUME 89.2 fl (80.0-96.0); PLATELET COUNT, AUTOMATED 116 10^3/uL (150-450); RED BLOOD COUNT 2.88 10^6/uL (4.30-6.10); WHITE BLOOD COUNT 7.3 10^3/uL (4.0-10.0)
[2019-12-25 05:37] LABS: ALBUMIN 1.5 GM/DL (3.2-5.2); ALT/SGPT 27 U/L (12-78); BLOOD UREA NITROGEN 3 MG/DL (7-18); CALCIUM LEVEL 6.9 MG/DL (8.8-10.2); CARBON DIOXIDE LEVEL 21 MEQ/L (21-32); CHLORIDE LEVEL 98 MEQ/L (98-107); CREATININE FOR GFR 0.49 MG/DL (0.70-1.30); GLOMERULAR FILTRATION RATE > 60.0 (>49); GLUCOSE, FASTING 176 MG/DL (70-100); POTASSIUM SERUM 4.2 MEQ/L (3.5-5.1); SODIUM LEVEL 127 MEQ/L (136-145); TOTAL PROTEIN 4.6 GM/DL (6.4-8.2)
[2019-12-25 06:02] LABS: ABG BASE EXCESS -4.7 (-2.0-2.0); ABG HCO3 18.6 MEQ/L (22.0-26.0); ABG O2 SATURATION 98.4 % (95.0-99.0); ABG PARTIAL PRESSURE CO2 28.6 mmHg (35.0-45.0); ABG PARTIAL PRESSURE O2 112.2 mmHg (75.0-100.0); ABG STANDARD HCO3 20.6 MEQ/L (22.0-26.0); ABG TOTAL CO2 19.5 MEQ/L (23.0-31.0); ABG pH (ARTERIAL) 7.432 UNITS (7.350-7.450)
[2019-12-25] MEDS: LEVOTHYROXINE 12.5MCG PER 1/2 TAB (0.0125MG) PO SCH (06:32)
[2019-12-25] MEDS: SLF 3 ML SYR IV SCH ×4 (06:32→21:29)
[2019-12-25] MEDS: IPRATROPIUM 0.5MG/ALBUTEROL 2.5MG INH SOL UD 3ML (DUONEB) NEB SCH ×4 (07:24→19:49)
[2019-12-25] MEDS ORDERED: VANCOMYCIN HCL 1,000 MG, VIAL MATE ADAPTER 1 EACH in D5W 250 ML IV SCH (09:00)
[2019-12-25] MEDS: PANTOPRAZOLE 40MG VIAL (C9113 PER 1) IV SCH (09:31)
[2019-12-25] MEDS: CHLORHEXIDINE GLUCONATE 0.12 % 15ML UDC (PERIDEX ORAL RINSE) MT SCH ×2 (09:31→20:11)
[2019-12-25] MEDS: THIAMINE 100 MG TAB PO SCH (09:31)
[2019-12-25] MEDS: FOLIC ACID 1 MG TAB PO SCH (09:31)
[2019-12-25] MEDS: VANICREAM MOISTURIZING SKIN CREAM 113GM TUBE TOP SCH ×2 (09:32→20:10)
--- NOTE | 2019-12-25 09:43 | REP ---
PORTABLE CHEST X-RAY: Single view. HISTORY: Respiratory failure. COMPARISON CHEST X-RAY: December 24, 2019. FINDINGS: Endotracheal tube remains in good position just above the transverse aorta. An NG tube has been passed in the left upper quadrant. There are a bilateral pleural effusions again noted. Monitoring electrodes and oxygen delivery tubing are seen. Right posterior rib fractures are again seen. There is an area of parenchymal consolidation in the right upper perihilar region. This is a little more prominent than on prior study. Right apical consolidation is obscured by overlying tubing. No new infiltrate is appreciated. Electronically Signed by Oscar Landers MD 12/25/2019 12:46 P
[2019-12-25] MEDS: ENOXAPARIN 30MG/0.3ML SYRINGE (J1650 PER 10MG) SC SCH (13:05)
[2019-12-25] MEDS: MIDAZOLAM HCL 100 MG in D5W 80 ML IV SCH (14:17)
--- NOTE | 2019-12-25 14:22 | IPNPDOC ---
Date Seen The patient was seen on 12/25/19. Progress Note SUBJECTIVE: Patient was seen and examined this morning. Since yesterday it has been apparent that the patient has decompensated and developed septic shock likely secondary to aspiration pneumonia. He was noted to be hypothermic and hypotensive with altered mentation yesterday. He was seen and evaluated by Pulmonary/Critical Care medicine who intubated the patient. He had central venous access obtained and was subsequently started on levophed and vasopressin. This morning he continues to remain on levophed and vasopressin. He remains intubated and critically ill at this time. OBJECTIVE PHYSICAL EXAMINATION: VITAL SIGNS: Please see below. GENERAL: Sedated and intubated and mechanically ventilated. Appears critically ill HEENT: Endotracheal tube is in place. NG tube in place CARDIOVASCULAR: Normal S1, S2. Regular rate and rhythm. No clicks, rubs, or murmurs RESPIRATORY: Rhonchi throughout. Intubated and mechanically intubated. symmetric chest expansion ABDOMINAL: Soft, nondistended. normoactive bowel sounds EXTREMITIES: No edema. Full and equal pulses bilaterally NEUROLOGICAL: No focal neurological deficits LABORATORY DATA, IMAGING STUDIES, MICROBIOLOGY: Please see below. DVT prophylaxis ordered?: Lovenox ASSESSMENT AND PLAN: Patient is a 64 year old male who presented to [facility] originally with altered mental status secondary to alcohol use. He was in the ICU at the time and clinically made improvement. He was transferred to PCU and eventually Med/Surg. The patient has a history of aspiration and was evaluated by speech therapy. The patient has been noted to have copious secretions. The patient himself had been suctioning himself while in the hospital. He was noted to aspirate on December 23 and started on Zosyn. The patient subsequently developed respiratory distress due to aspiration of respiratory secretions. He was noted to develop septic shock and was transferred to ICU where he was intubated and mechanically ventilated PROBLEMS: 1. Septic Shock 2/2 aspiration pneumonia -Patient developed septic shock. Currently he is followed by Pulmonary/Critical Care. He is currently intubated with mechanical ventilation. Remains on Levophed and vasopressin. -Currently on Vancomycin and Zosyn for empiric coverage -Differ current care to Pulmonary/Critical Care Medicine. Assistance is greatly appreciated. 2. Acute Hypoxemic Respiratory Failure secondary to aspiration -Patient noted to be unable to protect his airway. He has copious secretions. He has been intubated and mechanically ventilated. Given his continued aspiration he will need PEG tube placement. The patient has been unable to consent. At baseline he has deficits. The patient has no health care proxy on file. Listed next of kin is a brother however patient had stated previously not to contact the brother. Reportedly patient does have a sister. Will reach out to sister today to get direction in regards to goals of care. Patient will need a feeding tube. However given respiratory secretion aspiration he may potentially need placement of a tracheostomy tube. -Further management per Pulmonary/Critical Care 3. Severe Protein Malnutrition -Patient currently on tube feedings. Vitamin supplementation -Will likely need feeding tube placed during hospitalization given recurrent aspiration 4. GI Prophylaxis -Protonix 5. DVT Prophylaxis -Lovenox DISPOSITION: Patient is currently critically ill. 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 Will reach out to patients sister in regards to goals of care. Further care is deferred to Pulmonary/Critical care in light of his critical illness VS, I&O, 24H, Fishbone Vital Signs/I&O Vital Signs Date Time Temp Pulse Resp B/P (MAP) Pulse Ox O2 Delivery O2 Flow Rate FiO2 12/25/19 11:00 97.3 74 20 120/78 (92) 99 Ventilator 35 12/24/19 12:00 2.0 I&O- Last 24 Hours up to 6 AM 12/25/19 06:00 Intake Total 6355 ml Output Total 650 ml Balance 5705 ml Laboratory Data 24H LABS Laboratory Tests 2 12/24/19 13:44: Blood Gas Bicarbonate Standard 22.7, Arterial Blood pH 7.332L, Arterial Blood Partial Pressure CO2 46.2H, Arterial Blood Partial Pressure O2 70.0L, Arterial Blood Total CO2 25.3, Arterial Blood HCO3 23.9, Arterial Blood Base Excess -2.0, Arterial Blood Oxygen Saturation 91.6L 12/24/19 13:52: Nucleated Red Blood Cells % (auto) 0.0, Anion Gap 7L, Glomerular Filtration Rate > 60.0, Lactic Acid Level 2.6*H, Calcium Level 7.8L 12/24/19 14:38: Nucleated Red Blood Cells % (auto) 0.0, Neutrophils (%) (Auto) , Neutrophils 58, Band Neutrophils 1, Lymphocytes (Manual) 27, Monocytes (Manual) 4, Eosinophils (Manual) 5H, Basophils (Manual) 5H, Poikilocytosis 1+, Anisocytosis 1+, Crenated Cell 1+, Platelet Estimate DECREASED 12/24/19 16:19: Blood Gas Bicarbonate Standard 21.2L, Arterial Blood pH 7.359, Arterial Blood Partial Pressure CO2 38.4, Arterial Blood Partial Pressure O2 111.3H, Arterial B lood Total CO2 22.3L, Arterial Blood HCO3 21.2L, Arterial Blood Base Excess - 3.9L, Arterial Blood Oxygen Saturation 98.0 12/24/19 18:00: Central Line Venous O2 Saturation 99.1 12/24/19 18:56: Urine Color YELLOW, Urine Appearance HAZY, Urine pH 5.0, Urine Specific Shock 1.019, Urine Protein NEGATIVE, Urine Glucose (UA) NEGATIVE, Urine Ketones NEGATIVE, Urine Blood 1+H, Urine Nitrite NEGATIVE, Urine Bilirubin NEGATIVE, Urine Urobilinogen 0.2, Urine Leukocyte Esterase NEGATIVE, Urine WBC (Auto) 3, Urine RBC (Auto) 11H, Urine Hyaline Casts (Auto) 0, Urine Bacteria (Auto) NEGATIVE, Urine Squamous Epithelial Cells 0, Urine Calcium Oxalate Cryst (Auto) SMALL, Urine Mucus (Auto) SMALL, Urine Sperm (Auto) , Anion Gap 8, Glomerular Filtration Rate > 60.0, Lactic Acid Followup at 4 Hours 1.3, Calcium Level 6.8L, Total Bilirubin 1.1H, Aspartate Amino Transf (AST/SGOT) 33, Alanine Aminotransferase (ALT/SGPT) 26, Alkaline Phosphatase 87, Total Protein 3.5#L, Albumin 1.4L, Albumin/Globulin Ratio 0.7, Methicillin-Resist S.aureus DNA PCR NOT DETECTED 12/25/19 01:16: Anion Gap 6L, Glomerular Filtration Rate > 60.0, Calcium Level 6.3L 12/25/19 04:56: Anion Gap 8, Glomerular Filtration Rate > 60.0, Calcium Level 6.9L, Total Bilirubin 1.0, Aspartate Amino Transf (AST/SGOT) 31, Alanine Aminotransferase (ALT/SGPT) 27, Alkaline Phosphatase 105, Total Protein 4.6#L, Albumin 1.5L, Albumin/Globulin Ratio 0.5, Nucleated Red Blood Cells % (auto) 0.0 12/25/19 05:49: Blood Gas Bicarbonate Standard 20.6L, Arterial Blood pH 7.432, Arterial Blood Partial Pressure CO2 28.6L, Arterial Blood Partial Pressure O2 112.2H, Arterial Blood Total CO2 19.5L, Arterial Blood HCO3 18.6L, Arterial Blood Base Excess - 4.7L, Arterial Blood Oxygen Saturation 98.4 12/25/19 09:06: Random Vancomycin Level 14.4 CBC/BMP Laboratory Tests 12/24/19 13:52 12/24/19 18:56 12/25/19 01:16 12/25/19 04:56 Microbiology Microbiology 12/24/19 Gram Stain - Final, Resulted 12/24/19 Sputum Culture - Preliminary, Resulted Yeast Like Organism 12/24/19 Blood Culture, Received Pending 12/24/19 Blood Culture, Received Pending 12/23/19 Respiratory Virus Panel (PCR) ([facility]) - Final, Complete 12/21/19 Stool Occult Blood ([facility]) - Final, Complete 12/21/19 Gram Stain - Final, Complete 12/21/19 Wound Culture - Final, Complete Proteus Mirabilis 12/18/19 Blood Culture - Final, Complete NO GROWTH AFTER 5 DAYS 12/18/19 Blood Culture - Final, Complete NO GROWTH AFTER 5 DAYS 12/17/19 Urine Culture - Final, Complete Proteus Mirabilis Enterococcus Faecalis 12/15/19 Blood Culture - Final, Complete NO GROWTH AFTER 5 DAYS GME ATTESTATION GME ATTESTATION My faculty preceptor for this patient encounter was physically present during the encounter and was fully available. All aspects of the patient interview, examination, medical decision making process, and medical care plan development were reviewed and approved by the faculty preceptor. The faculty preceptor is aware and concurs with the plan as stated in the body of this note and will attest to such by his/her cosignature. ATTENDING NOTE Pt seen and examined by me. Agree with the above assessment and plan. ALEXANDER TRONCOSO DO Dec 25, 2019 14:22 PK PENA MD Dec 26, 2019 15:11
[2019-12-25 14:23] LABS: CREATININE,RANDOM URINE 58.8 MG/DL
--- NOTE | 2019-12-25 15:16 | CCN ---
DATE: 12/25/2019 The patient was seen and examined this morning during bedside rounds. Overnight the patient was noted to have increasing requirements of Levophed for vasopressor support. He was started on vasopressin in addition to the Levophed as well as stress dose steroids with hydrocortisone. He was up to 28 mcg per minute of Levophed. However overnight with the vasopressin and hydrocortisone he was able to be weaned down to 9 mcg of Levophed and with attempts to wean him off of vasopressin if tolerated. He did not have any fevers overnight. He was hypothermic initially but his temperature improved. The patient did receive IV fluid boluses as well for his blood pressure yesterday and overnight. PHYSICAL EXAMINATION: Temperature 98.8, pulse 82, respirations 21, blood pressure 113/63, oxygen saturation 96% on vent at 30% FiO2. Ins 5.3 liters, out 330 mL. General: The patient is intubated and sedated. He is withdrawing to painful stimuli but is not opening his eyes to commands or following other commands appropriately. HEENT: Normocephalic, atraumatic. The patient's pupils are sluggish but reactive to light bilaterally. His mucous membranes are dry. The patient has poor oral hygiene and poor dentition. He does have some chapped and scabbed lips as well. Neck is supple. Trachea is midline. No palpable adenopathy. No jugular venous distention (JVD) noted. Cardiac: Regular rate and rhythm. Normal S1, S2. Unable to appreciate any murmurs. Pulmonary: The patient has coarse breath sounds bilaterally with occasional rhonchi. No wheezing noted or crackles. Abdomen is soft, nontender, nondistended. No masses palpated. Extremities: Patient has minimal trace pitting edema in the lower extremities. He does have chronic venous stasis skin changes as well as multiple areas of scabbing and excoriations noted in the lower extremities with mild erythema. He does have an ulcer healing on the right lower extremity. The patient also has a healed decubitus ulcer. LABORATORY DATA: WBC 7.3, hemoglobin 9.1, platelets 116. Chemistry: Sodium is 127, potassium 4.2, chloride is 98, bicarbonate is 21, BUN 3, creatinine 0.49, glucose is 176. Lactic acid trended down to 1.3. Calcium 6.9. Total bilirubin 1.0. Albumin is 1.5. ABG: pH 7.432, pCO2 of 28.6, pO2 of 112.2. IMAGING: Chest x-ray shows endotracheal tube (ET) tube in good position. There is an orogastric (OG) tube coursing below the diaphragm in the left upper quadrant. There are bilateral patchy opacities with an area in the right upper perihilar region which appears more prominent on previous. There is right posterior rib fractures noted. There is evidence of small bilateral pleural effusions. There is a left internal jugular (IJ) triple lumen that is just crossing the midline. ASSESSMENT AND PLAN: Mr. Avila is a 64-year male with a past medical history of chronic alcohol abuse who presented with altered mental status thought to be secondary to metabolic encephalopathy from alcohol withdrawal. The patient also had significant ketoacidosis likely secondary to decreased oral intake and starvation. The patient was admitted initially on the floor where he was managed for his alcohol withdrawal as well as being treated with IV fluids for hypotension. He was initially on Levaquin. However, he was noted to have difficulty swallowing and failed a speech and swallow evaluation and had reportedly copious mucus secretions which he was initially suctioning on his own. The patient's chest x-ray had noted worsening opacities and he was brought in to [facility] a few days ago for aspiration pneumonia. Yesterday the patient was seen by critical care as he was hypotensive and more altered and lethargic. The patient appeared to have difficulty managing his secretions and was intubated emergently. Post intubation the patient was hypotensive in shock likely a combination of septic shock as well as hypovolemic shock. He was given fluids and started on Levophed for blood pressure support. Overnight he had required increasing amounts of Levophed for his septic shock and so was started on vasopressin as well as stress dose steroids with improvement. Neuro: Metabolic encephalopathy currently likely due to sepsis and septic shock. Previous had episodes of encephalopathy during his admission thought to be due to alcohol withdrawal. - Will repeat ammonia level. - Patient is on sedation while intubated with Versed drip. This morning he was responsive to painful stimuli but was not opening his eyes or following commands appropriately. Will continue with daily sedation vacation and monitor for weaning. - Continue with thiamine and folate supplementation given his history of chronic alcohol abuse. - Continue monitoring for seizures. - Continue sedation for a target rest of 2-3. Cardiac: Septic shock thought to be secondary to sepsis. Also possible component of adrenal insufficiency secondary to his sepsis as well as possibly from his chronic alcohol abuse. - The patient was given Levophed initially for vasopressor support. However, he was requiring increasing amounts of Levophed and therefore added the vasopressin as well as stress dose steroids with hydrocortisone with improvement. Will continue to titrate down the Levophed and will wean off vasopressin as tolerated and continue weaning down Levophed to maintain a mean arterial pressure (MAP) above 65. - Will continue hydrocortisone 50 mg every 8 hours IV for 3 days for stress dose steroids. - The patient's lactic acid trended down. - Will get an echocardiogram for evaluation as well for his shock and to ensure there is no cardiogenic component, although less likely. He does have a history of alcohol abuse and so may have a component of alcoholic cardiomyopathy. - Will continue to monitor and replete electrolytes as tolerated to maintain potassium above 4 and a MAP above 2. Pulmonary: The patient was intubated for airway protection as well as for acute respiratory failure secondary to aspiration pneumonia. The patient reportedly had issues with secretions and managing of his oral secretions during his admission. He had previously been suctioning on his own with a Yankauer, however on 12/24/2019 his respiratory status worsened and he was intubated. - Continue with mechanical ventilation. Will wean down his positive end-expiratory pressure (PEEP) and his respiratory rate so that he will be on volume control with settings of 420/15/35 and 8. Will continue wean down PEEP and FiO2 as tolerated to maintain oxygen saturation above 90%. - Continue with daily chest x-rays and ABGs while intubated. - Continue with vent bundle care with head of bed elevation and chlorhexidine mouthwash. - Continue with broad-spectrum antibiotics currently with vancomycin and Zosyn. His sputum culture was sent yesterday. Will followup results of sputum culture and de-escalate antibiotics appropriately. - Continue with daily weaning trials as tolerated. Gastrointestinal (GI): History of chronic alcohol abuse with likely alcoholic hepatitis and with mild transaminitis which had improved. - The patient has continued with supplementation with folic acid, multivitamin and thiamine. - Continue monitoring his liver function tests. - Will repeat ammonia level as well. - The patient has severe malnutrition with severe hypoalbuminemia. Will start his tube feeds today with Jevity and will add Beneprotein supplement as well. Will monitor residuals and titrate up to goal tube feeds as tolerated. Renal: The patient with hyponatremia as well as previous hypokalemia and hypomagnesemia which has improved. His hyponatremia may be in the setting of hypokalemia as well as with some third spacing due to his hypoalbuminemia. May also be secondary to decreased electrolyte intake as during his admission here he has had difficulty with tolerating oral intake. - The patient's hyponatremia was slowly improving. He has had decreased urine output now despite receiving multiple boluses of normal saline. He does not have any evidence of acute kidney injury (TAYO) currently. - Will order urine lytes for further evaluation of his hyponatremia and continue monitor his sodium. Heme: The patient with anemia initially received 2 units packed red blood cells (PRBC) on admission with improvement. Does not appear to have any evidence of active bleeding, although he did have observed melena initially on admission has not had any further episodes. The patient also has thrombocytopenia likely partially in the setting of his chronic alcohol abuse as well as now with his sepsis. The patient's platelets have been improving now. - Will start to deep venous thrombosis (DVT) prophylaxis with Lovenox. CODE STATUS: FULL CODE. Total critical care time spent, not including procedures, approximately 50 minutes. MTDD
[2019-12-25] MEDS: BLISTEX OINTMENT TOP SCH ×2 (16:00→20:10)
[2019-12-25] MEDS ORDERED: SLF 3 ML SYR IV PRN (17:00)
[2019-12-25] MEDS ORDERED: SODIUM CHLORIDE 0.9% INJ 10 ML SYR IV PRN (17:00)
[2019-12-25] MEDS: SODIUM CHLORIDE 0.9% INJ 10 ML SYR IV SCH (21:29)
[2019-12-25] MEDS: FLUCONAZOLE 200 MG in IV 1 EA IV SCH (21:29)
[2019-12-26] VITALS (51 sets, daily range): BP systolic 87–124; BP diastolic 51–74
[2019-12-26] MEDS ORDERED: LEVEMIR (INSULIN DETEMIR) 1 UNITS/0.01ML SC ONE
[2019-12-26] MEDS ORDERED: GLUCOSE 4GM CHEW TABLET PO PRN
[2019-12-26] MEDS ORDERED: GLUCAGON INJ 1MG VIAL SC PRN
[2019-12-26] MEDS ORDERED: DEXTROSE 50% 50 ML SYRINGE IV PRN
[2019-12-26] MEDS: HumaLOG INSULIN (NovoLOG) PER UNIT SC SCH ×7 (00:19→23:56)
[2019-12-26] MEDS: PIPERACILLIN/TAZOBACTAM SOD 4.5 GM in D5W MINI-BAG PLUS 50 ML IV SCH ×4 (01:43→18:13)
[2019-12-26] MEDS: HYDROCORTISONE 100 MG/2 ML VIAL (J1720 PER 1) IV SCH ×3 (02:42→18:12)
[2019-12-26] MEDS: NOREPINEPHRINE BITARTRATE 8 MG in D5W 492 ML IV SCH (02:43)
[2019-12-26 05:09] LABS: BASO % 0.1 % (0.0-1.0); HEMATOCRIT 22.4 % (42.0-52.0); HEMOGLOBIN 7.9 g/dl (13.5-17.5); LYMPH # 0.4 10^3/uL (1.5-5.0); LYMPH % 5.8 % (24.0-44.0); MEAN CORPUSCULAR HEMOGLOBIN 31.1 pg (27.0-33.0); MEAN CORPUSCULAR HGB CONC 35.3 g/dl (32.0-36.5); MEAN CORPUSCULAR VOLUME 88.2 fl (80.0-96.0); MONO # 0.2 10^3/uL (0.0-0.8); MONO % 3.1 % (0.0-5.0); NEUTROPHILS # 6.8 10^3/uL (1.5-8.5); NEUTROPHILS % 90.2 % (36.0-66.0); RED BLOOD COUNT 2.54 10^6/uL (4.30-6.10); WHITE BLOOD COUNT 7.5 10^3/uL (4.0-10.0)
[2019-12-26 05:11] LABS: PLATELET COUNT, AUTOMATED 98 10^3/uL (150-450)
[2019-12-26] MEDS: LEVOTHYROXINE 12.5MCG PER 1/2 TAB (0.0125MG) PO SCH (05:31)
[2019-12-26 05:35] LABS: ABG BASE EXCESS -2.6 (-2.0-2.0); ABG HCO3 20.4 MEQ/L (22.0-26.0); ABG PARTIAL PRESSURE CO2 28.3 mmHg (35.0-45.0); ABG PARTIAL PRESSURE O2 96.2 mmHg (75.0-100.0); ABG STANDARD HCO3 22.3 MEQ/L (22.0-26.0); ABG TOTAL CO2 21.2 MEQ/L (23.0-31.0); ABG pH (ARTERIAL) 7.475 UNITS (7.350-7.450)
[2019-12-26 05:42] LABS: BLOOD UREA NITROGEN 6 MG/DL (7-18); CALCIUM LEVEL 7.7 MG/DL (8.8-10.2); CARBON DIOXIDE LEVEL 22 MEQ/L (21-32); CHLORIDE LEVEL 102 MEQ/L (98-107); CREATININE FOR GFR 0.65 MG/DL (0.70-1.30); GLOMERULAR FILTRATION RATE > 60.0 (>49); GLUCOSE, FASTING 271 MG/DL (70-100); POTASSIUM SERUM 3.3 MEQ/L (3.5-5.1); SODIUM LEVEL 130 MEQ/L (136-145)
[2019-12-26] MEDS: SLF 3 ML SYR IV SCH ×6 (06:11→21:50)
[2019-12-26] MEDS: SODIUM CHLORIDE 0.9% INJ 10 ML SYR IV SCH ×3 (06:11→21:51)
[2019-12-26] MEDS: IPRATROPIUM 0.5MG/ALBUTEROL 2.5MG INH SOL UD 3ML (DUONEB) NEB SCH ×4 (07:17→19:47)
--- NOTE | 2019-12-26 08:08 | REP ---
Portable chest x-ray: Single view. History: Respiratory failure. Comparison study: December 25, 2019. Findings: The patient is rotated somewhat to the left for the current exposure. Endotracheal and nasogastric tubes remain in place in good position unchanged. Monitoring electrodes are seen. Pleural opacity persists in the bases bilaterally consistent with pleural effusion. Right-sided rib fractures are again noted. No new infiltrate. Electronically Signed by Oscar Landers MD 12/26/2019 07:59 A
[2019-12-26] MEDS: PANTOPRAZOLE 40MG VIAL (C9113 PER 1) IV SCH (09:34)
[2019-12-26] MEDS: CHLORHEXIDINE GLUCONATE 0.12 % 15ML UDC (PERIDEX ORAL RINSE) MT SCH ×2 (09:35→20:00)
[2019-12-26] MEDS: FOLIC ACID 1 MG TAB PO SCH (09:35)
[2019-12-26] MEDS: ENOXAPARIN 30MG/0.3ML SYRINGE (J1650 PER 10MG) SC SCH (09:35)
[2019-12-26] MEDS: THIAMINE 100 MG TAB PO SCH (09:35)
[2019-12-26] MEDS: KCL 20MEQ IN 100ML SWI (KRUN) 20 MEQ in IV 1 EA IV SCH ×4 (09:35→10:47)
[2019-12-26] MEDS: VANICREAM MOISTURIZING SKIN CREAM 113GM TUBE TOP SCH ×2 (09:36→20:01)
[2019-12-26] MEDS: BLISTEX OINTMENT TOP SCH ×3 (09:36→20:00)
[2019-12-26 09:41] LABS: MAGNESIUM LEVEL 1.4 MG/DL (1.8-2.4)
[2019-12-26 09:58] LABS: MAGNESIUM LEVEL 1.9 MG/DL (1.8-2.4); PHOSPHORUS LEVEL 2.4 MG/DL (2.5-4.9)
--- NOTE | 2019-12-26 12:58 | CCN ---
DATE: 12/26/2019 Patient was seen and examined this morning during bedside rounds. Overnight, patient was noted to be hyperglycemic after initiation of tube feeds. He does not have a previous history of diabetes, although patient has not been compliant with medical followup. He was given a dose of Levemir 10 units overnight and placed on sliding scale coverage. This morning, patient was noted to be somewhat hypothermic. He was placed on a warming blanket. He had sedation vacation of his Versed, however, he has not been opening his eyes or following commands appropriately. The patient was able to be weaned down on his Levophed to only 1 mcg/min. Patient has been tolerating tube feeds. PHYSICAL EXAM: Temperature 96.4, pulse 82, respirations 25, blood pressure 91/58, oxygen saturation 95% on 21% FiO2. Ins 4.4 liters, out 2.9 liters. General: Patient is intubated and sedated. He is withdrawing to painful stimuli but is not opening his eyes to commands or following other commands appropriately. HEENT: Normocephalic, atraumatic. There is some cachexia. The patient's pupils are small, reactive to light bilaterally. He has some poor oral hygiene and dentition. Patient has some chapped and scabbed lips. Neck is supple. Trachea is midline. No palpable adenopathy. No jugular venous distention (JVD) noted. Cardiac: Regular rate and rhythm. Normal S1, S2. Unable to appreciate any murmurs. Point of maximum impulse (PMI) is nondisplaced. Pulmonary: Patient has some coarse ventilator breath sounds bilaterally with occasional crackles at the bases. No significant wheezing or rhonchi. Abdomen: Soft, is nontender, nondistended. No masses palpated. Extremities: Patient has very trace edema in the lower extremities, mostly around his feet and ankles. He does have some chronic venous stasis skin changes as well as multiple areas of scabbing and excoriations noted in the lower extremities with mild erythema. Patient has an ulcer healing on the right lower extremity. He has a healed decubitus ulcer. LABS: WBC 7.5, hemoglobin 7.9, platelets are 98. Chemistry: Sodium is 127, potassium 3.3, chloride is 102, bicarbonate is 22, BUN 6, creatinine 0.65, glucose is 271. Ammonia level is less than 10. AB.475, pCO2 of 28.3, pO2 of 96.2. IMAGING: Chest x-ray this morning shows patient is rotated to the left. His endotracheal tube (ET) tube and orogastric (OG) tube appear to be in good position. There are small bilateral effusions and some patchy opacities bilaterally. There is a left internal jugular (IJ) triple lumen in place. ASSESSMENT AND PLAN: Mr. Avila is a 64-year male with a past medical history of chronic alcohol abuse who presented with altered mental status thought to be secondary to metabolic encephalopathy from alcohol withdrawal as well as possibly from his chronic alcohol use. Patient was initially admitted to the floor where he was managed for his alcohol withdrawal as well as for his malnutrition and hyponatremia. He was also on Levaquin initially for possible urinary tract infection (UTI). Patient had been having difficulty with swallowing and managing his oral secretions and had developed worsening opacities on x-ray. His antibiotics brought in to Zosyn, however, patient was subsequently noted to be more hypotensive as well as lethargic and unable to protect his airway. He was intubated emergently on 12/24/2019. Patient was also in septic shock, likely secondary to an aspiration pneumonia and had required vasopressors for blood pressure. Neuro: Metabolic encephalopathy, secondary to his sepsis and septic shock. Patient's sepsis appears to be improving, and suspect he does have some underlying baseline encephalopathy secondary to his chronic alcohol use and, perhaps, a component of Wernicke's as well. - Patient's ammonia level was normal. - Patient is on Versed for sedation. Versed was held this morning for sedation vacation; however, he is still not opening his eyes or following commands appropriately. Will cont to hold versed drip and use versed prn for sedation - Continue with thiamine and folate, given his history of chronic alcohol abuse. - Continue monitoring for seizures. - Continue sedation for a target RASS of 2-3. Cardiac: Patient has septic shock thought to be secondary to aspiration pneumonia. He was also thought to have a component of adrenal insufficiency secondary to his severe sepsis as well as from his chronic alcohol abuse and was given stress-dosed steroids. - Patient was has been weaned down on his vasopressor support. He is only on 1 mcg/min of Levophed currently. Will continue to wean down to maintain a MAP above 65. - Patient will be continued on hydrocortisone 50 mg every 8 hours for 3 days for stress-dose steroids. - Patient's lactic acid has improved. - Patient's echocardiogram is still pending. Pulmonary: Patient was intubated for airway protection due to his acute respiratory failure secondary to aspiration pneumonia with difficulty managing his oral secretions. - Continue with mechanical ventilation. Patient's vent settings will be changed to PRVC with settings of 420/15/30/6. His positive end-expiratory pressure (PEEP) was weaned down further today from 8 to 6. Will continue to adjust FiO2 to maintain oxygen saturation above 90%. - Continue with daily chest x-rays and arterial blood gasses (ABGs) while intubated. - Continue with vent bundle care with head of bed elevation as well as chlorhexidine mouthwash. - Patient was placed on broad-spectrum antibiotics for pneumonia with Zosyn and vancomycin. His methicillin-resistant Staphylococcus aureus (MRSA) screen was negative, and so will discontinue vancomycin and can continue with Zosyn for now. His sputum culture preliminary showed yeast. Fluconazole was added yesterday and will continue to de-escalate antibiotics appropriately as he clinically improves. - Continue with daily weaning trials as tolerated. Gastrointestinal (GI): History of chronic alcohol abuse with likely alcoholic hepatitis, initially with mild transaminitis, which had improved. - The patient also has severe protein malnutrition and hypoalbuminemia in the setting of his chronic alcohol abuse. - Continue with tube feeds. His tube feeds were adjusted to Vital AF with the addition of Dave protein supplement. He is tolerating tube feeds currently at goal, and will continue with monitoring residuals. - Continue with nutritional supplementation as well with folic acid, multivitamin, thiamine. Renal: Patient has hyponatremia as well as hypokalemia and hypomagnesemia. - Patient's hyponatremia is slowly improving. Will continue monitoring his electrolytes and replete as needed. Patient's hyponatremia was likely in the setting of decreased solute intake as well as possible third spacing from his hypoalbuminemia. Heme: Patient has anemia of chronic disease. He did receive 2 units of packed red blood cells (PRBCs) on admission and had a reported episode of melena, although, has not had any further episodes since being in the intensive care unit (ICU). Patient also has thrombocytopenia, likely in the setting of his chronic alcohol abuse, which had worsened with his acute sepsis. His platelet count had improved. - Patient's hemoglobin is trending down slightly. Will get a type and screen and transfuse as needed for hemoglobin less than 7. - Will continue with deep venous thrombosis (DVT) prophylaxis with Lovenox. CODE STATUS: FULL CODE. Patient's sister, Sylvia, was contacted. He had previously reported to patient and family services (PFS) that he did not want his brother, who was initially listed as his contact, to be informed on his medical condition and, instead, had listed Sylvia as his next of kin and medical contact. Her number is [phone]. Sylvia was updated as to his status, that patient was admitted to [facility] and has now been intubated and is in our medical ICU. She had mentioned that patient had been deteriorating for quite some time at home given his alcohol abuse and previously been very consistent of his wishes in not quitting alcohol. She says that it is "the only thing he has in life" right now. Will continue to update the patient's sister on his status, but we did discuss, that given his chronic deconditioning and malnutrition as well as his previous history of difficulty managing his oral secretions, that patient may have difficulty with extubation and may potentially require tracheostomy as well as potential percutaneous endoscopic gastrostomy (PEG) tube. She is going to talk about this further with her family and consider further his goals of care. Total critical care time spent, not including any procedures, approximately 45 minutes. TRISTEN
--- NOTE | 2019-12-26 14:58 | ECHO ---
DATE OF PROCEDURE: 12/25/2019 DATE OF : 1955 AGE: 64 REFERRING PROVIDER: Dr. Taylor Knight PATIENT LOCATION: Room 3207 REASON FOR STUDY: Sepsis. 2-D MEASUREMENTS: IVS: 0.9 cm LV: 4.6 cm LVPW: 1.0 cm LA: 2.8 cm Aorta: 3.3 cm IVC: 1.5 cm DOPPLER MEASUREMENTS: Peak velocity across the aortic valve: 1.4 m/s Peak velocity across the LVOT: 0.72 m/s Mitral E: 0.60 Mitral A: 0.60 Ratio: 1.0 Maximum tricuspid valve velocity: 2.6 m/s 2-D COMMENTS: 1. Normal left ventricular size, wall thickness and normal global left ventricular systolic function. The estimated left ventricular systolic ejection fraction is 60-65%. 2. Normal left atrium. Normal right atrium and right ventricle. 3. The atrial septum appeared to be normal without evidence of defect or shunt. 4. Normal aortic root. 5. A small pericardial effusion was noted, no evidence of cardiac tamponade. 6. Normal aortic valve. Minimally calcified mitral annulus with normal anterior mitral valve leaflet motion. Normal tricuspid valve. The pulmonic valve and proximal pulmonary artery branches were not well visualized. 7. The inferior vena cava was normal in size, central venous pressure is most likely normal. DOPPLER: It detects mild mitral regurgitation and mild tricuspid regurgitation. The calculated pulmonary artery systolic pressure varies between 30-40 mmHg. Assessment of the left ventricular diastolic function appeared to be normal. IMPRESSION: 1. Normal global left ventricular systolic and diastolic function. 2. Mitral annulus calcification with mild mitral regurgitation. 3. Mild tricuspid regurgitation with mild pulmonary hypertension. 4. A small pericardial effusion was noted, no evidence of cardiac tamponade. Bilateral pleural effusion also noted. MTDD
[2019-12-26] MEDS: LEVEMIR (INSULIN DETEMIR) 1 UNITS/0.01ML SC SCH (20:00)
[2019-12-26] MEDS: FLUCONAZOLE 200 MG in IV 1 EA IV SCH (20:01)
[2019-12-27] VITALS (36 sets, daily range): BP systolic 113–144; BP diastolic 61–85; O2SAT 94
[2019-12-27] MEDS: PIPERACILLIN/TAZOBACTAM SOD 4.5 GM in D5W MINI-BAG PLUS 50 ML IV SCH ×4 (00:11→18:04)
[2019-12-27] MEDS: MIDAZOLAM INJ 2MG/2ML VIAL (J2250 PER 1MG) IV PRN ×4 (01:57→21:59)
[2019-12-27] MEDS: NOREPINEPHRINE BITARTRATE 8 MG in D5W 492 ML IV SCH (02:30)
[2019-12-27] MEDS: HYDROCORTISONE 100 MG/2 ML VIAL (J1720 PER 1) IV SCH ×3 (03:55→18:04)
[2019-12-27] MEDS: HumaLOG INSULIN (NovoLOG) PER UNIT SC SCH ×5 (03:59→20:04)
[2019-12-27 04:42] LABS: BASO % 0.1 % (0.0-1.0); LYMPH # 0.7 10^3/uL (1.5-5.0); LYMPH % 6.8 % (24.0-44.0); MEAN CORPUSCULAR HEMOGLOBIN 30.8 pg (27.0-33.0); MEAN CORPUSCULAR HGB CONC 34.8 g/dl (32.0-36.5); MEAN CORPUSCULAR VOLUME 88.5 fl (80.0-96.0); MONO # 0.5 10^3/uL (0.0-0.8); MONO % 4.9 % (0.0-5.0); NEUTROPHILS # 8.6 10^3/uL (1.5-8.5); NEUTROPHILS % 87.2 % (36.0-66.0); PLATELET COUNT, AUTOMATED 101 10^3/uL (150-450); WHITE BLOOD COUNT 9.9 10^3/uL (4.0-10.0)
[2019-12-27 05:07] LABS: BLOOD UREA NITROGEN 15 MG/DL (7-18); CALCIUM LEVEL 7.9 MG/DL (8.8-10.2); CARBON DIOXIDE LEVEL 25 MEQ/L (21-32); CHLORIDE LEVEL 104 MEQ/L (98-107); CREATININE FOR GFR 0.66 MG/DL (0.70-1.30); GLOMERULAR FILTRATION RATE > 60.0 (>49); GLUCOSE, FASTING 124 MG/DL (70-100); SODIUM LEVEL 136 MEQ/L (136-145)
[2019-12-27 05:45] LABS: ABG BASE EXCESS 0.6 (-2.0-2.0); ABG HCO3 23.6 MEQ/L (22.0-26.0); ABG O2 SATURATION 98.3 % (95.0-99.0); ABG PARTIAL PRESSURE CO2 31.2 mmHg (35.0-45.0); ABG PARTIAL PRESSURE O2 104.5 mmHg (75.0-100.0); ABG TOTAL CO2 24.5 MEQ/L (23.0-31.0); ABG pH (ARTERIAL) 7.496 UNITS (7.350-7.450)
[2019-12-27] MEDS: SLF 3 ML SYR IV SCH ×6 (06:10→22:12)
[2019-12-27] MEDS: SODIUM CHLORIDE 0.9% INJ 10 ML SYR IV SCH ×3 (06:10→22:12)
[2019-12-27] MEDS: LEVOTHYROXINE 12.5MCG PER 1/2 TAB (0.0125MG) PO SCH (06:10)
[2019-12-27] MEDS: IPRATROPIUM 0.5MG/ALBUTEROL 2.5MG INH SOL UD 3ML (DUONEB) NEB SCH ×4 (07:23→19:22)
--- NOTE | 2019-12-27 08:28 | REP ---
Portable chest x-ray: Sitting AP view. History: Respiratory failure. Comparison chest x-ray: December 26, 2019. Findings: Endotracheal tube remains in good position at the level of proximal clavicles. NG tube enters left upper quadrant. A left-sided internal jugular central venous catheter is inserted with its tip at the SVC brachiocephalic vein junction region. There is pleural opacity in the bases, left greater than right unchanged. No new infiltrate. Electronically Signed by Oscar Landers MD 12/27/2019 08:18 A
[2019-12-27] MEDS: FOLIC ACID 1 MG TAB PO SCH (09:05)
[2019-12-27] MEDS: CHLORHEXIDINE GLUCONATE 0.12 % 15ML UDC (PERIDEX ORAL RINSE) MT SCH ×2 (09:05→20:05)
[2019-12-27] MEDS: THIAMINE 100 MG TAB PO SCH (09:05)
[2019-12-27] MEDS: VANICREAM MOISTURIZING SKIN CREAM 113GM TUBE TOP SCH ×2 (09:06→20:05)
[2019-12-27] MEDS: ENOXAPARIN 30MG/0.3ML SYRINGE (J1650 PER 10MG) SC SCH (09:07)
[2019-12-27] MEDS: BLISTEX OINTMENT TOP SCH ×3 (09:07→20:05)
[2019-12-27] MEDS: PANTOPRAZOLE 40MG VIAL (C9113 PER 1) IV SCH (09:07)
[2019-12-27] MEDS ORDERED: FUROSEMIDE 20 MG TAB PO ONE (10:00)
--- NOTE | 2019-12-27 12:05 | CCN ---
DATE OF SERVICE: 12/27/2019 The patient was seen and examined this morning during bedside rounds. Overnight, the patient was noted to have thick secretions from his endotracheal (ET) tube as well as copious oral secretions. He required lavaging and bagging to help break up the thick and copious secretions from his ET tube. This morning, the secretions are somewhat thinner, but still fairly copious, both orally and from his endotracheal tube. He was weaned off of Levophed yesterday and his blood pressures have been stable overnight. He has not had any fevers overnight. He is tolerating his tube feeds well. The patient has remained off of Versed drip and has only required a few doses of p.r.n. Versed. The patient is more responsive this morning. He is opening his eyes and tracking somewhat, but is still not following commands appropriately. PHYSICAL EXAMINATION: Temperature 97.5, pulse 83, respirations 23, blood pressure 138/76, O2 sat 97% on 21% FiO2. Ins 2.7 liters, out 1.4 liters. General: The patient is intubated. He is off of Versed drip. He is opening his eyes somewhat to commands and tracking briefly. He is not following other commands appropriately. HEENT: Normocephalic, atraumatic. The patient has some cachexia. His pupils are reactive to light bilaterally. He has poor oral and dental hygiene. He has some healing chapped and scabbed lips. Neck is supple. Trachea is midline. There is no palpable adenopathy. No jugular venous distention (JVD). Cardiac: Regular rate and rhythm. Normal S1, S2. Unable to appreciate any murmurs. Point of maximal impulse (PMI) is nondisplaced. Pulmonary: The patient has some coarse ventilated breath sounds bilaterally with occasional crackles at the bases and occasional rhonchi. No wheezing noted. Abdomen is soft, nontender, nondistended. No masses palpated. Extremities: Patient has trace edema in the lower extremities with some chronic venous stasis skin changes as well as multiple areas of scabbing and excoriation noted in the lower extremities. He has a healing ulcer in the right lower extremity and a healed sacral decubitus ulcer. LABORATORY DATA: WBC 9.9, hemoglobin 8.0 and platelets are 101. Chemistry: Sodium is 137, potassium is 4.0, chloride is 105, bicarb is 25, BUN 15, creatinine 0.66, glucose is 124. ABG: pH of 7.496, pCO2 of 31.2 and pO2 104.5. IMAGING STUDIES: Chest x-ray Shows ET tube and OG tube in good position. There is bibasilar opacities and small bilateral pleural effusions, although this is improved since his initial chest x-ray when intubated. Echo shows normal ejection fraction. There is mild mitral regurgitation and mild pulmonary hypertension. There is a small pericardial effusion with no evidence of tamponade. There are bilateral pleural effusions noted. ASSESSMENT AND PLAN: Mr. Avila is a 64-year-old male with a past medical history of chronic alcohol abuse who presented with altered mental status thought to be secondary metabolic encephalopathy from alcohol withdrawal as well as possibly from his chronic alcohol use. The patient was initially admitted to the floor where he was managed for his alcohol withdrawal as well as for his hyponatremia. He was having difficulty tolerating oral secretions and was aspirating and had developed worsening opacities on chest x-ray suspicious for an aspiration pneumonia. The patient was initially on Levaquin for urinary tract infection (UTI) which was then broadened to Zosyn for his aspiration pneumonia. However, the patient was then noted to be more lethargic and hypotensive and unable to protect his airway. He was emergently intubated on 12/24/2019. The patient was also in septic shock likely secondary to his aspiration pneumonia and had required vasopressors for blood pressure support which he has since been weaned off of. Neurologic. Metabolic encephalopathy secondary initially to sepsis and septic shock. He likely also has a component of chronic encephalopathy from his alcohol use and perhaps a component of nutritional deficiency and Wernicke's. - The patient's Versed drip was held yesterday and he was continued on just p.r.n. Versed for agitation which he has only required a few doses of. This morning, he does appear to be more responsive and is opening his eyes, but only tracking briefly and not following commands appropriately. - Will continue to hold the Versed drip and use just Versed p.r.n. for sedation and hopefully he will have continue improvement in his mental status. - Continue with thiamine and folate given history of chronic alcohol abuse. - Continue monitoring for seizures with benzodiazepines as needed. - The patient's repeat ammonia level was normal and his sepsis has improved and so these are less likely contributors for any encephalopathy. Cardiac: The patient initially had septic shock secondary to his aspiration pneumonia. He was also felt to have a component renal insufficiency likely due to severe sepsis as well as perhaps with his chronic alcohol abuse. - The patient has been weaned off of vasopressors. His blood pressure has been well and was even slightly hypertensive this morning. - The patient will be completing his stress dose steroid which he was on for 3 days with hydrocortisone 50 mg every 8 hours. - The patient's echocardiogram showed normal ejection fraction with mild mitral regurgitation and mild pulmonary retention. He has small pericardial effusions, but no evidence of tamponade. - The patient does have pleural effusions noted still, likely with a component of third spacing from his hypoalbuminemia. Will give him a low dose of Lasix 20 mg by mouth for gentle diuresis. Pulmonary: The patient was intubated for airway protection due to his acute respiratory failure secondary to aspiration pneumonia as well as with difficulty managing his oral secretions. - The patient is on PRVC with settings of 420/15/21/6. - Continue daily chest x-ray and ABGs while intubated. - Continue vent bundle care with head of bed elevation and chlorhexidine mouthwash. - The patient continues to have copious oral as well as a thick secretions from his endotracheal tube. Overnight, he required lavaging and bagging through his endotracheal tube to help breakup and suction the secretions. This morning, the secretions are thinner, but still fairly copious. He was placed on a brief weaning trial on the ventilator which he tolerated in terms of his tidal volumes and respiratory rate, however, given his copious secretions I suspect the patient will have difficulty managing them if he were to be extubated, particularly given his ongoing encephalopathy. - The patient is on antibiotics with Zosyn for his aspiration pneumonia. The vancomycin was discontinued yesterday. He is also on fluconazole as well as his sputum culture did grow yeast organisms. - Would likely continue for a 7-day course of Zosyn and then discontinue antibiotics. Would likely continue fluconazole for a slightly longer course. - Will continue daily weaning trials as tolerated. Will have to address with the patient's sister Sylvia about goals of care as I suspect he will have difficulty with managing secretions and require reintubation if he were to be extubated. GI: History of chronic alcohol abuse with initial alcoholic hepatitis and transaminitis, which has since improved. - The patient has chronic severe protein malnutrition and hypoalbuminemia in the setting of his alcohol abuse. - The patient has been tolerating tube feeds with vital AF and Dave for protein supplements. - He is also on nutritional supplements with folic acid, multivitamin and thiamine. Renal: The patient has had hyponatremia as well as hypokalemia and hypomagnesemia which have since improved. - Will continue to monitor his electrolytes and replete as needed. Heme: The patient has anemia of chronic disease. He did receive 2 units of packed red blood cells (PRBCs) initially on admission and had a reported episode of melena although has not had any further episodes documented. - Will continue to monitor his hemoglobin and transfuse if needed for hemoglobin less than 7. - The patient has thrombocytopenia in the setting of chronic alcohol abuse which had worsened with his acute sepsis. His platelet count has since improved, but is still mildly thrombocytopenic. Continue with deep vein thrombosis (DVT) prophylaxis with Lovenox. Code Status: Full code. GI prophylaxis: Protonix. Total critical care time spent, not including procedures approximately 35 minutes. Will continue to address goals of care with the patient's sister Sylvia, particularly about wishes for reintubation as the patient may continue to have difficulty with his history of aspiration and managing his oral secretions once he is extubated. Will address also if he would have wanted placement of a PEG tube for nutritional support as well given his aspiration and also possible tracheostomy if he is requiring repeat intubation
[2019-12-27] MEDS: LEVEMIR (INSULIN DETEMIR) 1 UNITS/0.01ML SC SCH (20:05)
[2019-12-27] MEDS: FLUCONAZOLE 200 MG in IV 1 EA IV SCH (20:06)
[2019-12-28] VITALS (35 sets, daily range): BP systolic 119–155; BP diastolic 62–90; O2SAT 97–98
[2019-12-28] MEDS: HumaLOG INSULIN (NovoLOG) PER UNIT SC SCH ×7 (00:27→23:01)
[2019-12-28] MEDS: MIDAZOLAM INJ 2MG/2ML VIAL (J2250 PER 1MG) IV PRN (00:28)
[2019-12-28] MEDS: PIPERACILLIN/TAZOBACTAM SOD 4.5 GM in D5W MINI-BAG PLUS 50 ML IV SCH ×4 (00:28→18:15)
[2019-12-28] MEDS ORDERED: GLYCOPYRROLATE INJ 0.2 MG/ML 2 ML VIAL IV ONE (02:00)
[2019-12-28 05:35] LABS: BASO % 0.2 % (0.0-1.0); HEMATOCRIT 21.3 % (42.0-52.0); HEMOGLOBIN 7.2 g/dl (13.5-17.5); LYMPH # 0.9 10^3/uL (1.5-5.0); LYMPH % 15.2 % (24.0-44.0); MEAN CORPUSCULAR HEMOGLOBIN 30.6 pg (27.0-33.0); MEAN CORPUSCULAR HGB CONC 33.8 g/dl (32.0-36.5); MEAN CORPUSCULAR VOLUME 90.6 fl (80.0-96.0); MONO # 0.6 10^3/uL (0.0-0.8); MONO % 10.1 % (0.0-5.0); NEUTROPHILS # 4.4 10^3/uL (1.5-8.5); NEUTROPHILS % 73.2 % (36.0-66.0); RED BLOOD COUNT 2.35 10^6/uL (4.30-6.10); WHITE BLOOD COUNT 5.9 10^3/uL (4.0-10.0)
[2019-12-28 05:39] LABS: PLATELET COUNT, AUTOMATED 96 10^3/uL (150-450)
[2019-12-28 05:57] LABS: BLOOD UREA NITROGEN 16 MG/DL (7-18); CALCIUM LEVEL 8.2 MG/DL (8.8-10.2); CARBON DIOXIDE LEVEL 29 MEQ/L (21-32); CHLORIDE LEVEL 106 MEQ/L (98-107); CREATININE FOR GFR 0.52 MG/DL (0.70-1.30); GLOMERULAR FILTRATION RATE > 60.0 (>49); GLUCOSE, FASTING 51 MG/DL (70-100); POTASSIUM SERUM 2.7 MEQ/L (3.5-5.1); SODIUM LEVEL 140 MEQ/L (136-145)
[2019-12-28] MEDS: LEVOTHYROXINE 12.5MCG PER 1/2 TAB (0.0125MG) PO SCH (06:00)
[2019-12-28] MEDS: SLF 3 ML SYR IV SCH ×6 (06:01→20:52)
[2019-12-28] MEDS: SODIUM CHLORIDE 0.9% INJ 10 ML SYR IV SCH ×3 (06:02→20:53)
[2019-12-28 06:19] LABS: ABG BASE EXCESS 2.7 (-2.0-2.0); ABG HCO3 25.3 MEQ/L (22.0-26.0); ABG O2 SATURATION 97.8 % (95.0-99.0); ABG PARTIAL PRESSURE CO2 30.8 mmHg (35.0-45.0); ABG PARTIAL PRESSURE O2 94.3 mmHg (75.0-100.0); ABG STANDARD HCO3 26.9 MEQ/L (22.0-26.0); ABG TOTAL CO2 26.3 MEQ/L (23.0-31.0); ABG pH (ARTERIAL) 7.533 UNITS (7.350-7.450)
[2019-12-28] MEDS: KCL 20MEQ IN 100ML SWI (KRUN) 20 MEQ in IV 1 EA IV SCH ×10 (06:29→18:15)
[2019-12-28] MEDS: IPRATROPIUM 0.5MG/ALBUTEROL 2.5MG INH SOL UD 3ML (DUONEB) NEB SCH ×4 (07:17→19:48)
[2019-12-28] MEDS: CHLORHEXIDINE GLUCONATE 0.12 % 15ML UDC (PERIDEX ORAL RINSE) MT SCH ×2 (07:46→20:53)
[2019-12-28] MEDS: THIAMINE 100 MG TAB PO SCH (07:46)
[2019-12-28] MEDS: FOLIC ACID 1 MG TAB PO SCH (07:46)
[2019-12-28] MEDS ORDERED: KCL 10MEQ/100ML SWI (KRUN) 10 MEQ in IV 1 EA IV ONE (08:45)
[2019-12-28] MEDS: PANTOPRAZOLE 40MG VIAL (C9113 PER 1) IV SCH (08:53)
[2019-12-28] MEDS: ENOXAPARIN 30MG/0.3ML SYRINGE (J1650 PER 10MG) SC SCH (08:53)
[2019-12-28] MEDS: BLISTEX OINTMENT TOP SCH ×3 (08:54→20:51)
[2019-12-28] MEDS: VANICREAM MOISTURIZING SKIN CREAM 113GM TUBE TOP SCH ×2 (08:55→20:51)
[2019-12-28] MEDS ORDERED: MAG SULF 1GM/100ML (MAG RUN) 1 GM in IV 1 EA IV ONE (09:00)
--- NOTE | 2019-12-28 11:21 | REP ---
Portable chest x-ray: Single view. History: Respiratory failure. Comparison chest x-ray: December 27, 2019. Findings: Monitoring electrodes are seen. Pleural opacity seen in both bases consistent with small bilateral pleural effusions. This appears somewhat more prominent today. Endotracheal tube has and nasogastric tubes have been withdrawn. A left sided is a CVP catheter remains in place. There are right-sided rib fractures. Electronically Signed by Oscar Landers MD 12/28/2019 07:46 A
[2019-12-28] MEDS ORDERED: D5W/LR 1,000 ML IV SCH (12:30)
[2019-12-28 15:24] LABS: BLOOD UREA NITROGEN 17 MG/DL (7-18); CALCIUM LEVEL 8.4 MG/DL (8.8-10.2); CARBON DIOXIDE LEVEL 31 MEQ/L (21-32); CHLORIDE LEVEL 106 MEQ/L (98-107); CREATININE FOR GFR 0.51 MG/DL (0.70-1.30); GLOMERULAR FILTRATION RATE > 60.0 (>49); GLUCOSE, FASTING 93 MG/DL (70-100); POTASSIUM SERUM 2.9 MEQ/L (3.5-5.1); SODIUM LEVEL 141 MEQ/L (136-145)
--- NOTE | 2019-12-28 16:59 | CCN ---
DATE: 12/28/2019 CRITICAL CARE PROGRESS NOTE The patient is seen and examined this morning during bedside rounds. Overnight the patient had accidentally self-extubated. He was placed initially on aerosolized oxygen; however, was able to be weaned down to nasal cannula oxygen overnight as he did not have any significant issues with oxygenation. The patient did, however, continue to have very copious oral secretions noted as well as difficulty with gurgling and a weak cough reflex. He was given a dose of glycopyrrolate to help with some of his oral secretions overnight. This morning the patient is awake and alert. He is answering questions somewhat appropriately, although does get confused and appears to confabulate at times. He denies any significant chest pain. Has not had any abdominal pain. No nausea or vomiting. He does continue to have occasional sounds of gurgling in his upper airway as well as an occasional weak cough. He is requiring suctioning from the nurses fairly frequently still for his oral secretions. PHYSICAL EXAM: Temperature 97.3, pulse 54, respirations 20, blood pressure 144/57, oxygen saturation 99% on 2 liters nasal cannula. Intake 2.6 liters, output 2.5 liters. General: The patient is awake and alert, is answering questions appropriately and oriented times one to two. HEENT: Normocephalic, atraumatic. The patient has cachexia. Pupils reactive to light bilaterally. He has poor oral and dental hygiene. Neck is supple. Trachea is midline. There is no palpable adenopathy. No jugular venous distention (JVD). Cardiac: Regular rate and rhythm. Normal S1, S2. Unable to appreciate any murmurs. Point of maximum impulse (PMI) is nondisplaced. Pulmonary: The patient has some coarse rhonchi noted bilaterally with occasional crackles at the bases. No significant wheezing. Abdomen: Soft, nontender, nondistended. No masses palpated. Extremities: Patient has mild pitting lower extremity edema in the lower extremities with chronic venous stasis skin changes, as well as multiple areas of scabbing, excoriation. He has a healing ulcer on the right lower extremity and a healed sacral decubitus ulcer. LABORATORY DATA: WBC 5.9, hemoglobin 7.2, platelets are 96. Chemistry: Sodium is 140, potassium is 2.7, chloride is 100, bicarbonate is 29, BUN 16, creatinine 0.52, glucose is 51. ABG: pH 7.533, pCO2 of 30.8, pO2 of 94.3. IMAGING STUDIES: Chest x-ray shows some bilateral opacities in the bases and bilateral pleural effusions. There is a left IJ which is in place and right-sided rib fractures seen again. ASSESSMENT AND PLAN: Mr. Avila is a 64-year-old male with a past medical history of chronic alcohol abuse who presented with altered mental status thought to be secondary to metabolic encephalopathy from alcohol withdrawal, as well as possibly from his chronic alcohol use. The patient was noted during his admission to have difficulty with swallowing as well as with managing his oral secretions. The patient was having aspiration and had developed worsening opacities on chest x-ray, suspicious for aspiration pneumonia. On 12/24/2019, the patient was noted to be more lethargic and hypotensive and was intubated for airway protection. He was also in septic shock secondary to aspiration pneumonia and had required vasopressor support for his blood pressure. The patient has since been weaned off of vasopressors, and he was weaned down on his oxygen supplementation on the ventilator. The patient had tolerated a weaning trial yesterday; however, was noted to have very copious oral secretions, as well as secretions in his endotracheal tube. While he was more awake and alert, the patient was still not following commands appropriately. Patient sedation was continued to be held, and he was only given Versed as needed. Overnight he was more awake and was responsive and following commands appropriately. He appeared to have accidentally self-extubated when one of his mittens had gotten stuck on his endotracheal tube. The patient was placed on nasal cannula oxygen supplementation, which he was tolerating well. - Continue the patient with nasal cannula oxygen supplementation and wean down as tolerated. - The patient does continue to have difficulty with copious oral secretions and a weak cough. He does occasionally also have gurgling sounds in the upper airways and suspect he is still aspirating. - Will continue with head of bed elevation for aspiration precautions. - The patient will need to be kept nothing by mouth for now and so will start him on maintenance fluids with D5 lactated Ringer's (LR) and continue monitoring his fingerstick glucose checks. - Will hold his Levemir as he is nothing by mouth at this time. - The patient will be continued with Zosyn for aspiration pneumonia. He is also on fluconazole still as his sputum culture had grown yeast organisms. - The patient was given a dose of Lasix yesterday for gentle diuresis. He does have evidence of bilateral pleural effusion still on imaging. Given his hypokalemia, however, will hold off on Lasix for today. - The patient's sister, Sylvia, was updated on the events of overnight. We did also have a discussion about concern for his ability to protect his airway given his difficulty prior to this of failing speech and swallow evaluations. While he is more awake, he does appear also at times to be confused and confabulating, likely has a component of chronic encephalopathy from his alcohol use and perhaps a component of Wernicke's as well. We discussed that if he were to require a repeat intubation that he would likely need tracheostomy tube at that time. The patient's sister would like to discuss with the patient himself to see if they can attempt to elucidate possible goals of care in terms of repeat intubation, as well as possibility of feeding tube. - History of severe protein malnutrition and hypoalbuminemia in the setting of his alcohol abuse. - The patient had been on tube feeds; however, his orogastric (OG) tube was pulled along with his endotracheal (ET) tube. Will discuss with the patient's sister about possible nasogastric (NG) tube, as well as potentially needing placement for a percutaneous endoscopic gastrostomy (PEG) tube if he continues to fail speech and swallow evaluations. - Continue him with folic acid, multivitamin, and thiamine supplementation. - Continue with monitoring electrolytes and replete as needed. Patient was hypokalemic today. - Patient with anemia of chronic disease. Initially had received 2 units of packed red blood cells (PRBCs) on admission. His repeat hemoglobin has trended down slightly today. Will continue to monitor and transfuse as needed for hemoglobin less than 7. Will get an active type and screen. The patient also has some chronic thrombocytopenia, likely in the setting of his chronic alcohol abuse. Deep vein thrombosis (DVT) prophylaxis - Lovenox. Gastrointestinal (GI) prophylaxis - Protonix. CODE STATUS: Full Code. Will followup with the patient's sister about goals of care. Total critical care time spent not including procedures: Approximately 45 minutes. TRISTEN
--- NOTE | 2019-12-28 17:13 | IPNPDOC ---
Date Seen The patient was seen on 12/28/19. Progress Note SUBJECTIVE: Patient was seen and examined this morning. He currently remains in the ICU. He had apparently self-extubated last night. He was once again noted to have a copious amount of secretions. This morning the patient is awake and alert. He is oriented and answers questions appropriately however he appears to have a baseline cognitive dysfunction. He is accompanied by his sister Sylvia tellez. The situation has been described at length with the patients sister in regards for likely placement of a PEG tube given his multiple aspiration events. Additionally, there remains a high likelihood of aspiration of respiratory secretions which may lead to subsequent intubation and need for tracheostomy tube placement. The patient himself does not appear to comprehend the situation. The patients sister states that she is unsure of what he would want. At this point in time she was unable to provide a clear direction and stated that she will come to a decision tomorrow OBJECTIVE PHYSICAL EXAMINATION: VITAL SIGNS: Please see below. GENERAL: Awake and alert. Answers questions appropriately at times. Appears in no acute distress. Lying in bed comfortably HEENT: Atraumatic, normocephalic. Eyes are nonicteric. Trachea is midline. Left central jugular venous catheter in position. Nasal cannula in place. Poor dentition CARDIOVASCULAR: Normal S1, S2. Regular rate and rhythm. No clicks, rubs, or murmurs. RESPIRATORY: Clear vesicular breath sounds. Some bronchial breath sounds. Good respiratory effort. No wheezes, rhonchi, or rales. ABDOMINAL: Soft, nondistended. Nontender. No rebound tenderness or guarding. Normoactive bowel sounds EXTREMITIES: No edema. Full and equal pulses in bilateral upper and lower extremities NEUROLOGICAL: No focal neurological deficits. Baseline cognitive dysfunction PSYCHOLOGICAL: Mood and affect appropriate LABORATORY DATA, IMAGING STUDIES, MICROBIOLOGY: Please see below. DVT prophylaxis ordered?: Lovenox ASSESSMENT AND PLAN: Patient is a 64 year old male who presented to [facility] originally with altered mental status secondary to alcohol use. He was in the ICU at the time and clinically made improvement. He was transferred to PCU and eventually Med/Surg. The patient has a history of aspiration and was evaluated by speech therapy. The patient has been noted to have copious secretions. The patient himself had been suctioning himself while in the hospital. He was noted to aspirate on December 23 and started on Zosyn. The patient subsequently developed respiratory distress due to aspiration of respiratory secretions. He was noted to develop septic shock and was transferred to ICU where he was intubated and mechanically ventilated. He has since self-extubated and is continued on nasal cannula. PROBLEMS: 2. Acute Hypoxemic Respiratory Failure secondary to aspiration -Patient has self-extubated last night. He has been continued on nasal cannula. He does continue to have secretions. The patients acute hypoxemic respiratory failure was secondary to aspiration. The current issue moving forward is the risk of recurrent aspiration. The patient is currently NPO. He will likely need feeding tube placement. However given his cognitive dysfunction he appears to lack understanding. The patients sister is present today at bedside. She states that she is unsure as to what direction to take. She has been made aware that even with feeding tube placement he will likely aspirate of respiratory secretions as he has a very weak cough reflex likely secondary to longstanding heavy alcohol use. She has voiced understanding and states that she would like to discuss this with the patients friend. -Further care per Pulmonary/Critical care medicine. Assistance is appreciated -IV Zosyn for aspiration pneumonia 2. Metabolic Encephalopathy 2/2 sepsis -Patient had metabolic encephalopathy which was likely 2/2 to sepsis. He has improved today. He has a baseline cognitive dysfunction which is likely related to his longstanding alcohol use. -Continue with Thiamine, Multivitamin, Folic acid 3. Severe Protein Calorie Malnutrition -Patient has severe protein calorie malnutrition. Patient is a long standing alcoholic. At this point he is NPO due to aspiration. Regarding nutrition he will need tube feeding. For intermodal customer service care he will likely need a J-tube versus PEG. However neither will prevent aspiration of respiratory secretions. -NG tube to be placed -Tube feedings per recommendations of dietary -Currently he is receiving D5/Lactated ringers at 50 mls/hr 4. Hypothyroidism -Continued on levothyroxine 5. GI prophylaxis -Protonix 6. DVT Prophylaxis -Lovenox DISPOSITION: Patient will need intermodal customer service placement once medically improved. At this point his nutritional status is being addressed. Pending on discussions with the patients sister he will need to have a more permanent feeding tube placed due to aspiration. Additionally, the patient will continue to be an aspiration risk due to copious secretions. If he requires reintubation down the line he may need a tracheostomy tube placed. This was discussed with the patients sister. At this time he remains FULL CODE, further goals of care have been discussed with the patients sister in regards to whether the patient or her would want to continue FULL CODE status. The patients sister has stated that she is in discussions with the patients friend and her brothers. VS, I&O, 24H, Fishbone Vital Signs/I&O Vital Signs Date Time Temp Pulse Resp B/P (MAP) Pulse Ox O2 Delivery O2 Flow Rate FiO2 12/28/19 06:00 97.2 54 20 144/67 (92) 99 Nasal Cannula 2.0 12/28/19 04:30 28 I&O- Last 24 Hours up to 6 AM 12/28/19 06:00 Intake Total 2190 ml Output Total 2450 ml Balance -260 ml Laboratory Data 24H LABS Laboratory Tests 2 12/27/19 15:53: Bedside Glucose (Misc Panel) 178H 12/27/19 19:58: Bedside Glucose (Misc Panel) 149H 12/28/19 00:01: Bedside Glucose (Misc Panel) 141H 12/28/19 03:52: Bedside Glucose (Misc Panel) 70L 12/28/19 05:15: Immature Granulocyte % (Auto) 1.3, Neutrophils (%) (Auto) 73.2H, Lymphocytes (%) (Auto) 15.2L, Monocytes (%) (Auto) 10.1H, Eosinophils (%) (Auto) 0.0, Basophils (%) (Auto) 0.2, Neutrophils # (Auto) 4.4, Lymphocytes # (Auto) 0.9L, Monocytes # (Auto) 0.6, Eosinophils # (Auto) 0.0, Basophils # (Auto) 0.0, Nucleated Red Blood Cells % (auto) 0.0, Immature Platelet Fraction 3.8, Anion Gap 5L, Glomerular Filtration Rate > 60.0, Calcium Level 8.2L 12/28/19 06:07: Blood Gas Bicarbonate Standard 26.9H, Arterial Blood pH 7.533H, Arterial Blood Partial Pressure CO2 30.8L, Arterial Blood Partial Pressure O2 94.3, Arterial Blood Total CO2 26.3, Arterial Blood HCO3 25.3, Arterial Blood Base Excess 2.7H, Arterial Blood Oxygen Saturation 97.8 12/28/19 06:11: Bedside Glucose (Misc Panel) 50L 12/28/19 06:41: Bedside Glucose (Misc Panel) 131H 12/28/19 08:01: Bedside Glucose (Misc Panel) 83 12/28/19 11:41: Bedside Glucose (Misc Panel) 69L CBC/BMP Laboratory Tests 12/28/19 05:15 Microbiology Microbiology 12/24/19 Gram Stain - Final, Complete 12/24/19 Sputum Culture - Final, Complete Yeast Like Organism 12/24/19 Blood Culture - Preliminary, Resulted No Growth after 72 hours. All specime... 12/24/19 Blood Culture - Preliminary, Resulted No Growth after 72 hours. All specime... 12/23/19 Respiratory Virus Panel (PCR) ([facility]) - Final, Complete 12/21/19 Stool Occult Blood ([facility]) - Final, Complete 12/21/19 Gram Stain - Final, Complete 12/21/19 Wound Culture - Final, Complete Proteus Mirabilis 12/18/19 Blood Culture - Final, Complete NO GROWTH AFTER 5 DAYS 12/18/19 Blood Culture - Final, Complete NO GROWTH AFTER 5 DAYS GME ATTESTATION ATTENDING NOTE I have personally evaluated and examined the patient. Discussed with resident/student regarding plan of care and agree with the above assessment and plan. ALEXANDER TRONCOSO DO Dec 28, 2019 14:31 NOELLE FRANCIS MD Dec 29, 2019 18:25
[2019-12-28] MEDS: FLUCONAZOLE 200 MG in IV 1 EA IV SCH (20:53)
[2019-12-28 22:34] LABS: BLOOD UREA NITROGEN 16 MG/DL (7-18); CALCIUM LEVEL 8.3 MG/DL (8.8-10.2); CARBON DIOXIDE LEVEL 29 MEQ/L (21-32); CHLORIDE LEVEL 108 MEQ/L (98-107); CREATININE FOR GFR 0.55 MG/DL (0.70-1.30); GLOMERULAR FILTRATION RATE > 60.0 (>49); GLUCOSE, FASTING 100 MG/DL (70-100); POTASSIUM SERUM 3.2 MEQ/L (3.5-5.1); SODIUM LEVEL 143 MEQ/L (136-145)
[2019-12-28] MEDS ORDERED: POTASSIUM CHLORIDE 10% LIQ 20 MEQ/15 ML UDC NG ONE (23:00)
[2019-12-29] VITALS (19 sets, daily range): BP systolic 115–185; BP diastolic 61–101; O2SAT 98
[2019-12-29] MEDS: PIPERACILLIN/TAZOBACTAM SOD 4.5 GM in D5W MINI-BAG PLUS 50 ML IV SCH ×4 (00:33→18:35)
[2019-12-29] MEDS: SLF 3 ML SYR IV SCH ×6 (03:45→19:14)
[2019-12-29 05:33] LABS: ABG BASE EXCESS 1.7 (-2.0-2.0); ABG HCO3 25.4 MEQ/L (22.0-26.0); ABG O2 SATURATION 96.1 % (95.0-99.0); ABG PARTIAL PRESSURE CO2 35.4 mmHg (35.0-45.0); ABG PARTIAL PRESSURE O2 82.4 mmHg (75.0-100.0); ABG TOTAL CO2 26.4 MEQ/L (23.0-31.0); ABG pH (ARTERIAL) 7.473 UNITS (7.350-7.450)
[2019-12-29 05:37] LABS: HEMATOCRIT 22.6 % (42.0-52.0); HEMOGLOBIN 7.4 g/dl (13.5-17.5); MEAN CORPUSCULAR HEMOGLOBIN 30.6 pg (27.0-33.0); MEAN CORPUSCULAR HGB CONC 32.7 g/dl (32.0-36.5); MEAN CORPUSCULAR VOLUME 93.4 fl (80.0-96.0); PLATELET COUNT, AUTOMATED 101 10^3/uL (150-450); RED BLOOD COUNT 2.42 10^6/uL (4.30-6.10); WHITE BLOOD COUNT 6.3 10^3/uL (4.0-10.0)
[2019-12-29] MEDS: SODIUM CHLORIDE 0.9% INJ 10 ML SYR IV SCH ×3 (06:00→19:50)
[2019-12-29] MEDS: HumaLOG INSULIN (NovoLOG) PER UNIT SC SCH ×3 (06:00→18:00)
[2019-12-29] MEDS: LEVOTHYROXINE 12.5MCG PER 1/2 TAB (0.0125MG) PO SCH (06:00)
[2019-12-29 06:16] LABS: BLOOD UREA NITROGEN 16 MG/DL (7-18); CALCIUM LEVEL 8.5 MG/DL (8.8-10.2); CARBON DIOXIDE LEVEL 28 MEQ/L (21-32); CHLORIDE LEVEL 109 MEQ/L (98-107); CREATININE FOR GFR 0.54 MG/DL (0.70-1.30); GLOMERULAR FILTRATION RATE > 60.0 (>49); GLUCOSE, FASTING 94 MG/DL (70-100); SODIUM LEVEL 141 MEQ/L (136-145)
[2019-12-29 06:35] LABS: ANISOCYTOSIS 1+; ATYPICAL LYMPH 3 % (0-5); EOSINOPHILS 3 % (0-3); LYMPHOCYTES 20 % (16-44); MONOCYTES 5 % (0-5); NEUTROPHILS 69 % (28-66); PLATELET ESTIMATE DECREASED (NORMAL)
[2019-12-29] MEDS ORDERED: FUROSEMIDE 20MG/2ML VIAL (J1940) IV ONE (07:00)
[2019-12-29] MEDS: IPRATROPIUM 0.5MG/ALBUTEROL 2.5MG INH SOL UD 3ML (DUONEB) NEB SCH ×4 (08:01→20:00)
[2019-12-29] MEDS: FOLIC ACID 1 MG TAB PO SCH (08:17)
[2019-12-29] MEDS: PANTOPRAZOLE 40MG VIAL (C9113 PER 1) IV SCH (08:17)
[2019-12-29] MEDS: BLISTEX OINTMENT TOP SCH ×3 (08:18→19:50)
[2019-12-29] MEDS: ENOXAPARIN 30MG/0.3ML SYRINGE (J1650 PER 10MG) SC SCH (08:18)
[2019-12-29] MEDS: THIAMINE 100 MG TAB PO SCH (08:18)
--- NOTE | 2019-12-29 08:18 | REP ---
Portable chest x-ray: Single view. History: Respiratory failure. Comparison chest x-ray: December 28, 2019. Findings: A nasogastric tube has been inserted and is seen coursing the left upper quadrant. A left internal jugular central venous line terminates in the mid mediastinum consistent with position in the brachiocephalic vein. Oxygen delivery tubing is seen. There are extensive bilateral infiltrates, more prominent today than on yesterday's radiograph. There is pleural opacity bilaterally consistent with pleural effusions. This appears more prominent on the left. Impression: Progressive infiltrates. Bilateral effusions. Electronically Signed by Oscar Landers MD 12/29/2019 08:10 A
[2019-12-29] MEDS: VANICREAM MOISTURIZING SKIN CREAM 113GM TUBE TOP SCH ×2 (08:19→19:50)
[2019-12-29 13:01] LABS: BLOOD UREA NITROGEN 15 MG/DL (7-18); CALCIUM LEVEL 8.4 MG/DL (8.8-10.2); CARBON DIOXIDE LEVEL 31 MEQ/L (21-32); CHLORIDE LEVEL 104 MEQ/L (98-107); CREATININE FOR GFR 0.58 MG/DL (0.70-1.30); GLOMERULAR FILTRATION RATE > 60.0 (>49); GLUCOSE, FASTING 122 MG/DL (70-100); POTASSIUM SERUM 3.2 MEQ/L (3.5-5.1); SODIUM LEVEL 138 MEQ/L (136-145)
[2019-12-29] MEDS: KCL 20MEQ IN 100ML SWI (KRUN) 20 MEQ in IV 1 EA IV SCH ×4 (13:23→16:15)
--- NOTE | 2019-12-29 13:35 | CCN ---
DATE: 12/29/2019 The patient was seen and examined this morning during bedside rounds. This morning, the patient states that he is doing reasonably well. He does continue have a cough, although it is very weak and he is unable to easily expectorate mucus. He has not had any fevers overnight. He does have some periodic episodes of desaturation which improve minimally with suctioning. He does continue to have more upper airway gurgling sounds noted this morning. PHYSICAL EXAMINATION: Temperature 98, pulse 74, blood pressure 148/76, O2 sat 93% on 2 liters nasal cannula. Ins 1.7 liters, out 905 mL. General: The patient is awake and alert. He is oriented times one to two and is answering questions appropriately mostly as well as following simple commands. HEENT: Normocephalic, atraumatic. The patient has cachexia. Pupils reactive to light bilaterally. He has very poor oral and dental hygiene. Neck is supple. Trachea is midline. There is no palpable adenopathy. No jugular venous distention (JVD). Cardiac: Regular rate and rhythm. Normal S1, S2. Unable to appreciate murmurs. Point of maximal impulse (PMI) is nondisplaced. Pulmonary: The patient has diffuse coarse rhonchi bilaterally with some crackles. No wheezing. Abdomen is soft, nontender, nondistended. No masses palpated. Extremities: Patient has very trace pitting lower extremity in the lower extremities with chronic venous stasis skin changes as well as multiple areas of scabbing and excoriation. He has a healed sacral decubitus ulcer and a healing ulcer on the right lower extremity. LABORATORY DATA: WBC 6.3, hemoglobin 7.4 and platelets are 101. Chemistry: Sodium is 141, potassium 4.0, chloride is 109, bicarb 28, BUN 16, creatinine 0.54, glucose 94. ABG this morning: pH 7.473, pCO2 of 35.4 and pO2 of 82.4. IMAGING: Chest x-ray this morning shows worsened bilateral opacities bilaterally with more dense consolidation in the left lower lobe as well as bilateral pleural effusions on the left greater than the right. There is a left IJ triple lumen in place. ASSESSMENT AND PLAN: Mr. Avila is a 64-year-old male with a past medical history of chronic alcohol abuse who presented initially with altered mental status thought to be secondary to metabolic encephalopathy, perhaps from alcohol withdrawal, as well as in the setting of nutritional deficiency and with his chronic alcohol use. The patient was noted during this admission to have difficulty with swallowing and managing oral secretions. The patient developed worsening opacities on chest x-ray suspicious for an aspiration pneumonia. On 12/24/2019, the patient was noted to be lethargic and hypotensive. He was emergently intubated for airway protection and for his hypoxemic respiratory failure in the setting of aspiration pneumonia. The patient also initially had septic shock requiring vasopressor support secondary to his aspiration pneumonia. The patient's oxygenation and imaging improved with antibiotics and with mechanical ventilation. On the director mission of 12/28/2019, the patient had accidentally self-extubated himself. Post extubation, the patient was able to be weaned down to nasal cannula oxygen supplementation. He, however, continues to have a very weak cough as well as difficulty managing his oral secretions with audible upper airway gurgling sounds noted. - The patient's chest x-ray this morning does show significant worsening in the bilateral opacities suspicious for continued aspiration of his oral secretions. - Will continue the patient with aspiration precautions with head of bed elevation. - The patient is continued to be nothing by mouth (n.p.o.) and he did have a nasogastric (NG) tube placed for tube feeding yesterday. His IV fluids were therefore discontinued yesterday as he was started on tube feeds. - The patient does continue have evidence of bilateral pleural effusions, left greater than right. He did not receive Lasix yesterday due to his hypokalemia. His potassium has improved and so will give a dose of IV Lasix 20 mg and will followup with repeat chemistry and replete electrolytes as needed - The patient's sister was contacted today and she had come to the bedside to see the patient. We discussed with the patient and his sister at the bedside with his worsening opacities and continued aspiration that he would likely need repeat intubation and mechanical ventilation if it is within his goals of care. We also discussed that given his inability to protect his airway with failing previous speech and swallow examination that he would likely need a tracheostomy tube as well as a percutaneous endoscopic gastrostomy (PEG) for feeding. We discussed also that if the patient were to go to a long-term acute care (LTAC), the nearest LTAC facility is in [place] or [facility]. Upon this discussion, the patient had stated very clearly that he would not want to go to a LTAC that is far away. We had further discussion with the patient's sister about his goals of care and the decision was made that the patient would not want reintubation and resuscitation and so he was placed a DO NOT RESUSCITATE (DNR) and DO NOT INTUBATE (DNI). - We will continue however with broad-spectrum antibiotics for his aspiration pneumonia with Zosyn as well as with fluconazole as his previous sputum culture had grown yeast. History of severe protein malnutrition and hypoalbuminemia in the setting of chronic alcohol abuse. - Continue with folic acid, multivitamins and thiamine supplementation. - Continue with tube feeds via his NG tube for now. - Continue monitoring electrolytes and replete as needed. Anemia of chronic disease. The patient had initially received 2 units packed red blood cell (PRBC) on admission. Will continue to monitor his hemoglobin/hematocrit (H/H) and transfuse as needed for hemoglobin less than 7. - The patient also has mild thrombocytopenia likely in setting of his chronic alcohol abuse. Deep vein thrombosis (DVT) prophylax. Lovenox. Gastrointestinal (GI) prophylaxis. Protonix. Code status: DNR/DNI. Total critical care time spent, not include procedures, approximately 50 minutes. MTDD
[2019-12-29] MEDS ORDERED: POTASSIUM CHLORIDE 10% LIQ 20 MEQ/15 ML UDC PO ONE (14:00)
--- NOTE | 2019-12-29 15:05 | IPNPDOC ---
Date Seen The patient was seen on 12/29/19. Progress Note SUBJECTIVE: Patient was seen and examined this morning. Today he appears to once again have increased respiratory secretions. His chest x-ray this morning demonstrates worsening infiltrates which is likely from continued aspiration. The patients sister was present today and care goals were discussed. At this time the patient is to be made DNR/DNI. OBJECTIVE PHYSICAL EXAMINATION: VITAL SIGNS: Please see below. GENERAL: Awake and alert. Answers questions appropriately at times. Appears in n o acute distress. Lying in bed comfortably HEENT: Atraumatic, normocephalic. Eyes are nonicteric. Trachea is midline. Left central jugular venous catheter in position. Nasal cannula in place. Poor de ntition CARDIOVASCULAR: Normal S1, S2. Regular rate and rhythm. No clicks, rubs, or murmurs. RESPIRATORY: Increased bronchial breath sounds. Weak cough. Good respiratory effort. ABDOMINAL: Soft, nondistended. Nontender. No rebound tenderness or guarding. Normoactive bowel sounds EXTREMITIES: No edema. Full and equal pulses in bilateral upper and lower extremities NEUROLOGICAL: No focal neurological deficits. Baseline cognitive dysfunction PSYCHOLOGICAL: Mood and affect appropriate LABORATORY DATA, IMAGING STUDIES, MICROBIOLOGY: Please see below. DVT prophylaxis ordered?: Lovenox ASSESSMENT AND PLAN: Patient is a 64 year old male who presented to [facility] originally with altered mental status secondary to alcohol use. He was in the ICU at the time and clinically made improvement. He was transferred to PCU and eventually Med/Surg. The patient has a history of aspiration and was evaluated by speech therapy. The patient has been noted to have copious secretions. The patient himself had been suctioning himself while in the hospital. He was noted to aspirate on December 23 and started on Zosyn. The patient subsequently developed respiratory distress due to aspiration of respiratory secretions. He was noted to develop septic shock and was transferred to ICU where he was intubated and mechanically ventilated. He has since self-extubated and is continued on nasal cannula. This morning he has been noticed to have worsening on chest xray and increased respiratory secretions PROBLEMS: 2. Acute Hypoxemic Respiratory Failure secondary to aspiration -Patient is continued on nasal cannula. Chest X-ray this morning appears to demonstrate worsening infiltrates likely from additional aspiration events. The patient has a weak cough reflex likely from chronic long standing alcohol abuse. -Currently on Zosyn and Fluconazole. Will continue given repeated aspiration events -Patient is currently DNR/DNI 2. Metabolic Encephalopathy 2/2 sepsis -Patient had metabolic encephalopathy which was likely 2/2 to sepsis. He has improved to his baseline. He has a baseline cognitive dysfunction which is likely related to his longstanding alcohol use. -Continue with Thiamine, Multivitamin, Folic acid 3. Severe Protein Calorie Malnutrition -Patient has severe protein calorie malnutrition. Patient is a long standing alcoholic. At this point he is NPO due to aspiration. NG tube is in place and he is receiving tube feedings. For manager terminal care he will likely need a J-tube versus PEG. However neither will prevent aspiration of respiratory secretions. -NG tube placed -Continue tube feedings per recommendations of dietary 4. Hypothyroidism -Continued on levothyroxine 5. GI prophylaxis -Protonix 6. DVT Prophylaxis -Lovenox DISPOSITION: Patient is currently DNR/DNI per discussions with the patients sister. Overall jail prognosis is guarded. He will continue to aspirate respiratory secretions regardless of NG tube or PEJ tube placement. If patients respiratory status does improve then he will need PEJ tube placement for manager terminal feeding tube. Will continue with NG tube at this current time VS, I&O, 24H, Fishbone Vital Signs/I&O Vital Signs Date Time Temp Pulse Resp B/P (MAP) Pulse Ox O2 Delivery O2 Flow Rate FiO2 12/29/19 12:00 2.0 12/29/19 12:00 98.0 86 21 149/76 (100) 96 Nasal Cannula 12/28/19 04:30 28 I&O- Last 24 Hours up to 6 AM 12/29/19 06:00 Intake Total 2000 ml Output Total 815 ml Balance 1185 ml Laboratory Data 24H LABS Laboratory Tests 2 12/28/19 20:30: Bedside Glucose (Misc Panel) 111 12/28/19 22:05: Anion Gap 6L, Glomerular Filtration Rate > 60.0, Calcium Level 8.3L 12/29/19 05:22: Anion Gap 4L, Glomerular Filtration Rate > 60.0, Calcium Level 8.5L, Neutrophils (%) (Auto) , Nucleated Red Blood Cells % (auto) 0.0, Neutrophils 69H, Lymphocytes (Manual) 20, Monocytes (Manual) 5, Eosinophils (Manual) 3, Atypical Lymphocytes 3, Anisocytosis 1+, Platelet Estimate DECREASED, Blood Gas Bicarbonate Standard 26.0, Arterial Blood pH 7.473H, Arterial Blood Partial Pressure CO2 35.4, Arterial Blood Partial Pressure O2 82.4, Arterial Blood Total CO2 26.4, Arterial Blood HCO3 25.4, Arterial Blood Base Excess 1.7, Arterial Blood Oxygen Saturation 96.1 12/29/19 05:29: Bedside Glucose (Misc Panel) 100 12/29/19 12:09: Anion Gap 3L, Glomerular Filtration Rate > 60.0, Calcium Level 8.4L 12/29/19 12:13: Bedside Glucose (Misc Panel) 88 CBC/BMP Laboratory Tests 12/28/19 22:05 12/29/19 05:22 12/29/19 12:09 Microbiology Microbiology 12/24/19 Gram Stain - Final, Complete 12/24/19 Sputum Culture - Final, Complete Yeast Like Organism 12/24/19 Blood Culture - Preliminary, Resulted No Growth after 72 hours. All specime... 12/24/19 Blood Culture - Final, Complete NO GROWTH AFTER 5 DAYS 12/23/19 Respiratory Virus Panel (PCR) ([facility]) - Final, Complete 12/21/19 Stool Occult Blood ([facility]MA) - Final, Complete 12/21/19 Gram Stain - Final, Complete 12/21/19 Wound Culture - Final, Complete Proteus Mirabilis GME ATTESTATION I have personally evaluated and examined the patient. Discussed with resident/student regarding plan of care and agree with the above assessment and plan. ALEXANDER TRONCOSO DO Dec 29, 2019 14:34 NOELLE FRANCIS MD Dec 29, 2019 18:34
[2019-12-29] MEDS: FLUCONAZOLE 200 MG in IV 1 EA IV SCH (19:50)
[2019-12-30] VITALS (16 sets, daily range): BP systolic 116–176; BP diastolic 57–84; O2SAT 90–98
[2019-12-30] MEDS: PIPERACILLIN/TAZOBACTAM SOD 4.5 GM in D5W MINI-BAG PLUS 50 ML IV SCH ×4 (01:14→18:08)
[2019-12-30] MEDS: LEVOTHYROXINE 12.5MCG PER 1/2 TAB (0.0125MG) PO SCH (05:02)
[2019-12-30 05:13] LABS: HEMATOCRIT 23.3 % (42.0-52.0); HEMOGLOBIN 7.6 g/dl (13.5-17.5); MEAN CORPUSCULAR HEMOGLOBIN 30.4 pg (27.0-33.0); MEAN CORPUSCULAR HGB CONC 32.6 g/dl (32.0-36.5); MEAN CORPUSCULAR VOLUME 93.2 fl (80.0-96.0); PLATELET COUNT, AUTOMATED 121 10^3/uL (150-450); WHITE BLOOD COUNT 6.3 10^3/uL (4.0-10.0)
[2019-12-30 05:36] LABS: BLOOD UREA NITROGEN 15 MG/DL (7-18); CALCIUM LEVEL 8.2 MG/DL (8.8-10.2); CARBON DIOXIDE LEVEL 31 MEQ/L (21-32); CHLORIDE LEVEL 103 MEQ/L (98-107); CREATININE FOR GFR 0.46 MG/DL (0.70-1.30); GLOMERULAR FILTRATION RATE > 60.0 (>49); GLUCOSE, FASTING 108 MG/DL (70-100); POTASSIUM SERUM 3.8 MEQ/L (3.5-5.1); SODIUM LEVEL 139 MEQ/L (136-145)
[2019-12-30] MEDS: SLF 3 ML SYR IV SCH ×6 (06:00→20:32)
[2019-12-30] MEDS: SODIUM CHLORIDE 0.9% INJ 10 ML SYR IV SCH ×2 (06:00→13:28)
[2019-12-30] MEDS: HumaLOG INSULIN (NovoLOG) PER UNIT SC SCH ×4 (06:00→18:10)
[2019-12-30 06:17] LABS: ANISOCYTOSIS 1+; ATYPICAL LYMPH 1 % (0-5); BASOPHILS 1 % (0-1); EOSINOPHILS 4 % (0-3); LYMPHOCYTES 18 % (16-44); MONOCYTES 5 % (0-5); NEUTROPHILS 71 % (28-66); PLATELET ESTIMATE DECREASED (NORMAL)
[2019-12-30] MEDS: IPRATROPIUM 0.5MG/ALBUTEROL 2.5MG INH SOL UD 3ML (DUONEB) NEB SCH ×4 (07:30→20:05)
--- NOTE | 2019-12-30 08:01 | REP ---
Portable chest x-ray: Single view. History: Respiratory failure. Comparison chest x-ray: December 29, 2019. Findings: Monitoring electrodes are seen. A nasogastric tube enters left upper quadrant. Left internal jugular central venous line is again noted in place unchanged. There are extensive bilateral infiltrates. There is evidence of bilateral pleural effusion left larger than right. The left pleural effusion may be somewhat increased today. Electronically Signed by Oscar Landers MD 12/30/2019 07:52 A
[2019-12-30] MEDS: ENOXAPARIN 30MG/0.3ML SYRINGE (J1650 PER 10MG) SC SCH (09:29)
[2019-12-30] MEDS: FOLIC ACID 1 MG TAB PO SCH (09:29)
[2019-12-30] MEDS: PANTOPRAZOLE 40MG VIAL (C9113 PER 1) IV SCH (09:30)
[2019-12-30] MEDS: THIAMINE 100 MG TAB PO SCH (09:30)
[2019-12-30] MEDS: BLISTEX OINTMENT TOP SCH ×3 (09:30→20:35)
[2019-12-30] MEDS: VANICREAM MOISTURIZING SKIN CREAM 113GM TUBE TOP SCH ×2 (09:31→20:35)
[2019-12-30] MEDS: FUROSEMIDE 20 MG TAB PO SCH (09:33)
[2019-12-30] MEDS: POTASSIUM CHLORIDE 10% LIQ 20 MEQ/15 ML UDC PO SCH (09:33)
--- NOTE | 2019-12-30 10:43 | IPNPDOC ---
Date Seen The patient was seen on 12/30/19. Progress Note SUBJECTIVE: Patient was seen and examined this morning. There have been no adverse events reported overnight. He has had repeated chest x-rays which have demonstrated worsening of his pleural effusion and infiltrates. He likely has continued to aspirate respiratory secretions. He remains with NG tube in place and has been made DNR/DNI. Patient himself has no complaints OBJECTIVE PHYSICAL EXAMINATION: VITAL SIGNS: Please see below. GENERAL: Awake and alert. Answers questions appropriately at times. Appears in no acute distress. Lying in bed comfortably. Cachetic appearing HEENT: Atraumatic, normocephalic. Eyes are nonicteric. Trachea is midline. Left central jugular venous catheter in position. Nasal cannula in place. Poor dentition. Gargled speech CARDIOVASCULAR: Normal S1, S2. Regular rate and rhythm. No clicks, rubs, or murmurs. RESPIRATORY: bronchial breath sounds. Weak cough. Diminished breath sounds in the bases. ABDOMINAL: Soft, nondistended. Nontender. No rebound tenderness or guarding. Normoactive bowel sounds EXTREMITIES: No edema. Full and equal pulses in bilateral upper and lower extremities NEUROLOGICAL: No focal neurological deficits. Baseline cognitive dysfunction PSYCHOLOGICAL: Mood and affect appropriate LABORATORY DATA, IMAGING STUDIES, MICROBIOLOGY: Please see below. DVT prophylaxis ordered?: Lovenox ASSESSMENT AND PLAN: Patient is a 64 year old male who presented to [facility] originally with altered mental status secondary to alcohol use. He was in the ICU at the time and clinically made improvement. He was transferred to PCU and eventually Med/Surg. The patient has a history of aspiration and was evaluated by speech therapy. The patient has been noted to have copious secretions. The patient himself had been suctioning himself while in the hospital. He was noted to aspirate on December 23 and started on Zosyn. The patient subsequently develop ed respiratory distress due to aspiration of respiratory secretions. He was noted to develop septic shock and was transferred to ICU where he was intubated and mechanically ventilated. He has since self-extubated and is continued on nasal cannula. Patients code status was updated to DNR/DNI yesterday. This morning his chest x-ray demonstrates worsening pulmonary infiltrates PROBLEMS: 2. Acute Hypoxemic Respiratory Failure secondary to aspiration -Patient is continued on nasal cannula. Chest X-ray this morning appears to demonstrate worsening infiltrates likely from additional aspiration events. The patient has a weak cough reflex likely from chronic long standing alcohol abuse. -Currently on Zosyn and Fluconazole. Will continue to complete course. -Patient is currently DNR/DNI -Chest x-ray demonstrates worsening which is likely from repeated aspiration of respiratory secretions. He will complete therapy for his previous aspiration event however will likely develop subsequent aspiration pneumonias and require additional antibiotics. At this time he is DNR/DNI and therefore treatment methods would include everything short of reintubation. Regarding aspiration decision has not been made for placement of a PEG/PEJ tube yet however this will not stop aspiration of respiratory secretions -Continuous pulse oximetry -Lasix 20 PO with Potassium 40 daily 2. Metabolic Encephalopathy 2/2 sepsis -Patient had metabolic encephalopathy which was likely 2/2 to sepsis. He has improved to his baseline. He has a baseline cognitive dysfunction which is likely related to his longstanding alcohol use. -Continue with Thiamine, Multivitamin, Folic acid 3. Severe Protein Calorie Malnutrition -Patient has severe protein calorie malnutrition. Patient is a long standing alcoholic. At this point he is NPO due to aspiration. NG tube is in place and he is receiving tube feedings. For asset protection representative care he will likely need a J-tube versus PEG. However neither will prevent aspiration of respiratory secretions. -NG tube placed -Continue tube feedings per recommendations of dietary 4. Hypothyroidism -Continued on levothyroxine 5. GI prophylaxis -Protonix 6. DVT Prophylaxis -Lovenox DISPOSITION: Patient is currently DNR/DNI per discussions with the patients sister. Overall skilled nursing prognosis is guarded. He will continue to aspirate respiratory secretions regardless of NG tube or PEJ tube placement. If patients respiratory status does improve then he will need PEJ tube placement for skilled nursing feeding tube. Will continue with NG tube at this current time. Overall skilled nursing prognosis is poor and anticipate revisiting goals of care in near future for consideration of PHOTOCOPY OPERATOR status VS, I&O, 24H, Fishbone Vital Signs/I&O Vital Signs Date Time Temp Pulse Resp B/P (MAP) Pulse Ox O2 Delivery O2 Flow Rate FiO2 12/30/19 06:00 85 145/60 (88) 92 Nasal Cannula 2.0 12/30/19 04:00 99.0 12/30/19 00:00 20 12/28/19 04:30 28 I&O- Last 24 Hours up to 6 AM 12/30/19 06:00 Intake Total 2340 ml Output Total 4800 ml Balance -2460 ml Laboratory Data 24H LABS Laboratory Tests 2 12/29/19 12:09: Anion Gap 3L, Glomerular Filtration Rate > 60.0, Calcium Level 8.4L 12/29/19 12:13: Bedside Glucose (Misc Panel) 88 12/29/19 17:41: Bedside Glucose (Misc Panel) 86 12/29/19 23:41: Bedside Glucose (Misc Panel) 114 12/30/19 04:57: Neutrophils (%) (Auto) , Nucleated Red Blood Cells % (auto) 0.0, Neutrophils 71H , Lymphocytes (Manual) 18, Monocytes (Manual) 5, Eosinophils (Manual) 4H, Basophils (Manual) 1, Atypical Lymphocytes 1, Anisocytosis 1+, Platelet Estimate DECREASED, Anion Gap 5L, Glomerular Filtration Rate > 60.0, Calcium Level 8.2L CBC/BMP Laboratory Tests 12/29/19 12:09 12/30/19 04:57 Microbiology Microbiology 12/24/19 Gram Stain - Final, Complete 12/24/19 Sputum Culture - Final, Complete Yeast Like Organism 12/24/19 Blood Culture - Final, Complete NO GROWTH AFTER 5 DAYS 12/24/19 Blood Culture - Final, Complete NO GROWTH AFTER 5 DAYS 12/23/19 Respiratory Virus Panel (PCR) ([facility]) - Final, Complete 12/21/19 Stool Occult Blood ([facility]MA) - Final, Complete 12/21/19 Gram Stain - Final, Complete 12/21/19 Wound Culture - Final, Complete Proteus Mirabilis GME ATTESTATION I have personally evaluated and examined the patient. Discussed with resident/ student regarding plan of care and agree with the above assessment and plan. ALEXANDER TRONCOSO DO Dec 30, 2019 10:43 NOELLE FRANCIS MD Dec 30, 2019 18:12
--- NOTE | 2019-12-30 12:10 | CCN ---
DATE: 12/30/2019 The patient was seen and examined this morning during bedside rounds. This morning the patient was noted to have more episodes of confusion as well as some mild agitation. He has been pulling and tugging on some of his lines this morning. He has not had any fevers overnight. The patient does continue to have audible gurgling sounds noted in his upper airways. PHYSICAL EXAMINATION: Temperature 99, pulse 85, respirations 20, blood pressure 145/60, oxygen saturation 92% on 2 liters nasal cannula. In: 2.2. liters, out: 4.3 liters, -2.1 liters. GENERAL: The patient is awake and alert. He appears more disoriented today and somewhat more agitated. He is a redirectable currently. HEENT: Normocephalic, atraumatic. The patient has cachexia. Pupils reactive to light bilaterally. He has poor oral and dental hygiene. NECK: Supple. Trachea is midline. There is no palpable adenopathy. No jugular venous distention (JVD). There is an nasogastric (NG) tube in place. CARDIAC: Regular rate and rhythm. Normal S1, S2. Unable to clearly appreciate murmurs. PULMONARY: The patient has coarse respiratory sounds with occasional rhonchi and coarse wheeze. There are diminished breath sounds in the left base. ABDOMEN: Soft, nontender, nondistended. No masses palpated. EXTREMITIES: There is trace pitting lower extremity edema in the lower extremities with chronic venous stasis skin changes as well as multiple areas of scabbing and excoriation in the skin. LABORATORY DATA: WBC 6.5, hemoglobin 7.6, platelets are 121. Chemistry: Sodium is 139, potassium 3.8, chloride is 103, bicarbonate 31, BUN 15, creatinine 0.40, glucose 108. IMAGING: Chest x-ray this morning shows bilateral diffuse infiltrates and opacities. There are bilateral pleural effusions, left greater than right. There is a left internal jugular (IJ) triple lumen in place. ASSESSMENT AND PLAN: Mr. Avila is a 64-year-old male with a past medical history of chronic alcohol abuse, who initially presented with metabolic encephalopathy, thought to be secondary to alcohol withdrawal as well as in the setting of a possible nutritional deficiency with his chronic alcohol use. During his admission, patient has had difficulty with swallowing and managing his oral secretions with failure of three evaluations by speech and swallow as well as a fiberoptic endoscopic evaluation of swallowing (FEES) study, which he failed. The patient was then noted to have worsening opacities on chest x-ray, suspicious for an aspiration pneumonia. On 12/24/2019, the patient was lethargic and hypotensive. He required emergent intubation for airway protection as well as for his hypoxemic respiratory failure in the setting of aspiration pneumonia. The patient also had septic shock initially, requiring vasopressor support. The patient accidentally self-extubated on 12/28/2019, and he was able to be weaned to nasal cannula oxygen. Post extubation, however, the patient continued to have difficulty managing his oral secretions with very weak cough and audible upper airway gurgling sounds. His imaging also has shown progression in the bilateral opacities, suggesting continuous aspiration. - After a discussion with the patient's sister about goals of care, particularly with his issues of swallowing and managing oral secretions and his prior intubation, the decision was made for the patient to be a DO NOT RESUSCITATE/DO NOT INTUBATE. - The patient's sister has considered comfort measures; however, she states at this time she would like to continue with antibiotics and other medical interventions as needed with consideration of comfort measures if it appears he is clinically deteriorating and declining. She also states if the patient ends up pulling out his NG tube, that she would likely not want it replaced and would likely consider comfort measures only at that time as well. - The patient does appear to be some a more agitated today and delirious. He will be placed on a one-to-one for a sitter for monitoring. - Will continue with aspiration precautions with head of bed elevation and suctioning as needed. The patient is to be kept on strict nothing by mouth still. - The patient is on NG-tube feeds currently, which he has been tolerating. - Will continue nasal cannula oxygen supplementation to maintain oxygen saturation above 90%. - The patient was given Lasix yesterday for his bilateral pleural effusions, and he has been net negative 2 liters. His x-ray today, however, continues to show persistent effusions. Will start him on Lasix 20 mg by mouth with potassium supplementation. - The patient is on Zosyn for broad-spectrum antibiotics for his aspiration pneumonia. He is also on fluconazole, as a previous sputum culture had grown yeast. Would treat for 1 week with antibiotics and then consider discontinuing. Given his ongoing aspiration, however, he is at high risk for recurrent aspiration pneumonia. - Deep vein thrombosis (DVT) prophylax with Lovenox. - Will remove left IJ triple lumen. - Gastrointestinal (GI) prophylaxis proton with Protonix. CODE STATUS: DO NOT RESUSCITATE/DO NOT INTUBATE. TOTAL CRITICAL CARE TIME SPENT, NOT INCLUDING PROCEDURES: Approximately 35 minutes. Please do not hesitate to call if any further questions or concerns.
[2019-12-30] MEDS: FLUCONAZOLE 200 MG in IV 1 EA IV SCH (20:33)
[2019-12-31] VITALS (13 sets, daily range): BP systolic 112–144; BP diastolic 57–94; O2SAT 87–94
[2019-12-31] MEDS: PIPERACILLIN/TAZOBACTAM SOD 4.5 GM in D5W MINI-BAG PLUS 50 ML IV SCH ×2 (00:07→06:12)
[2019-12-31] MEDS: LEVOTHYROXINE 12.5MCG PER 1/2 TAB (0.0125MG) PO SCH (04:39)
[2019-12-31] MEDS: SLF 3 ML SYR IV SCH ×6 (05:53→22:58)
[2019-12-31] MEDS: HumaLOG INSULIN (NovoLOG) PER UNIT SC SCH ×4 (05:53→17:54)
[2019-12-31] MEDS ORDERED: ACETAMINOPHEN 650 MG SUPP PR ONE (06:15)
[2019-12-31 06:29] LABS: HEMATOCRIT 23.3 % (42.0-52.0); HEMOGLOBIN 7.8 g/dl (13.5-17.5); MEAN CORPUSCULAR HEMOGLOBIN 30.8 pg (27.0-33.0); MEAN CORPUSCULAR HGB CONC 33.5 g/dl (32.0-36.5); MEAN CORPUSCULAR VOLUME 92.1 fl (80.0-96.0); PLATELET COUNT, AUTOMATED 178 10^3/uL (150-450); RED BLOOD COUNT 2.53 10^6/uL (4.30-6.10); WHITE BLOOD COUNT 7.2 10^3/uL (4.0-10.0)
[2019-12-31 06:48] LABS: BLOOD UREA NITROGEN 15 MG/DL (7-18); CARBON DIOXIDE LEVEL 29 MEQ/L (21-32); CHLORIDE LEVEL 100 MEQ/L (98-107); CREATININE FOR GFR 0.59 MG/DL (0.70-1.30); GLOMERULAR FILTRATION RATE > 60.0 (>49); GLUCOSE, FASTING 82 MG/DL (70-100); POTASSIUM SERUM 3.9 MEQ/L (3.5-5.1); SODIUM LEVEL 136 MEQ/L (136-145)
[2019-12-31 06:51] LABS: EOSINOPHILS 4 % (0-3); LYMPHOCYTES 26 % (16-44); MONOCYTES 2 % (0-5); NEUTROPHILS 68 % (28-66); PLATELET ESTIMATE NORMAL (NORMAL)
[2019-12-31] MEDS: IPRATROPIUM 0.5MG/ALBUTEROL 2.5MG INH SOL UD 3ML (DUONEB) NEB SCH ×4 (07:42→19:46)
[2019-12-31] MEDS: ENOXAPARIN 30MG/0.3ML SYRINGE (J1650 PER 10MG) SC SCH (09:37)
[2019-12-31] MEDS: PANTOPRAZOLE 40MG VIAL (C9113 PER 1) IV SCH (09:37)
[2019-12-31] MEDS: THIAMINE 100 MG TAB PO SCH (09:39)
[2019-12-31] MEDS: FUROSEMIDE 20 MG TAB PO SCH (09:39)
[2019-12-31] MEDS: POTASSIUM CHLORIDE 10% LIQ 20 MEQ/15 ML UDC PO SCH (09:39)
[2019-12-31] MEDS: FOLIC ACID 1 MG TAB PO SCH (09:40)
[2019-12-31] MEDS: BLISTEX OINTMENT TOP SCH ×3 (09:41→21:00)
[2019-12-31] MEDS: VANICREAM MOISTURIZING SKIN CREAM 113GM TUBE TOP SCH ×2 (09:42→21:00)
[2019-12-31] MEDS ORDERED: SCOPOLAMINE 1MG TRANSDERMAL PATCH TOP PRN (16:30)
[2019-12-31] MEDS: LORazepam 2 MG/ML VIAL IV PRN (16:54)
--- NOTE | 2019-12-31 17:37 | IPNPDOC ---
Date Seen The patient was seen on 12/31/19. Progress Note SUBJECTIVE: Patient was seen and examined this morning. He is currently requiring increasing levels of supplemental oxygen which is due to recurrent aspiration of respiratory secretions. Additionally, patient has been noted to be more confused last night and into today. The patients sister has been contacted in regards to patients declining status. It has been explained to the patients sister that the patient continues to aspirate respiratory secretions. He has a very weak cough which is likely related to chronic alcohol use. Currently he is DNR/DNI. The patients sister had expressed that having a tracheostomy placed is not something that the patient would like. However, given the patients recurrent aspiration and worsening of respiratory function, Comfort Measures only care was discussed with the patients sister. Decision was made for the patient to be comfort measures only. OBJECTIVE PHYSICAL EXAMINATION: VITAL SIGNS: Please see below. GENERAL: Appears slightly agitated. Hallucinating in room. Cachetic appearing HEENT: Atraumatic, normocephalic. Eyes are nonicteric. Trachea is midline. Left central jugular venous catheter in position. Nasal cannula in place. Poor dentition. Gargled speech CARDIOVASCULAR: Normal S1, S2. Regular rate and rhythm. No clicks, rubs, or murmurs. RESPIRATORY: bronchial and rhoncorous breath sounds. Decreased in the bases Weak cough. Diminished breath sounds in the bases. ABDOMINAL: Soft, nondistended. Nontender. No rebound tenderness or guarding. Normoactive bowel sounds EXTREMITIES: No edema. Full and equal pulses in bilateral upper and lower extremities NEUROLOGICAL: No focal neurological deficits. Baseline cognitive dysfunction. H allucinations PSYCHOLOGICAL: Mood and affect appropriate LABORATORY DATA, IMAGING STUDIES, MICROBIOLOGY: Please see below. ASSESSMENT AND PLAN: Patient is a 64 year old male who presented to [facility] originally with altered mental status secondary to alcohol use. He was in the ICU at the time and clinically made improvement. He was transferred to PCU and eventually Med/Surg. The patient has a history of aspiration and was evaluated by speech therapy. The patient has been noted to have copious secretions. The patient himself had been suctioning himself while in the hospital. He was noted to aspirate on December 23 and started on Zosyn. The patient subsequently developed respiratory distress due to aspiration of respiratory secretions. He was noted to develop septic shock and was transferred to ICU where he was intubated and mechanically ventilated. He has since self-extubated and is cont inued on nasal cannula. Patient has been made DNR/DNI. His condition has continued to decline and patients care goals were discussed with his sister. Decision was made to make the patient Comfort Measures Only. PROBLEMS: 1. Comfort Measures Only -Patient has been made comfort measure only care after discussion with the patients sister. Will discontinue all life sustaining measures. Goals of care will be targeted toward comfort care VS, I&O, 24H, Fishbone Vital Signs/I&O Vital Signs Date Time Temp Pulse Resp B/P (MAP) Pulse Ox O2 Delivery O2 Flow Rate FiO2 12/31/19 16:00 97.9 79 22 144/74 (97) 99 Nasal Cannula 5.0 12/28/19 04:30 28 I&O- Last 24 Hours up to 6 AM 12/31/19 06:00 Intake Total 940 ml Output Total 3600 ml Balance -2660 ml Laboratory Data 24H LABS Laboratory Tests 2 12/30/19 23:59: Bedside Glucose (Misc Panel) 105 12/31/19 05:52: Bedside Glucose (Misc Panel) 88 12/31/19 05:53: Neutrophils (%) (Auto) , Nucleated Red Blood Cells % (auto) 0.0, Neutrophils 68H, Lymphocytes (Manual) 26, Monocytes (Manual) 2, Eosinophils (Manual) 4H, Red Blood Cell Morphology NORMAL, Platelet Estimate NORMAL, Anion Gap 7L, Glomerular Filtration Rate > 60.0, Calcium Level 8.0L CBC/BMP Laboratory Tests 12/31/19 05:53 Microbiology Microbiology 12/24/19 Gram Stain - Final, Complete 12/24/19 Sputum Culture - Final, Complete Yeast Like Organism 12/24/19 Blood Culture - Final, Complete NO GROWTH AFTER 5 DAYS 12/24/19 Blood Culture - Final, Complete NO GROWTH AFTER 5 DAYS 12/23/19 Respiratory Virus Panel (PCR) ([facility]) - Final, Complete 12/21/19 Stool Occult Blood ([facility]) - Final, Complete 12/21/19 Gram Stain - Final, Complete 12/21/19 Wound Culture - Final, Complete Proteus Mirabilis GME ATTESTATION I have personally evaluated and examined the patient. Discussed with resident/student regarding plan of care and agree with the above assessment and plan. ALEXANDER TRONCOSO DO Dec 31, 2019 17:37 NOELLE FRANCIS MD Jan 01, 2020 08:16
[2019-12-31] MEDS: LEVEMIR (INSULIN DETEMIR) 1 UNITS/0.01ML SC SCH (21:00)
[2020-01-01] MEDS: LEVOTHYROXINE 12.5MCG PER 1/2 TAB (0.0125MG) PO SCH (05:21)
[2020-01-01] MEDS: SLF 3 ML SYR IV SCH ×6 (05:22→22:00)
[2020-01-01] MEDS: IPRATROPIUM 0.5MG/ALBUTEROL 2.5MG INH SOL UD 3ML (DUONEB) NEB SCH ×4 (07:23→20:10)
[2020-01-01] MEDS: VANICREAM MOISTURIZING SKIN CREAM 113GM TUBE TOP SCH ×2 (09:00→21:00)
[2020-01-01] MEDS: POTASSIUM CHLORIDE 10% LIQ 20 MEQ/15 ML UDC PO SCH (09:00)
[2020-01-01] MEDS: LORazepam 2 MG/ML VIAL IV PRN ×2 (09:04→11:38)
[2020-01-01] MEDS: PANTOPRAZOLE 40MG VIAL (C9113 PER 1) IV SCH (09:04)
[2020-01-01] MEDS: BLISTEX OINTMENT TOP SCH ×3 (09:05→21:00)
--- NOTE | 2020-01-01 11:25 | IPNPDOC ---
Date Seen The patient was seen on 01/01/20. Progress Note SUBJECTIVE: Patient was seen this morning. He currently has been made comfort measures only yesterday. All life sustaining medications have been discontinued. His NG tube has been removed and he has been started on a regular diet. Patient does appear comfortable. He has no complaints at this time OBJECTIVE PHYSICAL EXAMINATION: VITAL SIGNS: Please see below. GENERAL: Appears slightly agitated. Hallucinating in room. Cachetic appearing HEENT: Atraumatic, normocephalic. Eyes are nonicteric. Trachea is midline. Nasal cannula in place. Poor dentition. CARDIOVASCULAR: Normal S1, S2. Regular rate and rhythm. No clicks, rubs, or murmurs. RESPIRATORY: bronchial and rhoncorous breath sounds. Decreased in the bases. Weak cough. Diminished breath sounds in the bases. ABDOMINAL: Soft, nondistended. Nontender. No rebound tenderness or guarding. Normoactive bowel sounds EXTREMITIES: No edema. Full and equal pulses in bilateral upper and lower extremities NEUROLOGICAL: No focal neurological deficits. Baseline cognitive dysfunction. Hallucinations PSYCHOLOGICAL: Mood and affect appropriate LABORATORY DATA, IMAGING STUDIES, MICROBIOLOGY: Please see below. ASSESSMENT AND PLAN: Patient is a 64 year old male who presented to [facility] originally with altered mental status secondary to alcohol use. He was in the ICU at the time and clinically made improvement. He was transferred to PCU and eventually Med/Surg. The patient has a history of aspiration and was evaluated by speech therapy. The patient has been noted to have copious secretions. The patient himself had been suctioning himself while in the hospital. He was noted to aspirate on December 23 and started on Zosyn. The patient subsequently developed respiratory distress due to aspiration of respiratory secretions. He was noted to develop septic shock and was transferred to ICU where he was intubated and mechanically ventilated. He has since self-extubated and is continued on nasal cannula. Patient has been made DNR/DNI. His condition has continued to decline and patients care goals were discussed with his sister. Decision was made to make the patient Comfort Measures Only. Patient is continued on Comfort only care. He does appear comfortable at this time PROBLEMS: 1. 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 This morning the patient appears comfortable. He has no complaints. His NG tube was removed. He is on a regular diet. -All life sustaining medications have been discontinued. Vital signs, labs, and imaging discontinued 2. : . 3. : . DISPOSITION: . VS, I&O, 24H, Fishbone Vital Signs/I&O Vital Signs Date Time Temp Pulse Resp B/P (MAP) Pulse Ox O2 Delivery O2 Flow Rate FiO2 01/01/20 08:45 5.0 12/31/19 16:00 97.9 79 22 144/74 (97) 99 Nasal Cannula 12/28/19 04:30 28 I&O- Last 24 Hours up to 6 AM 01/01/20 06:00 Intake Total 0 ml Output Total 2350 ml Balance -2350 ml Laboratory Data 24H LABS Laboratory Tests 2 12/31/19 20:49: Bedside Glucose (Misc Panel) 78L Microbiology Microbiology 12/24/19 Gram Stain - Final, Complete 12/24/19 Sputum Culture - Final, Complete Yeast Like Organism 12/24/19 Blood Culture - Final, Complete NO GROWTH AFTER 5 DAYS 12/24/19 Blood Culture - Final, Complete NO GROWTH AFTER 5 DAYS 12/23/19 Respiratory Virus Panel (PCR) (NORMA) - Final, Complete GME ATTESTATION I have personally evaluated and examined the patient. Discussed with resident/student regarding plan of care and agree with the above assessment and plan. ALEXANDER TRONCOSO DO Jan 01, 2020 11:24 NOELLE FRANCIS MD Jan 01, 2020 16:06
[2020-01-02] MEDS: LEVOTHYROXINE 12.5MCG PER 1/2 TAB (0.0125MG) PO SCH (05:12)
[2020-01-02] MEDS: SLF 3 ML SYR IV SCH ×6 (06:00→21:25)
[2020-01-02] MEDS: IPRATROPIUM 0.5MG/ALBUTEROL 2.5MG INH SOL UD 3ML (DUONEB) NEB SCH ×4 (07:20→20:02)
[2020-01-02] MEDS: BLISTEX OINTMENT TOP SCH ×3 (09:00→20:26)
[2020-01-02] MEDS: PANTOPRAZOLE 40MG VIAL (C9113 PER 1) IV SCH (09:00)
[2020-01-02] MEDS: POTASSIUM CHLORIDE 10% LIQ 20 MEQ/15 ML UDC PO SCH (09:00)
[2020-01-02] MEDS: VANICREAM MOISTURIZING SKIN CREAM 113GM TUBE TOP SCH ×2 (09:00→20:27)
[2020-01-03] MEDS: LEVOTHYROXINE 12.5MCG PER 1/2 TAB (0.0125MG) PO SCH (05:29)
[2020-01-03] MEDS: SLF 3 ML SYR IV SCH ×3 (05:30→22:11)
[2020-01-03] MEDS: IPRATROPIUM 0.5MG/ALBUTEROL 2.5MG INH SOL UD 3ML (DUONEB) NEB SCH ×4 (07:29→19:41)
[2020-01-03] MEDS: BLISTEX OINTMENT TOP SCH ×3 (08:06→22:11)
[2020-01-03] MEDS: PANTOPRAZOLE 40MG VIAL (C9113 PER 1) IV SCH (08:09)
[2020-01-03] MEDS: POTASSIUM CHLORIDE 10% LIQ 20 MEQ/15 ML UDC PO SCH (08:09)
--- NOTE | 2020-01-03 08:28 | IPNPDOC ---
Subjective Date Seen The patient was seen on 01/03/20. Subjective Chief Complaint/HPI Mr. Avila remains DEMAND PLANNER. He is comfortable and alert per nursing. I spoke with the patient and confirmed the same. He reports that we are "doing pretty well by [him]" and voices no complaints. Nursing questioned if he needs to be on the IV PPI still. Constitutional: Denies: Chills, Fever Pulmonary: Denies: Dyspnea, Cough Cardiovascular: Denies: Chest Pain, Palpitations Gastrointestinal: Denies: Nausea Genitourinary: Denies: Dysuria Objective Physical Examination General Exam: Positive: Alert (sitting up in his bed with the head of the bed elevated watching TV when I entered the room.), Cooperative, No Acute Distress ENT Exam: Positive: Atraumatic Extremity Exam: Negative: Edema Psych Exam: Positive: Oriented x 3 (initially he commented on the fact that "these apartments had been turned into hospital rooms." but was able to tell me that we were in [facility].) Assessment /Plan Problems (1) Comfort measures only status Discussed With: Nurse, Patient Problem Specific Plan: Monitor Clinically Problem Text: He is DEMAND PLANNER and looks comfortable. I do believe that he needs the IV Protonix still; he is likely to have an uncomfortable gastritis without this due to his underlying conditions. While I believe that he will likely in the next 6 months, I am not certain (based on my one encounter with him) that he is actively dying now. We will need to work with PFS to coordinate Hospice or hospice-style care for him to transition him out of the acute setting. (2) Unspecified foreign body in respiratory tract, part unspecified causing other injury, subsequent encounter Status: Chronic Problem Text: He has a history of recurrent aspiration pneumonitis. From reviewing his chart it looks as if he was quite sick earlier in this admission the patient's sister decided to make him DEMAND PLANNER rather than engage in aggressive interventions like PEG and tracheostomy. The patient affirms these decisions. (3) Metabolic encephalopathy Status: Chronic Response to Treatment: Controlled Problem Specific Plan: Monitor Clinically Problem Text: His encephalopathy is controlled at the present time, but it could always flare up again if he gets just a little unbalanced physiologically. He is stable at this time, monitor. (4) Alcoholism Status: Chronic Problem Text: This is the condition that likely underlies all of these more acute issues and will ultimately lead to his . He is not drinking alcohol at this time. Plan/VTE VTE Prophylaxis Ordered?: No (DEMAND PLANNER) Plan Anticipated Discharge: Hospice Advance Directives: Comfort care VS, I&O, 24H, Fishbone Vital Signs/I&O Vital Signs Date Time Temp Pulse Resp B/P (MAP) Pulse Ox O2 Delivery O2 Flow Rate FiO2 01/02/20 20:02 5.0 12/31/19 16:00 97.9 79 22 144/74 (97) 99 Nasal Cannula 12/28/19 04:30 28 I&O- Last 24 Hours up to 6 AM 01/03/20 05:59 Intake Total 400 ml Output Total 1070 ml Balance -670 ml Laboratory Data Microbiology Microbiology 12/24/19 Gram Stain - Final, Complete 12/24/19 Sputum Culture - Final, Complete Yeast Like Organism 12/24/19 Blood Culture - Final, Complete NO GROWTH AFTER 5 DAYS 12/24/19 Blood Culture - Final, Complete NO GROWTH AFTER 5 DAYS Dave Sheppard MD Jan 03, 2020 08:28
[2020-01-03] MEDS: MORPHINE 10MG/0.5ML ORAL CONCENTRATE SOLUTION U/D SL PRN ×2 (13:06→17:08)
[2020-01-03] MEDS: LORazepam 2 MG/ML VIAL IV PRN (14:48)
[2020-01-03] MEDS: VANICREAM MOISTURIZING SKIN CREAM 113GM TUBE TOP SCH ×2 (14:54→22:11)
[2020-01-04] MEDS: LEVOTHYROXINE 12.5MCG PER 1/2 TAB (0.0125MG) PO SCH (06:44)
[2020-01-04] MEDS: MORPHINE 10MG/0.5ML ORAL CONCENTRATE SOLUTION U/D SL PRN ×3 (06:44→21:27)
[2020-01-04] MEDS: SLF 3 ML SYR IV SCH ×3 (06:44→20:32)
[2020-01-04] MEDS: IPRATROPIUM 0.5MG/ALBUTEROL 2.5MG INH SOL UD 3ML (DUONEB) NEB SCH ×4 (07:35→20:00)
[2020-01-04] MEDS: POTASSIUM CHLORIDE 10% LIQ 20 MEQ/15 ML UDC PO SCH (09:00)
[2020-01-04] MEDS: PANTOPRAZOLE 40MG VIAL (C9113 PER 1) IV SCH (09:08)
[2020-01-04] MEDS: VANICREAM MOISTURIZING SKIN CREAM 113GM TUBE TOP SCH ×2 (09:09→20:32)
[2020-01-04] MEDS: BLISTEX OINTMENT TOP SCH ×3 (09:09→20:32)
[2020-01-04] MEDS: LORazepam 2 MG/ML VIAL IV PRN (20:11)
[2020-01-05] MEDS: MORPHINE 10MG/0.5ML ORAL CONCENTRATE SOLUTION U/D SL PRN ×5 (02:39→17:10)
[2020-01-05] MEDS: LORazepam 2 MG/ML VIAL IV PRN ×5 (02:39→17:10)
[2020-01-05] MEDS: LEVOTHYROXINE 12.5MCG PER 1/2 TAB (0.0125MG) PO SCH (05:27)
[2020-01-05] MEDS: SLF 3 ML SYR IV SCH ×3 (05:27→22:00)
[2020-01-05] MEDS: IPRATROPIUM 0.5MG/ALBUTEROL 2.5MG INH SOL UD 3ML (DUONEB) NEB SCH ×3 (08:00→15:16)
[2020-01-05] MEDS: BLISTEX OINTMENT TOP SCH ×3 (09:00→21:00)
[2020-01-05] MEDS: VANICREAM MOISTURIZING SKIN CREAM 113GM TUBE TOP SCH ×2 (09:00→21:00)
[2020-01-05] MEDS: POTASSIUM CHLORIDE 10% LIQ 20 MEQ/15 ML UDC PO SCH (09:00)
[2020-01-05] MEDS: PANTOPRAZOLE 40MG VIAL (C9113 PER 1) IV SCH (09:43)
[2020-01-05] MEDS ORDERED: MORPHINE SULF IN 0.9% NACL 100 MG in IV 1 EA IV SCH ×4 (13:44→13:45)
[2020-01-05] MEDS: ATROPINE SULFATE 1% OP SOLN 2 ML BTL SL PRN ×2 (14:51→17:10)
--- NOTE | 2020-01-05 18:35 | IPNPDOC ---
Subjective Date Seen The patient was seen on 01/05/20. Subjective Chief Complaint/HPI And patient only appears to be moaning in pain at this point. He does not respond to questioning. His sister is at the bedside, and states that he has been this way essentially all day. General: Reports: ROS Unobtainable Objective Physical Examination Other physical findings Physical exam was not performed as the patient is comfort measures only, and this would not change the plan of his care. 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 He is now only moaning in pain, otherwise he does not respond to questioning at all. His sister is at the bedside. We are already increased his dose of Ativan and Roxanol earlier this morning, neither of which was helpful in alleviating his suffering. After discussion with his sister, we agreed that a morphine drip would be appropriate at this time. I do not anticipate that he will live much longer. VS, I&O, 24H, Fishbone Vital Signs/I&O Vital Signs Date Time Temp Pulse Resp B/P (MAP) Pulse Ox O2 Delivery O2 Flow Rate FiO2 01/05/20 09:00 6.0 01/04/20 13:54 16 Nasal Cannula 12/31/19 16:00 97.9 79 144/74 (97) 99 I&O- Last 24 Hours up to 6 AM 01/05/20 06:00 Intake Total 0 ml Output Total 275 ml Balance -275 ml GAYLA MARC DO Jan 05, 2020 18:35
--- NOTE | 2020-01-06 18:00 | DS.PDOC ---
Discharge Summary General Date of Admission Dec 15, 2019 at 20:54 Date of Discharge 01/05/20 Discharge Summary ATTENDING AT TIME OF : Dr. Gayla Marc, DO DISCHARGE DIAGNOS(E)S: Metabolic encephalopathy Pneumonia, likely aspiration versus pneumonitis UTI Normocytic Anemia secondary to anemia of chronic disease Pancytopenia Hypovolemic shock Anion gap metabolic acidosis, likely starvation ketoacidosis Chronic hyponatremia Hypokalemia Hypomagnesemia Alcohol abuse/alcoholism, with alcohol withdrawal Alcoholic liver disease Chronic hypertension Rosacea Acid reflux Questionable rhabdomyolysis Hypoalbuminemia Questionable Wernicke Korsakoff syndrome Elevated TSH, likely secondary to euthyroid sick syndrome versus subclinical hypothyroidism Secondary hypothermia due to chronic malnutrition Asymptomatic cholelithiasis HPI & HOSPITAL COURSE: Patient is a 64-year-old male who was brought to the [facility] ED via ambulance because his neighbors found him unresponsive in his apartment likely due to alcohol abuse. He was first treated in the ICU, then with improvement was transferred to the PCU, and eventually to [facility]. While there it appears that he had significant amount of secretions, even to the point where he was suctioning himself, it is suspected that he had an aspiration event, developed acute respiratory failure, likely aspiration pneumonia, septic shock, and he was transferred back to the ICU where he was intubated and mechanically ventilated. Over the next few days he did show improvement, and then one night he apparently in advertently self extubated when one of his mittens got caught on the tube. Thereafter he did not require any additional intubation, but did continue to have significant issues with managing his oral secretions, and he did have episodes of confusion. After discussion with the family he was switched from full code to DNR/DNI, and then after further discussion a few days later with family, decision was made to switch the patient over to comfort measures only on 12/31/19. During the evening of 01/04/20 he apparently took a turn for the worse, became more somnolent even a point where he was unresponsive, and appeared to be in a significant amount of pain. Increased doses of Ativan and morphine did not seem to be helping. About midday on 01/05/2020 the decision was made with the family to place the patient on a morphine drip, and he was titrated to comfort. Later that evening he . DISPOSITION: Morgue Discharge Medications Scheduled Doxycycline Hyclate (Doxycycline Hyclate) 100 Mg Tablet, 100 MG PO QPM, (Reported) TAKES FOR ROSACEA, WITH SUPPER Ergocalciferol (Vitamin D2) (Vitamin D2) 50,000 Units Cap, 50,000 UNITS PO 1XWK, (Reported) THURSDAYS Folic Acid (Folic Acid) 1 Mg Tablet, 1 MG PO DAILY, (Reported) Magnesium Oxide (Magnesium Oxide) 400 Mg Tablet, 400 MG PO BID, (Reported) Multivitamin (Tab-A-Zaire) 1 Each Tablet, 1 TAB PO QPM, (Reported) WITH SUPPER Omeprazole (Omeprazole) 20 Mg Tablet.dr, 20 MG PO QPM, (Reported) WITH SUPPER Thiamine HCl (Vitamin B-1) 100 Mg Tablet, 100 MG PO DAILY, (Reported) Allergies Coded Allergies: No Known Allergies (Unverified , 12/18/16) GAYLA MARC DO Jan 06, 2020 18:00
== END 2020-01-05 19:35 | disposition expired | DRG 52 ==
LOC: EDBD 15:38 → M ED 15:38 → ENRESERV 18:20 → M ICU 20:54 → M PCU 12-17 11:44 → M ICU 12-18 07:13 → M PCU 12-19 14:08 → M MSPAV 12-22 16:53 → M PCU 12-24 06:43 → M ICU 12-24 14:01 → M PCU 12-30 11:46 → M MS5PR 12-31 22:49
PROVIDERS: ADMIT Internal Medicine; ATTEND Neuromusculoskeletal Medicine & OMM
PROC: 02HV33Z Insertion of Infusion Device into Superior Vena Cava, Percutaneous Approach (ICD-10-PCS; principal; 2019-12-16)
PROC: 30233N1 Transfusion of Nonautologous Red Blood Cells into Peripheral Vein, Percutaneous Approach (ICD-10-PCS; 2019-12-16)
PROC: 30233J1 Transfusion of Nonautologous Serum Albumin into Peripheral Vein, Percutaneous Approach (ICD-10-PCS; 2019-12-17)
PROC: 0BH17EZ Insertion of Endotracheal Airway into Trachea, Via Natural or Artificial Opening (ICD-10-PCS; 2019-12-24)
PROC: 02HV33Z Insertion of Infusion Device into Superior Vena Cava, Percutaneous Approach (ICD-10-PCS; 2019-12-24)
PROC: 5A1945Z Respiratory Ventilation, 24-96 Consecutive Hours (ICD-10-PCS; 2019-12-24)
DX: G93.41 Metabolic encephalopathy (principal); J96.01 Acute respiratory failure with hypoxia; J69.0 Pneumonitis due to inhalation of food and vomit; A41.9 Sepsis, unspecified organism; R65.21 Severe sepsis with septic shock; E43 Unspecified severe protein-calorie malnutrition; D61.818 Other pancytopenia; R57.1 Hypovolemic shock; R64 Cachexia; E87.2 Acidosis; M62.82 Rhabdomyolysis; D69.59 Other secondary thrombocytopenia; E87.1 Hypo-osmolality and hyponatremia; E83.42 Hypomagnesemia; F10.26 Alcohol dependence with alcohol-induced persisting amnestic disorder; L97.919 Non-pressure chronic ulcer of unspecified part of right lower leg with unspecified severity; K70.10 Alcoholic hepatitis without ascites; Z51.5 Encounter for palliative care; Z66 Do not resuscitate; I10 Essential (primary) hypertension; L71.9 Rosacea, unspecified; K21.9 Gastro-esophageal reflux disease without esophagitis; F10.239 Alcohol dependence with withdrawal, unspecified; E87.6 Hypokalemia; R74.0 Nonspecific elevation of levels of transaminase and lactic acid dehydrogenase [LDH]; R68.0 Hypothermia, not associated with low environmental temperature; D63.8 Anemia in other chronic diseases classified elsewhere; K92.1 Melena; N39.0 Urinary tract infection, site not specified; E02 Subclinical iodine-deficiency hypothyroidism; E07.81 Sick-euthyroid syndrome; T73.0XXA Starvation, initial encounter; Z79.899 Other long term (current) drug therapy; I87.2 Venous insufficiency (chronic) (peripheral); B96.4 Proteus (mirabilis) (morganii) as the cause of diseases classified elsewhere; Z11.59 Encounter for screening for other viral diseases